=== PATIENT | female | born 1960 | race Caucasian/White ===

== ENCOUNTER 2022-03-13 10:32 | Inpatient (IN) | payer OTHER, SELFPAY ==
[2022-03-13] VITALS (14 sets, daily range): BP systolic 103–155; BP diastolic 69–83; PULSE 79–103; RESP 16–25; TEMP 36.4–36.9; O2SAT 88–94; BMI 35.9; BMI 37.4
--- NOTE | 2022-03-13 10:47 | EKG12_ITS ---
Test Reason : UNGUR Blood Pressure : / mmHG Vent. Rate : 081 BPM Atrial Rate : 081 BPM P-R Int : 140 ms QRS Dur : 108 ms QT Int : 410 ms P-R-T Axes : 033 032 082 degrees QTc Int : 476 ms Sinus rhythm with Premature atrial complexes Inferior-posterior infarct , age undetermined Abnormal ECG Confirmed by JESUS TAI, NITESH ([id number]), brands editor VICKI LOZANO ([id number]) on 03/18/2022 12:16:56 PM Referred By: Confirmed By:NITESH LEE MD
--- NOTE | 2022-03-13 10:48 | EDS_ITS ---
HPI History of Present Illness Chief Complaint: Shortness of Breath Detail of Chief Complaint: Shortness of breath x6 days Informant: patient Narrative Narrative: Patient presents the emergency department complaint shortness of breath. Sosa holbrook states that she started feeling poorly about 6 days ago. Patient states initially started with a cough and had fever up to 101 for 2 days. Now complaining of exertional dyspnea. Cough mostly nonproductive but at times bringing up some thick yellow to green sputum. Patient denies any chest pain. Patient quit smoking in 2014. Patient denies recent travel or surgery. Patient has had her COVID-vaccine and 1 booster. She did not get the flu shot this year. Patient does have history of coronary artery disease with prior CABG in 2014. Patient states she also had a hole fixed in her heart at that time. Patient also is diabetic and history of hypertension. [facility] Medical History (Updated 03/13/22 @ 12:[address] Cristina Bunn, DO) Diabetes High cholesterol History of pulmonary embolism Hypertension Home Medications alprazolam 0.5 mg tablet 0.5 mg PO TID PRN Anxiety 03/13/22 [History Last Taken 03/12/22] gabapentin 600 mg tablet 300 - 600 mg PO BID NEUROPATHY 03/13/22 [History Last Taken 03/12/22] glipizide 5 mg tablet, extended release 24 hr 5 mg PO DAILY DM 03/13/22 [History Last Taken 03/12/22] metformin 500 mg tablet 1,000 mg PO BID DM 03/13/22 [History Last Taken 03/13/22] metoprolol tartrate 25 mg tablet 25 mg PO BID HEART 03/13/22 [History Last Taken 03/12/22] pravastatin 40 mg tablet 40 mg PO QHS CHOLESTEROL 03/13/22 [History Last Taken 03/12/22] sertraline 100 mg tablet 100 mg PO DAILY DEPRESSION 03/13/22 [History Last Taken 03/12/22] Allergy/AdvReac Type Severity Reaction Status Date / Time amlodipine Allergy Hives Verified 03/13/22 10:33 cefdinir [From Omnicef] Allergy Hives Verified 03/13/22 10:33 latex Allergy Hives Verified 03/13/22 10:33 Surgical History (Updated 03/13/22 @ 10:59 by Blank Starr) Hx of CABG Social History Smoking Status: Former smoker ROS ROS ED Review of Systems ROS Unobtainable: other Constitutional Constitutional ED: Reports fever(s) and lethargy; Denies chills, sweats or weight loss Eyes Eyes: Denies blurry vision, change in vision or diplopia ENT ENT ED: Denies rhinorrhea or sore throat Cardiovascular Cardiovascular: Denies chest pain, orthopnea or racing heartbeat Respiratory/Chest Respiratory/Chest: Reports cough, dyspnea and dyspnea on exertion; Denies orthopnea or sputum Gastrointestinal Gastrointestinal: Denies abdominal pain, diarrhea, nausea or vomiting Genitourinary Genitourinary ED: Denies dysuria, hematuria or urinary frequency Musculoskeletal Musculoskeletal: Denies arthralgias, back pain, myalgias or neck pain Integumentary Denies abscess, Abrasions or rash Neurologic Neurologic: Denies headache(s) or weakness Psychiatric Psychiatric: Denies anxiety, depression or suicidal thoughts Endocrine Endocrinology: Denies polydipsia, polyphagia or polyuria Hematologic/Lymphatic Hematologic/Lymphatic: Denies easy bleeding, easy bruising or lymphadenopathy Allergic/Immunologic Allergic/Immunologic ED: Denies mouth swelling, tongue swelling or urticaria EXAM Physical Exam Const Vital Signs: 03/13/22 10:34 03/13/22 10:57 03/13/22 10:57 Temperature 97.5 F L Temperature Source Temporal Pulse Rate 79 80 Respiratory Rate 22 H 20 H Respiratory Effort Short of Breath Accessory Muscle Use Respiratory Pattern Tachypnea Blood Pressure 155/83 H Blood Pressure Mean 107 Pulse Ox 88 91 Oxygen Delivery Method Room Air Nasal Cannula Nasal Cannula Oxygen Flow Rate (L/min) 3 3 03/13/22 11:00 03/13/22 11:00 03/13/22 11:11 Temperature Temperature Source Pulse Rate 92 Respiratory Rate 21 H 25 H Respiratory Effort Respiratory Pattern Blood Pressure Blood Pressure Mean Pulse Ox 90 Oxygen Delivery Method Nasal Cannula Nasal Cannula Oxygen Flow Rate (L/min) 3.5 4 03/13/22 11:37 03/13/22 11:34 03/13/22 12:34 Temperature 98.5 F 98.2 F Temperature Source Oral Oral Pulse Rate 94 88 Respiratory Rate 20 H 22 H Respiratory Effort Respiratory Pattern Blood Pressure 142/70 H 103/69 Blood Pressure Mean 94 80 Pulse Ox 90 90 90 Oxygen Delivery Method Nasal Cannula Nasal Cannula Nasal Cannula Oxygen Flow Rate (L/min) 4 4 5 Positive well nourished and well developed General Appearance ED: well developed and NAD HEENT Reports TM's clear and moist mucous membranes normocephalic and atraumatic; Negative for trauma or tenderness Tympanic Membrane ED: Yes TM's clear Eyes PERRL and EOMs intact bilaterally General Eye ED: Negative for pale conjunctiva or scleral icterus Neck no lymphadenopathy, supple and no JVD General: Negative for tenderness Chest Wall inspection of chest normal and palpation of chest normal Chest: Negative for tenderness Resp Resp Narrative: Patient with some mild tachypnea and some mild conversational dyspnea. No accessory muscle use or retractions. On exam she has slightly diminished breath sounds bilaterally with diffuse expiratory wheezes bilaterally and some coarse rhonchi. No accessory muscle use or retractions noted. Effort and Inspection: Negative for respiratory distress or pain with movement Auscultation: rhonchi, wheezes and diminished lung sounds Cardio regular rate, regular rhythm, S1 normal heart sound, S2 normal heart sound and no murmurs Peripheral Pulses: pulses 2+ throughout GI normal to inspection, nondistended, normoactive bowel sounds, soft to palpation, non-tender, non-distended and no masses Back/Spine no CVA tenderness and no thoracic nor lumbar tenderness Extremity normal to inspection General Extremety ED: Negative for edema General Extremity: Negative for edema Neuro oriented x3, CN's II-XII intact bilaterally, no sensory deficits noted and gait normal Sensorium / Orientation: awake, alert, oriented to person, oriented to place and oriented to time Motor Exam: strength 5/5 throughout and strength abnormal Psych mental status grossly normal Skin no rashes or lesions noted and no wounds MDM MDM MDM Narrative Medical decision making narrative: IV line established on arrival. Patient was placed on nasal cannula O2 as she was hypoxic on arrival. Patient was given DuoNeb aerosols and Solu-Medrol as she was wheezing and suspected that she may have undiagnosed COPD. Given her prior history of PEs and the fact that she is not anticoagulated a D-dimer was obtained which was positive and therefore a CTA of the chest was obtained which did not show any evidence of PE but did show patchy groundglass opacities within the lingula concerning for pneumonia patient also had left lower lobe tree-in-bud opacities which may be secondary to infectious process. Patient's white blood cell count was normal. Chemistries unremarkable. EKG and troponin were unremarkable. In the differential initially were PE versus pneumonia versus COPD exacerbation versus CHF. Based on clinical findings and lab work-up I suspect she has pneumonia with COPD exacerbation. Patient has ongoing hypoxemia. Case discussed with hospitalist who will evaluate patient for admission. Patient was started on Levaquin 750 mg IV. Patient did have negative rapid COVID and rapid flu tests. I did order a COVID PCR test. Lab Data Attestation: I reviewed the patient's lab results. Labs: Laboratory Results - last 24 hr 03/13/22 03/13/22 10:53 10:53 WBC 7.6 RBC 5.09 Hgb 15.2 H Hct 48.7 H MCV 95.7 MCH 29.9 MCHC 31.2 L RDW Std Deviation 48.0 H RDW Coeff of Hcarli 13.5 Plt Count 193 MPV 11.5 Immature Gran % (Auto) 0.500 Neut % (Auto) 52.7 Lymph % (Auto) 32.4 [place] % (Auto) 9.5 Eos % (Auto) 3.7 Baso % (Auto) 1.2 H Absolute Neuts (auto) 4.0 Absolute Lymphs (auto) 2.46 Nucleated RBC % 0 Atypical Lymphocytes 1+ Sodium 139 Potassium 4.0 Chloride 110 H Carbon Dioxide 23.0 Anion Gap 6 BUN 12 Creatinine 0.94 Estim Creat Clear Calc 61.79 Est GFR (MDRD) Af Amer 77 Est GFR (MDRD) Non-Af 64 BUN/Creatinine Ratio 12.7 Glucose 181 H Calcium 8.9 Troponin I High Sens 34 Radiography Diagnostic Testing: Clinical Impression(s) from Imaging Studies Chest X-Ray 03/13/22 11:10 IMPRESSION: Prominent interstitial markings, nonspecific finding may be secondary to edema and/or an infectious process. Indeterminate rounded opacities within the lower lungs may be secondary to focal consolidation, cannot exclude a neoplastic process, recommend chest CT for further characterization. Electronically Signed: Cheryl Gupta MD at 11:31 EST , Chest CTA 03/13/22 11:43 IMPRESSION: No demonstrated pulmonary embolism or arterial dissection. Patchy and groundglass opacities within the lingula concerning for pneumonia. Left lower lobe tree-in-bud opacities, may be secondary to an infectious process. Atherosclerosis. Splenomegaly. Electronically Signed: Cheryl Gupta MD at 12:22 EST , 1 view chest x-ray obtained interpreted by myself as increased markings both lower lobes. Radiology felt there was prominent interstitial markings which may be secondary to edema or infectious process. There were indeterminate round opacities within the lower lungs which may be secondary to focal consolidation and recommended CT scan for further characterization. EKG Initial EKG: Attestation: I personally reviewed and interpreted this EKG as follows: Comments: Sinus rhythm with a rate of 81 bpm with old inferior infarct noted. Discharge Plan Triage Chief Complaint: Shortness of Breath ED Provider: Cristina Bunn Dx/Rx/DC Orders Clinical Impression: Pneumonia, Hypoxemia, History of CAD (coronary artery disease), Reactive airway disease Prescriptions: No Action metformin 500 mg tablet 1,000 mg PO BID Label Comments: TAKE (2) TABLETS BY MOUTHLTWICE DAILY. gabapentin 600 mg tablet 300 - 600 mg PO BID Label Comments: TAKE 1/2 TO 1 TABLET BYCMOUTH TWICE DAILY. pravastatin 40 mg tablet 40 mg PO QHS Label Comments: TAKE (1) TABLET BY MOUTHTDAILY AT BEDTIME. sertraline 100 mg tablet 100 mg PO DAILY Label Comments: TAKE 1 TABLET BY MOUTHDONCE DAILY glipizide 5 mg tablet extended release 24hr 5 mg PO DAILY Label Comments: TAKE 1 TABLET BY MOUTHOONCE DAILY alprazolam 0.5 mg tablet 0.5 mg PO TID PRN (Reason: Anxiety) Label Comments: TAKE 1 TABLET BY MOUTH 3ITIMES DAILY NEEDED. metoprolol tartrate 25 mg tablet 25 mg PO BID Label Comments: TAKE (1) TABLET BY MOUTHTTWICE A DAY. Primary Care Provider: Suhas Arzate Referrals: Suhas Arzate DO [Primary Care Provider] - Disposition Disposition: Acute Care [facility]
--- NOTE | 2022-03-13 10:51 | NURSING ---
NO OLD EKGS
[2022-03-13] MEDS: Albuterol 2.5 MG/3 ML VIAL.NEB. INHALATION ×4 (11:00→15:19)
[2022-03-13] MEDS: Ipratropium/Albuterol Sulfate 3 ML AMPUL.NEB INHALATION ×2 (11:00→20:02)
[2022-03-13] MEDS: MethylPREDNISolone 125 MG/2 ML Vial IV (11:09)
[2022-03-13] MEDS: 0.9% Normal Saline 1,000 ML 150 ML IV (11:09)
--- NOTE | 2022-03-13 11:10 | RAD_ITS ---
INDICATION: dyspnea EXAMINATION/TECHNIQUE: X-RAY - XR Chest 1 View COMPARISON: None. FINDINGS: LINES/DEVICES: None. LUNGS: There are prominent interstitial markings within the mid and lower lungs. Within the right mid/lower lung there is a 4.5 cm rounded opacity. There is an ill-defined rounded opacity projecting over the right cardiac silhouette is well. MEDIASTINUM AND CARDIOVASCULAR STRUCTURES: Cardiac silhouette not enlarged. Central airways and mediastinal contour are unremarkable. BONES AND SOFT TISSUES: Unremarkable. RAD/Chest 1 View (Portable) IMPRESSION: Prominent interstitial markings, nonspecific finding may be secondary to edema and/or an infectious process. Indeterminate rounded opacities within the lower lungs may be secondary to focal consolidation, cannot exclude a neoplastic process, recommend chest CT for further characterization. Electronically Signed: Cheryl Gupta MD at 11:31 EST ,
[2022-03-13 11:24] LABS: Anion Gap 6 (5-15); BUN 12 mg/dL (7-18); BUN/Creat Ratio 12.7 RATIO (10-20); Calcium,Total 8.9 mg/dL (8.5-10.1); Chloride 110 mmol/L (98-107); Creatinine, Serum 0.94 mg/dL (0.55-1.02); EST Glomerular Filtration Rate 64 mL/min (>60); Est Glom Filt Rate - Afr Amer 77 mL/min (>60); Estimated Creatinine Clearance 61.79 ml/min; Glucose 181 mg/dL (74-106); Sodium Level 139 mmol/L (136-145); Troponin-I HS 34 pg/mL (3.0-54.0)
[2022-03-13 11:38] LABS: D-Dimer Quantitative (DVT/PE) 0.82 FEU/ug/m (0.27-0.49)
--- NOTE | 2022-03-13 11:43 | CT_ITS ---
STUDY: CTA CHEST REASON FOR EXAM: Female, 61 years old. Dyspnea, elevated d-dimer RADIATION DOSAGE (If Supplied By Facility): CTDIvol = ( 12.66 ) mGy, DLP = ( 545.39 ) mGycm TECHNIQUE: The examination was performed with the intravenous administration of IV 100mL Isovue-370. Post-processing of the angiographic images was performed, with multiplanar reformation and 3D reconstruction. Individualized dose optimization techniques were used for this CT. COMPARISON: None. FINDINGS: There are nodular, patchy and groundglass opacities within the lingula. There are scattered tree-in-bud opacities within the left lower lobe. There is minimal atelectasis and/or scarring within the right lung base. Normal enhancement of the main pulmonary artery and right and left pulmonary arteries. Normal enhancement of the bilateral peripheral pulmonary arteries. There is no demonstrated pulmonary embolism. Normal thoracic aorta and visualized great vessels. There is no demonstrated aortic dissection. There are calcifications of the coronary arteries. Normal mediastinum. Normal hilar regions. Normal visualized trachea and bronchi. Normal chest wall structures. There are degenerative changes of the thoracic spine. There is a deformity within the manubrium and sternum consistent with an old injury. The limited images of the upper abdomen demonstrate splenomegaly. CT/CTA Chest W/WO Contrast IMPRESSION: No demonstrated pulmonary embolism or arterial dissection. Patchy and groundglass opacities within the lingula concerning for pneumonia. Left lower lobe tree-in-bud opacities, may be secondary to an infectious process. Atherosclerosis. Splenomegaly. Electronically Signed: Cheryl Gupta MD at 12:22 EST ,
[2022-03-13 11:58] LABS: Absolute Lymphocyte Count 2.46 X10^3/uL (0.83-4.51); Basophil# 0.09 X10^3/uL; Basophil% 1.2 % (0-1); Eosinophil# 0.28 X10^3/uL; Eosinophils% 3.7 % (0-5); Hematocrit 48.7 % (37-47); Hemoglobin 15.2 g/dL (12.0-15.0); Lymphocyte # 2.46 X10^3/ul (0.83-4.51); Lymphocyte % 32.4 % (19-41); Mean Corp Hgb Conc 31.2 g/dL (32-36); Mean Corpuscular Hgb 29.9 pg (27.0-32.0); Mean Corpuscular Volume 95.7 fL (81-99); Mean Platelet Vol. 11.5 fl (6.2-12.0); Monocyte# 0.72 X10^3/uL; Monocyte% 9.5 % (0-10); NRBC Flagged by Analyzer 0 % (0-5); Neutrophil # 4.01 X10^3/uL (2.7-7.7); Neutrophil % 52.7 % (47-70); POSITIVE MORPHOLOGY YES; Platelet Count 193 K/mm3 (150-450); RBC Distribution Width CV 13.5 % (11.6-14.6); Red Blood Count 5.09 M/mm3 (4.2-5.4); White Blood Count 7.6 K/mm3 (4.4-11.0)
[2022-03-13 11:59] LABS: Differential Indicated SCAN CRITERIA MET
[2022-03-13 12:27] LABS: Atypical Lymphocyte 1+ %
--- NOTE | 2022-03-13 12:42 | PCM.HP.STD ---
HPI - General General Date of Admission: 03/13/22 Date of Service: 03/13/22 Chief Complaint: Shortness of breath HPI Narrative MONTEZ GOMEZ, is a 61 F with past medical history significant for coronary artery disease with previous CABG, diabetes mellitus type 2 who presented with shortness of breath. Patient symptoms started a week prior to her admission. Has since noticed progressive worsening of her shortness of breath. She also did complain of significant fatigue. She did experience subjective fever as well as chills as well as cough and wheezing. Presented to the emergency department due to worsening symptoms. Imaging studies obtained in the ED did show Patchy and groundglass opacities within the lingula concerning for pneumonia. Left lower lobe tree-in-bud opacities, may be secondary to an infectious process. Patient started on broad-spectrum antibiotic therapy admitted to regular nursing floor for further management [facility] Medical History Diabetes High cholesterol History of pulmonary embolism Hypertension Home Medications alprazolam 0.5 mg tablet 0.5 mg PO TID PRN Anxiety 03/13/22 [History Last Taken 03/12/22] gabapentin 600 mg tablet 300 - 600 mg PO BID NEUROPATHY 03/13/22 [History Last Taken 03/12/22] glipizide 5 mg tablet, extended release 24 hr 5 mg PO DAILY DM 03/13/22 [History Last Taken 03/12/22] metformin 500 mg tablet 1,000 mg PO BID DM 03/13/22 [History Last Taken 03/13/22] metoprolol tartrate 25 mg tablet 25 mg PO BID HEART 03/13/22 [History Last Taken 03/12/22] pravastatin 40 mg tablet 40 mg PO QHS CHOLESTEROL 03/13/22 [History Last Taken 03/12/22] sertraline 100 mg tablet 100 mg PO DAILY DEPRESSION 03/13/22 [History Last Taken 03/12/22] Allergy/AdvReac Type Severity Reaction Status Date / Time amlodipine Allergy Hives Verified 03/13/22 10:33 cefdinir [From Omnicef] Allergy Hives Verified 03/13/22 10:33 latex Allergy Hives Verified 03/13/22 10:33 Family History (Updated 03/13/22 @ 13:[address] Jared Chung MD) Brother COPD (chronic obstructive pulmonary disease) Surgical History (Updated 03/13/22 @ 10:59 by Blank Starr) Hx of CABG Social History Smoking Status: Former smoker ROS ROS Narrative GENERAL: fever, chills, HEENT: denies headache, sinus congestion, or drainage, dysphagia RESPIRATORY: cough, sputum production, shortness of breath, dyspnea on exertion CARDIAC: denies chest pain, palpitations, orthopnea, PND GASTROINTESTINAL: denies abdominal pain, nausea, vomiting, GENITOURINARY: denies dysuria, urgency, frequency, heamaturia EXTREMITY: denies swelling MUSCULOSKELETAL: denies current joint pain or tenderness NEUROLOGIC: denies focal numbness, weakness, tingling HEMATOLOGIC: denies easy bruising and/or hemorrhage INTEGUMENT: denies rashes PSYCHIATRIC: denies suicidal or homicidal ideation Vital Signs Vital Signs Vital Signs: 03/13/22 10:34 03/13/22 10:57 03/13/22 10:57 Temperature 97.5 F L Temperature Source Temporal Pulse Rate 79 80 Respiratory Rate 22 H 20 H Respiratory Effort Short of Breath Accessory Muscle Use Respiratory Pattern Tachypnea Blood Pressure 155/83 H Blood Pressure Mean 107 Pulse Ox 88 91 Oxygen Delivery Method Room Air Nasal Cannula Nasal Cannula Oxygen Flow Rate (L/min) 3 3 03/13/22 11:00 03/13/22 11:00 03/13/22 11:11 Temperature Temperature Source Pulse Rate 92 Respiratory Rate 21 H 25 H Respiratory Effort Respiratory Pattern Blood Pressure Blood Pressure Mean Pulse Ox 90 Oxygen Delivery Method Nasal Cannula Nasal Cannula Oxygen Flow Rate (L/min) 3.5 4 03/13/22 11:37 03/13/22 11:34 03/13/22 12:34 Temperature 98.5 F 98.2 F Temperature Source Oral Oral Pulse Rate 94 88 Respiratory Rate 20 H 22 H Respiratory Effort Respiratory Pattern Blood Pressure 142/70 H 103/69 Blood Pressure Mean 94 80 Pulse Ox 90 90 90 Oxygen Delivery Method Nasal Cannula Nasal Cannula Nasal Cannula Oxygen Flow Rate (L/min) 4 4 5 Weight Weight: 107.048 kg Body Mass Index (BMI) 35.9 Physical Exam Narrative GENERAL: cooperative but appears ill looking HEENT: Atraumatic; normocephalic EYES; Anicteric, Normal Conjunctiva NECK; supple, normal thyroid, RESPIRATORY: Diminished to auscultation CARDIOVASCULAR: Regular S1 S2, GI: soft, normoactive bowel sounds, : No Renal angle tenderness; EXTREMITIES: No edema, no clubbing, MUSCULOSKELETAL: no muscle wasting NEURO: Awake; no lateralizing signs. SKIN: No Rash PSYCH; Flat affect Results Lab / Micro Data Result Diagrams: 03/13/22 10:53 03/13/22 10:53 Labs: Laboratory Results - last 24 hr 03/13/22 10:53: WBC 7.6, RBC 5.09, Hgb 15.2 H, Hct 48.7 H, MCV 95.7, MCH 29.9, MCHC 31.2 L, RDW Std Deviation 48.0 H, RDW Coeff of Charli 13.5, Plt Count 193, MPV 11.5, Immature Gran % (Auto) 0.500, Neut % (Auto) 52.7, Lymph % (Auto) 32.4, [place] % (Auto) 9.5, Eos % (Auto) 3.7, Baso % (Auto) 1.2 H, Absolute Neuts (auto) 4.0, Absolute Lymphs (auto) 2.46, Nucleated RBC % 0, Atypical Lymphocytes 1+ 03/13/22 10:53: Sodium 139, Potassium 4.0, Chloride 110 H, Carbon Dioxide 23.0, Anion Gap 6, BUN 12, Creatinine 0.94, Estim Creat Clear Calc 61.79, Est GFR (MDRD) Af Amer 77, Est GFR (MDRD) Non-Af 64, BUN/Creatinine Ratio 12.7, Glucose 181 H, Calcium 8.9, Troponin I High Sens 34 Micro: Microbiology 03/13/22 10:53 Nasal Secretion SARS-CoV-2 & FLU Antigen (Rapid) - Final Radiology Impression Chest X-Ray 03/13/22 11:10 IMPRESSION: Prominent interstitial markings, nonspecific finding may be secondary to edema and/or an infectious process. Indeterminate rounded opacities within the lower lungs may be secondary to focal consolidation, cannot exclude a neoplastic process, recommend chest CT for further characterization. Electronically Signed: Cheryl Gupta MD at 11:31 EST , Chest CTA 03/13/22 11:43 IMPRESSION: No demonstrated pulmonary embolism or arterial dissection. Patchy and groundglass opacities within the lingula concerning for pneumonia. Left lower lobe tree-in-bud opacities, may be secondary to an infectious process. Atherosclerosis. Splenomegaly. Electronically Signed: Cheryl Gupta MD at 12:22 EST , Assessment & Plan Assessment/Plan (1) Pneumonia: (2) Hypoxemia: PLAN: Plan Patient is a 61-year-old lady with past medical history significant for coronary artery disease with previous CABG, diabetes mellitus type 2 who presented with shortness of breath. 1. Acute hypoxia ? Secondary to pneumonia as well as exacerbation of reactive airway disease. Admitted to regular nursing floor for treatment of underlying condition. Placed on oxygen titrated to keep saturation greater than 90 2. Pneumonia ? Imaging studies obtained on admission did show Patchy and groundglass opacities within the lingula concerning for pneumonia. Left lower lobe tree-in-bud opacities, may be secondary to an infectious process.. Admitted to regular nursing floor started on broad-spectrum antibiotic therapy with Levaquin. As part of her management ordered CBC, BMP, viral respiratory panel strep and Legionella urine antigen. Did review with patient CAT scan personally and do agree with the finding of pneumonia. Patient progressed being monitored with daily CBC and oxygen requirement 2. Exacerbation of acute reactive airway disease (COPD/possible asthma) ? Patient managed with bronchodilator treatments in addition to systemic steroid and antibiotics as discussed above 4. Coronary artery disease ? 3 previous history of 5-week CABG. Patient enzymes on admission unremarkable we will monitor continuously on telemetry 5. Class II obesity with BMI of 35.9 ? Complicating care weight loss advised 6. Diabetes mellitus type 2 ? Patient is on metformin and glimepiride both medications held. Placed on long-acting insulin with Lantus as well as Accu-Cheks before meals and at bedtime with sliding scale coverage 7. Dyslipidemia ? Patient is on pravastatin at home, substituted with atorvastatin 8. Depression with anxiety ? Patient is on sertraline as well as alprazolam as needed both medications continued 9. DVT prophylaxis ? On Lovenox Time spent in the patient's overall evaluation,decision-making process, review of diagnostic data, adjustment of management, discussion with other providers, nursing nursing and ancillary staff involved in patient's care documentation, 76 Minutes Advance planning; did discuss with the patient and family regarding advanced directives as well as CODE STATUS. Did explain the various scenarios involved ( FULL CODE, DNR CCA, DNR CCA with no intubation, and DNR CC and what each meant) patient elected to remain full code with CPR and intubation if needed. Order was placed. Time spent on discussion 18 minutes. Charges/Coding Visit Charges Inpatient E&M: 52261 Init Hosp L3 Procedures Hospitalists Procedures: 37051 Advncd Care Plan 30 Min
[2022-03-13] MEDS: levoFLOXacin IV 750 MG/150 ML BAG 100 MG IV (12:43)
--- NOTE | 2022-03-13 12:57 | NURSING ---
211 KITTOE PNEUMONIA, COPD, HYPOXIA
[2022-03-13 17:11] LABS: Bedside Glucose 313 mg/dL (74-106)
[2022-03-13] MEDS: Insulin Glargine-YFGN 100 UNIT/ML Pen 15 UNIT SC (17:12)
[2022-03-13] MEDS: Insulin Lispro 100 UNIT/ML INSULN.PEN SC ×2 (17:13→21:55)
[2022-03-13] MEDS: 0.9% Normal Saline 1,000 ML 75 ML IV ×2 (17:14→19:57)
[2022-03-13 21:36] LABS: Bedside Glucose 297 mg/dL (74-106)
[2022-03-13] MEDS: Sertraline 100 MG Tablet PO (21:54)
[2022-03-13] MEDS: Metoprolol Tartrate 25 MG Tablet PO (21:55)
[2022-03-13] MEDS: Pravastatin 40 MG Tablet PO (21:55)
[2022-03-13] MEDS: Gabapentin 300 MG Capsule PO (21:55)
[2022-03-13] MEDS: ALPRAZolam 0.5 MG Tablet PO (21:58)
[2022-03-14] VITALS (14 sets, daily range): BP systolic 118–141; BP diastolic 64–79; PULSE 74–87; RESP 16–24; TEMP 36.4–36.6; O2SAT 92–97
[2022-03-14] MEDS: MELATONIN 3 MG TABLET PO ×2 (00:44→21:53)
[2022-03-14 04:23] LABS: Absolute Lymphocyte Count 1.02 X10^3/uL (0.83-4.51); Absolute Neutrophil Count 5.4 X10^3/uL (2.0-7.7); Basophil# 0.01 X10^3/uL; Basophil% 0.2 % (0-1); Hematocrit 40.5 % (37-47); Hemoglobin 13.1 g/dL (12.0-15.0); Lymphocyte # 1.02 X10^3/ul (0.83-4.51); Lymphocyte % 15.3 % (19-41); Mean Corp Hgb Conc 32.3 g/dL (32-36); Mean Corpuscular Hgb 30.8 pg (27.0-32.0); Mean Corpuscular Volume 95.3 fL (81-99); Monocyte# 0.23 X10^3/uL; Monocyte% 3.5 % (0-10); NRBC Flagged by Analyzer 0 % (0-5); Neutrophil # 5.37 X10^3/uL (2.7-7.7); Neutrophil % 80.5 % (47-70); Platelet Count 157 K/mm3 (150-450); RBC Distribution Width CV 13.3 % (11.6-14.6); RBC Distribution Width SD 47.3 fl (35.1-43.9); Red Blood Count 4.25 M/mm3 (4.2-5.4); White Blood Count 6.7 K/mm3 (4.4-11.0)
[2022-03-14 04:48] LABS: Anion Gap 7 (5-15); BUN 15 mg/dL (7-18); BUN/Creat Ratio 15.1 RATIO (10-20); Calcium,Total 8.7 mg/dL (8.5-10.1); Chloride 105 mmol/L (98-107); EST Glomerular Filtration Rate 60 mL/min (>60); Est Glom Filt Rate - Afr Amer 72 mL/min (>60); Estimated Creatinine Clearance 58.09 ml/min; Glucose 316 mg/dL (74-106); Magnesium 1.8 mg/dL (1.6-2.6); Potassium 4.9 mmol/L (3.5-5.1); Sodium Level 137 mmol/L (136-145)
[2022-03-14] MEDS: 0.9% Saline Lock 10 ML Syringe IV ×2 (06:15→21:53)
[2022-03-14] MEDS: Insulin Lispro 100 UNIT/ML INSULN.PEN SC ×4 (06:16→21:51)
[2022-03-14] MEDS: Ipratropium/Albuterol Sulfate 3 ML AMPUL.NEB INHALATION ×4 (06:54→19:33)
[2022-03-14 07:25] LABS: Bedside Glucose 275 mg/dL (74-106)
--- NOTE | 2022-03-14 08:17 | PN.HOSP_ITS ---
Subjective Subjective Follow-up acute hypoxia Patient seen ; viral respiratory panel came back positive for parainfluenza virus. Patient still requiring supplemental oxygen Objective Data Objective Data Vital Signs: Vital Signs Temp Pulse Resp BP Pulse Ox O2 Del Method O2 Flow Rate 98 F 79 24 H 135/75 H 93 Nasal Cannula 2 03/14/22 05:00 03/14/22 06:50 03/14/22 06:50 03/14/22 05:00 03/14/22 06:50 03/14/22 06:50 03/14/22 06:50 Oxygen Flow Rate (L/min) 2 Oxygen Delivery Method Nasal Cannula Weight: 111.7 kg Body Mass Index (BMI) 37.4 Intake & Output: Intake and Output for Last 24 Hours 03/12/22 03/13/22 03/14/22 23:59 23:59 23:59 Intake Total 1268.75 / 1268.75 Output Total 100 / 100 Balance 1168.75 / 1168.75 Lab / Micro Data Result Diagrams: 03/14/22 03:57 03/14/22 03:57 Labs: Laboratory Results - last 24 hr 03/13/22 10:53: WBC 7.6, RBC 5.09, Hgb 15.2 H, Hct 48.7 H, MCV 95.7, MCH 29.9, MCHC 31.2 L, RDW Std Deviation 48.0 H, RDW Coeff of Charli 13.5, Plt Count 193, MPV 11.5, Immature Gran % (Auto) 0.500, Neut % (Auto) 52.7, Lymph % (Auto) 32.4, [place] % (Auto) 9.5, Eos % (Auto) 3.7, Baso % (Auto) 1.2 H, Absolute Neuts (auto) 4.0, Absolute Lymphs (auto) 2.46, Nucleated RBC % 0, Atypical Lymphocytes 1+ 03/13/22 10:53: Sodium 139, Potassium 4.0, Chloride 110 H, Carbon Dioxide 23.0, Anion Gap 6, BUN 12, Creatinine 0.94, Estim Creat Clear Calc 61.79, Est GFR (MDRD) Af Amer 77, Est GFR (MDRD) Non-Af 64, BUN/Creatinine Ratio 12.7, Glucose 181 H, Calcium 8.9, Troponin I High Sens 34 03/13/22 10:53: D-Dimer Quant (PE/DVT) 0.82 H* 03/13/22 12:53: COVID-19 (ARACELI) Not Detected 03/13/22 16:31: POC Glucose 313 H 03/13/22 20:59: POC Glucose 297 H 03/14/22 03:57: WBC 6.7, RBC 4.25, Hgb 13.1, Hct 40.5, MCV 95.3, MCH 30.8, MCHC 32.3, RDW Std Deviation 47.3 H, RDW Coeff of Charli 13.3, Plt Count 157, MPV 11.0, Immature Gran % (Auto) 0.500, Neut % (Auto) 80.5 H, Lymph % (Auto) 15.3 L, [place] % (Auto) 3.5, Eos % (Auto) 0.0, Baso % (Auto) 0.2, Absolute Neuts (auto) 5.4, Absolute Lymphs (auto) 1.02, Nucleated RBC % 0 03/14/22 03:57: Sodium 137, Potassium 4.9, Chloride 105, Carbon Dioxide 25.0, Anion Gap 7, BUN 15, Creatinine 1.00, Estim Creat Clear Calc 58.09, Est GFR (MDRD) Af Amer 72, Est GFR (MDRD) Non-Af 60, BUN/Creatinine Ratio 15.1, Glucose 316 H, Calcium 8.7, Magnesium 1.8 03/14/22 06:10: POC Glucose 275 H Micro: Microbiology 03/13/22 18:14 Urine, Clean Catch Legionella Antigen - Final 03/13/22 18:14 Urine, Clean Catch Streptococcus pneumoniae Antigen (M - Final 03/13/22 12:53 Mucosa - Nose Respiratory Panel (PCR) - Final Parainfluenza 2 03/13/22 10:53 Nasal Secretion SARS-CoV-2 & FLU Antigen (Rapid) - Final Radiography Diagnostic Testing: Radiology Impression Chest X-Ray 03/13/22 11:10 IMPRESSION: Prominent interstitial markings, nonspecific finding may be secondary to edema and/or an infectious process. Indeterminate rounded opacities within the lower lungs may be secondary to focal consolidation, cannot exclude a neoplastic process, recommend chest CT for further characterization. Electronically Signed: Cheryl Gupta MD at 11:31 EST , Chest CTA 03/13/22 11:43 IMPRESSION: No demonstrated pulmonary embolism or arterial dissection. Patchy and groundglass opacities within the lingula concerning for pneumonia. Left lower lobe tree-in-bud opacities, may be secondary to an infectious process. Atherosclerosis. Splenomegaly. Electronically Signed: Cheryl Gupat MD at 12:22 EST , Physical Exam Narrative GENERAL: cooperative but appears ill looking HEENT: Atraumatic; normocephalic EYES; Anicteric, Normal Conjunctiva NECK; supple, normal thyroid, RESPIRATORY: Diminished to auscultation CARDIOVASCULAR: Regular S1 S2, GI: soft, normoactive bowel sounds, : No Renal angle tenderness; EXTREMITIES: No edema, no clubbing, MUSCULOSKELETAL: no muscle wasting NEURO: Awake; no lateralizing signs. SKIN: No Rash PSYCH; Flat affect Assessment & Plan Assessment/Plan (1) Pneumonia: (2) Hypoxemia: PLAN: Plan Patient is a 61-year-old lady with past medical history significant for coronary artery disease with previous CABG, diabetes mellitus type 2 who presented with shortness of breath. 1. Acute hypoxia ? Secondary to pneumonia as well as exacerbation of reactive airway disease. Admitted to regular nursing floor for treatment of underlying condition. Placed on oxygen titrated to keep saturation greater than 90 2. Pneumonia ? Imaging studies obtained on admission did show Patchy and groundglass opacities within the lingula concerning for pneumonia. Left lower lobe tree-in-bud opacities, may be secondary to an infectious process.. Admitted to regular nursing floor started on broad-spectrum antibiotic therapy with Levaquin. As part of her management ordered CBC, BMP, viral respiratory panel strep and Legionella urine antigen. Did review with patient CAT scan personally and do agree with the finding of pneumonia. Patient progressed being monitored with daily CBC and oxygen requirement -03/14/2022; viral respiratory panel came back positive for parainfluenza virus. Patient still requiring supplemental oxygen 2. Exacerbation of acute reactive airway disease (COPD/possible asthma) ? Patient managed with bronchodilator treatments in addition to systemic steroid and antibiotics as discussed above 4. Coronary artery disease ? 3 previous history of 5-week CABG. Patient enzymes on admission unremarkable we will monitor continuously on telemetry 5. Class II obesity with BMI of 35.9 ? Complicating care weight loss advised 6. Diabetes mellitus type 2 ? Patient is on metformin and glimepiride both medications held. Placed on long-acting insulin with Lantus as well as Accu-Cheks before meals and at bedtime with sliding scale coverage ? 03/14/2022; patient blood glucose levels markedly elevated. Did increase Lantus from 15 units at bedtime to 15 twice daily 7. Dyslipidemia ? Patient is on pravastatin at home, substituted with atorvastatin 8. Depression with anxiety ? Patient is on sertraline as well as alprazolam as needed both medications continued 9. DVT prophylaxis ? On Lovenox Time spent in the patient's overall evaluation,decision-making process, review of diagnostic data, adjustment of management, discussion with other providers, nursing nursing and ancillary staff involved in patient's care documentation, 38 Minutes Charges/Coding Visit Charges Inpatient E&M: 44212 Subs Hosp L2
[2022-03-14] MEDS: levoFLOXacin IV 750 MG/150 ML BAG 100 MG IV (08:58)
[2022-03-14] MEDS: Gabapentin 300 MG Capsule PO ×2 (08:58→21:53)
[2022-03-14] MEDS: Insulin Glargine-YFGN 100 UNIT/ML Pen 25 UNIT SC ×2 (08:59→16:28)
[2022-03-14] MEDS: Enoxaparin 40 MG/0.4 ML Syringe SC (09:00)
[2022-03-14] MEDS: Metoprolol Tartrate 25 MG Tablet PO ×2 (09:04→21:53)
--- NOTE | 2022-03-14 10:05 | CASEMGMT ---
ARIELLA RENO Assessment: Face to Face with pt for initial transition planning/care coordination assessment. ARIELLA RENO introduced self and role at [facility], pt voices understanding and consents to assessment. Pt is A/O x4 and answers all questions appropriately at this time. Pt lying in bed in no distress with oxygen on. Care providers, pharmacy, and demographics verified/updated. Admitting Dx: hypoxia PCP:Carito Specialists:avery Schmitz; Stephanie Zelaya DISPLAY DESIGNER cardio Preferred Pharmacy: [facility] Insurance: MMO Prescription Benefit: yes LNOK: Jamaal Shearer, sig other Living Arrangements: Pt lives Transportation: Pt drives self and denies concerns with transportation. DME/HHC/SNF: Pt has a BGM with sufficient supplies, shower chair and a FWW. Pt does not use AD. Pt has had [facility] in the past and denies SNF stays. Pt states no concerns with going home at time of dc. Pt states she will obtain a pox. Discussed the possibility of pt needing oxygen at dc. Pt states she hopes this is not the case. Provided pt with a verbal local in network list of DME companies, pt chose [employer]. Pt states no further concerns/needs. CM to follow. Advised pt to ask CM if any further question/concerns/needs arise, voices understanding. Pt Goal: Home Plan: Home, follow for oxygen
[2022-03-14 12:06] LABS: Bedside Glucose 368 mg/dL (74-106)
[2022-03-14] MEDS: 0.9% Normal Saline 1,000 ML 75 ML IV (12:26)
[2022-03-14 14:09] LABS: M R Staph aureus DNA By PCR Negative (Negative); Probe Check PASS; Specimen Processing Control PASS
[2022-03-14] MEDS: guaiFENesin 10 ML UDC (200MG/10ML) 20 ML PO (15:10)
[2022-03-14] MEDS: ALPRAZolam 0.5 MG Tablet PO ×2 (15:10→21:53)
[2022-03-14 16:50] LABS: Bedside Glucose 222 mg/dL (74-106)
[2022-03-14] MEDS: Pravastatin 40 MG Tablet PO (21:53)
[2022-03-14] MEDS: Senna/Docusate Sodium 1 Tablet 2 TABLET PO (21:53)
[2022-03-14] MEDS: Sertraline 100 MG Tablet PO (21:53)
[2022-03-15] VITALS (8 sets, daily range): BP systolic 117–133; BP diastolic 65–80; PULSE 71–93; RESP 16–18; TEMP 36.4–36.6; O2SAT 87–94
[2022-03-15 00:30] LABS: Bedside Glucose 288 mg/dL (74-106)
[2022-03-15] MEDS: 0.9% Saline Lock 10 ML Syringe IV (05:56)
[2022-03-15 05:57] LABS: Absolute Lymphocyte Count 1.12 X10^3/uL (0.83-4.51); Absolute Neutrophil Count 7.9 X10^3/uL (2.0-7.7); Basophil# 0.01 X10^3/uL; Basophil% 0.1 % (0-1); Hematocrit 39.4 % (37-47); Hemoglobin 12.6 g/dL (12.0-15.0); Lymphocyte # 1.12 X10^3/ul (0.83-4.51); Lymphocyte % 11.8 % (19-41); Mean Corpuscular Hgb 30.8 pg (27.0-32.0); Mean Corpuscular Volume 96.3 fL (81-99); Mean Platelet Vol. 11.1 fl (6.2-12.0); Monocyte# 0.46 X10^3/uL; Monocyte% 4.8 % (0-10); NRBC Flagged by Analyzer 0 % (0-5); Neutrophil # 7.86 X10^3/uL (2.7-7.7); Neutrophil % 82.5 % (47-70); Platelet Count 181 K/mm3 (150-450); RBC Distribution Width CV 13.5 % (11.6-14.6); RBC Distribution Width SD 48.1 fl (35.1-43.9); Red Blood Count 4.09 M/mm3 (4.2-5.4); White Blood Count 9.5 K/mm3 (4.4-11.0)
[2022-03-15 06:23] LABS: Anion Gap 5 (5-15); BUN 20 mg/dL (7-18); BUN/Creat Ratio 22.6 RATIO (10-20); Calcium,Total 8.8 mg/dL (8.5-10.1); Chloride 107 mmol/L (98-107); Creatinine, Serum 0.88 mg/dL (0.55-1.02); EST Glomerular Filtration Rate 69 mL/min (>60); Est Glom Filt Rate - Afr Amer 83 mL/min (>60); Estimated Creatinine Clearance 66.01 ml/min; Glucose 326 mg/dL (74-106); Potassium 5.1 mmol/L (3.5-5.1); Sodium Level 136 mmol/L (136-145)
[2022-03-15] MEDS: Ipratropium/Albuterol Sulfate 3 ML AMPUL.NEB INHALATION ×2 (07:15→11:13)
--- NOTE | 2022-03-15 07:25 | PCM.PN.HOSP ---
Subjective Subjective Follow-up acute hypoxia Patient seen improving clinically. Plan is for patient to be assessed for possible discharge just 6-minute walk Objective Data Objective Data Vital Signs: Vital Signs Temp Pulse Resp BP Pulse Ox O2 Del Method O2 Flow Rate 97.9 F 71 16 117/65 93 Room Air 2 03/15/22 01:58 03/15/22 01:58 03/15/22 01:58 03/15/22 01:58 03/15/22 05:41 03/15/22 02:27 03/15/22 05:41 Oxygen Flow Rate (L/min) [ 2 AMBULATING with Oxygen #1] Oxygen Flow Rate (L/min) 1 Oxygen Delivery Method Room Air Weight: 111.7 kg Body Mass Index (BMI) 37.4 Intake & Output: Intake and Output for Last 24 Hours 03/13/22 03/14/22 03/15/22 23:59 23:59 23:59 Intake Total 1268.75 / 1268.75 1150 / 1150 1000 / 1000 Output Total 100 / 100 Balance 1168.75 / 1168.75 1150 / 1150 1000 / 1000 Lab / Micro Data Result Diagrams: 03/15/22 05:33 03/15/22 05:33 Labs: Laboratory Results - last 24 hr 03/13/22 11:10: MRSA (PCR) Negative 03/14/22 06:10: POC Glucose 275 H 03/14/22 11:29: POC Glucose 368 H 03/14/22 16:25: POC Glucose 222 H 03/14/22 21:38: POC Glucose 288 H 03/15/22 05:33: WBC 9.5, RBC 4.09 L, Hgb 12.6, Hct 39.4, MCV 96.3, MCH 30.8, MCHC 32.0, RDW Std Deviation 48.1 H, RDW Coeff of Charli 13.5, Plt Count 181, MPV 11.1, Immature Gran % (Auto) 0.800, Neut % (Auto) 82.5 H, Lymph % (Auto) 11.8 L, [place] % (Auto) 4.8, Eos % (Auto) 0.0, Baso % (Auto) 0.1, Absolute Neuts (auto) 7.9 H, Absolute Lymphs (auto) 1.12, Nucleated RBC % 0 03/15/22 05:33: Sodium 136, Potassium 5.1, Chloride 107, Carbon Dioxide 24.0, Anion Gap 5, BUN 20 H, Creatinine 0.88, Estim Creat Clear Calc 66.01, Est GFR (MDRD) Af Amer 83, Est GFR (MDRD) Non-Af 69, BUN/Creatinine Ratio 22.6 H, Glucose 326 H, Calcium 8.8 Micro: Microbiology 03/13/22 18:14 Urine, Clean Catch Legionella Antigen - Final 03/13/22 18:14 Urine, Clean Catch Streptococcus pneumoniae Antigen (M - Final 03/13/22 12:53 Mucosa - Nose Respiratory Panel (PCR) - Final Parainfluenza 2 03/13/22 10:53 Nasal Secretion SARS-CoV-2 & FLU Antigen (Rapid) - Final Physical Exam Narrative GENERAL: cooperative HEENT: Atraumatic; normocephalic EYES; Anicteric, Normal Conjunctiva NECK; supple, normal thyroid, RESPIRATORY: Diminished to auscultation CARDIOVASCULAR: Regular S1 S2, GI: soft, normoactive bowel sounds, : No Renal angle tenderness; EXTREMITIES: No edema, no clubbing, MUSCULOSKELETAL: no muscle wasting NEURO: Awake; no lateralizing signs. SKIN: No Rash PSYCH; Flat affect Assessment & Plan Assessment/Plan (1) Pneumonia: (2) Hypoxemia: PLAN: Plan Patient is a 61-year-old lady with past medical history significant for coronary artery disease with previous CABG, diabetes mellitus type 2 who presented with shortness of breath. 1. Acute hypoxia ? Secondary to pneumonia as well as exacerbation of reactive airway disease. Admitted to regular nursing floor for treatment of underlying condition. Placed on oxygen titrated to keep saturation greater than 90 ? 03/15/2022; patient to be assessed for possible discharge with a 6-minute walk 2. Pneumonia ? Imaging studies obtained on admission did show Patchy and groundglass opacities within the lingula concerning for pneumonia. Left lower lobe tree-in-bud opacities, may be secondary to an infectious process.. Admitted to regular nursing floor started on broad-spectrum antibiotic therapy with Levaquin. As part of her management ordered CBC, BMP, viral respiratory panel strep and Legionella urine antigen. Did review with patient CAT scan personally and do agree with the finding of pneumonia. Patient progressed being monitored with daily CBC and oxygen requirement -03/14/2022; viral respiratory panel came back positive for parainfluenza virus. Patient still requiring supplemental oxygen 2. Exacerbation of acute reactive airway disease (COPD/possible asthma) ? Patient managed with bronchodilator treatments in addition to systemic steroid and antibiotics as discussed above 4. Coronary artery disease ? 3 previous history of 5-week CABG. Patient enzymes on admission unremarkable we will monitor continuously on telemetry 5. Class II obesity with BMI of 35.9 ? Complicating care weight loss advised 6. Diabetes mellitus type 2 ? Patient is on metformin and glimepiride both medications held. Placed on long-acting insulin with Lantus as well as Accu-Cheks before meals and at bedtime with sliding scale coverage ? 03/14/2022; patient blood glucose levels markedly elevated. Did increase Lantus from 15 units at bedtime to 15 twice daily 7. Dyslipidemia ? Patient is on pravastatin at home, substituted with atorvastatin 8. Depression with anxiety ? Patient is on sertraline as well as alprazolam as needed both medications continued 9. DVT prophylaxis ? On Lovenox Time spent in the patient's overall evaluation,decision-making process, review of diagnostic data, adjustment of management, discussion with other providers, nursing nursing and ancillary staff involved in patient's care documentation, 36 Minutes Charges/Coding Visit Charges Inpatient E&M: 52335 Subs Hosp L2
--- NOTE | 2022-03-15 08:03 | PCM.DC.SUM ---
Providers Date of Admission: 03/13/22 Date of Discharge: 03/15/22 Primary Care Physician: Dr. Suhas Arzate, Reason For Visit: HYPOXIA Diagnosis Discharge Diagnosis (1) Pneumonia: Status: Acute Code(s): J18.9 - Pneumonia, unspecified organism (2) Hypoxemia: Status: Acute Code(s): R09.02 - Hypoxemia Plan Patient is a 61-year-old lady with past medical history significant for coronary artery disease with previous CABG, diabetes mellitus type 2 who presented with shortness of breath. 1. Acute hypoxia ? Secondary to pneumonia as well as exacerbation of reactive airway disease. Admitted to regular nursing floor for treatment of underlying condition. Placed on oxygen titrated to keep saturation greater than 90 ? 03/15/2022; patient to be assessed for possible discharge with a 6-minute walk 2. Pneumonia ? Imaging studies obtained on admission did show Patchy and groundglass opacities within the lingula concerning for pneumonia. Left lower lobe tree-in-bud opacities, may be secondary to an infectious process.. Admitted to regular nursing floor started on broad-spectrum antibiotic therapy with Levaquin. As part of her management ordered CBC, BMP, viral respiratory panel strep and Legionella urine antigen. Did review with patient CAT scan personally and do agree with the finding of pneumonia. Patient progressed being monitored with daily CBC and oxygen requirement -03/14/2022; viral respiratory panel came back positive for parainfluenza virus. 2. Exacerbation of acute reactive airway disease (COPD/possible asthma) ? Patient managed with bronchodilator treatments in addition to systemic steroid and antibiotics as discussed above 4. Coronary artery disease ? 3 previous history of 5-week CABG. Patient enzymes on admission unremarkable we will monitor continuously on telemetry 5. Class II obesity with BMI of 35.9 ? Complicating care weight loss advised 6. Diabetes mellitus type 2 ? Patient is on metformin and glimepiride both medications held. Placed on long-acting insulin with Lantus as well as Accu-Cheks before meals and at bedtime with sliding scale coverage ? 03/14/2022; patient blood glucose levels markedly elevated. Did increase Lantus from 15 units at bedtime to 15 twice daily 7. Dyslipidemia ? Patient is on pravastatin at home, substituted with atorvastatin 8. Depression with anxiety ? Patient is on sertraline as well as alprazolam as needed both medications continued 9. DVT prophylaxis ? On Lovenox Time spent in the patient's overall evaluation,decision-making process, review of diagnostic data, adjustment of management, discussion with other providers, nursing nursing and ancillary staff involved in patient's care documentation, 36 Minutes Medications at Discharge Home Medications alprazolam 0.5 mg tablet 0.5 mg PO TID PRN Anxiety 03/13/22 gabapentin 600 mg tablet 300 - 600 mg PO BID NEUROPATHY 03/13/22 glipizide 5 mg tablet, extended release 24 hr 5 mg PO DAILY DM 03/13/22 metformin 500 mg tablet 1,000 mg PO BID DM 03/13/22 metoprolol tartrate 25 mg tablet 25 mg PO BID HEART 03/13/22 pravastatin 40 mg tablet 40 mg PO QHS CHOLESTEROL 03/13/22 sertraline 100 mg tablet 100 mg PO DAILY DEPRESSION 03/13/22 albuterol sulfate 90 mcg/actuation aerosol inhaler 2 puff inhalation Q6H PRN shortness of breath or wheezing #8.5 grams 03/15/22 budesonide-formoterol HFA 80 mcg-4.5 mcg/actuation aerosol inhaler (Symbicort) 1 inh inhalation BID #10.2 grams 03/15/22 guaifenesin 1,200 mg tablet, extended release 12 hr (Mucinex) 1,200 mg PO BID #14 tabs 03/15/22 levofloxacin 750 mg tablet 750 mg PO DAILY #5 tabs 03/15/22 prednisone 20 mg tablet 20 mg PO BID #10 tabs 03/15/22 Hospital Course Summary of Care Provided Minutes Spent on Discharge: 36 Physical Exam Narrative GENERAL: cooperative HEENT: Atraumatic; normocephalic EYES; Anicteric, Normal Conjunctiva NECK; supple, normal thyroid, RESPIRATORY: Diminished to auscultation CARDIOVASCULAR: Regular S1 S2, GI: soft, normoactive bowel sounds, : No Renal angle tenderness; EXTREMITIES: No edema, no clubbing, MUSCULOSKELETAL: no muscle wasting NEURO: Awake; no lateralizing signs. SKIN: No Rash PSYCH; Flat affect Weight / BMI Weight Weight: 111.7 kg Body Mass Index (BMI) 37.4 ABG / Lab / Microbiology Data Result Diagrams: 03/15/22 05:33 03/15/22 05:33 Laboratory: Laboratory Results - last 24 hr 03/13/22 11:10: MRSA (PCR) Negative 03/14/22 11:29: POC Glucose 368 H 03/14/22 16:25: POC Glucose 222 H 03/14/22 21:38: POC Glucose 288 H 03/15/22 05:33: WBC 9.5, RBC 4.09 L, Hgb 12.6, Hct 39.4, MCV 96.3, MCH 30.8, MCHC 32.0, RDW Std Deviation 48.1 H, RDW Coeff of Charli 13.5, Plt Count 181, MPV 11.1, Immature Gran % (Auto) 0.800, Neut % (Auto) 82.5 H, Lymph % (Auto) 11.8 L, [place] % (Auto) 4.8, Eos % (Auto) 0.0, Baso % (Auto) 0.1, Absolute Neuts (auto) 7.9 H, Absolute Lymphs (auto) 1.12, Nucleated RBC % 0 03/15/22 05:33: Sodium 136, Potassium 5.1, Chloride 107, Carbon Dioxide 24.0, Anion Gap 5, BUN 20 H, Creatinine 0.88, Estim Creat Clear Calc 66.01, Est GFR (MDRD) Af Amer 83, Est GFR (MDRD) Non-Af 69, BUN/Creatinine Ratio 22.6 H, Glucose 326 H, Calcium 8.8 Microbiology: Microbiology 03/13/22 18:14 Urine, Clean Catch Legionella Antigen - Final 03/13/22 18:14 Urine, Clean Catch Streptococcus pneumoniae Antigen (M - Final 03/13/22 12:53 Mucosa - Nose Respiratory Panel (PCR) - Final Parainfluenza 2 03/13/22 10:53 Nasal Secretion SARS-CoV-2 & FLU Antigen (Rapid) - Final D/C Instructions Discharge Diet: 1800 Calorie Control Diet Discharge Activity: Return to Normal Activity Call your doctor if you observe: Fever of 101 or Higher, Shortness of breath, Fainting spells and Chest pain Meaningful Use Info Meaningful Use Diagnoses (Choose all that apply): None applicable Discharge Plan Admission Admit Date/Time: 03/13/22 12:42 Attending Provider: Jared Chung Primary Care Provider: Suhas Arzate Discharge Orders/Prescriptions Prescriptions: New albuterol sulfate 90 mcg/actuation HFA aerosol inhaler 2 puff inhalation Q6H PRN (Reason: shortness of breath or wheezing) Qty: 8.5 0RF budesonide-formoterol [Symbicort] 80-4.5 mcg/actuation HFA aerosol inhaler 1 inh inhalation BID Qty: 10.2 0RF prednisone 20 mg tablet 20 mg PO BID Qty: 10 0RF levofloxacin 750 mg tablet 750 mg PO DAILY Qty: 5 0RF Mucinex 1,200 mg tablet extended release 12hr 1,200 mg PO BID Qty: 14 0RF Continued metformin 500 mg tablet 1,000 mg PO BID Label Comments: TAKE (2) TABLETS BY MOUTHLTWICE DAILY. gabapentin 600 mg tablet 300 - 600 mg PO BID Label Comments: TAKE 1/2 TO 1 TABLET BYCMOUTH TWICE DAILY. pravastatin 40 mg tablet 40 mg PO QHS Label Comments: TAKE (1) TABLET BY MOUTHTDAILY AT BEDTIME. sertraline 100 mg tablet 100 mg PO DAILY Label Comments: TAKE 1 TABLET BY MOUTHDONCE DAILY glipizide 5 mg tablet extended release 24hr 5 mg PO DAILY Label Comments: TAKE 1 TABLET BY MOUTHOONCE DAILY alprazolam 0.5 mg tablet 0.5 mg PO TID PRN (Reason: Anxiety) Label Comments: TAKE 1 TABLET BY MOUTH 3ITIMES DAILY NEEDED. metoprolol tartrate 25 mg tablet 25 mg PO BID Label Comments: TAKE (1) TABLET BY MOUTHTTWICE A DAY. Referrals / Follow Up: Suhas Arzate DO [Primary Care Provider] - In 1 Week Disposition Disposition (needs filled in before D/C Order can be placed): Home, Self Care Charges/Coding Visit Charges Inpatient E&M: 86700 Disch Hosp >30min
[2022-03-15] MEDS: ALPRAZolam 0.5 MG Tablet PO (08:13)
[2022-03-15] MEDS: Gabapentin 300 MG Capsule PO (08:16)
[2022-03-15] MEDS: Insulin Glargine-YFGN 100 UNIT/ML Pen 25 UNIT SC (08:16)
[2022-03-15] MEDS: levoFLOXacin IV 750 MG/150 ML BAG 100 MG IV (08:16)
[2022-03-15] MEDS: Insulin Lispro 100 UNIT/ML INSULN.PEN SC ×2 (08:20→11:06)
[2022-03-15 08:21] LABS: Bedside Glucose 300 mg/dL (74-106)
[2022-03-15] MEDS: Enoxaparin 40 MG/0.4 ML Syringe SC (08:35)
[2022-03-15] MEDS: Metoprolol Tartrate 25 MG Tablet PO (08:35)
--- NOTE | 2022-03-15 09:50 | CASEMGMT ---
Addendum entered by Juliet Zhou 03/15/22 14:34: ARIELLA RENO notified via [employer] that [employer] is not in network with pt insurance. TC to Deana who has already delivered portable tank, she is aware of message received. Pt has left the hospital. ARIELLA RENO called [employer] insurance, received one provider in network which is [facility]. TC to [employer], made aware pt has left the hospital and will need concentrator delivered to home. Faxed required info at this time. TC to pt to make aware. Provided pt with [employer] phone number of [phone] and this ARIELLA RENO phone number. If pt has not received oxygen within an hour, to call [employer] and this ARIELLA RENO. She verbalized understanding. Addendum entered by Juliet Zhou 03/15/22 10:45: ARIELLA RENO in to pt room, pt aware she qualified for oxygen with exertion. Discussed homegoing instructions with oxygen, pt verbalized understanding. Original Note: Pt qualifies for home oxygen with exertion. Referral sent to [facility] via [employer].
[2022-03-15 11:35] LABS: Bedside Glucose 400 mg/dL (74-106)
== END 2022-03-15 13:50 | disposition home or self-care (01) | DRG 194 ==
LOC: ED 12:58 → MS2 13:01
PROVIDERS: Admitting Provider Internal Medicine; Emergency Provider Emergency Medicine; PCP Preventive Medicine Occupational Medicine; Visit Provider Internal Medicine
DX: J12.2 Parainfluenza virus pneumonia (principal); J44.0 Chronic obstructive pulmonary disease with (acute) lower respiratory infection; J44.1 Chronic obstructive pulmonary disease with (acute) exacerbation; E11.9 Type 2 diabetes mellitus without complications; E78.00 Pure hypercholesterolemia, unspecified; I25.10 Atherosclerotic heart disease of native coronary artery without angina pectoris; I10 Essential (primary) hypertension; F41.9 Anxiety disorder, unspecified; R09.02 Hypoxemia; F32.A Depression, unspecified; E66.9 Obesity, unspecified; Z68.35 Body mass index [BMI] 35.0-35.9, adult; Z20.822 Contact with and (suspected) exposure to COVID-19; Z79.84 Long term (current) use of oral hypoglycemic drugs; Z79.899 Other long term (current) drug therapy; Z87.891 Personal history of nicotine dependence; Z95.1 Presence of aortocoronary bypass graft; Z86.711 Personal history of pulmonary embolism
CPT/HCPCS: 36415; 71045; 71275; 80048; 82962; 83735; 84484; 85025; 85379; 87040; 87428; 87449; 87633; 87635; 87641; 93005; 94640; 99252; 99284; J7030; Q9967; A4216; G0463; U0003; U0005

== ENCOUNTER → 2022-04-02 | Outpatient (CLI) | payer OTHER, SELFPAY ==
--- NOTE | 2022-04-02 11:25 | RAD_ITS ---
EXAM: XR CHEST, 2 VIEWS CLINICAL INDICATION: PNEUMONIA TECHNIQUE: Frontal and lateral views of the chest. This report was created using [employer] report generation technology. COMPARISON: 03.13.22 FINDINGS: LUNGS AND PLEURAL SPACES: There has been improvement in the lingular pneumonia. No pneumothorax. No effusion. HEART: Unremarkable. Cardiac silhouette not enlarged. MEDIASTINUM: Central airways and mediastinal contour are unremarkable. BONES/JOINTS: Unremarkable. SOFT TISSUES: Unremarkable. RAD/Chest PA and Lateral IMPRESSION: There has been improvement in the lingular pneumonia. Electronically Signed: Parish South MD at 18:09 EST ,
== END | disposition home or self-care (01) ==
LOC: RAD 11:22
PROVIDERS: PCP Preventive Medicine Occupational Medicine; Referring Provider Preventive Medicine Occupational Medicine; Visit Provider Preventive Medicine Occupational Medicine
DX: J18.9 Pneumonia, unspecified organism (principal)
CPT/HCPCS: 71046

== ENCOUNTER 2024-11-10 15:37 | Inpatient (IN) | payer MEDICARE, OTHER, SELFPAY ==
[2024-11-10] VITALS (35 sets, daily range): BP systolic 91–155; BP diastolic 48–138; PULSE 65–143; RESP 15–29; TEMP 36.8–37.2; O2SAT 87–99; BMI 34.4; BMI 35.1
[2024-11-10 16:11] LABS: Hematocrit 43.0 % (37-47); Hemoglobin 13.9 g/dL (12.0-15.0); Immature Granulocytes Count 0.050 X10^3/uL (0.0-0.0); Mean Corp Hgb Conc 32.3 g/dL (32-36); Mean Corpuscular Volume 89.8 fL (81-99); Mean Platelet Vol. 10.9 fl (6.2-12.0); NRBC Flagged by Analyzer 0 % (0-5); Platelet Count 259 K/mm3 (150-450); RBC Distribution Width CV 13.5 % (11.6-14.6); RBC Distribution Width SD 44.6 fl (35.1-43.9); Red Blood Count 4.79 M/mm3 (4.2-5.4); White Blood Count 10.4 K/mm3 (4.4-11.0)
--- NOTE | 2024-11-10 16:12 | CT_ITS ---
PROCEDURE: EXTREMITY LOWER WITH CONTRAST 11/10/2024 REASON FOR EXAM: ABSCESS, POSTERIOR RIGHT THIGH TECHNIQUE: Procedure Code: CTELW Modality: CT Procedure: EXTREMITY LOWER WITH CONTRAST Coronal and Sagittal reconstruction series were provided. CONTRAST: Isovue 370 VOLUME: 100 mL One or more dose reduction techniques were used (e.g., Automated exposure control, adjustment of the mA and/or kV according to patient size, use of iterative reconstruction technique). RADIATION DOSE SUMMARY: CTDlvol: 26 mGy DLP: 1438 mGycm FINDINGS: Contrast-enhanced CT from the right iliac bone through the distal right femur. The contrast bolus is exceedingly poor. No pelvic mass. Cellulitis in the medial posterior thigh. No soft tissue gas. No abscess CT/Extremity Lower WITH Contrast IMPRESSION: Cellulitis without abscess Reading [facility]
--- NOTE | 2024-11-10 16:15 | EX.ED.DYSGE1 ---
HPI History of Present Illness Chief Complaint: Abscess Detail of Chief Complaint: High heart rate and concern for abscess to right thigh Informant: patient Narrative Narrative: Patient presents to the emergency department with concern for high heart rate and possible abscess to her right thigh. Seen by her PCP and referred to the ER today. Patient denies fever although she has been waking up with some cold sweats. She is a diabetic. She has history of psoriasis. Denies chest pain or shortness of breath. PFSH PFSH Medical History (Updated 11/10/24 @ 19:[address] Cristina Bunn, DO) Psoriasis History of pulmonary embolism Diabetes High cholesterol Hypertension Home Medications ?Medication ?Instructions ?Recorded ?Last Taken ?Type alprazolam 0.5 mg tablet 0.5 mg PO TID PRN Anxiety 03/13/22 03/12/22 History gabapentin 600 mg tablet 300 - 600 mg PO BID NEUROPATHY 03/13/22 03/12/22 History metformin 500 mg tablet See Rx Instructions PO BID DM 03/13/22 03/13/22 History metoprolol tartrate 25 mg tablet 25 mg PO BID HEART 03/13/22 03/12/22 History pravastatin 40 mg tablet 40 mg PO QHS CHOLESTEROL 03/13/22 03/12/22 History sertraline 100 mg tablet 100 mg PO DAILY DEPRESSION 03/13/22 03/12/22 History albuterol sulfate 90 mcg/actuation 2 puff inhalation Q6H PRN 03/15/22 Unknown Rx aerosol inhaler shortness of breath or wheezing #8.5 grams guaifenesin 1,200 mg tablet, 1,200 mg PO BID #14 tabs 03/15/22 Unknown Rx extended release 12 hr (Mucinex) betamethasone, augmented 0.05 % 1 applic topical DAILY 11/10/24 Unknown History topical ointment glipizide 10 mg tablet, extended 10 mg PO BID 11/10/24 Unknown History release 24 hr triamcinolone acetonide 0.1 % 1 applic topical BID 11/10/24 Unknown History topical cream Allergy/AdvReac Type Severity Reaction Status Date / Time amlodipine Allergy Hives Verified 11/10/24 15:41 cefdinir (From Omnicef) Allergy Hives Verified 11/10/24 15:41 latex Allergy Hives Verified 11/10/24 15:41 Family History (Updated 01/11/23 @ 13:[address] Jared Chung MD) Brother COPD (chronic obstructive pulmonary disease) Surgical History Hx of CABG Social History Smoking Status: Former smoker ROS ROS ED Review of Systems ROS Unobtainable: other Constitutional Constitutional ED: Reports lethargy; Denies chills, fever(s), sweats or weight loss Eyes Eyes: Denies blurry vision, change in vision or diplopia ENT ENT ED: Denies rhinorrhea or sore throat Cardiovascular Cardiovascular: Reports racing heartbeat; Denies chest pain or orthopnea Respiratory/Chest Respiratory/Chest: Denies cough, dyspnea, dyspnea on exertion, orthopnea or sputum Gastrointestinal Gastrointestinal: Denies abdominal pain, diarrhea, nausea or vomiting Genitourinary Genitourinary ED: Denies dysuria, hematuria or urinary frequency Musculoskeletal Musculoskeletal: Reports other Details: Concern for abscess to the right posterior thigh ; Denies arthralgias, back pain, myalgias or neck pain Integumentary Denies abscess, Abrasions or rash Neurologic Neurologic: Denies headache(s) or weakness Psychiatric Psychiatric: Denies anxiety, depression or suicidal thoughts Endocrine Endocrinology: Denies polydipsia, polyphagia or polyuria Hematologic/Lymphatic Hematologic/Lymphatic: Denies easy bleeding, easy bruising or lymphadenopathy Allergic/Immunologic Allergic/Immunologic ED: Denies mouth swelling, tongue swelling or urticaria EXAM Physical Exam Const Vital Signs: 11/10/24 15:39 11/10/24 16:19 11/10/24 16:19 Temperature 98.6 F 99 F Temperature Source Oral Oral Pulse Rate 137 H 122 H Respiratory Rate 16 22 H Blood Pressure 150/76 H 148/72 H Blood Pressure Mean 100 97 Blood Pressure Source Blood Pressure Location Pulse Ox 99 95 Oxygen Delivery Method Room Air Room Air Room Air 11/10/24 16:19 11/10/24 16:59 11/10/24 17:00 Temperature 99 F Temperature Source Oral Pulse Rate 128 H 138 H Respiratory Rate 21 H 21 H Blood Pressure 148/72 H 130/86 H Blood Pressure Mean 97 100 Blood Pressure Source Blood Pressure Location Pulse Ox 96 94 Oxygen Delivery Method Room Air 11/10/24 17:00 11/10/24 17:26 11/10/24 17:26 Temperature Temperature Source Pulse Rate 129 H 139 H 129 H Respiratory Rate 26 H 28 H 22 H Blood Pressure 130/86 H 134/95 H 134/95 H Blood Pressure Mean 100 108 102 Blood Pressure Source Blood Pressure Location Pulse Ox 94 97 Oxygen Delivery Method Room Air 11/10/24 17:30 11/10/24 17:30 11/10/24 17:33 Temperature Temperature Source Pulse Rate 138 H 140 H Respiratory Rate 24 H 28 H Blood Pressure 120/100 H 120/100 H 120/100 H Blood Pressure Mean 108 108 106 Blood Pressure Source Blood Pressure Location Pulse Ox 94 94 Oxygen Delivery Method Room Air 11/10/24 18:00 11/10/24 18:00 11/10/24 18:18 Temperature 98.8 F Temperature Source Oral Pulse Rate 117 H 115 H 116 H Respiratory Rate 20 H 19 H 23 H Blood Pressure 110/70 117/71 Blood Pressure Mean 83 78 Blood Pressure Source Blood Pressure Location Pulse Ox 98 95 95 Oxygen Delivery Method Room Air 11/10/24 18:20 11/10/24 18:27 11/10/24 18:30 Temperature Temperature Source Pulse Rate 118 H 110 H 99 Respiratory Rate 25 H 22 H 24 H Blood Pressure 117/71 111/73 Blood Pressure Mean 86 84 Blood Pressure Source Blood Pressure Location Pulse Ox 95 96 94 Oxygen Delivery Method Room Air 11/10/24 18:32 11/10/24 18:42 11/10/24 18:43 Temperature 98.8 F Temperature Source Oral Pulse Rate 89 92 102 H Respiratory Rate 20 H 19 H 20 H Blood Pressure 111/73 123/79 H 123/79 H Blood Pressure Mean 85 91 93 Blood Pressure Source Monitor Blood Pressure Location Right Arm Pulse Ox 94 96 94 Oxygen Delivery Method Room Air Room Air 11/10/24 19:00 11/10/24 19:00 Temperature 98.6 F Temperature Source Oral Pulse Rate 89 102 H Respiratory Rate 24 H 18 Blood Pressure 128/88 H 154/124 H Blood Pressure Mean 101 135 Blood Pressure Source Blood Pressure Location Pulse Ox 98 93 Oxygen Delivery Method Room Air Positive well nourished and well developed General Appearance ED: well developed and NAD HEENT Reports TM's clear and moist mucous membranes normocephalic and atraumatic; Negative for trauma or tenderness Tympanic Membrane ED: Yes TM's clear Eyes PERRL and EOMs intact bilaterally General Eye ED: Negative for pale conjunctiva or scleral icterus Neck no lymphadenopathy, supple and no JVD General: Negative for tenderness Chest Wall inspection of chest normal and palpation of chest normal Chest: Negative for tenderness Resp normal respiratory effort and clear to auscultation bilaterally Effort and Inspection: Negative for respiratory distress or pain with movement Auscultation: Negative for rhonchi, wheezes or diminished lung sounds Cardio regular rate, regular rhythm, S1 normal heart sound, S2 normal heart sound and no murmurs Peripheral Pulses: pulses 2+ throughout GI normal to inspection, nondistended, normoactive bowel sounds, soft to palpation, non-tender, non-distended and no masses Back/Spine no CVA tenderness and no thoracic nor lumbar tenderness Extremity normal to inspection Extremity Narrative: Right posterior thigh-at the upper posterior thigh near the crease of the buttock there is a area of induration measuring approximately 8 x 5 cm. Central portion has small opening with some purulent debris expressed. No significant fluctuance noted. General Extremety ED: Negative for edema General Extremity: Negative for edema Neuro oriented x3, CN's II-XII intact bilaterally, no sensory deficits noted and gait normal Sensorium / Orientation: awake, alert, oriented to person, oriented to place and oriented to time Motor Exam: strength 5/5 throughout and strength abnormal Psych mental status grossly normal Skin no rashes or lesions noted and no wounds MDM MDM MDM Narrative Medical decision making narrative: Patient presents at the request of her primary care physician for concern about an abscess to her thigh as well as tachycardia and concern for possible sepsis. Clinically she looks well. She is tachycardic on exam. She does have a area of cellulitic induration and some drainage from the posterior right thigh. There was no fluctuance. IV line established. EKG obtained arrival showed atrial flutter with variable block with rate of 127 bpm. CBC with differential obtained showed a normal white count of 10.4 with hemoglobin 13.9 platelet count 259. Chemistries unremarkable. Lactate normal at 1.9. Glucose was 264. CT scan of the right thigh obtained showed cellulitic changes but no evidence of abscess. She was started on Zosyn IV. I did order a blood culture as well as a wound culture. Patient was given Cardizem 20 mg IV bolus followed by 25 mg bolus and started on a Cardizem drip with heart rate improving into the 90s. Case will be discussed with hospitalist to evaluate patient for admission for atrial flutter with RVR. She also has a cellulitis of the right posterior thigh. Lab Data Attestation: I reviewed the patient's lab results. Labs: Laboratory Results - last 24 hr 11/10/24 11/10/24 15:57 16:39 WBC 10.4 RBC 4.79 Hgb 13.9 Hct 43.0 MCV 89.8 MCH 29.0 MCHC 32.3 RDW Std Deviation 44.6 H RDW Coeff of Charli 13.5 Plt Count 259 MPV 10.9 Immature Gran % (Auto) 0.500 Neut % (Auto) 69.0 Lymph % (Auto) 14.5 L [place] % (Auto) 10.5 H Eos % (Auto) 4.4 Baso % (Auto) 1.1 H Absolute Neuts (auto) 7.2 Absolute Lymphs (auto) 1.50 Nucleated RBC % 0 PT 14.6 INR 1.1 APTT 29.3 Sodium 137 Potassium 4.5 Chloride 102 Carbon Dioxide 23.3 Anion Gap 12 BUN 11 Creatinine 0.77 Estim Creat Clear Calc 86.74 Est GFR (MDRD) Non-Af 84 BUN/Creatinine Ratio 14.3 Glucose 264 H Lactic Acid 1.9 Calcium 9.4 Total Bilirubin 0.65 AST 25 ALT 9 Alkaline Phosphatase 88 Troponin T High Sens 19 H Total Protein 8.3 Albumin 3.5 Globulin 4.8 H Albumin/Globulin Ratio 0.7 L Radiography Diagnostic Testing: Clinical Impression(s) from Imaging Studies Lower Extremity CT 11/10/24 16:12 IMPRESSION: Cellulitis without abscess Reading Location: [facility] EKG Initial EKG: Attestation: I personally reviewed and interpreted this EKG as follows: Comments: Atrial flutter with ventricular rate of [address] changes Discharge Plan Dx/Rx/DC Orders Clinical Impression: Atrial flutter with rapid ventricular response, Cellulitis Disposition Disposition: Acute Care Hospital [facility]
[2024-11-10 16:20] LABS: Prothrombin Time (Protime)PT. 14.6 SECONDS (11.7-14.9)
[2024-11-10 16:21] LABS: Partial Thromboplast Time 29.3 Seconds (24.1-36.2)
[2024-11-10] MEDS: Piperacil/Tazobactam 4.5 GM in 0.9% Normal Saline (100mL MB+) 100 ML IV (16:40)
[2024-11-10 16:58] LABS: AST(SGOT) 25 U/L (<=31); Alanine Aminotransfer ALT/SGPT 9 U/L (<=34); Albumin, Serum 3.5 g/dL (3.4-4.8); Alkaline Phosphatase 88 U/L (35-104); Anion Gap 12 (5-15); BUN 11 mg/dL (4-19); BUN/Creat Ratio 14.3 RATIO (10-20); Calcium,Total 9.4 mg/dL (7.6-11.0); Carbon Dioxide 23.3 mmol/L (21.0-32.0); Chloride 102 mmol/L (98-108); Estimated Creatinine Clearance 86.74 ml/min (50-250); Globulin 4.8 g/dL (2.2-4.2); Glucose 264 mg/dL (70-99); Potassium 4.5 mmol/L (3.3-5.1)
[2024-11-10 17:31] LABS: Troponin T High Sensitivity 19 ng/L (<=14)
[2024-11-10] MEDS: Diltiazem 125 MG in Dextrose 5%-Water (100mL Bag) 100 ML IV (18:43)
--- NOTE | 2024-11-10 18:56 | ED.RN ---
LAB CALLED FOR OUTSTANDING BLOOD CULTURES. RESPONSE THEY WERE PLACED IN THE EXTRAS. WE FOUND THEM.
[2024-11-10 18:59] LABS: Mucous, Urine 0 SEEN /hpf (<or=2+)
[2024-11-10 19:03] LABS: Color, Urine Yellow (Yellow); Glucose, Dipstick Normal (Normal); Ketone-Dipstick Negative (Negative); Leukocyte Esterase-Dipstick 500 /ul (Negative); Nitrite-Dipstick Positive (Negative); Occult Blood-Urine 10 /ul (Negative); Protein-Dipstick 30 mg/dl (Negative); Specific Gravity, Urine 1.010 (1.002-1.030); Urine Bilirubin Dipstick Negative (Negative)
--- NOTE | 2024-11-10 19:09 | PCM.HP.STD ---
[facility] - General General Date of Admission: 11/10/24 Date of Service: 11/10/24 Chief Complaint: RLE Redness, Swelling and Palpitations. HPI Narrative MONTEZ GOMEZ, is a 64 F with a past medical history of essential hypertension; on metoprolol BID, hyperlipidemia; on pravastatin, obesity (class I); with BMI of 34.4 this admission, former tobacco abuse, DM-2; of unknown control on metformin BID and glipizide BID, peripheral neuropathy; on gabapentin BID, CAD; s/p CABG x 5 (2014) with subsequent postoperative sternal wound dehiscence requiring Wound-Vac and consultation with Dr. Gomez of [place], psoriasis; on topical betamethasone plus triamcinolone BID, history of PE; not on anticoagulation, depression with anxiety; on sertraline and prn alprazolam TID and OA who presents to [facility] ER complaining of Right leg redness, swelling and palpitations. Ms. Gomez reports her symptoms began a few hours prior to admission with the gradual-onset of redness and swelling to her Right thigh with additional concern for possible abscess with an ~8 cm x ~5 cm area of induration near the crease of the buttock with a small central opening with some purulent debris expressed. She then went to be evaluated by her PCP who noted she was tachycardic so she was then referred to the ER for further evaluation and treatment. She admits to waking up with cold sweats, lethargy and heart racing but she denies fever, chills, changes in vision, runny nose sore throat, ear pain, abdominal pain, nausea, vomiting, diarrhea, constipation, chest pain, palpitations, dysuria, hematuria, headache or rash. In the ER she was diagnosed with Cellulitis complicated by early Abscess of the Right posterior thigh with UA positive for Acute Cystitis; without hematuria compounded by Hyperglycemia; of 264 mg/dL present on admission due to Uncontrolled DM-2 in addition to EKG evidence of apparently New-onset Atrial Flutter; with RVR requiring treatment with IV diltiazem bolus plus drip and she was then admitted to the PCU for ongoing care for a stay that is expected to extend beyond 2 midnights. [facility] Medical History Psoriasis History of pulmonary embolism Diabetes High cholesterol Hypertension Home Medications ?Medication ?Instructions ?Recorded ?Last Taken ?Type alprazolam 0.5 mg tablet 0.5 mg PO TID PRN Anxiety 03/13/22 03/12/22 History gabapentin 600 mg tablet 300 - 600 mg PO BID NEUROPATHY 03/13/22 03/12/22 History metformin 500 mg tablet See Rx Instructions PO BID DM 03/13/22 03/13/22 History metoprolol tartrate 25 mg tablet 25 mg PO BID HEART 03/13/22 03/12/22 History pravastatin 40 mg tablet 40 mg PO QHS CHOLESTEROL 03/13/22 03/12/22 History sertraline 100 mg tablet 100 mg PO DAILY DEPRESSION 03/13/22 03/12/22 History albuterol sulfate 90 mcg/actuation 2 puff inhalation Q6H PRN 03/15/22 Unknown Rx aerosol inhaler shortness of breath or wheezing #8.5 grams guaifenesin 1,200 mg tablet, 1,200 mg PO BID #14 tabs 03/15/22 Unknown Rx extended release 12 hr (Mucinex) betamethasone, augmented 0.05 % 1 applic topical DAILY 11/10/24 Unknown History topical ointment glipizide 10 mg tablet, extended 10 mg PO BID 11/10/24 Unknown History release 24 hr triamcinolone acetonide 0.1 % 1 applic topical BID 11/10/24 Unknown History topical cream Allergy/AdvReac Type Severity Reaction Status Date / Time amlodipine Allergy Hives Verified 11/10/24 15:41 cefdinir (From Omnicef) Allergy Hives Verified 11/10/24 15:41 latex Allergy Hives Verified 11/10/24 15:41 Family History Brother COPD (chronic obstructive pulmonary disease) Surgical History Hx of CABG Social History Smoking Status: Former smoker ROS ROS Narrative Review of Systems: Constitutional: Patient admits to sweats and lethargy but she denies fever or chills. Eyes: Patient denies change in vision or discharge from eyes. ENT: Patient denies runny nose, sore throat or ear pain. Resp: Patient denies shortness of breath or cough. CV: Patient admits to racing heartbeat but she denies chest pain. GI: Patient denies abdominal pain, nausea, vomiting, diarrhea or constipation. : Patient denies dysuria, hematuria urinary frequency. MSK: Patient admits to redness and swelling of her Right posterior thigh as per HPI. Skin: Patient mitts to redness and swelling of her Right posterior thigh with early abscess formation in the setting of previously known psoriasis as per HPI. Psych: Patient denies symptoms uncontrolled depression or anxiety. Neuro: Patient denies headache, paresthesias or focal neurologic deficits. Allergy: Patient denies lip swelling, tongue swelling or urticaria. Hematology: Patient denies easy bleeding or easy bruisability. Endocrinology: Patient denies polyuria, polydipsia, polyphagia or heat/cold intolerance. 14 point ROS otherwise negative except for positives noted above in HPI. Vital Signs Vital Signs Vital Signs: 11/10/24 15:39 11/10/24 16:19 11/10/24 16:19 Temperature 98.6 F 99 F Temperature Source Oral Oral Pulse Rate 137 H 122 H Respiratory Rate 16 22 H Blood Pressure 150/76 H 148/72 H Blood Pressure Mean 100 97 Blood Pressure Source Blood Pressure Location Pulse Ox 99 95 Oxygen Delivery Method Room Air Room Air Room Air 11/10/24 16:19 11/10/24 16:59 11/10/24 17:00 Temperature 99 F Temperature Source Oral Pulse Rate 128 H 138 H Respiratory Rate 21 H 21 H Blood Pressure 148/72 H 130/86 H Blood Pressure Mean 97 100 Blood Pressure Source Blood Pressure Location Pulse Ox 96 94 Oxygen Delivery Method Room Air 11/10/24 17:00 11/10/24 17:26 11/10/24 17:26 Temperature Temperature Source Pulse Rate 129 H 139 H 129 H Respiratory Rate 26 H 28 H 22 H Blood Pressure 130/86 H 134/95 H 134/95 H Blood Pressure Mean 100 108 102 Blood Pressure Source Blood Pressure Location Pulse Ox 94 97 Oxygen Delivery Method Room Air 11/10/24 17:30 11/10/24 17:30 11/10/24 17:33 Temperature Temperature Source Pulse Rate 138 H 140 H Respiratory Rate 24 H 28 H Blood Pressure 120/100 H 120/100 H 120/100 H Blood Pressure Mean 108 108 106 Blood Pressure Source Blood Pressure Location Pulse Ox 94 94 Oxygen Delivery Method Room Air 11/10/24 18:00 11/10/24 18:00 11/10/24 18:18 Temperature 98.8 F Temperature Source Oral Pulse Rate 117 H 115 H 116 H Respiratory Rate 20 H 19 H 23 H Blood Pressure 110/70 117/71 Blood Pressure Mean 83 78 Blood Pressure Source Blood Pressure Location Pulse Ox 98 95 95 Oxygen Delivery Method Room Air 11/10/24 18:20 11/10/24 18:27 11/10/24 18:30 Temperature Temperature Source Pulse Rate 118 H 110 H 99 Respiratory Rate 25 H 22 H 24 H Blood Pressure 117/71 111/73 Blood Pressure Mean 86 84 Blood Pressure Source Blood Pressure Location Pulse Ox 95 96 94 Oxygen Delivery Method Room Air 11/10/24 18:32 11/10/24 18:42 11/10/24 18:43 Temperature 98.8 F Temperature Source Oral Pulse Rate 89 92 102 H Respiratory Rate 20 H 19 H 20 H Blood Pressure 111/73 123/79 H 123/79 H Blood Pressure Mean 85 91 93 Blood Pressure Source Monitor Blood Pressure Location Right Arm Pulse Ox 94 96 94 Oxygen Delivery Method Room Air Room Air 11/10/24 19:00 Temperature Temperature Source Pulse Rate 102 H Respiratory Rate 18 Blood Pressure 154/124 H Blood Pressure Mean 135 Blood Pressure Source Blood Pressure Location Pulse Ox 93 Oxygen Delivery Method Weight Weight: 226 lb 8 oz Body Mass Index (BMI) 34.4 Physical Exam Const alert, oriented x3, no apparent distress and healthy appearing Constitutional Narrative: Patient is obese but nontoxic in appearance. General Appearance: cooperative HEENT normocephalic, head/scalp atraumatic, hearing grossly normal bilaterally and moist oral mucous membranes Eyes PERRL and EOMs intact bilaterally Neck no lymphadenopathy, supple and no JVD Resp normal respiratory effort, no retractions, no use of accessory muscles and clear to auscultation bilaterally Cardio regular rate and regular rhythm Cardio Narrative: Tachycardia in the ~102 bpm range. GI normal to inspection, nondistended, normoactive bowel sounds, soft to palpation, non-tender and non-distended GI Narrative: Obese. Extremity Extremity Narrative: Inspection revealed evidence of erythema and edema of the Right posterior thigh near the crease of the buttocks with an area of induration measuring ~8 cm x ~5 cm with central portion having small opening with purulent debris expressed but no significant fluctuance noted. Skin Skin Narrative: Inspection revealed evidence of erythema and edema of the Right posterior thigh near the crease of the buttocks with an area of induration measuring ~8 cm x ~5 cm with central portion having small opening with purulent debris expressed but no significant fluctuance noted. Neuro oriented x3, CN's II-XII intact bilaterally, moves all extremities and no focal motor deficits Sensorium / Orientation: awake, alert, oriented to person, oriented to place and oriented to time Speech: speech normal Psych affect normal Results Medical Records Data Attestation: I reviewed the patient's medical records Lab / Micro Data Attestation: I reviewed the patient's lab results. 11/10/24 15:57 11/10/24 15:57 Labs: Laboratory Results - last 24 hr 11/10/24 15:57: WBC 10.4, RBC 4.79, Hgb 13.9, Hct 43.0, MCV 89.8, MCH 29.0, MCHC 32.3, RDW Std Deviation 44.6 H, RDW Coeff of Charli 13.5, Plt Count 259, MPV 10.9, Immature Gran % (Auto) 0.500, Neut % (Auto) 69.0, Lymph % (Auto) 14.5 L, [place] % (Auto) 10.5 H, Eos % (Auto) 4.4, Baso % (Auto) 1.1 H, Absolute Neuts (auto) 7.2, Absolute Lymphs (auto) 1.50, Nucleated RBC % 0, PT 14.6, INR 1.1, APTT 29.3, Sodium 137, Potassium 4.5, Chloride 102, Carbon Dioxide 23.3, Anion Gap 12, BUN 11, Creatinine 0.77, Estim Creat Clear Calc 86.74, Est GFR (MDRD) Non-Af 84, BUN/Creatinine Ratio 14.3, Glucose 264 H, Calcium 9.4, Total Bilirubin 0.65, AST 25, ALT 9, Alkaline Phosphatase 88, Troponin T High Sens 19 H, Total Protein 8.3, Albumin 3.5, Globulin 4.8 H, Albumin/Globulin Ratio 0.7 L 11/10/24 16:39: Lactic Acid 1.9 Imaging Radiology Impression Lower Extremity CT 11/10/24 16:12 IMPRESSION: Cellulitis without abscess Reading Location: [facility] Assessment & Plan Assessment/Plan (1) Cellulitis: QUALIFIERS: Laterality: right Site of cellulitis: extremity Site of cellulitis of extremity: lower extremity Qualified Code(s): L03.115 - Cellulitis of right lower limb (2) Acute cystitis without hematuria: (3) Hyperglycemia due to type 2 diabetes mellitus: QUALIFIERS: Diabetes mellitus skilled nursing insulin use: without oysterman use Qualified Code(s): E11.65 - Type 2 diabetes mellitus with hyperglycemia (4) Atrial flutter with rapid ventricular response: (5) Obesity (BMI 30.0-34.9): PLAN: Plan 1. Cellulitis complicated by early Abscess of the Right posterior thigh along with UA positive for Acute Cystitis; without hematuria - Admit to PCU. Continue IV piperacillin-tazobactam and add IV vancomycin and then await culture and sensitivity data. Check PCR of wound for MRSA. Give acetaminophen prn for [id number] (level 1-5/10) pain or fever. Give morphine IV prn for severe (level 6-10/10) pain. Finally, we will consult general surgeon on-call to see this patient on rounds in the a.m. for further recommendations in case I&D is needed with help appreciated in advance. 2. Hyperglycemia; of 264 mg/dL present on admission due to Uncontrolled DM-2 complicating #1 - Hold oral hypoglycemics while inpatient. ADA diet. FSBS q. AC/HS plus SSI. Check HgbA1c to objectively evaluate quality of diabetic control. 3. New-onset Atrial Flutter; with RVR compounding #1 & #2 - Maintain IV diltiazem drip to keep heart rate < 100 bpm. Also resume full-dose enoxaparin. Check echocardiogram to evaluate LVEF. 4. Obesity (class I); with BMI of 34.4 this admission adding to the burden of disease outlined from #1 - #3 - Weight loss will be recommended. Check TSH. This complicates her case and may hamper recovery. 5. Essential hypertension; on metoprolol BID - Maintain current regiment plus give IV hydralazine prn for systolic blood pressure > 160 mmHg. 6. Hyperlipidemia; on pravastatin - Resume statin and check Lipid Profile. 7. Former tobacco abuse - noted. 8. Peripheral neuropathy; on gabapentin BID - Continue present therapy. 9. CAD; s/p CABG x 5 (2014) with subsequent postoperative sternal wound dehiscence requiring Wound-Vac and consultation with Dr. Gomez of [place] [facility]. 10. Psoriasis; on topical betamethasone plus triamcinolone BID - Minimize steroids until infection cleared. 11. History of PE; not on anticoagulation - Noted. 12. Depression with anxiety; on sertraline and prn alprazolam TID - Continue home regimen. 13. OA - Give acetaminophen prn as outlined in #1. 14. DVT prophylaxis - Patient on full-dose enoxaparin for #3. Total time: Approximately (but not less than) 75 minutes. Charges/Coding Visit Charges Inpatient E&M: 87773 Init Hosp L3
[2024-11-10 19:32] LABS: Squamous Epithelial Cells - UA 5-10 SEEN /hpf (5-10)
[2024-11-10 19:33] LABS: Red Blood Cells-Urine 0-5 SEEN /hpf (0-5)
--- NOTE | 2024-11-10 19:51 | ECHOD_ITS ---
Reason For Study Reason For Study: ATRIAL FIB-FLUTTER Procedure This was a 2D Doppler, Color Flow transthoracic echocardiogram. Exam performed portable in patient room. Left Ventricle Normal LV size. Mild concentric left ventricular hypertrophy. Borderline LV systolic function. Estimated LVEF 50%. Stage I diastolic dysfunction. Right Ventricle Normal right ventricle. Atria There is mild biatrial dilatation. Mitral Valve Trivial mitral valve insufficiency. Tricuspid Valve Trivial tricuspid valve insufficiency. Normal pulmonary artery pressure. Aortic Valve Mildly calcified aortic valve annulus. No aortic valve stenosis or regurgitation. Pulmonic Valve The pulmonic valve is not well visualized. Great Vessels Normal sized aortic root. Pericardium/Pleural No pericardial effusion. MMode/2D Measurements & Calculations LVIDd: 5.2 cm IVSd: 0.99 cm Ao root diam: 3.2 cm LVIDs: 3.8 cm LVPWd: 1.2 cm LA dimension: 4.5 cm RVDd: 3.7 cm FS: 25.8 % LAV(MOD-bp): 63.9 ml LVAd ap4: 32.0 cm2 SV(MOD-sp4): 52.9 ml LAV(MOD-bp) Indexed: 29.8 ml/m2 LVLd ap4: 7.6 cm SI(MOD-sp4): 24.7 ml/m2 LAV(MOD-sp2): 60.1 ml EDV(MOD-sp4): 112.1 ml LAV(MOD-sp4): 65.1 ml EDV(sp4-el): 113.9 ml LVAs ap4: 21.1 cm2 LVLs ap4: 6.5 cm ESV(MOD-sp4): 59.2 ml ESV(sp4-el): 58.4 ml EF(MOD-sp4): 47.2 % EF(sp4-el): 48.8 % SV(sp4-el): 55.5 ml LA A4 area: 23.6 cm2 LA dimension(2D): 4.2 cm RA A4 area: 21.5 cm2 TAPSE: 1.4 cm Doppler Measurements & Calculations MV E max yessica: 131.3 cm/sec Ao V2 max: 145.2 cm/sec LV V1 max: 94.1 cm/sec Ao max P.5 mmHg LV V1 max P.5 mmHg PA V2 max: 81.2 cm/sec TR max yessica: 223.7 cm/sec TR max P.0 mmHg ECHO/Echo Complete Interpretation Summary Mild concentric left ventricular hypertrophy. Borderline LV systolic function. Estimated LVEF 50%. Stage I diastolic dysfunct ion. There is mild biatrial dilatation. Mildly calcified aortic valve annulus. No aortic valve stenosis or regurgitatio n. Ordering Physician: Jared Almazan Referring Physician: CARMEN SILVA Performed By: Georgie Kumar RDCS
[2024-11-10 20:25] LABS: Magnesium 1.8 mg/dL (1.5-2.2)
[2024-11-10] MEDS: Vancomycin HCl 2,000 MG in 0.9% Normal Saline (500mL Bag) 500 ML 250 MG IV (21:32)
[2024-11-10] MEDS: 0.9% Saline Lock 10 ML Syringe IV (21:33)
[2024-11-10] MEDS: 0.9% Normal Saline (250mL Bag) 250 ML 15 ML IV (21:33)
[2024-11-10] MEDS: Piperacil/Tazobactam 3.375 GM in 0.9% Normal Saline (50mL MB+) 50 ML IV (21:33)
[2024-11-10] MEDS: Lactobacillis Acidophilus 1 CAP PO (21:33)
[2024-11-10] MEDS: 0.9% Normal Saline (1000mL) 1,000 ML 100 ML IV (21:33)
--- NOTE | 2024-11-10 22:10 | PCM.RX.CS ---
Consult Antibiotic Management Pharmacy has been consulted to manage selected antibiotic: Vancomycin Type of Intervention Type of Consult: New start Suspected Infection Suspected Infection: Skin/Soft tissue Labs Labs: Sodium 137 mmol/L (133-145) 11/10/24 15:57 Potassium 4.5 mmol/L (3.3-5.1) 11/10/24 15:57 Chloride 102 mmol/L (98-108) 11/10/24 15:57 Carbon Dioxide 23.3 mmol/L (21.0-32.0) 11/10/24 15:57 Anion Gap 12 (5-15) 11/10/24 15:57 BUN 11 mg/dL (4-19) 11/10/24 15:57 Creatinine 0.77 mg/dL (0.70-1.20) 11/10/24 15:57 Est GFR (MDRD) Non-Af 84 (>60) 11/10/24 15:57 BUN/Creatinine Ratio 14.3 RATIO (10-20) 11/10/24 15:57 Glucose 264 mg/dL (70-99) H 11/10/24 15:57 Estimated Creatinine Clearance Estimated Creatinine Clearance: 86.74 Goal Trough Goal Trough: 15-20 mcg/mL Pharmacy Plan for Drug Dosing Pharmacy Plan for Drug Dosing: NEW START IV VANCOMYCIN Consulting Physician: Dr. Almazan Indication: RLE Cellulitis Goal Trough: 15-20 SrCr: 0.77 CrCl: 86.74 Comments: Loading dose 2000mg x1 @ 21:32 11/10/24 Vancomycin Dose: 1750mg Q12H to start @ 09:30 11/11/24 Pending Level: 11/12/24 @ 09:00 Pharmacy Service will continue to monitor and adjust dosing as required. Follow-Up Labs Follow-Up Labs: Trough: Vancomycin (11/12/24 @ 09:00)
--- OUTSIDE RECORDS SUMMARY | 2024-11-10 22:36 | XMS RPT_ITS | CCD ---
Author Organization [facility]ini[facility] Care Team Providers Care Magazine Repairer Name Role Phone AL, NEMR BADIE Admitting Unavailable AL, NEMR BADIE Attending Unavailable AL, NEMR BADIE Primary Care Unavailable AL, NEMR BADIE Admitting Unavailable AL, NEMR BADIE Attending Unavailable AL, NEMR BADIE Primary Care Unavailable AL, NEMR BADIE Admitting Unavailable AL, NEMR BADIE Attending Unavailable AL, NEMR BADIE Primary Care Unavailable AL, NEMR BADIE Admitting Unavailable AL, NEMR BADIE Attending Unavailable AL, NEMR BADIE Primary Care Unavailable Flavio Estes Primary Care Provider NATHAN ARZATE DO Primary Care Physician [phone] NATHAN ARZATE DO Primary Care Physician [phone] Dr. Cristina Bunn Emergency Provider Dr. Nathan Arzate Primary Care Provider Dr. Deidra Chung Admit Provider Unavailable Dr. Deidra Chung Attending Provider Unavailable Dr. Deidra Chung Other Provider Unavailable Nathan Arzate Primary Care Unavailable Nathan Arzate Attending Unavailable Nathan Arzate Referring Unavailable Deidra Chung Admitting Unavailable Nathan Arzate Primary Care Unavailable Deidra Chung Consulting Unavailable Deidra Chung Attending Unavailable Deidra Chung Admitting Unavailable Nathan Arzate Primary Care Unavailable Deidra Chung Attending Unavailable NATHAN ARZATE DO Primary Care Unavailable TRUTH OR CONSEQUENCES TIM MCLAUGHLIN Attending Unavaillesley PACE MD, DR SYLVESTER Ghosh Attending Unavailable NATHAN ARZATE DO Primary Care Unavailable NATHAN ARZATE DO Attending Unavailable NATHAN ARZATE DO Primary Care Unavailable NATHAN ARZATE DO Attending Unavailable NATHAN ARZATE DO Primary Care Unavailable SYLVESTER PACE Referring Unavail able FLAVIO ESTES Primary Care Unava ilable SYLVESTER PACE Referring Unavail able FLAVIO ESTES [facility] Unava ilable SYLVESTER PACE Referring Unavail able FLAVIO ESTES [facility] Primary Care Unava ilable Dr. Cristina Bunn DO Emergency Provider [phone] CARMEN CORTEZ Primary Care Provider Dr. Deidra Almazan DO Admit Provider Unavail able Dr. Deidra Almazan DO Attending Provider Unav ailable Allergies Allergy Classification Reported Allergen(s) Allergy Type Date of Onset Reaction(s) Facility (12 sources) Latex; Translations: [LATEX] Propensity to adverse reactions 8 Intolerance [facility] (11 sources) amLODIPine; Translations: [amlodipine] Drug Allergy 2 Muscle pain (finding) [facility] (11 sources) cefdinir; Translations: [cefdinir] Drug Allergy 9 Hives [facility] (6 sources) detergent, TIDE Allergy to substance Eruption of skin (disorder) [facility] (1 source) amLODIPine Drug Allergy 3 [facility] (1 source) cefdinir Drug Allergy 3 [facility] (1 source) Latex Drug allergy (disorder) 3 [facility] (1 source) dilTIAZem; Translations: [DILTIAZEM] Drug Allergy 9 [facility] (1 source) empagliflozin; Translations: [EMPAGLIFLOZIN] Drug Allergy 2 [facility] (1 source) PROTEASE-AMYLAS E EQUIP HEALTH SCREENER; Translations: [PROTEASE-AMYLA SE EQUIP HEALTH SCREENER] Propensity to adverse reactions to drug (disorder) 2 [facility] Medications Current Medications Medication Drug Class(es) Dates Sig (Normalized) Sig (Original) acetaminophen 325 mg oral capsule (2 sources) Start: 09-02-2019 Tylenol 325 mg oral capsule Dose : 650 mg =, Oral, q4h, PRN Pain, scale 1-3, 0 Refill(s) Start Date: 09/02/19 Status: Ordered acetaminophen 325 mg / oxyCODONE hydrochloride 5 mg oral tablet (1 source) Opioid Agonist Start: 11-28-2021 End: 12-03-2021 take 1 tablet by mouth every four hours as needed for pain, then take 1 tablet by mouth every hour as needed for pain acetaminophen-oxy CODONE 325 mg-5 mg oral tablet Dose = 1 tab(s), Oral, q4h, PRN for pain, Separate dose of Percocet from Xanax by at least 1 hour, X 5 day(s), # 30 tab(s), 0 Refill(s), Pharmacy: [facility], Flank pain, 171.2, cm, 11/28/21 11:36:00 EDT, Height, 110.3 Start Date: 11/28/21 Stop Date: 12/03/21 Status: Ordered [id number] 200 actuat albuterol 0.09 mg/actuat metered dose inhaler (3 sources) beta2-Adrenergic Agonist Start: 03-15-2022 Albuterol Sulfate 90 mcg/actuation HFA aerosol inhaler Active 2 NMA INHALATION EVERY 6 HOURS as needed for shortness of breath or wheezing 8.5 0 March 15, 2022 1:00am Start: 03-15-2022 take 1 puff(s) by in halation every six hours Albuterol Sulfate Active 2 PUFF INHALATION EVERY 6 HOURS 8.5 March 15, 2022 12:00am albuterol MDI (90 mcg/inh) CFC free inhalation aerosol (1 source) Start: 11-18-2023 take 1 puff(s) by inhalation every six hours as needed for wheezing albuterol MDI (90 mcg/inh) CFC free inhalation aerosol 1 puff(s), Inhalation, q6h, PRN as needed for wheezing, # 18 gram(s), 0 Refill(s) Start Date: 11/18/23 Status: Ordered ALPRAZolam 0.5 mg oral tablet (11 sources) Benzodiazepine Start: 11-18-2023 End: 02-16-2024 ALPRAZolam 0.5 mg oral tablet Dose : 0.5 mg = 1 tab(s), Oral, TID, PRN for anxiety, # 90 tab(s), 2 Refill(s), Pharmacy: [facility], Anxiety disorder, 171.5, cm, 11/18/23 13:32:00 EDT, Height, 104.1, kg, 11/18/23 13:32:00 EDT, Dosing Weight Start Date: 11/18/23 Stop Date: 02/16/24 Status: Ordered Start: 08-21-2022 End: 11-19-2022 ALPRAZolam 0.5 mg oral table t Dose : 0.5 mg = 1 tab(s), Oral, TID, PRN for anxiety, # 90 tab(s), 2 Refill(s), Pharmacy: [facility], Anxiety disorder, 171, cm, 08/21/22 11:28:00 EDT, Height, 107, kg, 08/21/22 11:28:00 EDT, Dosing Weight Start Date: 08/21/22 Stop Date: 11/19/22 Status: Ordered Start: 03-13-2022 End: 08-13-2022 ALPRAZolam 0.5 mg oral table t Dose : 0.5 mg = 1 tab(s), Oral, TID, PRN for anxiety, # 90 tab(s), 2 Refill(s), Pharmacy: [facility], Anxiety disorder, 173.5, cm, 05/15/22 10:10:00 EDT, Height, 106.3, kg, 05/15/22 10:10:00 EDT, Dosing Weight Start Date: 05/15/22 Stop Date: 08/13/22 Status: Ordered Start: 11-28-2021 End: 02-26-2022 ALPRAZolam 0.5 mg oral table t Dose : 0.5 mg = 1 tab(s), Oral, TID, PRN for anxiety, # 90 tab(s), 2 Refill(s), Pharmacy: [facility], Anxiety disorder, 171.2, cm, 11/28/21 11:36:00 EDT, Height, 110.3, kg, 11/28/21 11:36:00 EDT, Dosing Weight Start Date: 11/28/21 Stop Date: 02/26/22 Status: Ordered Start: 08-29-2021 End: 11-27-2021 ALPRAZolam 0.5 mg oral table t Dose : 0.5 mg = 1 tab(s), Oral, TID, PRN for anxiety, # 90 tab(s), 2 Refill(s), Pharmacy: [facility], Anxiety disorder, 171.2, cm, 08/29/21 10:53:00 EDT, Height, 112.5, kg, 08/29/21 10:53:00 EDT, Dosing Weight Start Date: 08/29/21 Stop Date: 11/27/21 Status: Ordered alprazolam(XANAX 0.5 MG TAB) Take daily as needed 0 Active Comment on above: Take daily as needed aspirin 81 mg delayed release oral tablet (5 sources) Platelet Aggregation Inhibitor, Nonsteroidal Anti-inflammatory Drug Start: 12-18-2021 aspirin 81 mg oral delayed release tablet Dose : 162 mg = 2 tab(s), Oral, Daily, 0 Refill(s) Start Date: 12/18/21 Status: Ordered Start: 05-06-2007 aspirin(ECOTRI N LOW STRENGTH 81 MG TAB) Take two (2) tablets daily 0 0 05/06/2007 Active Comment on above: Take two (2) tablets daily augmented betamethasone 0.0005 mg/mg topical ointment (1 source) Corticosteroid Start: 11-10-2024 Betamethasone, Augmented 0.05 % ointment Active 1 NMA TOPICAL DAILY November 10, 2024 12:00am colchicine 0.6 mg oral tablet (2 sources) Start: 10-31-2021 colchicine 0.6 mg oral tablet See Instructions, 2 tablets p.o. followed by 1 tablet p.o. 1 hour later, # 3 tab(s), 1 Refill(s), Pharmacy: [facility], Gout, 171.2, cm, 10/31/21 13:02:00 EDT, Height Start Date: 10/31/21 Status: Ordered dapagliflozin 10 mg oral tablet (2 sources) Sodium-Glucose Cotransporter 2 Inhibitor Start: 11-19-2023 End: 12-23-2024 Farxiga 10 mg oral tablet Dose : 10 mg = 1 tab(s), Oral, qAM, # 100 tab(s), 3 Refill(s), Pharmacy: [facility], Type 2 diabetes mellitus, 171.5, cm, 11/18/23 13:32:00 EDT, Height, kg, 11/18/23 13:32:00 EDT, Dosing Weight Start Date: 11/19/23 Stop Date: 12/23/24 Status: Ordered Start: 08-21-2022 Farxiga 10 mg oral tablet Dose : 10 mg = 1 tab(s), Oral, qAM, # 90 tab(s), 3 Refill(s), Pharmacy: [facility], Type 2 diabetes mellitus, 171, cm, 08/21/22 11:28:00 EDT, Height, kg, 08/21/22 11:28:00 EDT, Dosing Weight Start Date: 08/21/22 Status: Ordered fluconazole 100 mg oral tablet (1 source) Azole Antifungal Start: 10-31-2021 fluconazole 1 00 mg oral tablet 0 Refill(s), 112.5 Start Date: 10/31/21 Status: Ordered fluticasone / salmeterol (4 sources) Corticosteroid, beta2-Adrenergic Agonist Start: 11-18-2023 take 1 dose by inhalation twice daily Advair Diskus 100 mcg-50 mcg inhalation powder Dose = 1 puff(s), Inhalation, BID, 0 Refill(s) Start Date: 11/18/23 Status: Ordered Start: 03-18-2022 take 1 dose by inhal ation twice daily fluticasone-salmeterol 250 mcg-50 mcg inhalation powder Dose = 1 puff(s), Inhalation, BID, # 1 EA, 1 Refill(s), Pharmacy: [facility], Pneumonia, 67.4, cm, 03/13/22 8:38:00 EST, Height Start Date: 03/18/22 Status: Ordered gabapentin 600 mg oral tablet (10 sources) Anti-epileptic Agent Start: 11-18-2023 End: 02-16-2024 gabapentin 600 mg oral tablet Dose : 600 mg = 1 tab(s), Oral, qDay, # 90 tab(s), 0 Refill(s), Pharmacy: [facility], Peripheral neuropathy, 171.5, cm, 11/18/23 13:32:00 EDT, Height, 104.1, kg, 11/18/23 13:32:00 EDT, Dosing Weight Start Date: 11/18/23 Stop Date: 02/16/24 Status: Ordered Start: 08-21-2022 gabapentin 600 mg oral tablet Dose : 600 mg = 1 tab(s), Oral, qDay, # 90 tab(s), 0 Refill(s), Pharmacy: [facility], Peripheral neuropathy, 171, cm, 08/21/22 11:28:00 EDT, Height, 107 Start Date: 08/21/22 Status: Ordered Start: 03-13-2022 End: 08-13-2022 gabapentin 600 mg oral table t Dose : 600 mg = 1 tab(s), Oral, BID, X 90 day(s), # 180 tab(s), 0 Refill(s), 08/13/22 10:40:00 EDT, Pharmacy: [facility], Peripheral nerve disease, 173.5, cm, 05/15/22 10:10:00 EDT, Height, 106.3, kg, 05/15/22 10:10:00 EDT, Dosing Weight Start Date: 05/15/22 Stop Date: 08/13/22 Status: Ordered Start: 11-28-2021 take 0.5-1 tablets b y mouth twice daily gabapentin 600 mg oral tablet See Instructions, TAKE 1/2 TO 1 TABLET TWICE DAILY., # 180 tab(s), 0 Refill(s), Pharmacy: [facility], Peripheral nerve disease, 171.2, cm, 11/28/21 11:36:00 EDT, Height, 110.3, kg, 11/28/21 11:36:00 EDT, Dosing Weight Start Date: 11/28/21 Status: Ordered Start: 08-29-2021 take 0.5-1 tablets b y mouth twice daily gabapentin 600 mg oral tablet See Instructions, TAKE 1/2 TO 1 TABLET TWICE DAILY., # 180 tab(s), 0 Refill(s), Pharmacy: [facility], Peripheral nerve disease, 171.2, cm, 08/29/21 10:53:00 EDT, Height, 112.5, kg, 08/29/21 10:53:00 EDT, Dosing Weight Start Date: 08/29/21 Status: Ordered glipiZIDE er 10 mg 24 hr extended release oral tablet (11 sources) Sulfonylurea Start: 11-10-2024 take 1 tablet by mouth twice daily Glipizide 10 mg tablet extended release 24hr Active 10 mg PO TWICE A DAY November 10, 2024 12:00am Start: 08-29-2021 End: 11-10-2024 take 1 tablet by mouth once daily Glipizide 5 mg tablet extended release 24hr Discontinued 5 mg PO DAILY March 13, 2022 1:00am November 10, 2024 6:28pm DM 12 hr guaiFENesin 1200 mg extended release oral tablet (3 sources) Start: 03-15-2022 take 1 tablet by mouth twice daily, then take 1 tablet by mouth every twelve hours Guaifenesin (Mucinex) 1,200 mg tablet extended release 12hr Active 1200 mg PO TWICE A DAY 14 March 15, 2022 1:00am 1 ml guselkumab 100 mg/ml prefilled syringe (2 sources) Interleukin-23 Antagonist Start: 09-20-2020 Tremfya 100 mg/mL subcutaneous solution Dose : 100 mg =, Subcutaneous, q8wk, # 1 mL, 0 Refill(s) Start Date: 09/20/20 Status: Ordered loratadine 10 mg oral tablet (2 sources) Start: 08-29-2021 loratadine 10 mg oral tablet Dose : 10 mg = 1 tab(s), Oral, qDay, # 90 tab(s), 3 Refill(s), Pharmacy: [facility], 171.2, cm, 08/29/21 10:53:00 EDT, Height Start Date: 08/29/21 Status: Ordered meclizine hydrochloride 25 mg oral tablet (1 source) Antiemetic Start: 08-13-2023 meclizine 25 m g oral tablet Dose : 25 mg = 1 tab(s), Oral, TID, PRN as needed for dizziness, # 30 tab(s), 0 Refill(s), Pharmacy: [facility], Benign positional vertigo, 170, cm, 08/13/23 11:29:00 EDT, Height, kg, 08/13/23 11:29:00 EDT, Dosing Weight Start Date: 08/13/23 Status: Ordered metFORMIN hydrochloride 500 mg oral tablet (10 sources) Biguanide Start: 08-13-2023 take 2 tablets by mouth once in the morning, then take 1 tablet by mouth once in the evening metFORMIN 500 mg oral tablet (IR) See Instructions, 2 tabs q am / 1 tab q pm, # 300 tab(s), 3 Refill(s), Pharmacy: [facility], Type 2 diabetes mellitus, 170, cm, 08/13/23 11:29:00 EDT, Height, kg, 08/13/23 11:29:00 EDT, Dosing Weight Start Date: 08/13/23 Status: Ordered Start: 08-21-2022 metFORMIN 500 mg oral tablet (IR) Dose : 1,000 mg = 2 tab(s), Oral, BID, # 360 tab(s), 3 Refill(s), Pharmacy: [facility], Type 2 diabetes mellitus, 171, cm, 08/21/22 11:28:00 EDT, Height, kg, 08/21/22 11:28:00 EDT, Dosing Weight Start Date: 08/21/22 Status: Ordered Start: 03-13-2022 take 2 tablets by mo uth twice daily, then take 1 tablet by mouth twice daily Metformin 500 mg tablet Active 0 PO TWICE A DAY March 13, 2022 1:00am DM 1,000 mg and 500 mg at night orally twice a day; Start: 03-13-2022 take 1000 mg by mout h twice daily Metformin Active 1000 MG PO TWICE A DAY March 13, 2022 12:00am Start: 11-28-2021 metFORMIN 500 mg oral tablet (IR) Dose : 1,000 mg = 2 tab(s), Oral, BID, # 360 tab(s), 3 Refill(s), Pharmacy: [facility], 171.2, cm, 11/28/21 11:36:00 EDT, Height, kg, 11/28/21 11:36:00 EDT, Dosing Weight Start Date: 11/28/21 Status: Ordered Start: 02-28-2021 metFORMIN 500 mg oral tablet (IR) Dose : 1,000 mg = 2 tab(s), Oral, BID, # 360 tab(s), 3 Refill(s), Pharmacy: [facility], 171.2, cm, 02/28/21 11:00:00 EST, Height, kg, 02/28/21 11:00:00 EST, Dosing Weight Start Date: 02/28/21 Status: Ordered metoprolol tartrate 25 mg oral tablet (11 sources) beta-Adrenergic Nikolay Start: 08-13-2023 End: 09-16-2024 metoprolol tartrate 25 mg oral tablet Dose : 25 mg = 1 tab(s), Oral, BID, # 200 tab(s), 3 Refill(s), Pharmacy: [facility], Essential hypertension, 170, cm, 08/13/23 11:29:00 EDT, Height, kg, 08/13/23 11:29:00 EDT, Dosing Weight Start Date: 08/13/23 Stop Date: 09/16/24 Status: Ordered Start: 11-28-2021 metoprolol tar trate 25 mg oral tablet Dose : 25 mg = 1 tab(s), Oral, BID, # 180 tab(s), 3 Refill(s), Pharmacy: [facility], Essential hypertension, 171, cm, 08/21/22 11:28:00 EDT, Height, kg, 08/21/22 11:28:00 EDT, Dosing Weight Start Date: 08/21/22 Status: Ordered Start: 02-28-2021 metoprolol tar trate 25 mg oral tablet Dose : 25 mg = 1 tab(s), Oral, BID, # 180 tab(s), 3 Refill(s), Pharmacy: [facility], 171.2, cm, 02/28/21 11:00:00 EST, Height, kg, 02/28/21 11:00:00 EST, Dosing Weight Start Date: 02/28/21 Status: Ordered Start: 05-06-2007 metoprolol tar trate(LOPRESSOR 50 MG TAB) Take one and one half ( 1 1/2) tablet twice daily. 270 3 05/06/2007 Active Comment on above: Take one and one stanley f ( 1 1/2) tablet twice daily. pravastatin sodium 40 mg oral tablet (10 sources) HMG-CoA Reductase Inhibitor Start: 08-13-2023 End: 09-16-2024 pravastatin 40 mg oral tablet Dose : 40 mg = 1 tab(s), Oral, qHS, # 100 tab(s), 3 Refill(s), Pharmacy: [facility], Hyperlipidemia, 170, cm, 08/13/23 11:29:00 EDT, Height, kg, 08/13/23 11:29:00 EDT, Dosing Weight Start Date: 08/13/23 Stop Date: 09/16/24 Status: Ordered Start: 11-28-2021 pravastatin 40 mg oral tablet Dose : 40 mg = 1 tab(s), Oral, qHS, # 90 tab(s), 3 Refill(s), Pharmacy: [facility], Hyperlipidemia, 171, cm, 08/21/22 11:28:00 EDT, Height, kg, 08/21/22 11:28:00 EDT, Dosing Weight Start Date: 08/21/22 Status: Ordered Start: 02-28-2021 pravastatin 40 mg oral tablet Dose : 40 mg = 1 tab(s), Oral, qHS, # 90 tab(s), 3 Refill(s), Pharmacy: [facility], 171.2, cm, 02/28/21 11:00:00 EST, Height, kg, 02/28/21 11:00:00 EST, Dosing Weight Start Date: 02/28/21 Status: Ordered predniSONE 10 mg oral tablet (4 sources) Start: 08-29-2022 End: 09-04-2022 prednisone 10mg tab (TAPER) Taper [id number] x 1 day, Oral, qAM, # 21 tab(s), 0 Refill(s), Pharmacy: [facility], 171, cm, 08/29/22 15:26:00 EDT, Height Start Date: 08/29/22 Stop Date: 09/04/22 Status: Ordered Start: 03-15-2022 End: 11-10-2024 take 1 tablet by mouth twice daily Prednisone 20 mg tablet Discontinued 20 mg PO TWICE A DAY March 15, 2022 1:00am November 10, 2024 6:30pm rivaroxaban 10 mg oral tablet (2 sources) Factor Xa Inhibitor Start: 11-28-2021 Xarelto 10 mg oral tablet Dose : 10 mg = 1 tab(s), Oral, Daily, # 90 tab(s), 3 Refill(s), Pharmacy: [facility], 171.2, cm, 11/28/21 11:36:00 EDT, Height, 110.3, kg, 11/28/21 11:36:00 EDT, Dosing Weight Start Date: 11/28/21 Status: Ordered Start: 02-28-2021 Xarelto 10 mg oral tablet Dose : 10 mg = 1 tab(s), Oral, Daily, # 90 tab(s), 3 Refill(s), Pharmacy: [facility], 171.2, cm, 02/28/21 11:00:00 EST, Height, 115.6, kg, 02/28/21 11:00:00 EST, Dosing Weight Start Date: 02/28/21 Status: Ordered sertraline 100 mg oral tablet (10 sources) Serotonin Reuptake Inhibitor Start: 08-13-2023 End: 09-16-2024 sertraline 100 mg oral tablet Dose : 100 mg = 1 tab(s), Oral, qDay, # 100 tab(s), 3 Refill(s), Pharmacy: [facility], Anxiety disorder, 170, cm, 08/13/23 11:29:00 EDT, Height, kg, 08/13/23 11:29:00 EDT, Dosing Weight Start Date: 08/13/23 Stop Date: 09/16/24 Status: Ordered Start: 11-28-2021 sertraline 100 mg oral tablet Dose : 100 mg = 1 tab(s), Oral, qDay, # 90 tab(s), 3 Refill(s), Pharmacy: [facility], Anxiety disorder, 171, cm, 08/21/22 11:28:00 EDT, Height, kg, 08/21/22 11:28:00 EDT, Dosing Weight Start Date: 08/21/22 Status: Ordered Start: 02-28-2021 sertraline 100 mg oral tablet Dose : 100 mg = 1 tab(s), Oral, qDay, # 90 tab(s), 3 Refill(s), Pharmacy: [facility], 171.2, cm, 02/28/21 11:00:00 EST, Height, kg, 02/28/21 11:00:00 EST, Dosing Weight Start Date: 02/28/21 Status: Ordered sulfamethoxazole 800 mg / trimethoprim 160 mg oral tablet (1 source) Dihydrofolate Reductase Inhibitor Antibacterial, Sulfonamide Antimicrobial Start: 11-28-2021 End: 12-05-2021 take 1 tablet by mouth every twelve hours sulfamethoxazole-trimethoprim 800 mg-160 mg oral tablet Dose = 1 tab(s), Oral, q12h, X 7 day(s), # 14 tab(s), 0 Refill(s), Pharmacy: [facility], 171.2, cm, 11/28/21 11:36:00 EDT, Height, 110.3 Start Date: 11/28/21 Stop Date: 12/05/21 Status: Ordered triamcinolone acetonide 1 mg/ml topical cream (3 sources) Corticosteroid Start: 11-10-2024 Triamcinolone Acetonide 0.1 % cream Active 1 NMA TOPICAL TWICE A DAY November 10, 2024 12:00am Start: 02-15-2019 triamcinolone 0.1% topical cream Apply 1 sophy, Topical, TID, PRN psoriasis, 0 Refill(s) Start Date: 02/15/19 Status: Ordered Vtama 1% topical cream (2 sources) Start: 12-18-2021 apply 1 dose topical ly once daily Vtama 1% topical cream Dose = 1 sophy, Topical, qDay, # 60 gram(s), 0 Refill(s) Start Date: 12/18/21 Status: Ordered Completed/Discontinued Medications Medication Drug Class(es) Dates Sig (Normalized) Sig (Original) 1 ML risankizumab-rzaa 150 MG/ML Auto-Injector [Skyrizi] (4 sources) Start: 12-18-2021 inject 1 mL by subcutaneous injection every three months Skyrizi Pen 150 mg/mL subcutaneous solution Dose : 150 mg = 1 mL, Subcutaneous, [id number], rotate injection sites, 0 Refill(s) Start Date: 12/18/21 Status: Ordered Budesonide-Formote rol (3 sources) Corticosteroid, beta2-Adrenergic Agonist Start: 03-15-2022 End: 11-10-2024 Budesonide-Formoter ol (Symbicort) 80-4.5 mcg/actuation HFA aerosol inhaler Discontinued 1 NMA INHALATION TWICE A DAY 10.2 0 March 15, 2022 1:00am November 10, 2024 6:28pm Start: 03-15-2022 Budesonide-For moterol (Symbicort) 80-4.5 mcg/actuation HFA aerosol inhaler Active 1 INH INHALATION TWICE A DAY 10.2 March 15, 2022 12:00am clopidogrel 75 mg oral tablet (1 source) [id number] Platelet Inhibitor clopidogrel bisulfate(PLAVIX 75 MG TAB) Take one(1) tablet TWICE DAILY til July then one(1) tablet daily tereafter with no interuption for at least 1 year 0 Active Comment on above: Take one(1) tablet T WICE DAILY til July then one(1) tablet daily tereafter with no interuption for at least 1 year 24 hr isosorbide mononitrate 60 mg extended release oral tablet (1 source) Nitrate Vasodilator isosorbide mononitrate(IMDUR 60 MG 24 HR TAB) Take one(1) tablet in the AM and one half (1/2) tablet in the PM may increase to one(1) tablet TWICE daily if chest pains persists. 0 Active Comment on above: Take one(1) tablet i n the AM and one half (1/2) tablet in the PM may increase to one(1) tablet TWICE daily if chest pains persists. levoFLOXacin 750 mg oral tablet (3 sources) Quinolone Antimicrobial Start: 023 End: 025 take 1 tablet by mouth once daily Levofloxacin 750 mg tablet Discontinued 750 mg PO DAILY 5 0 March 15, 2022 1:00am November 10, 2024 6:28pm lisinopril 5 mg oral tablet (1 source) Angiotensin Converting Enzyme Inhibitor Start: 008 lisinopril(PRINIVIL 5 MG TAB) Take one(1) tablet daily. 90 3 05/06/2007 Active Comment on above: Take one(1) tablet d aily. nitroglycerin 0.4 mg sublingual tablet (1 source) Nitrate Vasodilator Start: 008 NITROGLYCERIN 0.[address] one(1) tablet on tongue as needed for chest pain. If no pain relief call 911. 1 bottle #25 11 05/06/2007 Active Comment on above: Place one(1) tablet on tongue as needed for chest pain. If no pain relief call 911. simvastatin 40 mg oral tablet (1 source) HMG-CoA Reductase Inhibitor Start: 008 simvastatin(ZOCOR 40 MG TAB) Take one(1) tablet daily at bedtime. 90 3 05/06/2007 Active Comment on above: Take one(1) tablet d aily at bedtime. Problems Active Problems Problem Classification Problem Date Documented Date Episodic/Chronic Anxiety disorders (6 sources) Anxiety disorder 03-24-2019 Chronic Asthma (7 sources) Reactive airway disease; Translations: [Unspecified asthma, uncomplicated] Chronic Cardiac dysrhythmias (2 sources) Atrial flutter; Translations: [Unspecified atrial flutter] 11-10-2024 Chronic Coronary atherosclerosis and other heart disease (13 sources) Atherosclerotic heart disease of [place] coronary artery without angina pectoris; Translations: [Coronary arteriosclerosis in [place] artery] Onset: 09-20-2019 12-28-2018 Chronic Diabetes mellitus with complications (2 sources) Hyperglycemia due to type 2 diabetes mellitus; Translations: [Type 2 diabetes mellitus with hyperglycemia] 11-10-2024 Chronic Diabetes mellitus without complication (8 sources) Type 2 diabetes mellitus without complications; Translations: [Type 2 diabetes mellitus] Onset: 09-20-2019 09-02-2019 Chronic Disorders of lipid metabolism (1 source) Hyperlipidemia; Translations: [Hyperlipidemia, unspecified] Chronic Essential hypertension (7 sources) Essential hypertension; Translations: [Essential (primary) hypertension] 12-15-2019 Chronic Gout and other crystal arthropathies (6 sources) Primary gout 10-31-2021 Chronic Other aftercare (1 source) Encounter for adjustment and management of vascular access device; Translations: [Encounter for adjustment and management of vascular access device] Onset: 09-20-2019 Episodic Other aftercare (1 source) Long-term current use of drug therapy; Translations: [Other jail (current) drug therapy] Episodic Other circulatory disease (4 sources) H/O: heart disorder; Translations: [Personal history of other diseases of the circulatory system] 03-13-2022 Episodic Other circulatory disease (3 sources) Personal history of other diseases of the circulatory system; Translations: [Personal history of other diseases of circulatory system] Episodic Other connective tissue disease (1 source) Triggering of digit 05-28-2023 Episodic Other inflammatory condition of skin (7 sources) Psoriasis; Translations: [Other psoriasis] 09-28-2018 Chronic Other inflammatory condition of skin (6 sources) Psoriatic arthritis 09-28-2018 Chronic Other inflammatory condition of skin (1 source) Psoriasis vulgaris; Translations: [Psoriasis vulgaris] Chronic Other lower respiratory disease (6 sources) H/O: respiratory disease 09-28-2018 Episodic Other lower respiratory disease (4 sources) Hypoxemia; Translations: [Hypoxemia] 03-23-2022 Episodic Other lower respiratory disease (4 sources) Hypoxemia; Translations: [Hypoxemia] Onset: 03-15-2022 Episodic Other nervous system disorders (5 sources) Peripheral nerve disease 09-20-2020 Chronic Other nervous system disorders (1 source) 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 Other nutritional; endocrine; and metabolic disorders (6 sources) Obese class II 09-20-2020 Chronic Other nutritional; endocrine; and metabolic disorders (2 sources) Obese class I; Translations: [Class 1 obesity] 11-10-2024 Chronic Other skin disorders (6 sources) Atrophic condition of skin 06-21-2020 Episodic Other skin disorders (2 sources) Infection of sebaceous cyst 05-15-2022 Episodic Pneumonia (except that caused by tuberculosis or sexually transmitted disease) (9 sources) Pneumonia; Translations: [Pneumonia, unspecified organism] Onset: 03-15-2022 Episodic Skin and subcutaneous tissue infections (2 sources) Cellulitis; Translations: [Cellulitis, unspecified] 11-10-2024 Episodic Unclassified (3 sources) Infection following a procedure, deep incisional surgical site, initial encounter; Translations: [Infection following a procedure, deep incisional surgical site, initial encounter] Onset: 09-27-2019 Urinary tract infections (2 sources) Acute cystitis; Translations: [Acute cystitis without hematuria] 11-10-2024 Episodic Past or Other Problems Problem Classification Problem Date Documented Da te Episodic/Chronic Other aftercare (1 source) Other intermission coordinator (current) drug therapy; Translations: [On angiotensin receptor blockers (ARB)] Onset: 06-17-2024 Episodic Results Test Name Value Interpretation Reference Range Facility Absolute lymphocyte countOrd ered By: Cristina Bunn on 11-10-2024 Lymphocytes Auto (Unsp spec) [#/Vol] 1.50 10*3/uL 0.83-4.51 [facility] Absolute neutrophil countOrd ered By: Cristina Bunn on 11-10-2024 Neutrophils (Bld) [#/Vol] 7.2 10*3/uL 2.0-7.7 [facility] Activated partial thrombopla stin time (aPTT) in platelet poor plasma by coagulation aOrdered By: Cristina Bunn on 11-10-2024 aPTT Coag (PPP) [Time] 29.3 s 24.1-36.2 [facility] Anion gap in Serum or Plasma Ordered By: Cristina Bunn on 11-10-2024 Anion gap [Moles/Vol] 12 mmol/L 5-15 [facility] Automated lymphocyte count a s percentage of total leukocytesOrdered By: Cristina Bunn on 11-10-2024 Lymphocytes/100 WBC Auto (Unsp spec) 14.5 % Low 19-41 [facility] BUN/creatinine ratioOrdered By: Cristina Bunn on 11-10-2024 Urea nitrogen/Creatinine [Mass ratio] 14.3 mg/mg 10-20 [facility] Basophil percentageOrdered B y: Cristina Bunn on 11-10-2024 Basophils/100 WBC (Bld) 1.1 % High 0-1 [facility] Bilirubin Test strip Ql (U)O rdered By: Cristina Bunn on 11-10-2024 Bilirubin Ql (U) Negative Negative [facility] Bilirubin, totalOrdered By: Cristina Bunn on 11-10-2024 Bilirubin [Mass/Vol] 0.65 mg/dL 0.00-1.[address] [facility] Carbon dioxide, total [Moles /volume] in Central venous bloodOrdered By: Cristina Bunn on 11-10-2024 CO2 [Moles/Vol] 23.3 mmol/L 21.0-32.0 [facility] Chloride assayOrdered By: Mihaela Bunn on 11-10-2024 Chloride [Moles/Vol] 102 mmol/L 98-[address] [facility] Eosinophil percentageOrdered By: Cristina Bunn on 11-10-2024 Eosinophils/100 WBC (Bld) 4.4 % 0-5 [facility] Erythrocyte distribution wid th ratioOrdered By: Cristina Bunn on 11-10-2024 Erythrocyte distribution width (RBC) [Ratio] 13.5 % 11.6-14.6 [facility] Erythrocyte distribution wid th standard deviationOrdered By: Cristina Bunn on 11-10-2024 Erythrocyte distribution width (RBC) [Ratio] 44.6 fl High 35.1-43.9 [facility] Glomerular filtration rate ( GFR) estimation/1.73 sq m using serum, plasma, or whole bOrdered By: Cristina Bunn on 11-10-2024 GFR/1.73 sq M.predicted among non-blacks MDRD (S/P/Bld) [Vol rate/Area] 84 mL/min/{1.73_m2} >60 [facility] Comment on above: mL/min/1.73m2 CKD-EP I Creatinine Equation (2020) Hematocrit Auto (Bld) [Volum e fraction]Ordered By: Cristina Bunn on 11-10-2024 Hematocrit (Bld) [Volume fraction] 43.0 % 37-47 [facility] Hemoglobin A1c percentageOrd ered By: Deidra Figueroa on 11-10-2024 HbA1c (Bld) [Mass fraction] 8.3 % High <5.7 [facility] Comment on above: Normal < 5.7 % Predi abetic 5.7 - 6.4 % Diabetic >or= 6.5 % Please note range changes. Hemoglobin measurementOrdere d By: Cristina Bunn on 11-10-2024 Hemoglobin (Bld) [Mass/Vol] 13.9 g/dL 12.0-15.0 [facility] Immature granulocytes/100 WB C Auto (Bld)Ordered By: Cristina Bunn on 11-10-2024 Immature granulocytes/100 WBC (Bld) 0.500 % 0.0-0.9 [facility] Comment on above: IG% - Immature Granu locytes (promyelocytes, myelocytes and metamyelocytes) > 1% indicates that a LEFT SHIFT is Present. International normalized rat io (INR) calculationOrdered By: Cirstina Bunn on 11-10-2024 INR Coag (Bld) [Relative time] 1.1 {INR} [facility] Ketones Test strip Ql (U)Ord ered By: Cristina Bunn on 11-10-2024 Ketones Ql (U) Negative Negative [facility] Laboratory - Chemistry and C hemistry - challengeOrdered By: Cristina Bunn on 11-10-2024 AST [Catalytic activity/Vol] 25 U/L <32 [facility] Lactic acid measurementOrder ed By: Cristina Bunn on 11-10-2024 Lactate [Moles/Vol] 1.9 mmol/L 0.0-2.0 [facility] MCV (mean corpuscular volume ) determinationOrdered By: Cristina Bunn on 11-10-2024 MCV (RBC) [Entitic vol] 89.8 fL 81-99 [facility] Magnesium measurement (mass/ volume)Ordered By: Deidra Figueroa on 11-10-2024 Magnesium (Unsp spec) [Mass/Vol] 1.8 mg/dL 1.5-2.2 [facility] Mean corpuscular hemoglobin (MCH) determinationOrdered By: Cristina Bunn on 11-10-2024 MCH (RBC) [Entitic mass] 29.0 pg 27.0-32.0 [facility] Mean corpuscular hemoglobin concentration (MCHC) determinationOrdered By: Cristina Bunn on 11-10-2024 MCHC (RBC) [Mass/Vol] 32.3 g/dL 32-36 [facility] Mean platelet volume determi nationOrdered By: Cristina Bunn on 11-10-2024 Platelet mean volume (Bld) [Entitic vol] 10.9 fL 6.2-12.0 [facility] Microscopic analysis of urin e for red blood cells (RBC)Ordered By: Cristina Bunn on 11-10-2024 Microscopic analysis of urine for red blood cells (RBC) 0-5 SEEN /hpf 0-5 [facility] Monocyte percentageOrdered B y: Cristina Bunn on 11-10-2024 Monocytes/100 WBC (Bld) 10.5 % High 0-10 [facility] Mucus LM Ql (Urine sed)Order ed By: Cristina Bunn on 11-10-2024 Mucus Ql (Urine sed) 0 SEEN /hpf [facility] Neutrophil percentageOrdered By: Cristina Bunn on 11-10-2024 Neutrophils/100 WBC (Bld) 69.0 % 47-70 [facility] Nitrite Test strip Ql (U)Ord ered By: Cristina Bunn on 11-10-2024 Nitrite Ql (U) Positive High Negative [facility] Nucleated red blood cell per centageOrdered By: Cristina Bunn on 11-10-2024 Nucleated RBC/100 WBC (Bld) [Ratio] 0 % 0-5 [facility] Platelet countOrdered By: Mihaela Bunn on 11-10-2024 Platelets (Bld) [#/Vol] 259 10*3/uL 150-450 [facility] Potassium measurement (mass/ volume)Ordered By: Cristina Bunn on 11-10-2024 Potassium (Unsp spec) [Mass/Vol] 4.5 mmol/L 3.3-5.1 [facility] Protein Test strip Ql (U)Ord ered By: Cristina Bunn on 11-10-2024 Protein Ql (U) 30 mg/dl High Negative [facility] Prothrombin timeOrdered By: Cristina Bunn on 11-10-2024 PT Coag (PPP) [Time] 14.6 s 11.7-14.[address] [facility] RBC Auto (Bld) [#/Vol]Ordere d By: Cristina Bunn on 11-10-2024 RBC (Bld) [#/Vol] 4.79 10*6/uL 4.2-5.4 [facility] Serum creatinine measurement (mass/volume)Ordered By: Cristina Bunn on 11-10-2024 Creatinine [Mass/Vol] 0.77 mg/dL 0.70-1.20 [facility] Serum globulin measurementOr dered By: Cristina Bunn on 11-10-2024 Globulin (S) [Mass/Vol] 4.8 g/dL High 2.2-4.2 [facility] Serum glucose measurement (m ass/volume)Ordered By: Cristina Bunn on 11-10-2024 Glucose [Mass/Vol] 264 mg/dL High 70-99 [facility] Serum or plasma alanine bateman otransferase (ALT) measurementOrdered By: Cristina Bunn on 11-10-2024 ALT [Catalytic activity/Vol] 9 U/L <35 [facility] Serum or plasma albumin cruz urement (mass/volume)Ordered By: Cristina Bunn on 11-10-2024 Albumin [Mass/Vol] 3.5 g/dL 3.4-4.8 [facility] Serum or plasma albumin/glob ulin mass ratioOrdered By: Cristina Bunn on 11-10-2024 Albumin/Globulin [Mass ratio] 0.7 {ratio} Low 0.9-2.4 [facility] Serum or plasma alkaline enrrique sphatase measurementOrdered By: Remus Bunn on 11-10-2024 ALP [Catalytic activity/Vol] 88 U/L 35-104 [facility] Serum or plasma calcium cruz urement (mass/volume)Ordered By: Remus Bunn on 11-10-2024 Calcium [Mass/Vol] 9.4 mg/dL 7.6-11.0 [facility] Serum or plasma urea nitroge n measurement (mass/volume)Ordered By: Remus Bunn on 11-10-2024 Urea nitrogen [Mass/Vol] 11 mg/dL 4-19 [facility] Sodium levelOrdered By: Joaquim Bunn on 11-10-2024 Sodium [Moles/Vol] 137 mmol/L 133-145 [facility] Squamous epithelial cells de tection in urine sediment by light microscopyOrdered By: Cristina Bunn on 11-10-2024 Epithelial cells.squamous LM Ql (Urine sed) 5-10 SEEN /hpf 5-10 [facility] TSH DL <= 0.005 mIU/L QnOrde red By: Deidra Figueroa on 11-10-2024 TSH Qn 1.700 uIU/mL 0.300-4.200 [facility] Total proteinOrdered By: Lilia Bunn on 11-10-2024 Protein [Mass/Vol] 8.3 g/dL 5.9-8.4 [facility] Troponin T.cardiac [Mass/vol ume] in Serum or Plasma by High sensitivity methodOrdered By: Remus Bunn on 11-10-2024 Troponin T.cardiac High sensitivity method [Mass/Vol] 19 ng/L High <14 [facility] Urine clarityOrdered By: Rem us Bunn on 11-10-2024 Clarity (U) Sl. Cloudy Clear [facility] Urine color determinationOrd ered By: Cristina Bunn on 11-10-2024 Color (U) Yellow Yellow [facility] Urine glucose detectionOrder ed By: Cristina Bunn on 11-10-2024 Glucose Ql (U) Normal mg/dl Normal [facility] Urine leukocyte esterase det ection by dipstickOrdered By: Cristina Bunn on 11-10-2024 Leukocyte esterase Test strip Ql (U) 500 /ul High Negative [facility] Urine pHOrdered By: Cristina Un gur on 11-10-2024 pH (U) 6.0 [pH] 5.0 - 8.0 [facility] Urine sediment bacteria coun t by microscopy (number/high power field)Ordered By: Cristina Bunn on 11-10-2024 Bacteria LM.HPF (Urine sed) [#/Area] 1 /[HPF] None Seen [facility] Urine specific gravity measu rementOrdered By: Cristina Bunn on 11-10-2024 Specific gravity (U) [Rel density] 1.010 1.002-1.030 [facility] Urine urobilinogen measureme ntOrdered By: Cristina Bunn on 11-10-2024 Urobilinogen Ql (U) Normal mg/dl Normal [facility] White blood cell (WBC) count Ordered By: Cristina Bunn on 11-10-2024 WBC (Bld) [#/Vol] 10.4 10*3/uL 4.4-11.0 [facility] White blood cell countOrdere d By: Cristina Bunn on 11-10-2024 White blood cell count 50-100 SEEN /hpf 0-5 [facility] ALT SerPl-cCncon 10-04-2024 ALT [Catalytic activity/Vol] 12 U/L Low 13-61 [facility] Comment on above: Order Comment: Speci men Type: BLOOD SPECIMEN Ordering Facility: [facility] Address: [address], [place] [address] Result Comment: Resu lts may be falsely depressed after the administration of Sulfasalazine and/or Sulfapyridine. Performed By: #### 1 742-6, 1920-8 #### [facility] CLIA [id number] [address] [place] [address] [place] AST SerPl-cCncon 10-04-2024 AST [Catalytic activity/Vol] 28 U/L Normal 8-34 [facility] Comment on above: Order Comment: Speci men Type: BLOOD SPECIMEN Ordering Facility: [facility] Address: [address], [place] [address] Result Comment: Resu lts may be falsely depressed after the administration of Sulfasalazine and/or Sulfapyridine. Performed By: #### 1 742-6, 1919-10 #### [facility] CLIA [id number] [address] [place] [address] [place] ALT SerPl-cCncon 07-28-2024 ALT [Catalytic activity/Vol] 8 U/L Low 13-61 [facility] Comment on above: Order Comment: Speci men Type: BLOOD SPECIMEN Ordering Facility: [facility] Address: [address], [place] [address] Result Comment: Resu lts may be falsely depressed after the administration of Sulfasalazine and/or Sulfapyridine. Performed By: #### 1 742-6, 1919-10 #### [facility] CLIA [id number] [address] [place] [address] [place] AST SerPl-cCncon 07-28-2024 AST [Catalytic activity/Vol] 41 U/L High 8-34 [facility] Comment on above: Order Comment: Speci men Type: BLOOD SPECIMEN Ordering Facility: [facility] Address: [address], [place] [address] Result Comment: Resu lts may be falsely depressed after the administration of Sulfasalazine and/or Sulfapyridine. Performed By: #### 1 742-6, 1919-10 #### [facility] CLIA [id number] [address] [place] [address] [place] BLOOD TB SCREENon 06-17-2024 M. tuberculosis tuberculin stim IFN-g Ql (Bld) Negative Normal [facility] Comment on above: Order Comment: Speci men Type: BLOOD SPECIMEN Ordering Facility: [facility] Address: [address], [place] [address] Performed By: #### I NFTBP #### [facility] CLIA [id number] [address] [place] [address] [place] MITOGEN MINUS NIL 2.30 IU/mL Normal >=0.50 [facility] Comment on above: Order Comment: Speci men Type: BLOOD SPECIMEN Ordering Facility: [facility] Address: [place] [address] Performed By: #### I NFTBP #### [facility] CLIA [id number] [address] [place] [address] [facility] [place] TB GAMMA INTERPRETATION Infection with M . tuberculosis complex is unlikely. If latent tuberculosis infection is highly suspected, a negative result does not rule out the infection. Specimens from immunocompromised patients and those <5 years of age may show false negative results. In case of a contact investigation, please repeat 8-12 weeks after a known exposure. Normal [facility] Comment on above: Order Comment: Speci men Type: BLOOD SPECIMEN Ordering Facility: [facility] Address: [place] [address] Performed By: #### I NFTBP #### [facility] CLIA [id number] [address] [place] [address] TB NIL <0.00 Normal <=8.00 [facility] Comment on above: Order Comment: Speci men Type: BLOOD SPECIMEN Ordering Facility: [facility] Address: [place] [address] Performed By: #### I NFTBP #### [facility] CLIA [id number] [address] [place] [address] [place] TB1 AG MINUS NIL <0.00 Normal <0.35 [facility] Comment on above: Order Comment: Speci men Type: BLOOD SPECIMEN Ordering Facility: [facility] Address: [place] [address] Performed By: #### I NFTBP #### [facility] CLIA [id number] [address] [place] TB2 AG MINUS NIL <0.00 Normal <0.35 [facility] Comment on above: Order Comment: Speci men Type: BLOOD SPECIMEN Ordering Facility: [facility] Address: [place] [address] Performed By: #### I NFTBP #### [facility] CLIA [id number] [facility] [place] [address] [place] CBC W Auto Differential pane l (Bld)on 06-17-2024 Basophils (Bld) [#/Vol] 0.06 10*3/uL Normal <0.11 [facility] Comment on above: Order Comment: Speci men Type: BLOOD SPECIMEN Ordering Facility: [facility] Address: [address] , [place] [address] Performed By: #### 5 7021-8 #### [facility] CLIA [id number] [address] [place] [address] [place] Basophils/100 WBC (Bld) 0.9 % Normal [facility] Comment on above: Order Comment: Speci men Type: BLOOD SPECIMEN Ordering Facility: [facility] Address: [address], [place] [address] Performed By: #### 5 7021-8 #### [facility] CLIA [id number] [address] [place] [address] [place] Differential cell count method Nom (Bld) Auto Normal [facility] Comment on above: Order Comment: Speci men Type: BLOOD SPECIMEN Ordering Facility: [facility] Address: [address], [place] [address] Performed By: #### 5 7021-8 #### [facility] CLIA [id number] [address] [place] [address] [place] Eosinophils (Bld) [#/Vol] 0.22 10*3/uL Normal <0.46 [facility] Comment on above: Order Comment: Speci men Type: BLOOD SPECIMEN Ordering Facility: [facility] Address: [address], [place] [address] Performed By: #### 5 7021-8 #### [facility] CLIA [id number] [address] [place] [address] [place] Eosinophils/100 WBC (Bld) 3.5 % Normal [facility] Comment on above: Order Comment: Speci men Type: BLOOD SPECIMEN Ordering Facility: [facility] Address: [address], [place] [address] Performed By: #### 5 7021-8 #### [facility] CLIA [id number] [address] [place] [address] [place] Erythrocyte distribution width (RBC) [Ratio] 13.8 % Normal 11.5-15.0 [facility] Comment on above: Order Comment: Speci men Type: BLOOD SPECIMEN Ordering Facility: [facility] Address: [address], [place] [address] Performed By: #### 5 7021-8 #### [facility] CLIA [id number] [address] [place] [address] [place] Hematocrit (Bld) [Volume fraction] 49.1 % High 36.0-46.0 [facility] Comment on above: Order Comment: Speci men Type: BLOOD SPECIMEN Ordering Facility: [facility] Address: [address], [place] [address] Performed By: #### 5 7021-8 #### [facility] CLIA [id number] [facility] [place] [address] [place] Hemoglobin (Bld) [Mass/Vol] 15.6 g/dL High 11.5-15.5 [facility] Comment on above: Order Comment: Speci men Type: BLOOD SPECIMEN Ordering Facility: [facility] Address: [address], [place] [address] Performed By: #### 5 7021-8 #### [facility] CLIA [id number] [address] [place] [address] [place] Immature granulocytes (Bld) [#/Vol] 10*3/uL Normal <0.10 [facility] Comment on above: Order Comment: Speci men Type: BLOOD SPECIMEN Ordering Facility: [facility] Address: [address], [place] [address] Performed By: #### 5 7021-8 #### [facility] CLIA [id number] [address] [place] Immature granulocytes/100 WBC (Bld) 0.2 % Normal [facility] Comment on above: Order Comment: Speci men Type: BLOOD SPECIMEN Ordering Facility: [facility] Address: [facility] [place] [address] Performed By: #### 5 7021-8 #### [facility] CLIA [id number] [address] [place] [address] [place] Lymphocytes (Bld) [#/Vol] 1.32 10*3/uL Normal 1.00-4.00 [facility] Comment on above: Order Comment: Speci men Type: BLOOD SPECIMEN Ordering Facility: [facility] Address: [address] , [place] [address] Performed By: #### 5 7021-8 #### [facility] CLIA [id number] [address] [place] [address] [place] Lymphocytes/100 WBC (Bld) 20.9 % Normal [facility] Comment on above: Order Comment: Speci men Type: BLOOD SPECIMEN Ordering Facility: [facility] Address: [place] [address] Performed By: #### 5 7021-8 #### [facility] CLIA [id number] [address] [place] [address] [place] MCH (RBC) [Entitic mass] 30.2 pg Normal 26.0-34.0 [facility] Comment on above: Order Comment: Speci men Type: BLOOD SPECIMEN Ordering Facility: [facility] Address: [address], [place] [address] Performed By: #### 5 7021-8 #### [facility] CLIA [id number] [address] [place] [address] [place] MCHC (RBC) [Mass/Vol] 31.8 g/dL Normal 30.5-36.0 [facility] Comment on above: Order Comment: Speci men Type: BLOOD SPECIMEN Ordering Facility: [facility] Address: [address], [place] [address] Performed By: #### 5 7021-8 #### [facility] CLIA [id number] [address] [place] [address] [place] MCV (RBC) [Entitic vol] 95.0 fL Normal 80.0-100.0 [facility] Comment on above: Order Comment: Speci men Type: BLOOD SPECIMEN Ordering Facility: [facility] Address: [address], [place] [address] Performed By: #### 5 7021-8 #### [facility] CLIA [id number] [address] [place] [address] [place] Monocytes (Bld) [#/Vol] 0.54 10*3/uL Normal <0.87 [facility] Comment on above: Order Comment: Speci men Type: BLOOD SPECIMEN Ordering Facility: [facility] Address: [address], [place] [address] Performed By: #### 5 7021-8 #### [facility] CLIA [id number] [address] [place] [address] Monocytes/100 WBC (Bld) 8.5 % Normal [facility] Comment on above: Order Comment: Speci men Type: BLOOD SPECIMEN Ordering Facility: [facility] Address: [address], [place] [id number] Performed By: #### 5 7021-8 #### [facility] CLIA [id number] [address] [place] [address] [place] Neutrophils (Bld) [#/Vol] 4.17 10*3/uL Normal 1.45-7.50 [facility] Comment on above: Order Comment: Speci men Type: BLOOD SPECIMEN Ordering Facility: [facility] Address: [address], [place] [address] Performed By: #### 5 7021-8 #### [facility] CLIA [id number] [address] [place], [place] [address] [place] Neutrophils/100 WBC (Bld) 66.0 % Normal [facility] Comment on above: Order Comment: Speci men Type: BLOOD SPECIMEN Ordering Facility: [facility] Address: [address], [place] [address] Performed By: #### 5 7021-8 #### [facility] CLIA [id number] [address] [place], [place] [address] [place] Platelet mean volume (Bld) [Entitic vol] 10.9 fL Normal 9.0-12.7 [facility] Comment on above: Order Comment: Speci men Type: BLOOD SPECIMEN Ordering Facility: [facility] Address: [address], [place] [address] Performed By: #### 5 7021-8 #### [facility] CLIA [id number] [address] [place], [place] [address] [place] Platelets (Bld) [#/Vol] 142 10*3/uL Low 150-400 [facility] Comment on above: Order Comment: Speci men Type: BLOOD SPECIMEN Ordering Facility: [facility] Address: [address], [place] [address] Performed By: #### 5 7021-8 #### [facility] CLIA [id number] [address] [place], [place] [id number] [place] RBC (Bld) [#/Vol] 5.17 10*6/uL Normal 3.90-5.20 [facility] Comment on above: Order Comment: Speci men Type: BLOOD SPECIMEN Ordering Facility: [facility] Address: [address], [place] [address] Performed By: #### 5 7021-8 #### [facility] CLIA [id number] [address] [place] [address] [facility] WBC (Bld) [#/Vol] 6.32 10*3/uL Normal 3.70-11.00 [facility] Comment on above: Order Comment: Speci men Type: BLOOD SPECIMEN Ordering Facility: [facility] Address: [address], [place] [address] Performed By: #### 5 7021-8 #### [facility] CLIA [id number] [address] [place] [id number] [facility] Hepatic function 2000 panelo n 06-17-2024 Albumin [Mass/Vol] 3.9 g/dL Normal 3.2-5.0 [facility] Comment on above: Order Comment: Speci men Type: BLOOD SPECIMEN Ordering Facility: [facility] Address: [address], [place] [address] Performed By: #### 2 4325-3 #### [facility] CLIA [id number] [address] [place] [address] [place] ALP [Catalytic activity/Vol] 121 U/L High 45-117 [facility] Comment on above: Order Comment: Speci men Type: BLOOD SPECIMEN Ordering Facility: [facility] Address: [address], [place] [address] Performed By: #### 2 4325-3 #### [facility] CLIA [id number] [address] [place] [address] [place] ALT [Catalytic activity/Vol] 13 U/L Normal 13-61 [facility] Comment on above: Order Comment: Speci men Type: BLOOD SPECIMEN Ordering Facility: [facility] Address: [address], [place] [address] Result Comment: Resu lts may be falsely depressed after the administration of Sulfasalazine and/or Sulfapyridine. Performed By: #### 2 4325-3 #### [facility] CLIA [id number] [address] [place] [address] [place] AST [Catalytic activity/Vol] 45 U/L High 8-34 [facility] Comment on above: Order Comment: Speci men Type: BLOOD SPECIMEN Ordering Facility: [facility] Address: [address], [place] [address] Result Comment: Resu lts may be falsely depressed after the administration of Sulfasalazine and/or Sulfapyridine. Performed By: #### 2 4325-3 #### [facility] CLIA [id number] [address] [place] [address] [place] Bilirubin [Mass/Vol] 0.8 mg/dL Normal 0.2-1.0 [facility] Comment on above: Order Comment: Speci men Type: BLOOD SPECIMEN Ordering Facility: [facility] Address: [address], [place] [address] Performed By: #### 2 4325-3 #### [facility] CLIA [id number] [address] [place] [address] [place] Bilirubin.conjugated [Mass/Vol] 0.2 mg/dL Normal 0.0-0.4 [facility] Comment on above: Order Comment: Speci men Type: BLOOD SPECIMEN Ordering Facility: [facility] Address: [address], [place] [address] Performed By: #### 2 4325-3 #### [facility] CLIA [id number] [address] [place] [address] [place] Protein [Mass/Vol] 8.1 g/dL Normal 6.0-8.5 [facility] Comment on above: Order Comment: Speci men Type: BLOOD SPECIMEN Ordering Facility: [facility] Address: [address] , [place] [address] Performed By: #### 2 4325-3 #### [facility] CLIA [id number] [address] [place] [id number] [place] .GFRon 02-13-2024 GFR 77 ml/min/1.73sqm Normal [facility] Comment on above: Result Comment: GFR Population mean for , Non- Americans Ages 20-29 = 116 mL/min/1.73 sq.m. Ages 30-39 = 107 mL/min/1.73 sq.m. Ages 40-49 = 99 mL/min/1.73 sq.m. Ages 50-59 = 93 mL/min/1.73 sq.m. Ages 60-69 = 85 mL/min/1.73 sq.m. Ages 70+ = 75 mL/min/1.73 sq.m. Chronic Kidney Disease: Less than 60 mL/min/1.73 square meters End Stage Renal Disease: Less than 15 mL/min/1.73 square meters Performed By: #### C MP, LIPID, GFR, URIC #### [place] [address] [place], [place] [address] GFR Non- 64 ml/min/1.73sqm [facility] Comment on above: Result Comment: GFR Population mean for , Non- Americans Ages 20-29 = 116 mL/min/1.73 sq.m. Ages 30-39 = 107 mL/min/1.73 sq.m. Ages 40-49 = 99 mL/min/1.73 sq.m. Ages 50-59 = 93 mL/min/1.73 sq.m. Ages 60-69 = 85 mL/min/1.73 sq.m. Ages 70+ = 75 mL/min/1.73 sq.m. Chronic Kidney Disease: Less than 60 mL/min/1.73 square meters End Stage Renal Disease: Less than 15 mL/min/1.73 square meters Performed By: #### C MP, LIPID, GFR, URIC #### [place] [address] [place], [place] [address] CMPon 02-13-2024 Albumin Level 3.6 G/dL Normal 3.4-4.8 [facility] Comment on above: Performed By: #### C MP, LIPID, GFR, URIC #### [address] [address] Albumin/Globulin [Mass ratio] 0.9 {ratio} Low 1.1-2.5 [facility] Comment on above: Performed By: #### C MP, LIPID, GFR, URIC #### [address] [address] ALP [Catalytic activity/Vol] 94 U/L Normal 40-135 [facility] Comment on above: Performed By: #### C MP, LIPID, GFR, URIC #### [address] [address] ALT [Catalytic activity/Vol] 22 U/L Normal 14-59 [facility] Comment on above: Performed By: #### C MP, LIPID, GFR, URIC #### [address] [address] AST [Catalytic activity/Vol] 41 U/L High 10-40 [facility] Comment on above: Performed By: #### C MP, LIPID, GFR, URIC #### [address] [address] Bili Total 0.7 mg/dL Normal 0.2-1.0 [facility] Comment on above: Result Comment: Use of this assay is not recommended for patients undergoing treatment with eltrombopag due to the potential for falsely elevated results. Performed By: #### C MP, LIPID, GFR, URIC #### [address] [address] BUN/Creatinine Ratio 11 ratio Normal 7-27 [facility] Comment on above: Performed By: #### C MP, LIPID, GFR, URIC #### [address] [address] Calcium [Mass/Vol] 9.0 mg/dL Normal 8.4-10.2 [facility] Comment on above: Performed By: #### C MP, LIPID, GFR, URIC #### [address] [address] Chloride [Moles/Vol] 105 mmol/L Normal 98-107 [facility] Comment on above: Performed By: #### C MP, LIPID, GFR, URIC #### [address] [address] CO2 [Moles/Vol] 27 mmol/L Normal 23-31 [facility] Comment on above: Performed By: #### C MP, LIPID, GFR, URIC #### [place] [id number] Creatinine [Mass/Vol] 0.89 mg/dL Normal 0.55-1.02 [facility] Comment on above: Result Comment: Test ing performed on Siemens Dimension EXL analyzer using a modified kinetic Rasheed technique. Performed By: #### C MP, LIPID, GFR, URIC #### [place] [id number] Electrolyte Balance 9.0 mEq/L Normal 4.0-15.0 [facility] Comment on above: Performed By: #### C MP, LIPID, GFR, URIC #### [place] [id number] Globulin 3.8 G/dL Normal [facility] Comment on above: Performed By: #### C MP, LIPID, GFR, URIC #### [address] [address] Glucose [Mass/Vol] 138 mg/dL High 80-115 [facility] Comment on above: Performed By: #### C MP, LIPID, GFR, URIC #### [address] [address] Potassium [Moles/Vol] 4.6 mmol/L Normal 3.5-5.1 [facility] Comment on above: Performed By: #### C MP, LIPID, GFR, URIC #### [place] [address] Sodium [Moles/Vol] 141 mmol/L Normal 136-145 [facility] Comment on above: Performed By: #### C MP, LIPID, GFR, URIC #### [place] [address] [place], [place] [address] Total Protein 7.4 G/dL Normal 6.4-8.2 [facility] Comment on above: Performed By: #### C MP, LIPID, GFR, URIC #### [place] [address] [place], [place] [address] Urea nitrogen [Mass/Vol] 10 mg/dL Normal 7-18 [facility] Comment on above: Performed By: #### C MP, LIPID, GFR, URIC #### [place] [address] [place] [id number] LABORATORYOrdered By: SYSTEM SYSTEM on 02-13-2024 Albumin BCP dye [Mass/Vol] 3.6 G/dL Normal 3.4 - 4.8 G/dL AO ADM SS Albumin/Globulin [Mass ratio] 0.9 {ratio} Low 1.1 - 2.5 ratio AO ADM SS ALP [Catalytic activity/Vol] 94 U/L Normal 40 - 135 U/L AO ADM SS ALT With P-5'-P [Catalytic activity/Vol] 22 U/L Normal 14 - 59 U/L AO ADM SS AST With P-5'-P [Catalytic activity/Vol] 41 U/L High 10 - 40 U/L AO ADM SS Bilirubin [Mass/Vol] 0.7 mg/dL Normal 0.2 - 1 .0 mg/dL AO ADM SS Comment on above: Interpretive Data: U se of this assay is not recommended for patients undergoing treatment with eltrombopag due to the potential for falsely elevated results. Calcium [Mass/Vol] 9.0 mg/dL Normal 8.4 - 10. 2 mg/dL AO ADM SS Chloride [Moles/Vol] 105 mmol/L Normal 98 - 10 7 mmol/L AO ADM SS CO2 [Moles/Vol] 27 mmol/L Normal 23 - 31 mmol/L AO ADM SS Creatinine [Mass/Vol] 0.89 mg/dL Normal 0.55 - 1.02 mg/dL AO ADM SS Comment on above: Interpretive Data: T esting performed on Siemens Dimension EXL analyzer using a modified kinetic Rasheed technique. Electrolyte Balance 9.0 mEq/L Normal 4.0 - 15 .0 mEq/L AO ADM SS GFR/1.73 sq M.predicted among blacks MDRD (S/P/Bld) [Vol rate/Area] 77 ml/min/1.73sqm Invalid Interpretation Code AO Chemistry S Comment on above: Interpretive Data: GFR Population mean for , Non- Americans Ages 20-29 = 116 mL/min/1.73 sq.m. Ages 30-39 = 107 mL/min/1.73 sq.m. Ages 40-49 = 99 mL/min/1.73 sq.m. Ages 50-59 = 93 mL/min/1.73 sq.m. Ages 60-69 = 85 mL/min/1.73 sq.m. Ages 70+ = 75 mL/min/1.73 sq.m. Chronic Kidney Disease: Less than 60 mL/min/1.73 square meters End Stage Renal Disease: Less than 15 mL/min/1.73 square meters GFR/1.73 sq M.predicted among non-blacks MDRD (S/P/Bld) [Vol rate/Area] 64 ml/min/1.73sqm Invalid Interpretation Code AO Chemistry S Comment on above: Interpretive Data: GFR Population mean for , Non- Americans Ages 20-29 = 116 mL/min/1.73 sq.m. Ages 30-39 = 107 mL/min/1.73 sq.m. Ages 40-49 = 99 mL/min/1.73 sq.m. Ages 50-59 = 93 mL/min/1.73 sq.m. Ages 60-69 = 85 mL/min/1.73 sq.m. Ages 70+ = 75 mL/min/1.73 sq.m. Chronic Kidney Disease: Less than 60 mL/min/1.73 square meters End Stage Renal Disease: Less than 15 mL/min/1.73 square meters Globulin 3.8 G/dL Invalid Interpretation Code AO ADM SS Glucose [Mass/Vol] 138 mg/dL High 80 - 115 mg/dL AO ADM SS Potassium [Moles/Vol] 4.6 mmol/L Normal 3.5 - 5.1 mmol/L AO ADM SS Protein [Mass/Vol] 7.4 G/dL Normal 6.4 - 8.2 G/dL AO ADM SS Sodium [Moles/Vol] 141 mmol/L Normal 136 - 145 mmol/L AO ADM SS Urea nitrogen [Mass/Vol] 10 mg/dL Normal 7 - 18 mg/dL AO ADM SS Urea nitrogen/Creatinine [Mass ratio] 11 ratio Normal 7 - 27 ratio AO ADM SS Uric Acid Lvl 5.2 mg/dL Normal 2.6 - 6.2 mg/dL AO ADM SS LABORATORYOrdered By: Chad Oro on 02-13-2024 Cholesterol [Mass/Vol] 172 mg/dL Normal 0 - 2 00 mg/dL AO ADM SS Comment on above: Interpretive Data: C holesterol Reference Interval: Less than 200 Desirable 200-239 Borderline high risk 240 and above High risk Cholesterol in HDL [Mass/Vol] 43 mg/dL Normal 40 - 60 mg/dL AO ADM SS Cholesterol in LDL [Mass/Vol] 95 mg/dL Normal 0 - 130 mg/dL AO ADM SS Triglyceride [Mass/Vol] 168 mg/dL High 0 - 150 mg/dL AO ADM SS Comment on above: Interpretive Data: T riglyceride Reference Interval: Less than 150 Normal 150-199 Borderline high risk 200-499 High risk 500 or higher Very high risk LIPIDon 02-13-2024 Cholesterol [Mass/Vol] 172 mg/dL Normal 0-200 [facility] Comment on above: Result Comment: Chol esterol Reference Interval: Less than 200 Desirable 200-239 Borderline high risk 240 and above High risk Performed By: #### C MP, LIPID, GFR, URIC #### [address] [address] Cholesterol in HDL [Mass/Vol] 43 mg/dL Normal 40-60 [facility] Comment on above: Performed By: #### C MP, LIPID, GFR, URIC #### [place] [address] [place], [place] [address] Cholesterol in LDL [Mass/Vol] 95 mg/dL Normal 0-130 [facility] Comment on above: Performed By: #### C MP, LIPID, GFR, URIC #### [place] [address] [place], [place] [address] Triglyceride [Mass/Vol] 168 mg/dL High 0-150 [facility] Comment on above: Result Comment: Trig lyceride Reference Interval: Less than 150 Normal 150-199 Borderline high risk 200-499 High risk 500 or higher Very high risk Performed By: #### C MP, LIPID, GFR, URIC #### [address] [address] URICon 02-13-2024 Uric Acid Lvl 5.2 mg/dL Normal 2.6-6.2 [facility] Comment on above: Performed By: #### C MP, LIPID, GFR, URIC #### [address] [address] QUANTTBon 06-26-2023 QFT Criteria Comment Normal [facility] ([place]) Comment on above: Result Comment: QuantiFERON-TB Gold Plus is a qualitative indirect test for M tuberculosis infection (including disease) and is intended for use in conjunction with risk assessment, radiography, and other medical and diagnostic evaluations. The QuantiFERON-TB Gold Plus result is determined by subtracting the Nil value from either TB antigen (Ag) value. The Mitogen tube serves as a control for the test. Performed By: #### A VALENTINO, CBC, 554430, ADIFF #### [place] [address] #### HEPAC #### [place] [address] QFT Mitogen Value >10.00 Normal [facility] ([place]) Comment on above: Performed By: #### A VALENTINO, CBC, 134470, ADIFF #### [place] [address] #### HEPAC #### [place] [address] QFT Nil Value 0.00 IU/mL Normal [facility] ([place]) Comment on above: Performed By: #### A VALENTINO, CBC, 556583, ADIFF #### [place] [address] #### HEPAC #### [place] [address] QFT TB1 Ag Value 0.04 IU/mL Normal [facility] ([place]) Comment on above: Performed By: #### A VALENTINO, CBC, 586380, ADIFF #### [address] [address] #### HEPAC #### [address] [address] QFT TB2 Ag Value 0.01 IU/mL Normal [facility] ([place]) Comment on above: Performed By: #### A VALENTINO, CBC, 202007, ADIFF #### [place] [address] #### HEPAC #### [address] [address] QFT-TB Gold Plus [employer] Negative Normal Negative [facility] ([place]) Comment on above: Result Comment: No r esponse to M tuberculosis antigens detected. Infection with M tuberculosis is unlikely, but high risk individuals should be considered for additional testing (ATS/IDSA/CDC Clinical Practice Guidelines, 2017). The reference range is an Antigen minus Nil result of <0.35 IU/mL. The specimen received for QuantiFERON testing was incubated by the ordering institution. Specific procedures outlined in our Directory of Services and in the package insert for the QuantiFERON Gold (In Tube) test must be followed to enable for proper stimulation of cells for the production of interferon gamma. Chemiluminescence immunoassay methodology Performed At: [address] [id number] Otis Avitia PhD Ph:[phone] Performed By: #### A VALENTINO, CBC, 662292, ADIFF #### [place] [address] #### HEPAC #### [address] [address] .Auto Diffon 06-24-2023 Basophil, Absolute 0.1 10 3/mcL Normal 0.0-0.2 [facility]) Comment on above: Performed By: #### A VALENTINO, CBC, 461437, ADIFF #### [place] [address] #### HEPAC #### [address] [address] Basophils/100 WBC (Bld) 1.2 % Normal 0.0-2.5 [facility] ([place]) Comment on above: Performed By: #### A VALENTINO, CBC, [id number], ADIFF #### [address] [address] #### HEPAC #### [address] [address] Eosinophil, Absolute 0.2 10 3/mcL Normal 0.0-0.4 [facility] ([place]) Comment on above: Performed By: #### A VALENTINO, CBC, [id number], ADIFF #### [address] [address] #### HEPAC #### [address] [address] Eosinophils/100 WBC (Bld) 2.7 % Normal 0.0-7.0 [facility] ([place]) Comment on above: Performed By: #### A VALENTINO, CBC, [id number], ADIFF #### [address] [address] #### HEPAC #### [address] [address] Lymphocyte, Absolute 1.8 10 3/mcL Normal 0.8-3.9 [facility] ([place]) Comment on above: Performed By: #### A VALENTINO, CBC, 195098, ADIFF #### [address] [address] #### HEPAC #### [address] [address] Lymphocytes/100 WBC (Bld) 23.4 % Normal 10.0-50.0 [facility] ([place]) Comment on above: Performed By: #### A VALENTINO, CBC, 731138, ADIFF #### [address] [address] #### HEPAC #### [address] [address] Monocyte, Absolute 0.7 10 3/mcL Normal 0.2-1.0 [facility] ([place]) Comment on above: Performed By: #### A VALENTINO, CBC, [id number], ADIFF #### [address] [address] #### HEPAC #### [address] [address] Monocytes/100 WBC (Bld) 9.4 % Normal 1.7-13.0 [facility] ([place]) Comment on above: Performed By: #### A VALENTINO, CBC, [id number], ADIFF #### [address] [address] #### HEPAC #### [address] [address] Neutrophils/100 WBC (Bld) 63.3 % Normal 37.0-80.0 [facility] ([place]) Comment on above: Performed By: #### A VALENTINO, CBC, [id number], ADIFF #### [address] [address] #### HEPAC #### [address] [address] .NEUABSon 06-24-2023 Neutrophil, Absolute 4.9 10 3/mcL Normal 2.9-6.2 [facility] ([place]) Comment on above: Performed By: #### A VALENTINO, CBC, [id number], ADIFF #### [address] [address] #### HEPAC #### [address] [address] CBCon 06-24-2023 Erythrocyte distribution width (RBC) [Ratio] 15.0 % High 11.5-14.5 [facility] ([place]) Comment on above: Performed By: #### A VALENTINO, CBC, 228836, ADIFF #### [address] [address] #### HEPAC #### [address] [address] Hematocrit (Bld) [Volume fraction] 46.1 % Normal 37.0-47.0 [facility] ([place]) Comment on above: Performed By: #### A VALENTINO, CBC, 808024, ADIFF #### [address] [address] #### HEPAC #### [address] [address] Hgb 15.4 G/dL Normal 12.0-16.0 [facility] ([place]) Comment on above: Performed By: #### A VALENTINO, CBC, [id number], ADIFF #### [place] [address] #### HEPAC #### [address] [address] MCH (RBC) [Entitic mass] 29.9 pg Normal 27.0-31.2 [facility] ([place]) Comment on above: Performed By: #### A VALENTINO, CBC, [id number], ADIFF #### [place] [address] #### HEPAC #### [place] [address] MCHC 33.3 G/dL Normal 33.0-37.0 [facility] ([place]) Comment on above: Performed By: #### A VALENTINO, CBC, 977036, ADIFF #### [place] [address] #### HEPAC #### [place] [id number] MCV (RBC) [Entitic vol] 89.6 fL Normal 80.0-94.0 [facility] ([place]) Comment on above: Performed By: #### A VALENTINO, CBC, 864876, ADIFF #### [place] [address] #### HEPAC #### [address] [address] Platelet 150 10 3/mcL Normal 130-400 [facility] ([place]) Comment on above: Performed By: #### A VALENTINO, CBC, 146700, ADIFF #### [place] [address] #### HEPAC #### [address] [address] Platelet mean volume (Bld) [Entitic vol] 9.9 fL Normal 7.4-10.4 [facility] ([place]) Comment on above: Performed By: #### A VALENTINO, CBC, 955686, ADIFF #### [place] [address] #### HEPAC #### [place] [address] RBC 5.15 10 6/mcL Normal 4.20-5.40 [facility] ([place]) Comment on above: Performed By: #### A VALENTINO, CBC, 896869, ADIFF #### [place] [address] #### HEPAC #### [place] [address] WBC 7.8 10 3/mcL Normal 4.6-10.8 [facility] ([place]) Comment on above: Performed By: #### A VALENTINO, CBC, 741606, ADIFF #### [place] [address] #### HEPAC #### [place] [address] HEPACon 06-24-2023 Hep A IgM Ab Non-Reactive Normal Non-Reactiv e [facility] ([place]) Comment on above: Performed By: #### A VALENTINO, CBC, 598900, ADIFF #### [place] [address] #### HEPAC #### [place] [address] Hep A IgM Ab Int Normal [facility] ([place]) Comment on above: Result Comment: No s erological evidence of a current Hepatitis A infection. See Interp Performed By: #### A VALENTINO, CBC, 610736, ADIFF #### [place] [address] #### HEPAC #### [address] [address] Hep B Core IgM Ab Non-Reactive Normal Non-Reacti v [facility] ([place]) Comment on above: Performed By: #### A VALENTINO, CBC, 400935, ADIFF #### [address] [address] #### HEPAC #### [address] [address] Hep B Core IgM Ab Int Normal [facility] ([place]) Comment on above: Result Comment: Samp les with a value < 0.80 Index are considered nonreactive (negative) for IgM antibodies to hepatitis B core antigen. See Interp Performed By: #### A VALENTINO, CBC, 340810, ADIFF #### [address] [address] #### HEPAC #### [place] [id number] Hep B Surf Ag Non-Reactive Normal Non-Reactiv [facility] ([place]) Comment on above: Performed By: #### A VALENTINO, CBC, 829020, ADIFF #### [address] [address] #### HEPAC #### [address] [address] Hep C Ab Non-Reactive Normal Non-Reactiv [facility] ([place]) Comment on above: Performed By: #### A VALENTINO, CBC, 523950, ADIFF #### [address] [address] #### HEPAC #### [address] [address] Hep C Ab Int [facility] ([place]) Comment on above: Result Comment: Nonr eactive: Samples with a value < 0.80 are considered nonreactive (negative) for antibodies to HCV. A negative test result does not exclude the possibility of exposure to or infection with HCV. HCV antibodies may be undetectable in some stages of the infection and in some clinical conditions. See Interp Performed By: #### A VALENTINO, CBC, 462277, ADIFF #### [facility] [address] [place], [place] [address] #### HEPAC #### [facility] [address] [place] [address] XR CHEST 2 VIEWSon 3 XR CHEST 2 VIEWS ORIGINAL EXAMINATION: TWO XRAY VIEWS OF THE CHEST08/29/2022 4:12 pm COMPARISON: 09/14/2019 HISTORY: ORDERING SYSTEM PROVIDED HISTORY: Reason for Exam: short of breath, pain with deep breathing FINDINGS: The heart size is normal. There is no pulmonary consolidation. No pneumothorax or pleural effusion. No aggressive osseous lesions identified.Dextroconve x curvature seen of the spine. There appears to be calcified density near the right acromioclavicular joint, possibly related to old trauma. IMPRESSION: No acute radiographic findings. Interpreted by: Omar Mccall MD Preliminary Report By: Omar Mccall MD Electronically signed By Omar Mccall MD Dictated Date: 08/29/2022 4:14:15 PM Prelim Date: 08/29/2022 4:15:31 PM Sign Date: 08/29/2022 4:15:31 PM Ordering Provider: [facility] ([place]) XR RIBS 2 VIEWS LEFTon 08-29 XR RIBS 2 VIEWS LEFT ORIGINAL EXAMINATION: 2 XRAY VIEWS OF THE LEFT RIB08/29/2022 4:11 pm COMPARISON: Chest radiograph 09/14/2019. CT thorax 08/17/2019. HISTORY: ORDERING SYSTEM PROVIDED HISTORY: Reason for Exam: Pain with breathing. Pain across left side of ribs, no injury. FINDINGS: No visualized acute displaced rib fracture. Degenerative changes seen of the left shoulder and spine. Surgical clips project over the pericardium and right upper quadrant. S-shaped curvature of the spine. IMPRESSION: No displaced rib fracture. I have personally reviewed the images of this examination and agree with the resident's findings and interpretation. Interpreted by: Omar Mccall MD Preliminary Report By: Kendrick Johnson Electronically signed By Omar Mccall MD Dictated Date: 08/29/2022 4:12:53 PM Prelim Date: 08/29/2022 4:30:36 PM Sign Date: 08/29/2022 4:30:36 PM Ordering Provider: [facility] ([place]) LABORATORYOrdered By: SYSTEM SYSTEM on 06-17-2022 ALP [Catalytic activity/Vol] 102 U/L Invalid Interpretation Code 40 - 135 U/L AO ADM SS ALT With P-5'-P [Catalytic activity/Vol] 23 U/L Invalid Interpretation Code 14 - 59 U/L AO ADM SS AST With P-5'-P [Catalytic activity/Vol] 68 U/L Invalid Interpretation Code 10 - 40 U/L AO ADM SS Bilirubin [Mass/Vol] 0.5 mg/dL Invalid Interpretation Code 0.2 - 1.0 mg/dL AO ADM SS Bilirubin.direct [Mass/Vol] 0.1 mg/dL Invalid Interpretation Code 0.0 - 0.2 mg/dL AO ADM SS Bilirubin.direct [Mass/Vol] 0.4 mg/dL Invalid Interpretation Code AO Chemistry S HBV surface Ab Qn (S) mIU/mL Invalid Interpretation Code >=10.0mIU/m L AH ADM SS HBV surface Ag IA Ql Non-Reactive (06/17/22 12:00 PM) Invalid Interpretation Code Non-Reactiv e AH ADM SS ALP [Catalytic activity/Vol] 106 U/L Invalid Interpretation Code 40 - 135 U/L AO ADM SS ALT With P-5'-P [Catalytic activity/Vol] 20 U/L Invalid Interpretation Code 14 - 59 U/L AO ADM SS AST With P-5'-P [Catalytic activity/Vol] 71 U/L Invalid Interpretation Code 10 - 40 U/L AO ADM SS Bilirubin [Mass/Vol] 0.6 mg/dL Invalid Interpretation Code 0.2 - 1.0 mg/dL AO ADM SS Calcium [Mass/Vol] 9.2 mg/dL Invalid Interpretation Code 8.4 - 10.2 mg/dL AO ADM SS Chloride [Moles/Vol] 104 mmol/L Invalid Interpretation Code 98 - 107 mmol/L AO ADM SS CO2 [Moles/Vol] 26 mmol/L Invalid Interpretation Code 23 - 31 mmol/L AO ADM SS Creatinine [Mass/Vol] 0.80 mg/dL Invalid Interpretation Code 0.55 - 1.02 mg/dL AO ADM SS Electrolyte Balance 11.0 mEq/L Invalid Interpretation Code 4.0 - 15.0 mEq/L AO ADM SS GFR/1.73 sq M.predicted among blacks MDRD (S/P/Bld) [Vol rate/Area] 88 ml/min/1.73sqm Invalid Interpretation Code AO Chemistry S GFR/1.73 sq M.predicted among non-blacks MDRD (S/P/Bld) [Vol rate/Area] 72 ml/min/1.73sqm Invalid Interpretation Code AO Chemistry S Glucose [Mass/Vol] 235 mg/dL Invalid Interpretation Code 80 - 115 mg/dL AO ADM SS HbA1c (Bld) [Mass fraction] 7.4 % Invalid Interpretation Code 4.3 - 6.4 % AO ADM SS Potassium [Moles/Vol] 4.4 mmol/L Invalid Interpretation Code 3.5 - 5.1 mmol/L AO ADM SS Sodium [Moles/Vol] 141 mmol/L Invalid Interpretation Code 136 - 145 mmol/L AO ADM SS Urea nitrogen [Mass/Vol] 11 mg/dL Invalid Interpretation Code 7 - 18 mg/dL AO ADM SS Urea nitrogen/Creatinine [Mass ratio] 14 ratio Invalid Interpretation Code 7 - 27 ratio AO ADM SS LABORATORYOrdered By: Hemanth Pierre on 06-17-2022 Basophil, Absolute 0.0 103/mcL Invalid Interpretation Code 0.0 - 0.2 10^3/mcL AO Workflow SS Basophils/100 WBC (Bld) 0.4 % Invalid Interpretation Code 0.0 - 2.5 % AO Workflow SS Eosinophil, Absolute 0.3 103/mcL Invalid Interpretation Code 0.0 - 0.4 10^3/mcL AO Workflow SS Eosinophils/100 WBC (Bld) 4.3 % Invalid Interpretation Code 0.0 - 7.0 % AO Workflow SS Erythrocyte distribution width (RBC) [Ratio] 14.5 % Invalid Interpretation Code 11.5 - 14.5 % AO Workflow SS Hematocrit (Bld) [Volume fraction] 41.9 % Invalid Interpretation Code 37.0 - 47.0 % AO Workflow SS Hemoglobin (Bld) [Mass/Vol] 13.9 G/dL Invalid Interpretation Code 12.0 - 16.0 G/dL AO Workflow SS Lymphocyte, Absolute 1.4 103/mcL Invalid Interpretation Code 0.8 - 3.9 10^3/mcL AO Workflow SS Lymphocytes/100 WBC (Bld) 24.5 % Invalid Interpretation Code 10.0 - 50.0 % AO Workflow SS MCH (RBC) [Entitic mass] 29.7 pg Invalid Interpretation Code 27.0 - 31.2 pg AO Workflow SS MCHC 33.2 G/dL Invalid Interpretation Code 33.0 - 37.0 G/dL AO Workflow SS MCV (RBC) [Entitic vol] 89.6 fL Invalid Interpretation Code 80.0 - 94.0 fL AO Workflow SS Monocyte, Absolute 0.4 103/mcL Invalid Interpretation Code 0.2 - 1.0 10^3/mcL AO Workflow SS Monocytes/100 WBC (Bld) 7.0 % Invalid Interpretation Code 1.7 - 13.0 % AO Workflow SS Neutrophil, Absolute 3.7 103/mcL Invalid Interpretation Code 2.9 - 6.2 10^3/mcL AO Workflow SS Neutrophils/100 WBC (Bld) 63.8 % Invalid Interpretation Code 37.0 - 80.0 % AO Workflow SS Platelet mean volume (Bld) [Entitic vol] 9.2 fL Invalid Interpretation Code 7.4 - 10.4 fL AO Workflow SS Platelets (Bld) [#/Vol] 150 103/mcL Invalid Interpretation Code 130 - 400 10^3/mcL AO Workflow SS RBC (Bld) [#/Vol] 4.68 106/mcL Invalid Interpretation Code 4.20 - 5.40 10^6/mcL AO Workflow SS WBC (Bld) [#/Vol] 5.8 103/mcL Invalid Interpretation Code 4.6 - 10.8 10^3/mcL AO Workflow SS LABORATORYOrdered By: Yamileth Garcia on 06-17-2022 HCV Ab IA Ql Non-Reactive (06/17/22 12:00 PM) Invalid Interpretation Code Non-Reactiv e ADM SS HCV Ab IA Ql Nonreactive: Samples with a value < 0.80 are considered nonreactive (negative) for antibodies to HCV.A negative test result does not exclude the possibility of exposure to or infection with HCV. HCV antibodies may be undetectable in some stages of the infection and in some clinical conditions. Invalid Interpretation Code Chemistry S LABORATORYOrdered By: Leti Noriega on 06-17-2022 Cholesterol [Mass/Vol] 181 mg/dL Invalid Interpretation Code 0 - 200 mg/dL AO ADM SS Cholesterol in HDL [Mass/Vol] 36 mg/dL Invalid Interpretation Code 40 - 60 mg/dL AO ADM SS Cholesterol in LDL [Mass/Vol] 100 mg/dL Invalid Interpretation Code 0 - 130 mg/dL AO ADM SS Triglyceride [Mass/Vol] 223 mg/dL Invalid Interpretation Code 0 - 150 mg/dL AO ADM SS Laboratory - Chemistry and C hemistry - challengeOrdered By: SYSTEM SYSTEM on 06-17-2022 Albumin BCP dye [Mass/Vol] 3.6 G/dL Invalid Interpretation Code 3.4 - 4.8 G/dL AO ADM SS Albumin/Globulin [Mass ratio] 0.9 {ratio} Invalid Interpretation Code 1.1 - 2.5 ratio AO ADM SS Protein [Mass/Vol] 7.5 G/dL Invalid Interpretation Code 6.4 - 8.2 G/dL AO ADM SS No Panel InformationOrdered By: SYSTEM SYSTEM on 06-17-2022 Globulin 3.9 G/dL Invalid Interpretation Code AO ADM SS Chest PA and Lateralon 04-02 Chest PA and Lateral [facility] [address] [place] [address] Chest PA and Lateral MR#: [id number] Acct: [id number] Name: MONTEZ GOMEZ Rep #: [id number] : 1960 F 61 From: [place] PCP: Dr. Nathan Arzate DO Status: REG CLI Study: Chest PA and Lateral Date of Exam: 04/02/22 Exam# [id number] Ordering Dr: Nathan Arzate DO EXAM: XR CHEST, 2 VIEWS CLINICAL INDICATION: PNEUMONIA TECHNIQUE: Frontal and lateral views of the chest. This report was created using [employer] report generation technology. COMPARISON: 03.13.22 FINDINGS: LUNGS AND PLEURAL SPACES: There has been improvement in the lingular pneumonia. No pneumothorax. No effusion. HEART: Unremarkable. Cardiac silhouette not enlarged. MEDIASTINUM: Central airways and mediastinal contour are unremarkable. BONES/JOINTS: Unremarkable. SOFT TISSUES: Unremarkable. RAD/Chest PA and Lateral IMPRESSION: There has been improvement in the lingular pneumonia. Electronically Signed: [place] MD at 18:09 EST , CC: Dr. Nathan Arzate DO Machine Sizer: Signed Normal [facility] Culture, Blood (WB)on 2022 CUB No growth in 5 days. [address] [facility] Comment on above: Performed By: #### L 100.0100, L500.2500, M200.1000, L501.4020 #### [facility] [address] [place], [address] CUB No growth in 5 days. [address] [facility] Comment on above: Performed By: #### L 100.0100, L500.2500, M200.1000, L501.4020 #### [facility] [address] [place], [address] Laboratory - Microbiology an d Antimicrobial susceptibilityOrdered By: Dr. Chung on 03-18-2022 Bacteria identified Cx Nom (Bld) No growth in 5 days. [facility] Basic Metabolic Profile (BMP )on 03-16-2022 BUN Normal 7-18 [facility] Comment on above: Result Comment: Canc elled via OM: Order cancelled - Patient discharged Performed By: #### L 100.0100, L500.2500, M200.1000, L501.4020 #### [facility] [address] [place], [address] BUN/CRE Normal 10-20 [facility] Comment on above: Result Comment: Canc elled via OM: Order cancelled - Patient discharged Performed By: #### L 100.0100, L500.2500, M200.1000, L501.4020 #### [facility] [address] [place], [address] CA,Total Normal 8.5-10.1 [facility] Comment on above: Result Comment: Canc elled via OM: Order cancelled - Patient discharged Performed By: #### L 100.0100, L500.2500, M200.1000, L501.4020 #### [facility] [address] [place], [address] CL Normal 98-107 [facility] Comment on above: Result Comment: Canc elled via OM: Order cancelled - Patient discharged Performed By: #### L 100.0100, L500.2500, M200.1000, L501.4020 #### [facility] [address] [place], [address] CO2 Normal 21.0-32.0 [facility] Comment on above: Result Comment: Canc elled via OM: Order cancelled - Patient discharged Performed By: #### L 100.0100, L500.2500, M200.1000, L501.4020 #### [facility] [address] [place], [address] CREAT,SERUM Normal 0.55-1.02 [facility] Comment on above: Result Comment: Canc elled via OM: Order cancelled - Patient discharged Performed By: #### L 100.0100, L500.2500, M200.1000, L501.4020 #### [facility] [address] [place], [address] EST GFR Normal >60 [facility] Comment on above: Result Comment: Canc elled via OM: Order cancelled - Patient discharged Performed By: #### L 100.0100, L500.2500, M200.1000, L501.4020 #### [facility] [address] [place], [address] EST GFR - AA Normal >60 [facility] Comment on above: Result Comment: Canc elled via OM: Order cancelled - Patient discharged Performed By: #### L 100.0100, L500.2500, M200.1000, L501.4020 #### [facility] [address] [place], [address] GAP Normal 5-15 [facility] Comment on above: Result Comment: Canc elled via OM: Order cancelled - Patient discharged Performed By: #### L 100.0100, L500.2500, M200.1000, L501.4020 #### [facility] [address] [place], [address] GLU Normal 74-106 [facility] Comment on above: Result Comment: Canc elled via OM: Order cancelled - Patient discharged Performed By: #### L 100.0100, L500.2500, M200.1000, L501.4020 #### [facility] [address] [place], [address] Potassium Normal 3.5-5.1 [facility] Comment on above: Result Comment: Canc elled via OM: Order cancelled - Patient discharged Performed By: #### L 100.0100, L500.2500, M200.1000, L501.4020 #### [facility] [address] [place], [address] Basic Metabolic Profile (BMP) Normal 136-145 [facility] Comment on above: Result Comment: Canc elled via OM: Order cancelled - Patient discharged Performed By: #### L 100.0100, L500.2500, M200.1000, L501.4020 #### [facility] [address] [place], [address] CBC W/Diff, Automatedon - Absolute Neut Normal 2.0-7.7 [facility] Comment on above: Result Comment: Canc elled via OM: Order cancelled - Patient discharged Performed By: #### L 100.0100, L500.2500, M200.1000, L501.4020 #### [facility] [address] [place], [address] HCT Normal 37-47 [facility] Comment on above: Result Comment: Canc elled via OM: Order cancelled - Patient discharged Performed By: #### L 100.0100, L500.2500, M200.1000, L501.4020 #### [facility] [address] [place], [address] HGB Normal 12.0-15.0 [facility] Comment on above: Result Comment: Canc elled via OM: Order cancelled - Patient discharged Performed By: #### L 100.0100, L500.2500, M200.1000, L501.4020 #### [facility] [address] [place], [address] MCH Normal 27.0-32.0 [facility] Comment on above: Result Comment: Canc elled via OM: Order cancelled - Patient discharged Performed By: #### L 100.0100, L500.2500, M200.1000, L501.4020 #### [facility] [address] [place], [address] MCHC Normal 32-36 [facility] Comment on above: Result Comment: Canc elled via OM: Order cancelled - Patient discharged Performed By: #### L 100.0100, L500.2500, M200.1000, L501.4020 #### [facility] [address] [place], [address] MCV Normal 81-99 [facility] Comment on above: Result Comment: Canc elled via OM: Order cancelled - Patient discharged Performed By: #### L 100.0100, L500.2500, M200.1000, L501.4020 #### [facility] [address] [place], [address] NEUT% Normal 47-70 [facility] Comment on above: Result Comment: Canc elled via OM: Order cancelled - Patient discharged Performed By: #### L 100.0100, L500.2500, M200.1000, L501.4020 #### [facility] [address] [place], [address] PLT Normal 150-450 [facility] Comment on above: Result Comment: Canc elled via OM: Order cancelled - Patient discharged Performed By: #### L 100.0100, L500.2500, M200.1000, L501.4020 #### [facility] [address] [place], [address] RBC Normal 4.2-5.4 [facility] Comment on above: Result Comment: Canc elled via OM: Order cancelled - Patient discharged Performed By: #### L 100.0100, L500.2500, M200.1000, L501.4020 #### [facility] [address] [place], [address] RDW CV Normal 11.6-14.6 [facility] Comment on above: Result Comment: Canc elled via OM: Order cancelled - Patient discharged Performed By: #### L 100.0100, L500.2500, M200.1000, L501.4020 #### [facility] [address] [place], [address] RDW SD Normal 35.1-43.9 [facility] Comment on above: Result Comment: Canc elled via OM: Order cancelled - Patient discharged Performed By: #### L 100.0100, L500.2500, M200.1000, L501.4020 #### [facility] [address] [place], [address] WBC Normal 4.4-11.0 [facility] Comment on above: Result Comment: Canc elled via OM: Order cancelled - Patient discharged Performed By: #### L 100.0100, L500.2500, M200.1000, L501.4020 #### [facility] [address] [place], [address] Absolute lymphocyte countOrd ered By: Dr. Chung on 03-15-2022 Lymphocytes Auto (Unsp spec) [#/Vol] 1.12 10*3/uL 0.83-4.51 [facility] Basic Metabolic Profile (BMP )on 03-15-2022 BUN/CRE 22.6 RATIO High 10-20 [facility] Comment on above: Performed By: #### L 100.0100, L500.2500, M200.1000, L501.4020 #### [facility] [address] [place], [address] CA,Total 8.8 mg/dL Normal 8.5-10.1 [facility] Comment on above: Performed By: #### L 100.0100, L500.2500, M200.1000, L501.4020 #### [facility] [address] [place], [address] Chloride [Moles/Vol] 107 mmol/L Normal 98-[address] [facility] Comment on above: Performed By: #### L 100.0100, L500.2500, M200.1000, L501.4020 #### [facility] [address] [place], [address] CO2 [Moles/Vol] 24.0 mmol/L Normal 21.0-32.0 [facility] Comment on above: Performed By: #### L 100.0100, L500.2500, M200.1000, L501.4020 #### [facility] [address] [place], [address] Creatinine [Mass/Vol] 0.88 mg/dL Normal 0.55-1.02 [facility] Comment on above: Result Comment: The validity of the calculated GFR GFRAA in patients over 70 years has not been determined. Clinical correlation is essential. Performed By: #### L 100.0100, L500.2500, M200.1000, L501.4020 #### [facility] [address] [place], [address] ECRCL 66.01 ml/min Normal [facility] Comment on above: Performed By: #### L 100.0100, L500.2500, M200.1000, L501.4020 #### [facility] [address] [place], [address] EST GFR - AA 83 mL/min Normal >60 [facility] Comment on above: Result Comment: Afri can Estonian GFR Calc Performed By: #### L 100.0100, L500.2500, M200.1000, L501.4020 #### [facility] [address] [place], [address] GAP 5 Normal 5-15 [facility] Comment on above: Performed By: #### L 100.0100, L500.2500, M200.1000, L501.4020 #### [facility] [address] [place], [address] GFR/1.73 sq M.predicted among non-blacks MDRD (S/P/Bld) [Vol rate/Area] 69 mL/min/{1.73_m2} Normal >60 [facility] Comment on above: Result Comment: Non- GFR Calc Performed By: #### L 100.0100, L500.2500, M200.1000, L501.4020 #### [facility] [address] [place], [address] Glucose [Mass/Vol] 326 mg/dL High 74-106 [facility] Comment on above: Result Comment: Gluc ose result greater than or equal to 200 mg/dL suggests DIABETES MELLITUS per A.D.A. criteria. Performed By: #### L 100.0100, L500.2500, M200.1000, L501.4020 #### [facility] [address] [place], [address] Potassium [Moles/Vol] 5.1 mmol/L Normal 3.5-5.1 [facility] Comment on above: Performed By: #### L 100.0100, L500.2500, M200.1000, L501.4020 #### [facility] [address] [place], [address] Sodium [Moles/Vol] 136 mmol/L Normal 136-145 [facility] Comment on above: Performed By: #### L 100.0100, L500.2500, M200.1000, L501.4020 #### [facility] [address] [place], [address] Urea nitrogen [Mass/Vol] 20 mg/dL High 7-18 [facility] Comment on above: Performed By: #### L 100.0100, L500.2500, M200.1000, L501.4020 #### [facility] [address] [place], [address] Basophil percentageOrdered B y: Dr. Chung on 03-15-2022 Basophils/100 WBC (Bld) 0.1 % 0-1 [facility] Chloride [Moles/Vol] 107 mmol/L 98-[address] [facility] Eosinophils/100 WBC (Bld) 0.0 % 0-5 [facility] Glucose [Mass/Vol] 326 mg/dL 74-106 [facility] Comment on above: Glucose result great er than or equal to 200 mg/dLsuggests DIABETES MELLITUS per A.D.A. criteria. Neutrophils (Bld) [#/Vol] 7.9 10*3/uL 2.0-7.7 [facility] Neutrophils/100 WBC (Bld) 82.5 % 47-70 [facility] Potassium [Moles/Vol] 5.1 mmol/L 3.5-5.1 [facility] Sodium [Moles/Vol] 136 mmol/L 136-145 [facility] WBC (Bld) [#/Vol] 9.5 10*3/uL 4.4-11.0 [facility] Bedside Glucoseon 03-15-2022 FINGERSTICK GLU 400 mg/dL High 74-106 [facility] Comment on above: Result Comment: SADE GEMENT OF PATIENT CARE PER NURSING PROTOCOL Performed By: #### L 501.080 #### [facility] [address] [place], [address] FINGERSTICK GLU 300 mg/dL High 74-106 [facility] Comment on above: Result Comment: SADE GEMENT OF PATIENT CARE PER NURSING PROTOCOL Performed By: #### L 100.0100, L500.2500, M200.1000, L501.4020 #### [facility] [address] [place], [address] FINGERSTICK GLU 288 mg/dL High 74-106 [facility] Comment on above: Result Comment: SADE DIETRICH OF PATIENT CARE PER NURSING PROTOCOL Performed By: #### L 501.080 #### [facility] [address] [place], [address] Blood erythrocytes count (nu mber/volume)Ordered By: Dr. Chung on 03-15-2022 RBC (Bld) [#/Vol] 4.09 10*6/uL 4.2-5.4 [facility] Blood hemoglobin measurement (mass/volume)Ordered By: Dr. Chung on 03-15-2022 Hemoglobin (Bld) [Mass/Vol] 12.6 g/dL 12.0-15.0 [facility] Blood lymphocytes/100 leukoc ytesOrdered By: Dr. Chung on 03-15-2022 Lymphocytes/100 WBC (Bld) 11.8 % 19-41 [facility] Blood monocytes/100 leukocyt esOrdered By: Dr. Chung on 03-15-2022 Monocytes/100 WBC (Bld) 4.8 % 0-10 [facility] Blood platelet mean volumeOr dered By: Dr. Chung on 03-15-2022 Platelet mean volume (Bld) [Entitic vol] 11.1 fL 6.2-12.0 [facility] CBC W/Diff, Automatedon 03-03 Absolute Lymph 1.12 X10 3/uL Normal 0.83-4.51 [facility] Comment on above: Performed By: #### L 100.0100, L500.2500, M200.1000, L501.4020 #### [facility] [address] [place], [address] Absolute Neut 7.9 X10 3/uL High 2.0-7.7 [facility] Comment on above: Performed By: #### L 100.0100, L500.2500, M200.1000, L501.4020 #### [facility] [address] [place], [address] Basophils/100 WBC (Bld) 0.1 % Normal 0-1 [facility] Comment on above: Performed By: #### L 100.0100, L500.2500, M200.1000, L501.4020 #### [facility] [address] [place], [address] Eosinophils/100 WBC (Bld) 0.0 % Normal 0-5 [facility] Comment on above: Performed By: #### L 100.0100, L500.2500, M200.1000, L501.4020 #### [facility] [address] [place], [address] Erythrocyte distribution width (RBC) [Ratio] 13.5 % Normal 11.6-14.6 [facility] Comment on above: Performed By: #### L 100.0100, L500.2500, M200.1000, L501.4020 #### [facility] [address] [place], [address] Hematocrit (Bld) [Volume fraction] 39.4 % Normal 37-47 [facility] Comment on above: Performed By: #### L 100.0100, L500.2500, M200.1000, L501.4020 #### [facility] [address] [place], [address] Hemoglobin (Bld) [Mass/Vol] 12.6 g/dL Normal 12.0-15.0 [facility] Comment on above: Performed By: #### L 100.0100, L500.2500, M200.1000, L501.4020 #### [facility] [address] [place], [address] IG% 0.800 Normal 0.0-0.9 [facility] Comment on above: Result Comment: IG% - Immature Granulocytes (promyelocytes, myelocytes and metamyelocytes) > 1% indicates that a LEFT SHIFT is Present. Performed By: #### L 100.0100, L500.2500, M200.1000, L501.4020 #### [facility] [address] [place], [address] Lymphocytes/100 WBC (Bld) 11.8 % Low 19-41 [facility] Comment on above: Performed By: #### L 100.0100, L500.2500, M200.1000, L501.4020 #### [facility] [address] [place], [address] MCH (RBC) [Entitic mass] 30.8 pg Normal 27.0-32.0 [facility] Comment on above: Performed By: #### L 100.0100, L500.2500, M200.1000, L501.4020 #### [facility] [address] [place], [address] MCHC (RBC) [Mass/Vol] 32.0 g/dL Normal 32-36 [facility] Comment on above: Performed By: #### L 100.0100, L500.2500, M200.1000, L501.4020 #### [facility] [address] [place], [address] MCV (RBC) [Entitic vol] 96.3 fL Normal 81-99 [facility] Comment on above: Performed By: #### L 100.0100, L500.2500, M200.1000, L501.4020 #### [facility] [address] [place], [address] Monocytes/100 WBC (Bld) 4.8 % Normal 0-10 [facility] Comment on above: Performed By: #### L 100.0100, L500.2500, M200.1000, L501.4020 #### [facility] [address] [place], [address] Neutrophils/100 WBC (Bld) 82.5 % High 47-70 [facility] Comment on above: Performed By: #### L 100.0100, L500.2500, M200.1000, L501.4020 #### [facility] [address] [place], [address] Nucleated RBC (Bld) [#/Vol] 0 10*3/uL Normal 0-5 [facility] Comment on above: Performed By: #### L 100.0100, L500.2500, M200.1000, L501.4020 #### [facility] [address] [place], [address] Platelet mean volume (Bld) [Entitic vol] 11.1 fL Normal 6.2-12.0 [facility] Comment on above: Performed By: #### L 100.0100, L500.2500, M200.1000, L501.4020 #### [facility] [address] [place], [address] Platelets (Bld) [#/Vol] 181 10*3/uL Normal 150-450 [facility] Comment on above: Performed By: #### L 100.0100, L500.2500, M200.1000, L501.4020 #### [facility] [address] [place], [address] RBC (Bld) [#/Vol] 4.09 10*6/uL Low 4.2-5.4 [facility] Comment on above: Performed By: #### L 100.0100, L500.2500, M200.1000, L501.4020 #### [facility] [address] [place], [address] RDW SD 48.1 fl High 35.1-43.9 [facility] Comment on above: Performed By: #### L 100.0100, L500.2500, M200.1000, L501.4020 #### [facility] [address] [place], [address] WBC (Bld) [#/Vol] 9.5 10*3/uL Normal 4.4-11.0 [facility] Comment on above: Performed By: #### L 100.0100, L500.2500, M200.1000, L501.4020 #### [facility] [address] [place], [address] Determination of erythrocyte mean corpuscular volume (MCV)Ordered By: Dr. Chung on 03-15-2022 MCV (RBC) [Entitic vol] 96.3 fL 81-99 [facility] Glucose Glucometer (BldC) [M ass/Vol]Ordered By: Dr. Chung on 03-15-2022 Glucose [Mass/Vol] 400 mg/dL 74-106 [facility] Comment on above: MANAGEMENT OF PATIEN T CARE PER NURSING PROTOCOL Hematocrit Auto (Bld) [Volum e fraction]Ordered By: Dr. Chung on 03-15-2022 Hematocrit (Bld) [Volume fraction] 39.4 % 37-47 [facility] - Chemistry and C hemistry - challengeOrdered By: Dr. Chung on 03-15-2022 CO2 [Moles/Vol] 24.0 mmol/L 21.0-32.0 [facility] Urea nitrogen/Creatinine [Mass ratio] 22.6 mg/mg 10-20 [facility] - Hematology and Cell countsOrdered By: Dr. Chung on 03-15-2022 Erythrocyte distribution width (RBC) [Entitic vol] 48.1 fL 35.1-43.9 [facility] Erythrocyte distribution width (RBC) [Ratio] 13.5 % 11.6-14.6 [facility] Immature granulocytes/100 WBC (Bld) 0.800 % 0.0-0.9 [facility] Comment on above: IG% - Immature Granu locytes (promyelocytes, myelocytes and metamyelocytes) > 1% indicates that a LEFT SHIFT is Present. MCH (RBC) [Entitic mass] 30.8 pg 27.0-32.0 [facility] Nucleated RBC/100 WBC (Bld) [Ratio] 0 % [facility]5 [facility] [Mass/Vol]Or dered By: Dr. Chung on 03-15-2022 MCHC (RBC) [Mass/Vol] 32.0 g/dL 32-36 [facility] No Panel InformationOrdered By: Dr. Chung on 03-15-2022 Estimated Creatinine Clearance Calc 66.01 ml/min [facility] Estimated GFR (MDRD) Amer 83 mL/min >60 [facility] Comment on above: GFR Calc Estimated GFR (MDRD) Non-Af Amer 69 mL/min >60 [facility] Comment on above: Non- GFR Calc Platelets bldOrdered By: Dr. Chung on 03-15-2022 Platelets (Bld) [#/Vol] 181 10*3/uL 150-450 [facility] Serum or plasma calcium cruz urement (mass/volume)Ordered By: Dr. Chung on 03-15-2022 Calcium [Mass/Vol] 8.8 mg/dL 8.5-10.1 [facility] Serum or plasma creatinine m easurement (mass/volume)Ordered By: Dr. Chung on 03-15-2022 Creatinine [Mass/Vol] 0.88 mg/dL 0.55-1.02 [facility] Comment on above: The validity of the calculated GFR & GFRAA in patients over 70 years has not been determined. Clinical correlation is essential. Serum or plasma urea nitroge n measurement (mass/volume)Ordered By: Dr. Chung on 03-15-2022 Urea nitrogen [Mass/Vol] 20 mg/dL 7-18 [facility] Thin prep Papanicolaou smear with manual screeningOrdered By: Dr. Chung on 03-15-2022 Thin prep Papanicolaou smear with manual screening 5 5-15 [facility] Basic Metabolic Profile (BMP )on 03-14-2022 BUN/CRE 15.1 RATIO Normal 10-20 [facility] Comment on above: Performed By: #### L 100.0100, L500.2500, L501.5200 #### [facility] [address] [place], [address] CA,Total 8.7 mg/dL Normal 8.5-10.1 [facility] Comment on above: Performed By: #### L 100.0100, L500.2500, L501.5200 #### [facility] [address] [place], [address] Chloride [Moles/Vol] 105 mmol/L Normal 98-[address] [facility] Comment on above: Performed By: #### L 100.0100, L500.2500, L501.5200 #### [facility] [address] [place], [address] CO2 [Moles/Vol] 25.0 mmol/L Normal 21.0-32.0 [facility] Comment on above: Performed By: #### L 100.0100, L500.2500, L501.5200 #### [facility] [address] [place], [address] Creatinine [Mass/Vol] 1.00 mg/dL Normal 0.55-1.02 [facility] Comment on above: Result Comment: The validity of the calculated GFR GFRAA in patients over 70 years has not been determined. Clinical correlation is essential. Performed By: #### L 100.0100, L500.2500, L501.5200 #### [facility] [address] [place], [address] ECRCL 58.09 ml/min Normal [facility] Comment on above: Performed By: #### L 100.0100, L500.2500, L501.5200 #### [facility] [address] [place], [address] EST GFR - AA 72 mL/min Normal >60 [facility] Comment on above: Result Comment: Afri can Estonian GFR Calc Performed By: #### L 100.0100, L500.2500, L501.5200 #### [facility] [address] [place], [address] GAP 7 Normal 5-15 [facility] Comment on above: Performed By: #### L 100.0100, L500.2500, L501.5200 #### [facility] [address] [place], [address] GFR/1.73 sq M.predicted among non-blacks MDRD (S/P/Bld) [Vol rate/Area] 60 mL/min/{1.73_m2} Normal >60 [facility] Comment on above: Result Comment: Non- GFR Calc Performed By: #### L 100.0100, L500.2500, L501.5200 #### [facility] [address] [place], [address] Glucose [Mass/Vol] 316 mg/dL High 74-106 [facility] Comment on above: Result Comment: Gluc ose result greater than or equal to 200 mg/dL suggests DIABETES MELLITUS per A.D.A. criteria. Performed By: #### L 100.0100, L500.2500, L501.5200 #### [facility] [address] [place], [address] Potassium [Moles/Vol] 4.9 mmol/L Normal 3.5-5.1 [facility] Comment on above: Performed By: #### L 100.0100, L500.2500, L501.5200 #### [facility] [address] [place], [address] Sodium [Moles/Vol] 137 mmol/L Normal 136-145 [facility] Comment on above: Performed By: #### L 100.0100, L500.2500, L501.5200 #### [facility] [address] [place], [address] Urea nitrogen [Mass/Vol] 15 mg/dL Normal 7-18 [facility] Comment on above: Performed By: #### L 100.0100, L500.2500, L501.5200 #### [facility] [address] [place], [address] Bedside Glucoseon 03-14-2022 FINGERSTICK GLU 222 mg/dL High 74-106 [facility] Comment on above: Result Comment: SADE GEMENT OF PATIENT CARE PER NURSING PROTOCOL Performed By: #### L 100.0100, L500.2500, M200.1000, L501.4020 #### [facility] [address] [place], [address] FINGERSTICK GLU 368 mg/dL High 74-106 [facility] Comment on above: Result Comment: SADE GEMENT OF PATIENT CARE PER NURSING PROTOCOL Performed By: #### L 100.0100, L500.2500, M200.1000, L501.4020 #### [facility] [address] [place], [address] FINGERSTICK GLU 275 mg/dL High 74-106 [facility] Comment on above: Result Comment: SADE GEMENT OF PATIENT CARE PER NURSING PROTOCOL Performed By: #### L 100.0100, L500.2500, M200.1000, L501.4020 #### [facility] [address] [place], [address] CBC W/Diff, Automatedon 03-03 Absolute Lymph 1.02 X10 3/uL Normal 0.83-4.51 [facility] Comment on above: Performed By: #### L 100.0100, L500.2500, L501.5200 #### [facility] [address] [place], [address] Absolute Neut 5.4 X10 3/uL Normal 2.0-7.7 [facility] Comment on above: Performed By: #### L 100.0100, L500.2500, L501.5200 #### [facility] [address] [place], [address] Basophils/100 WBC (Bld) 0.2 % Normal 0-1 [facility] Comment on above: Performed By: #### L 100.0100, L500.2500, L501.5200 #### [facility] [address] [place], [address] Eosinophils/100 WBC (Bld) 0.0 % Normal 0-5 [facility] Comment on above: Performed By: #### L 100.0100, L500.2500, L501.5200 #### [facility] [address] [place], [address] Erythrocyte distribution width (RBC) [Ratio] 13.3 % Normal 11.6-14.6 [facility] Comment on above: Performed By: #### L 100.0100, L500.2500, L501.5200 #### [facility] [address] [place], [address] Hematocrit (Bld) [Volume fraction] 40.5 % Normal 37-47 [facility] Comment on above: Performed By: #### L 100.0100, L500.2500, L501.5200 #### [facility] [address] [place], [address] Hemoglobin (Bld) [Mass/Vol] 13.1 g/dL Normal 12.0-15.0 [facility] Comment on above: Performed By: #### L 100.0100, L500.2500, L501.5200 #### [facility] [address] [place], [address] IG% 0.500 Normal 0.0-0.9 [facility] Comment on above: Result Comment: IG% - Immature Granulocytes (promyelocytes, myelocytes and metamyelocytes) > 1% indicates that a LEFT SHIFT is Present. Performed By: #### L 100.0100, L500.2500, L501.5200 #### [facility] [address] [place], [address] Lymphocytes/100 WBC (Bld) 15.3 % Low 19-41 [facility] Comment on above: Performed By: #### L 100.0100, L500.2500, L501.5200 #### [facility] [address] [place], [address] MCH (RBC) [Entitic mass] 30.8 pg Normal 27.0-32.0 [facility] Comment on above: Performed By: #### L 100.0100, L500.2500, L501.5200 #### [facility] [address] [place], [address] MCHC (RBC) [Mass/Vol] 32.3 g/dL Normal 32-36 [facility] Comment on above: Performed By: #### L 100.0100, L500.2500, L501.5200 #### [facility] [address] [place], [address] MCV (RBC) [Entitic vol] 95.3 fL Normal 81-99 [facility] Comment on above: Performed By: #### L 100.0100, L500.2500, L501.5200 #### [facility] [address] [place], [address] Monocytes/100 WBC (Bld) 3.5 % Normal 0-10 [facility] Comment on above: Performed By: #### L 100.0100, L500.2500, L501.5200 #### [facility] [address] [place], [address] Neutrophils/100 WBC (Bld) 80.5 % High 47-70 [facility] Comment on above: Performed By: #### L 100.0100, L500.2500, L501.5200 #### [facility] [address] [place], [address] Nucleated RBC (Bld) [#/Vol] 0 10*3/uL Normal 0-5 [facility] Comment on above: Performed By: #### L 100.0100, L500.2500, L501.5200 #### [facility] [address] [place], [address] Platelet mean volume (Bld) [Entitic vol] 11.0 fL Normal 6.2-12.0 [facility] Comment on above: Performed By: #### L 100.0100, L500.2500, L501.5200 #### [facility] [address] [place], [address] Platelets (Bld) [#/Vol] 157 10*3/uL Normal 150-450 [facility] Comment on above: Performed By: #### L 100.0100, L500.2500, L501.5200 #### [facility] [address] [place], [address] RBC (Bld) [#/Vol] 4.25 10*6/uL Normal 4.2-5.4 [facility] Comment on above: Performed By: #### L 100.0100, L500.2500, L501.5200 #### [facility] [address] [place], [address] RDW SD 47.3 fl High 35.1-43.9 [facility] Comment on above: Performed By: #### L 100.0100, L500.2500, L501.5200 #### [facility] [address] [place], [address] WBC (Bld) [#/Vol] 6.7 10*3/uL Normal 4.4-11.0 [facility] Comment on above: Performed By: #### L 100.0100, L500.2500, L501.5200 #### [facility] [address] [place], [place], [address] Laboratory - Chemistry and C hemistry - challengeOrdered By: Dr. Chung on 03-14-2022 Magnesium [Mass/Vol] 1.8 mg/dL 1.6-2.[address] [facility] M R Staph Aureus DNA by PCRo n 03-14-2022 MRSA DNA ASSAY Negative Normal Negative [facility] Comment on above: Order Comment: 'TROP ' Serial specimen #1, #2 or #3: 1 Performed By: #### L 100.0100, L500.2500, M200.1000, L501.4020 #### [facility] [address] [place], [address] Magnesiumon 03-14-2022 Magnesium [Mass/Vol] 1.8 mg/dL Normal 1.6-2.[address] [facility] Comment on above: Performed By: #### L 100.0100, L500.2500, L501.5200 #### [facility] [address] [place], [address] 12 Lead EKGon 03-13-2022 12 Lead EKG [facility] [address] [place] [address] 12 Lead EKG 03/13/22 1100 MR#: [id number] Acct: [id number] Name: MONTEZ GOMEZ Rep #: [id number] : 1960 61 From: Roney Sauceda MD Attending Dr: Dr. Deidra Chung MD Status: DIS IN Ordering Dr: Cristina Bunn DO Date: 03/13/22 Location: [facility] [place] Sex: F C Admitted: 03/13/22 Test Reason : TY Blood Pressure : / mmHG Vent. Rate : 081 BPM Atrial Rate : 081 BPM P-R Int : 140 ms QRS Dur : 108 ms QT Int : 410 ms P-R-T Axes : 033 032 082 degrees QTc Int : 476 ms Sinus rhythm with Premature atrial complexes Inferior-posterior infarct , age undetermined Abnormal ECG Confirmed by JESUS TAI, RONEY ([id number]), continuity editor VICKI LOZANO ([id number]) on 03/18/2022 12:16:56 PM Referred By: Confirmed By:RONEY SAUCEDA MD 03/18/221216 Date Roney Sauceda MD CC: Dr. Deidra Chung MD; Dr. Cristina Bunn DO; Dr. Nathan Arzate DO Signed Normal [facility] Absolute lymphocyte counton 03-13-2022 Lymphocytes Auto (Unsp spec) [#/Vol] 2.46 10*3/uL 0.83-4.51 [facility] Work Phone: Basic Metabolic Profile (BMP )on 03-13-2022 BUN/CRE 12.7 RATIO Normal 10-20 [facility] Comment on above: Order Comment: 'TROP ' Serial specimen #1, #2 or #3: 1 Performed By: #### L 100.0100, L500.2500, M200.1000, L501.4020 #### [facility] [address] [place], [address] CA,Total 8.9 mg/dL Normal 8.5-10.1 [facility] Comment on above: Order Comment: 'TROP ' Serial specimen #1, #2 or #3: 1 Performed By: #### L 100.0100, L500.2500, M200.1000, L501.4020 #### [facility] [address] [place], [address] Chloride [Moles/Vol] 110 mmol/L High 98-[address] [facility] Comment on above: Order Comment: 'TROP ' Serial specimen #1, #2 or #3: 1 Performed By: #### L 100.0100, L500.2500, M200.1000, L501.4020 #### [facility] [address] [place], [address] CO2 [Moles/Vol] 23.0 mmol/L Normal 21.0-32.0 [facility] Comment on above: Order Comment: 'TROP ' Serial specimen #1, #2 or #3: 1 Performed By: #### L 100.0100, L500.2500, M200.1000, L501.4020 #### [facility] [address] [place], [address] Creatinine [Mass/Vol] 0.94 mg/dL Normal 0.55-1.02 [facility] Comment on above: Order Comment: 'TROP ' Serial specimen #1, #2 or #3: 1 Result Comment: The validity of the calculated GFR GFRAA in patients over 70 years has not been determined. Clinical correlation is essential. Performed By: #### L 100.0100, L500.2500, M200.1000, L501.4020 #### [facility] [address] [place], [address] ECRCL 61.79 ml/min Normal [facility] Comment on above: Order Comment: 'TROP ' Serial specimen #1, #2 or #3: 1 Performed By: #### L 100.0100, L500.2500, M200.1000, L501.4020 #### [facility] [address] [place], [address] EST GFR - AA 77 mL/min Normal >60 [facility] Comment on above: Order Comment: 'TROP ' Serial specimen #1, #2 or #3: 1 Result Comment: Afri can Estonian GFR Calc Performed By: #### L 100.0100, L500.2500, M200.1000, L501.4020 #### [facility] [address] [place], [address] GAP 6 Normal 5-15 [facility] Comment on above: Order Comment: 'TROP ' Serial specimen #1, #2 or #3: 1 Performed By: #### L 100.0100, L500.2500, M200.1000, L501.4020 #### [facility] [address] [place], [address] GFR/1.73 sq M.predicted among non-blacks MDRD (S/P/Bld) [Vol rate/Area] 64 mL/min/{1.73_m2} Normal >60 [facility] Comment on above: Order Comment: 'TROP ' Serial specimen #1, #2 or #3: 1 Result Comment: Non- GFR Calc Performed By: #### L 100.0100, L500.2500, M200.1000, L501.4020 #### [facility] [address] [place], [address] Glucose [Mass/Vol] 181 mg/dL High 74-106 [facility] Comment on above: Order Comment: 'TROP ' Serial specimen #1, #2 or #3: 1 Result Comment: Fast ing Glucose result greater than or equal to 126 mg/dL suggests DIABETES MELLITUS per A.D.A. criteria. Performed By: #### L 100.0100, L500.2500, M200.1000, L501.4020 #### [facility] [address] [place], [address] Potassium [Moles/Vol] 4.0 mmol/L Normal 3.5-5.1 [facility] Comment on above: Order Comment: 'TROP ' Serial specimen #1, #2 or #3: 1 Performed By: #### L 100.0100, L500.2500, M200.1000, L501.4020 #### [facility] [address] [place], [address] Sodium [Moles/Vol] 139 mmol/L Normal 136-145 [facility] Comment on above: Order Comment: 'TROP ' Serial specimen #1, #2 or #3: 1 Performed By: #### L 100.0100, L500.2500, M200.1000, L501.4020 #### [facility] [address] [place], [address] Urea nitrogen [Mass/Vol] 12 mg/dL Normal 7-18 [facility] Comment on above: Order Comment: 'TROP ' Serial specimen #1, #2 or #3: 1 Performed By: #### L 100.0100, L500.2500, M200.1000, L501.4020 #### [facility] [address] [place], [address] Basophil percentageon 2022 Basophils/100 WBC (Bld) 1.2 % 0-1 [facility] Work Phone: Chloride [Moles/Vol] 110 mmol/L 98-[address] [facility] Work Phone: Eosinophils/100 WBC (Bld) 3.7 % 0-5 [facility] Work Phone: Glucose [Mass/Vol] 181 mg/dL 74-106 [facility] Work Phone: Comment on above: Fasting Glucose resu lt greater than or equal to 126 mg/dL suggests DIABETES MELLITUS per A.D.A. criteria. Neutrophils (Bld) [#/Vol] 4.0 10*3/uL 2.0-7.7 [facility] Work Phone: Neutrophils/100 WBC (Bld) 52.7 % 47-70 [facility] Work Phone: Potassium [Moles/Vol] 4.0 mmol/L 3.5-5.1 [facility] Work Phone: Sodium [Moles/Vol] 139 mmol/L 136-145 [facility] Work Phone: WBC (Bld) [#/Vol] 7.6 10*3/uL 4.4-11.0 [facility] Work Phone: Bedside Glucoseon 03-13-2022 FINGERSTICK GLU 297 mg/dL High 74-106 [facility] Comment on above: Result Comment: SADE DIETRICH OF PATIENT CARE PER NURSING PROTOCOL Performed By: #### L 100.0100, L500.2500, M200.1000, L501.4020 #### [facility] [address] [place], [address] FINGERSTICK GLU 313 mg/dL High 74-106 [facility] Comment on above: Result Comment: SADE DIETRICH OF PATIENT CARE PER NURSING PROTOCOL Performed By: #### L 100.0100, L500.2500, M200.1000, L501.4020 #### [facility] [address] [place], [address] Blood erythrocytes count (nu mber/volume)on 03-13-2022 RBC (Bld) [#/Vol] 5.09 10*6/uL 4.2-5.4 [facility] Work Phone: Blood hemoglobin measurement (mass/volume)on 03-13-2022 Hemoglobin (Bld) [Mass/Vol] 15.2 g/dL 12.0-15.0 [facility] Work Phone: Blood lymphocytes/100 leukoc yteson 03-13-2022 Lymphocytes/100 WBC (Bld) 32.4 % 19-41 [facility] Work Phone: Blood monocytes/100 leukocyt eson 03-13-2022 Monocytes/100 WBC (Bld) 9.5 % 0-10 [facility] Work Phone: Blood platelet mean volumeon 03-13-2022 Platelet mean volume (Bld) [Entitic vol] 11.5 fL 6.2-12.0 [facility] Work Phone: CBC W/Diff, Automatedon 03-03 ATYPICAL LYMPH 1+ Normal [facility] Comment on above: Performed By: #### L 100.0100, L500.2500, M200.1000, L501.4020 #### [facility] [address] [place], [address] COVID 19, [facility]ACELI [facility](RT COLLECT )on 03-13-2022 SARS-CoV-2 (COVID-19) RNA ARACELI+probe Ql (Unsp spec) Not detected Normal Not Detect [facility] Comment on above: Result Comment: Norm al Reference Range: Not Detected Method:(RT-PCR) real-time reverse transcriptase PCR [employer] ARSENIO Instrument *The Food and Drug Administration (FDA) has issued an Emergency Use Authorization (EAU) for the ARSENIO SARS-CoV-2 Assay for the rapid detection of the virus that causes COVID-19. This test has been validated, but the FDAs independent review of this validation is pending. *Negative results do not preclude infection and should not be used as the sole basis for treatment or patient management. Optimum specimen types and timing for peak viral levels during infections caused by SARS-CoV-2 have not been determined. Collection of multiple specimens from the same patient may be necessary to detect the virus. The possibility of a false negative result should be considered if the patient has clinical presentation or has had recent exposure. Performed By: #### L 100.0100, L500.2500, M200.1000, L501.4020 #### [facility] [address] [facility] [place], [address] CTA Chest W/WO Contraston CTA Chest W/WO Contrast [facility] [address] [place] [address] CTA Chest W/WO Contrast MR#: [id number] Acct: [id number] Name: MONTEZ GOMEZ Rep #: [id number] : 1960 F 61 From: Cheryl Gupta MD PCP: Dr. Nathan Arzate, DO Status: REG ER Study: CTA Chest W/WO Contrast Date of Exam: 03/13/22 Exam# [id number] Ordering Dr: Cristina Bunn DO STUDY: CTA CHEST REASON FOR EXAM: Female, 61 years old. Dyspnea, elevated d-dimer RADIATION DOSAGE (If Supplied By Facility): CTDIvol = ( 12.66 ) mGy, DLP = ( 545.39 ) mGycm TECHNIQUE: The examination was performed with the intravenous administration of IV 100mL Isovue-370. Post-processing of the angiographic images was performed, with multiplanar reformation and 3D reconstruction. Individualized dose optimization techniques were used for this CT. COMPARISON: None. FINDINGS: There are nodular, patchy and groundglass opacities within the lingula. There are scattered tree-in-bud opacities within the left lower lobe. There is minimal atelectasis and/or scarring within the right lung base. Normal enhancement of the main pulmonary artery and right and left pulmonary arteries. Normal enhancement of the bilateral peripheral pulmonary arteries. There is no demonstrated pulmonary embolism. Normal thoracic aorta and visualized great vessels. There is no demonstrated aortic dissection. There are calcifications of the coronary arteries. Normal mediastinum. Normal hilar regions. Normal visualized trachea and bronchi. Normal chest wall structures. There are degenerative changes of the thoracic spine. There is a deformity within the manubrium and sternum consistent with an old injury. The limited images of the upper abdomen demonstrate splenomegaly. CT/CTA Chest W/WO Contrast IMPRESSION: No demonstrated pulmonary embolism or arterial dissection. Patchy and groundglass opacities within the lingula concerning for pneumonia. Left lower lobe tree-in-bud opacities, may be secondary to an infectious process. Atherosclerosis. Splenomegaly. Electronically Signed: Cheryl Gupta MD at 12:22 EST , CC: Dr. Cristina Bunn DO; Dr. Nathan Arzate DO Machine Sizer: Signed Normal [facility] Chest 1 View (Portable)on Chest 1 View (Portable) [facility] Imaging Services [address] [place] [id number] Chest 1 View (Portable) MR#: [id number] Acct: [id number] Name: MONTEZ GOMEZ Rep #: [id number] : 1960 F 61 From: Cheryl Gupta MD PCP: Dr. Nathan Arzate DO Status: REG ER Study: Chest 1 View (Portable) Date of Exam: 03/13/22 Exam# [id number] Ordering Dr: Cristina Bunn DO INDICATION: dyspnea EXAMINATION/TECHNIQUE: X-RAY - XR Chest 1 View COMPARISON: None. FINDINGS: LINES/DEVICES: None. LUNGS: There are prominent interstitial markings within the mid and lower lungs. Within the right mid/lower lung there is a 4.5 cm rounded opacity. There is an ill-defined rounded opacity projecting over the right cardiac silhouette is well. MEDIASTINUM AND CARDIOVASCULAR STRUCTURES: Cardiac silhouette not enlarged. Central airways and mediastinal contour are unremarkable. BONES AND SOFT TISSUES: Unremarkable. RAD/Chest 1 View (Portable) IMPRESSION: Prominent interstitial markings, nonspecific finding may be secondary to edema and/or an infectious process. Indeterminate rounded opacities within the lower lungs may be secondary to focal consolidation, cannot exclude a neoplastic process, recommend chest CT for further characterization. Electronically Signed: Cheryl Gupta MD at 11:31 EST , CC: Dr. Cristina Bunn, ; Dr. Nathan Arzate, Machine Sizer: Signed Normal [facility] D-Dimer Quantitative (DVT/PE )on 03-13-2022 D-DIMER QUANT 0.82 FEU/ug/m Invalid Interpretation Code 0.27-0.49 [facility] Comment on above: Order Comment: CRITI BRANDON VALUE VERIFIED. CALLED TO JOVANY MARQUEZ 03/13/22 Pramod Woods. RESULTS READ BACK BY SAME . Result Comment: D-Di gunnar ELEVATED (>0.49): Additional studies and clinical assessments are indicated to conclude diagnosis of: Deep Vein Thrombosis (DVT) or Pulmonary Embolism (PE) Performed By: #### L [id number] #### [facility] Laboratory [facility] [place] [address], [address] Determination of erythrocyte mean corpuscular volume (MCV)on 03-13-2022 MCV (RBC) [Entitic vol] 95.7 fL 81-99 [facility] Work Phone: Emergency Department Summary on 03-13-2022 Emergency Department Summary [facility] Medical Records Department [address] [place] [address] Emergency Department Summary 03/13/22 MR#: [id number] Acct: [id number] Name: MONTEZ GOMEZ Rep #: [id number] : 1960 61 From: Cristina Bunn DO PCP: Dr. Nathan Arzate, DO Status:ADM IN Location: [place] [address]-1 HPI History of Present Illness Chief Complaint: Shortness of Breath Detail of Chief Complaint: Shortness of breath x6 days Informant: patient Narrative Narrative: Patient presents the emergency department complaint shortness of breath. Patient states that she started feeling poorly about 6 days ago. Patient states initially started with a cough and had fever up to 101 for 2 days. Now complaining of exertional dyspnea. Cough mostly nonproductive but at times bringing up some thick yellow to green sputum. Patient denies any chest pain. Patient quit smoking in 2014. Patient denies recent travel or surgery. Patient has had her COVID-vaccine and 1 booster. She did not get the flu shot this year. Patient does have history of coronary artery disease with prior CABG in 2014. Patient states she also had a hole fixed in her heart at that time. Patient also is diabetic and history of hypertension. [facility] Medical History (Updated 03/13/22 @ 12:[address] Cristina Bunn DO) Diabetes High cholesterol History of pulmonary embolism Hypertension Home Medications alprazolam 0.5 mg tablet 0.5 mg PO TID PRN Anxiety 03/13/22 [History Last Taken 03/12/22] gabapentin 600 mg tablet 300 - 600 mg PO BID NEUROPATHY 03/13/22 [History Last Taken 03/12/22] glipizide 5 mg tablet, extended release 24 hr 5 mg PO DAILY DM 03/13/22 [History Last Taken 03/12/22] metformin 500 mg tablet 1,000 mg PO BID DM 03/13/22 [History Last Taken 03/13/22] metoprolol tartrate 25 mg tablet 25 mg PO BID HEART 03/13/22 [History Last Taken 03/12/22] pravastatin 40 mg tablet 40 mg PO QHS CHOLESTEROL 03/13/22 [History Last Taken 03/12/22] sertraline 100 mg tablet 100 mg PO DAILY DEPRESSION 03/13/22 [History Last Taken 03/12/22] Allergy/AdvReac Type Severity Reaction Status Date / Time amlodipine Allergy Hives Verified 03/13/22 10:33 cefdinir [From Omnicef] Allergy Hives Verified 03/13/22 10:33 latex Allergy Hives Verified 03/13/22 10:33 Surgical History (Updated 03/13/22 @ 10:59 by Blank Starr) Hx of CABG Social History Smoking Status: Former smoker ROS ROS ED Review of Systems ROS Unobtainable: other Constitutional Constitutional ED: Reports fever(s) and lethargy; Denies chills, sweats or weight loss Eyes Eyes: Denies blurry vision, change in vision or diplopia ENT ENT ED: Denies rhinorrhea or sore throat Cardiovascular Cardiovascular: Denies chest pain, orthopnea or racing heartbeat Respiratory/Chest Respiratory/Chest: Reports cough, dyspnea and dyspnea on exertion; Denies orthopnea or sputum Gastrointestinal Gastrointestinal: Denies abdominal pain, diarrhea, nausea or vomiting Genitourinary Genitourinary ED: Denies dysuria, hematuria or urinary frequency Musculoskeletal Musculoskeletal: Denies arthralgias, back pain, myalgias or neck pain Integumentary Denies abscess, Abrasions or rash Neurologic Neurologic: Denies headache(s) or weakness Psychiatric Psychiatric: Denies anxiety, depression or suicidal thoughts Endocrine Endocrinology: Denies polydipsia, polyphagia or polyuria Hematologic/Lymphatic Hematologic/Lymphatic: Denies easy bleeding, easy bruising or lymphadenopathy Allergic/Immunologic Allergic/Immunologic ED: Denies mouth swelling, tongue swelling or urticaria EXAM Physical Exam Const Vital Signs: 03/13/22 10:34 03/13/22 10:57 03/13/22 10:57 Temperature 97.5 F L Temperature Source Temporal Pulse Rate 79 80 Respiratory Rate 22 H 20 H Respiratory Effort Short of Breath Accessory Muscle Use Respiratory Pattern Tachypnea Blood Pressure 155/83 H Blood Pressure Mean 107 Pulse Ox 88 91 Oxygen Delivery Method Room Air Nasal Cannula Nasal Cannula Oxygen Flow Rate (L/min) 3 3 03/13/22 11:00 03/13/22 11:00 03/13/22 11:11 Temperature Temperature Source Pulse Rate 92 Respiratory Rate 21 H 25 H Respiratory Effort Respiratory Pattern Blood Pressure Blood Pressure Mean Pulse Ox 90 Oxygen Delivery Method Nasal Cannula Nasal Cannula Oxygen Flow Rate (L/min) 3.5 4 03/13/22 11:37 03/13/22 11:34 03/13/22 12:34 Temperature 98.5 F 98.2 F Temperature Source Oral Oral Pulse Rate 94 88 Respiratory Rate 20 H 22 H Respiratory Effort Respiratory Pattern Blood Pressure 142/70 H 103/69 Blood Pressure Mean 94 80 Pulse Ox 90 90 90 Oxygen Delivery Method Nasal Cannula Nasal Cannula Nasal Cannula Oxygen Flow Rate (L/min) 4 4 5 Positive well nourished and (more content not included)... Normal [facility] H AND P Exam - Hospitaliston 03-13-2022 H&P Exam - Hospitalist [facility] Medical Records Department [address] [place] [address] H P Exam - Hospitalist 03/13/22 1242 MR#: [id number] Acct: [id number] Name: MONTEZ GOMEZ Rep #: [id number] : 1960 61 From: Deidra Chung MD PCP: Dr. Nathan Arzate, DO Status:ADM IN Location: [facility] PC955-6 HPI - General General Date of Admission: 03/13/22 Date of Service: 03/13/22 Chief Complaint: Shortness of breath HPI Narrative MONTEZ GOMEZ, is a 61 F with past medical history significant for coronary artery disease with previous CABG, diabetes mellitus type 2 who presented with shortness of breath. Patient symptoms started a week prior to her admission. Has since noticed progressive worsening of her shortness of breath. She also did complain of significant fatigue. She did experience subjective fever as well as chills as well as cough and wheezing. Presented to the emergency department due to worsening symptoms. Imaging studies obtained in the ED did show Patchy and groundglass opacities within the lingula concerning for pneumonia. Left lower lobe tree-in-bud opacities, may be secondary to an infectious process. Patient started on broad-spectrum antibiotic therapy admitted to regular nursing floor for further management [facility] Medical History Diabetes High cholesterol History of pulmonary embolism Hypertension Home Medications alprazolam 0.5 mg tablet 0.5 mg PO TID PRN Anxiety 03/13/22 [History Last Taken 03/12/22] gabapentin 600 mg tablet 300 - 600 mg PO BID NEUROPATHY 03/13/22 [History Last Taken 03/12/22] glipizide 5 mg tablet, extended release 24 hr 5 mg PO DAILY DM 03/13/22 [History Last Taken 03/12/22] metformin 500 mg tablet 1,000 mg PO BID DM 03/13/22 [History Last Taken 03/13/22] metoprolol tartrate 25 mg tablet 25 mg PO BID HEART 03/13/22 [History Last Taken 03/12/22] pravastatin 40 mg tablet 40 mg PO QHS CHOLESTEROL 03/13/22 [History Last Taken 03/12/22] sertraline 100 mg tablet 100 mg PO DAILY DEPRESSION 03/13/22 [History Last Taken 03/12/22] Allergy/AdvReac Type Severity Reaction Status Date / Time amlodipine Allergy Hives Verified 03/13/22 10:33 cefdinir [From Omnicef] Allergy Hives Verified 03/13/22 10:33 latex Allergy Hives Verified 03/13/22 10:33 Family History (Updated 03/13/22 @ 13:[address] Deidra Chung MD) Brother COPD (chronic obstructive pulmonary disease) Surgical History (Updated 03/13/22 @ 10:59 by Blank Starr) Hx of CABG Social History Smoking Status: Former smoker ROS ROS Narrative GENERAL: fever, chills, HEENT: denies headache, sinus congestion, or drainage, dysphagia RESPIRATORY: cough, sputum production, shortness of breath, dyspnea on exertion CARDIAC: denies chest pain, palpitations, orthopnea, PND GASTROINTESTINAL: denies abdominal pain, nausea, vomiting, GENITOURINARY: denies dysuria, urgency, frequency, heamaturia EXTREMITY: denies swelling MUSCULOSKELETAL: denies current joint pain or tenderness NEUROLOGIC: denies focal numbness, weakness, tingling HEMATOLOGIC: denies easy bruising and/or hemorrhage INTEGUMENT: denies rashes PSYCHIATRIC: denies suicidal or homicidal ideation Vital Signs Vital Signs Vital Signs: 03/13/22 10:34 03/13/22 10:57 03/13/22 10:57 Temperature 97.5 F L Temperature Source Temporal Pulse Rate 79 80 Respiratory Rate 22 H 20 H Respiratory Effort Short of Breath Accessory Muscle Use Respiratory Pattern Tachypnea Blood Pressure 155/83 H Blood Pressure Mean 107 Pulse Ox 88 91 Oxygen Delivery Method Room Air Nasal Cannula Nasal Cannula Oxygen Flow Rate (L/min) 3 3 03/13/22 11:00 03/13/22 11:00 03/13/22 11:11 Temperature Temperature Source Pulse Rate 92 Respiratory Rate 21 H 25 H Respiratory Effort Respiratory Pattern Blood Pressure Blood Pressure Mean Pulse Ox 90 Oxygen Delivery Method Nasal Cannula Nasal Cannula Oxygen Flow Rate (L/min) 3.5 4 03/13/22 11:37 03/13/22 11:34 03/13/22 12:34 Temperature 98.5 F 98.2 F Temperature Source Oral Oral Pulse Rate 94 88 Respiratory Rate 20 H 22 H Respiratory Effort Respiratory Pattern Blood Pressure 142/70 H 103/69 Blood Pressure Mean 94 80 Pulse Ox 90 90 90 Oxygen Delivery Method Nasal Cannula Nasal Cannula Nasal Cannula Oxygen Flow Rate (L/min) 4 4 5 Weight Weight: 107.048 kg Body Mass Index (BMI) 35.9 Physical Exam Narrative GENERAL: cooperative but appears ill looking HEENT: Atraumatic; normocephalic EYES; Anicteric, Normal Conjunctiva NECK; supple, normal thyroid, RESPIRATORY: Diminished to auscultation CARDIOVASCULAR: Regular S1 S2, GI: soft, normoactive bowel sounds, : No Renal angle tenderness; EXTREMITIES: No edema, (more content not included)... Normal [facility] Hematocrit Auto (Bld) [Volum e fraction]on 03-13-2022 Hematocrit (Bld) [Volume fraction] 48.7 % 37-47 [facility] Work Phone: [phone] 03-13-2022 TROPONIN-I HS 34 pg/mL Normal 3.0-54.0 [facility] Comment on above: Order Comment: 'TROP ' Serial specimen #1, #2 or #3: 1 Result Comment: Plea se Note: New Test Units and Gender Specific Reference Ranges. For more information see Policy Stat Procedure Fisher High Sensitivity Troponin (TNIH) and attachments. Performed By: #### L 100.0100, L500.2500, M200.1000, L501.4020 #### [facility] [address] [place], [address] Laboratory - Chemistry and C hemistry - challengeon 03-13-2022 CO2 [Moles/Vol] 23.0 mmol/L 21.0-32.0 [facility] Work Phone: Urea nitrogen/Creatinine [Mass ratio] 12.7 mg/mg 10-20 [facility] Work Phone: Laboratory - Hematology and Cell countson 03-13-2022 Erythrocyte distribution width (RBC) [Entitic vol] 48.0 fL 35.1-43.9 [facility] Work Phone: Erythrocyte distribution width (RBC) [Ratio] 13.5 % 11.6-14.6 [facility] Work Phone: Immature granulocytes/100 WBC (Bld) 0.500 % 0.0-0.9 [facility] Work Phone: Comment on above: IG% - Immature Granu locytes (promyelocytes, myelocytes and metamyelocytes) > 1% indicates that a LEFT SHIFT is Present. MCH (RBC) [Entitic mass] 29.9 pg 27.0-32.0 [facility] Work Phone: Nucleated RBC/100 WBC (Bld) [Ratio] 0 % 0-5 [facility] Work Phone: Laboratory - Microbiology an d Antimicrobial susceptibilityOrdered By: Dr. Bunn on 03-13-2022 SARS-CoV-2 (COVID-19) RNA ARACELI+probe Ql (Unsp spec) Not detected Not Detect [facility] Comment on above: Normal Reference Ran ge: Not DetectedMethod:(RT-PCR) real-time reverse transcriptase PCRLuminex ARSENIO Instrument*The Food and Drug Administration (FDA) has issued an Emergency Use Authorization (EAU) for the ARSENIO SARS-CoV-2 Assay for the rapid detection of the virus that causes COVID-19. This test has been validated, but the FDAs independent review of this validation is pending.*Negative results do not preclude infection and should not be used as the sole basis for treatment or patient management. Optimum specimen types and timing for peak viral levels during infections caused by SARS-CoV-2 have not been determined. Collection of multiple specimens from the same patient may be necessary to detect the virus. The possibility of a false negative result should be considered if the patient has clinical presentation or has had recent exposure. Legionella Antigen Urineon 0 03-13-2022 LEGU Comments: Only Recommended for severe cases of pneumonia Only Recommended for severe cases of pneumonia URINE, CLEAN CATCH Legionella Antigen result interpretation: L pneumo Ag Ur Ql Negative Presumptive negative for Legionella pneumophila serogroup 1 antigen in urine, suggesting no recent or current infection. Legionella Ag, Urine Negative (See interpretation below) [facility] Comment on above: Performed By: #### L 100.0100, L500.2500, M200.1000, L501.4020 #### [facility] [address] [place], [place], [id number] M101.0111on 03-13-2022 M101.0111 *Negative results fr om patients with symptom onset beyond five days should be treated as presumptive and confirmed by a molecular assay if clinically necessary. Negative results should not be used as the sole basis for treatment or for patient management. FLUABV+SARS-CoV2 Ag Pnl Up resp IA.rapid *Positive results do not differentiate between SARS-CoV and SARS-CoV-2. FLUABV+SARS-CoV2 Ag Pnl Up resp IA.rapid Negative Influenza results should be confirmed with FLU PANEL MOLECULAR if indicated. FLUABV+SARS-CoV2 Ag Pnl Up resp IA.rapid * This test has not been FDA cleared or approved; the test has been authorized by FDA under an Emergency Use Authorization (EAU) for use by laboratories certified under CLIA that meet the requirements to perform moderate, high, or waived complexity tests. FLUABV+SARS-CoV2 Ag Pnl Up resp IA.rapid Normal Reference Range: Negative Sylwia, RHIANNA method SARS-CoV-2 (COVID 19) Negative Influenza Ag, Direct Presumptive NEGATIVE for Influenza A/B Antigen (See Note) [facility] Comment on above: Performed By: #### L 100.0100, L500.2500, M200.1000, L501.4020 #### [facility] [address] [place], [address] MCHC Auto (RBC) [Mass/Vol]on 03-13-2022 MCHC (RBC) [Mass/Vol] 31.2 g/dL 32-36 [facility] Work Phone: No Panel InformationOrdered By: Dr. Chung on 03-13-2022 Methicillin-Resist S.aureus DNA PCR Negative Negative [facility] Streptococcus pneumoniae Antigen (M [facility] No Panel InformationOrdered By: Dr. Bunn on 03-13-2022 Atypical Lymphocytes 1+ % [facility] D-Dimer Quantitative (PE/DVT) 0.82 FEU/ug/m 0.27-0.49 [facility] Comment on above: D-Dimer ELEVATED (>0 .49): Additional studies and clinicalassessments are indicated to conclude diagnosis of:Deep Vein Thrombosis (DVT) or Pulmonary Embolism (PE) Troponin I High Sensitivity 34 pg/mL 3.0-54.0 [facility] Comment on above: Please Note: New Kaley t Units and Gender Specific Reference Ranges. For more information see Policy Stat Procedure Fisher High Sensitivity Troponin (TNIH) and attachments. No Panel Informationon 03-13 Estimated Creatinine Clearance Calc 61.79 ml/min [facility] Work Phone: Estimated GFR (MDRD) Amer 77 mL/min >60 [facility] Work Phone: Comment on above: GFR Calc Estimated GFR (MDRD) Non-Af Amer 64 mL/min >60 [facility] Work Phone: Comment on above: Non- GFR Calc Platelets bldon 03-13-2022 Platelets (Bld) [#/Vol] 193 10*3/uL 150-450 [facility] Work Phone: RESPIRATORY PANEL MOLECULARo n 03-13-2022 RP PANEL ADENOVIRUS Not Detected INFLUENZA A Not Detected INFLUENZA A (SUBTYPE H1) Not Detected INFLUENZA A (SUBTYPE H3) Not Detected INFLUENZA B Not Detected HUMAN METAPHNEUMO Not Detected PARAINFLUENZA 1 Not Detected PARAINFLUENZA 2 A Positive for PARAINFLUENZA 2 by NAAT technology A PARAINFLUENZA 3 Not Detected PARAINFLUENZA 4 Not Detected RHINOVIRUS Not Detected RSV A Not Detected RSV B Not Detected PARAINFLUENZA 2 Normal [facility] Comment on above: Performed By: #### L 100.0100, L500.2500, M200.1000, L501.4020 #### [facility] [address] [place], [address] Respiratory pathogens DNA an d RNA 12b panel ARACELI+probe (Unsp spec)Ordered By: Dr. Chung on 03-13-2022 Respiratory Panel (PCR) Parainfluenza 2 [facility] Serum or plasma calcium cruz urement (mass/volume)on 03-13-2022 Calcium [Mass/Vol] 8.9 mg/dL 8.5-10.1 [facility] Work Phone: Serum or plasma creatinine m easurement (mass/volume)on 03-13-2022 Creatinine [Mass/Vol] 0.94 mg/dL 0.55-1.02 [facility] Work Phone: Comment on above: The validity of the calculated GFR & GFRAA in patients over 70 years has not been determined. Clinical correlation is essential. Serum or plasma urea nitroge n measurement (mass/volume)on 03-13-2022 Urea nitrogen [Mass/Vol] 12 mg/dL 7-18 [facility] Work Phone: Strep pneumoniae Antig(UR,CS F)on 03-13-2022 STPAG Comments: Only Recommended for severe cases of pneumonia Only Recommended for severe cases of pneumonia URINE, CLEAN CATCH URINE INTERPRETATION Negative Urine Presumptive negative for pneumococcal pneumonia, suggesting no current or recent pneumococcal infection. Infection due to S pneumoniae cannot be ruled out since the antigen present in the sample may be below the detection limit of the test. Strep pneumo Test Negative URINE (See interpretation below) Normal [facility] Comment on above: Performed By: #### L 100.0100, L500.2500, M200.1000, L501.4020 #### [facility] [address] [place], [address] Thin prep Papanicolaou smear with manual screeningon 03-13-2022 Thin prep Papanicolaou smear with manual screening 6 5-15 [facility] Work Phone: Urine Legionella pneumophila antigen detectionOrdered By: Dr. Chung on 03-13-2022 L. pneumophila Ag Ql (U) [facility] LABORATORYOrdered By: Florecita Vargas on 11-09-2021 Uric Acid Lvl 7.4 mg/dL Invalid Interpretation Code 2.6 - 6.2 mg/dL AO ADM SS QUANTIFERONon 06-01-2021 QUANTIFERON Negative Normal NEGATIVE [facility] Comment on above: Order Comment: QUANT IFERON SENT TO [facility] 05/23/21 1407 NITA THACKER Result Comment: No e vidence of current or previous infection with Mycobacterium tuberculosis. Performed By: #### L 700.33434 #### [facility] [address] [place] [address] CBC W/DIFFon 05-22-2021 BASO ABS 0.10 K/CU MM Normal 0-0.2 [facility] Comment on above: Performed By: #### L 200.08124 #### [facility] [address] [place] [address] Basophils/100 WBC (Bld) 1.7 % Normal 0-2 [facility] Comment on above: Performed By: #### L 200.15912 #### [facility] [address] [place] [address] EOS ABS 0.40 K/CU MM Normal 0-0.5 [facility] Comment on above: Performed By: #### L 200.05093 #### [facility] [address] [place] [address] Eosinophils/100 WBC (Bld) 5.1 % High 0-5 [facility] Comment on above: Performed By: #### L 200.61727 #### [facility] [address] [place] [address] Erythrocyte distribution width (RBC) [Ratio] 13.8 % Normal 11-14.5 [facility] Comment on above: Performed By: #### L 200.60109 #### [facility] [address] [place] [address] Hematocrit (Bld) [Volume fraction] 48.6 % High 35.0-47.0 [facility] Comment on above: Performed By: #### L 200.89650 #### [facility] [address] [place] [address] Hemoglobin (Bld) [Mass/Vol] 15.0 g/dL Normal 11.5-15.5 [facility] Comment on above: Performed By: #### L 200.56421 #### [facility] [address] [place] [address] IMMATR GRAN ABS 0.00 K/CU MM Normal Less than 2 [facility] Comment on above: Performed By: #### L 200.28357 #### [facility] [address] [place] [address] IMMATURE GRAN % 0.4 % Normal Less than 2 [facility] Comment on above: Performed By: #### L 200.91532 #### [facility] [address] [place] [address] LYMPH ABS 2.00 K/CU MM Normal 0.9-4.4 [facility] Comment on above: Performed By: #### L 200.43364 #### [facility] [address] [place] [address] Lymphocytes/100 WBC (Bld) 25.4 % Normal 20-40 [facility] Comment on above: Performed By: #### L 200.58294 #### [facility] [address] [place] [address] MCHC (RBC) [Mass/Vol] 30.9 g/dL Low 32.0-36.0 [facility] Comment on above: Performed By: #### L 200.04927 #### [facility] [address] [place] [address] MCV (RBC) [Entitic vol] 95.5 fL Normal 80.0-99.0 M [facility] Comment on above: Performed By: #### L 200.64791 #### [facility] [address] [place] [address] MONO ABS 0.70 K/CU MM Normal 0.1-1.1 [facility] Comment on above: Performed By: #### L [id number] #### [facility] [address] [place] [address] Monocytes/100 WBC (Bld) 9.3 % Normal 2-10 M [facility] Comment on above: Performed By: #### L 200.74254 #### [facility] [address] [place] [address] NEUTROPHIL ABS 4.50 K/CU MM Normal 2.0-8.3 [facility] Comment on above: Performed By: #### L 200.69535 #### [facility] [address] [place] [address] Neutrophils/100 WBC (Bld) 58.1 % Normal 45-75 [facility] Comment on above: Performed By: #### L 200.62144 #### [facility] [address] [place] [address] Nucleated RBC/100 WBC (Bld) [Ratio] 0.0 % Normal Less than 1 [facility] Comment on above: Performed By: #### L 200.31916 #### [facility] [address] [place] [address] Platelet mean volume (Bld) [Entitic vol] 11.7 fL Normal 9.4-12.4 [facility] Comment on above: Performed By: #### L 200.97691 #### [facility] [place] [address] PLT 152 K/CU MM Normal 150-450 [facility] Comment on above: Performed By: #### L 200.72740 #### [facility] [address] [place] [address] 96872 RBC 5.09 M/CU MM Normal 3.90-5.30 [facility] Comment on above: Performed By: #### L 200.38486 #### [facility] [address] [place] [address] 43139 WBC 7.8 K/CUMM Normal 4.5-11.0 [facility] Comment on above: Performed By: #### L 200.29225 #### [facility] [address] [place] [address] LIVERon 05-22-2021 Albumin [Mass/Vol] 4.0 g/dL Normal 3.2-5.0 [facility] Comment on above: Performed By: #### L 500.12049 #### [facility] [address] [place] [address] 13577 Albumin/Globulin [Mass ratio] 1.0 {ratio} Normal 0.8-2.0 [facility] Comment on above: Performed By: #### L 500.72030 #### [facility] [address] [place] [address] 43350 ALK PHOS 105 U/L Normal 45-117 [facility] Comment on above: Performed By: #### L 500.61031 #### [facility] [address] [place] [address] 81676 ALT [Catalytic activity/Vol] 22 U/L Normal 13-61 [facility] Comment on above: Result Comment: RESU LTS MAY BE FALSELY DEPRESSED AFTER THE ADMINISTRATION OF SULFASALAZINE AND/OR SULFAPYRIDINE. Performed By: #### L 500.43603 #### [facility] [address] [place] [address] 50778 AST [Catalytic activity/Vol] 81 U/L High 8-34 [facility] Comment on above: Result Comment: RESU LTS MAY BE FALSELY DEPRESSED AFTER THE ADMINISTRATION OF SULFASALAZINE AND/OR SULFAPYRIDINE. Performed By: #### L 500.88869 #### [facility] [address] [place], [place] [id number] BILI DIRECT 0.2 MG/DL Normal 0.00-0.36 [facility] Comment on above: Result Comment: NOTE NEW NORMAL RANGE DUE TO REAGENT CHANGE Performed By: #### L 500.46554 #### [facility] [address] [place] [address] 00708 BILI TOTAL 0.60 MG/DL Normal 0.2-1.0 [facility] Comment on above: Performed By: #### L 500.20614 #### [facility] [address] [place] [address] 46022 Globulin (S) [Mass/Vol] 4.0 g/dL Normal 2.2-4.2 [facility] Comment on above: Performed By: #### L 500.58250 #### [facility] [address] [place] [address] 64736 Protein [Mass/Vol] 8.0 g/dL Normal 6.0-8.5 [facility] Comment on above: Performed By: #### L 500.76736 #### [facility] [address] [place] [address] 53068 CBC + DIFFon 10-11-2019 Basophils (Bld) [#/Vol] 0.10 x10EE3/UL Normal 0.00 - 0 .10 [facility] Comment on above: Performed By: #### 2 91198 #### [facility],[address] [place] [address] 62207 Basophils/100 WBC (Bld) 2.0 % Normal 0.0 - 2.0 [facility] Comment on above: Performed By: #### 2 17636 #### [facility],[address] [place], [place] [id number] CBC + DIFF Normal [facility] Comment on above: Result Comment: CBC- COMPLETE BLOOD COUNT Performed By: #### 2 36357 #### [facility],[address] [place], [place] [id number] Eosinophils (Bld) [#/Vol] 1.80 x10EE3/UL High 0.00 - 0.50 [facility] Comment on above: Performed By: #### 2 76122 #### [facility],[address] [place] [address] 63726 Eosinophils/100 WBC (Bld) 27.5 % High 0.0 - 7.0 [facility] Comment on above: Performed By: #### 2 99056 #### [facility],[address] [place] [address] 38861 Erythrocyte distribution width (RBC) [Ratio] 14.6 % Normal 12.0 - 15.6 [facility] Comment on above: Performed By: #### 2 72328 #### [facility],[address] [place], [place] [phone] Hematocrit (Bld) [Volume fraction] 38.0 % Normal 34.0 - 46.0 [facility] Comment on above: Performed By: #### 2 94346 #### [facility],[address] [place] [address] 70348 Hemoglobin (Bld) [Mass/Vol] 12.6 g/dL Normal 12.0 - 16.0 [facility] Comment on above: Performed By: #### 2 40732 #### [facility],[address] [place] [address] 04140 Lymphocytes (Bld) [#/Vol] 1.30 x10EE3/UL Normal 0.80 - 2.80 [facility] Comment on above: Performed By: #### 2 09864 #### [facility],[address] [place] [address] Lymphocytes/100 WBC (Bld) 20.3 % Normal 20.0 - 45.0 [facility] Comment on above: Performed By: #### 2 20664 #### [facility],[address] [place] [address] MANUAL DIFF N/A Normal [facility] Comment on above: Performed By: #### 2 88373 #### [facility],[address] [place] [address] MCH (RBC) [Entitic mass] 29 pg Normal 27 - 33 [facility] Comment on above: Performed By: #### 2 03767 #### [facility],[address] [place] [address] MCHC (RBC) [Mass/Vol] 33 X10 3 Normal 32 - 36 [facility] Comment on above: Performed By: #### 2 51526 #### [facility],[address] [place] [address] MCV (RBC) [Entitic vol] 89 fL Normal 80 - 99 [facility] Comment on above: Performed By: #### 2 69096 #### [facility],[address] [place], [place] [phone] Monocytes (Bld) [#/Vol] 0.60 x10EE3/UL Normal 0.20 - 1 .00 [facility] Comment on above: Performed By: #### 2 99583 #### [facility],[address] [place], [place] [phone] MONOS % 9.1 % Normal 0.0 - 10.0 [facility] Comment on above: Performed By: #### 2 50121 #### [facility],[address] [place] [address] 70588 Morphology Russell (Bld) [Interp] N/A Normal [facility] Comment on above: Performed By: #### 2 15010 #### [facility],[address] [place] [address] 52608 Neutrophils (Bld) [#/Vol] 2.70 x10EE3/UL Normal 1.50 - 7.10 [facility] Comment on above: Performed By: #### 2 34729 #### [facility],[address] [place] [address] 22236 Neutrophils/100 WBC (Bld) 41.1 % Low 46.0 - 76.0 [facility] Comment on above: Performed By: #### 2 55252 #### [facility],[address] [place] [address] 77354 Platelet mean volume (Bld) [Entitic vol] 8.8 fL Normal 6.6 - 10.5 [facility] Comment on above: Result Comment: AUTO MATED DIFFERENTIAL Performed By: #### 2 54553 #### [facility],[address] [place] [address] 07770 Platelets (Bld) [#/Vol] 240 x10EE3/UL Normal 150 - 450 [facility] Comment on above: Performed By: #### 2 96381 #### [facility],[address] [place] [address] 13329 RBC (Bld) [#/Vol] 4.27 x 10EE6/UL Normal 4.10 - 5.30 [facility] Comment on above: Performed By: #### 2 86665 #### [facility],[address] [place] [address] 51937 WBC (Bld) [#/Vol] 6.6 x 10EE3/UL Normal 4.5 - 10.8 [facility] Comment on above: Performed By: #### 2 27254 #### [facility],[address] [place] [address] CMP with eGFRon 10-11-2019 Age - Reported 58 years Normal [facility] Comment on above: Performed By: #### 2 23182 #### [facility],[address] [place], [place] [phone] Albumin [Mass/Vol] 3.6 g/dL Normal 3.4 - 4.8 [facility] Comment on above: Performed By: #### 2 50511 #### [facility],[address] [place] [address] Albumin/Globulin [Mass ratio] 1.2 {ratio} Normal 0.9 - 1.6 [facility] Comment on above: Performed By: #### 2 86782 #### [facility],[address] [place] [address] ALK PHOS 79 U/L Normal 38 - 126 [facility] Comment on above: Performed By: #### 2 78019 #### [facility],[address] [place], [place] [phone] ALT/SGPT 10 U/L Normal 8 - 35 [facility] Comment on above: Performed By: #### 2 67640 #### [facility],[address] [place], [place] [phone] Anion gap [Moles/Vol] 12 mmol/L Normal 10 - 20 [facility] Comment on above: Performed By: #### 2 77533 #### [facility],[address] [place], [place] [phone] AST/SGOT 22 U/L Normal 13 - 39 [facility] Comment on above: Performed By: #### 2 81445 #### [facility],[address] [place], [place] [phone] B/C RATIO 16 ratio Normal 0 - 30 [facility] Comment on above: Performed By: #### 2 68395 #### [facility],[address] [place], [place] [phone] Bilirubin [Mass/Vol] 0.4 mg/dL Normal 0.0 - 1.5 [facility] Comment on above: Performed By: #### 2 34987 #### [facility],[address] [place] [address] 75127 Calcium [Mass/Vol] 8.9 mg/dL Normal 8.6 - 10.2 [facility] Comment on above: Performed By: #### 2 22112 #### [facility],[address] [place] [address] 36037 Chloride [Moles/Vol] 107 mmol/L Normal 98 - 107 [facility] Comment on above: Performed By: #### 2 85012 #### [facility],[address] [place], [place] [phone] CO2 [Moles/Vol] 27.0 mmol/L Normal 21.0 - 31.0 [facility] Comment on above: Performed By: #### 2 31517 #### [facility],[address] [place] [address] 38430 Creatinine [Mass/Vol] 0.7 mg/dL Normal 0.6 - 1.2 [facility] Comment on above: Performed By: #### 2 68156 #### [facility],[address] [place] [address] 73811 GFR/1.73 sq M predicted among non-blacks MDRD (S/P/Bld) [Vol rate/Area] mL/min/{1.73_m2} Normal 60 - 999 [facility] Comment on above: Performed By: #### 2 82346 #### [facility],[address] [place] [address] 97267 Result Comment: ACCO RDING TO THE NATIONAL KIDNEY DISEASE EDUCATION PROGRAM(NKDE), A NORMAL eGFR IS A VALUE GREATER THAN OR EQUAL TO 60 ML/MIN/1.73 SQ METERS. CHRONIC KIDNEY DISEASE: <60mL/MIN/1.73 SQ METERS KIDNEY FAILURE: <15mL/MIN/1.73 SQ METERS THIS TEST SHOULD ONLY BE USED FOR PATIENTS 18 YEARS OF AGE AND OLDER. GFR/1.73 sq M predicted among non-blacks MDRD (S/P/Bld) [Vol rate/Area] Normal [facility] Comment on above: Result Comment: COMP REHENSIVE METABOLIC PANEL Performed By: #### 2 82446 #### [facility],[address] [place] [address] 34602 Globulin (S) [Mass/Vol] 3.1 g/dL Normal 1.5 - 3.8 [facility] Comment on above: Performed By: #### 2 26569 #### [facility],[address] [place] [address] 21030 Glucose [Mass/Vol] 111 mg/dL High 74 - 106 [facility] Comment on above: Performed By: #### 2 72425 #### [facility],[address] [place] [address] 81876 Potassium [Moles/Vol] 4.3 mmol/L Normal 3.5 - 5.1 [facility] Comment on above: Performed By: #### 2 98358 #### [facility],[address] [place] [address] 66433 Protein [Mass/Vol] 6.7 g/dL Normal 6.4 - 8.3 [facility] Comment on above: Performed By: #### 2 62694 #### [facility],[address] [place] [address] 30127 Sodium [Moles/Vol] 142 mmol/L Normal 136 - 145 [facility] Comment on above: Performed By: #### 2 46179 #### [facility],[address] [place] [address] 96832 Urea nitrogen [Mass/Vol] 11 mg/dL Normal 6 - 20 [facility] Comment on above: Performed By: #### 2 71788 #### [facility],[address] [place] [address] 05508 SEDRATEon 10-11-2019 SEDRATE 16 mm/hr Normal 0 - 30 [facility] Comment on above: Performed By: #### 2 47010 #### [facility],[address] [place] [address] VANCOMYCIN TROUGHon 10-11-19 20 VANCOMYCIN,TROUGH 17.5 ug/mL High 10.0 - 15.0 [facility] Comment on above: Performed By: #### 2 54698 #### [facility],[address] [place] [address] CBC + DIFFon 09-27-2019 Basophils (Bld) [#/Vol] 0.10 x10EE3/UL Normal 0.00 - 0 .10 [facility] Comment on above: Performed By: #### 2 64581 #### [facility],[address] [place] [address] 67072 Basophils/100 WBC (Bld) 2.0 % Normal 0.0 - 2.0 [facility] Comment on above: Performed By: #### 2 19279 #### [facility],[address] [place] [address] CBC + DIFF Normal [facility] Comment on above: Result Comment: CBC- COMPLETE BLOOD COUNT Performed By: #### 2 08829 #### [facility],[address] [place] [address] 54475 Eosinophils (Bld) [#/Vol] 1.90 x10EE3/UL High 0.00 - 0.50 [facility] Comment on above: Performed By: #### 2 57979 #### [facility],[address] [place] [address] 36813 Eosinophils/100 WBC (Bld) 30.6 % High 0.0 - 7.0 [facility] Comment on above: Performed By: #### 2 76849 #### [facility],[address] [place] [address] Erythrocyte distribution width (RBC) [Ratio] 14.6 % Normal 12.0 - 15.6 [facility] Comment on above: Performed By: #### 2 60073 #### [facility],[address] [place] [address] 24146 Hematocrit (Bld) [Volume fraction] 39.6 % Normal 34.0 - 46.0 [facility] Comment on above: Performed By: #### 2 36793 #### [facility],[address] [place] [address] 43715 Hemoglobin (Bld) [Mass/Vol] 13.3 g/dL Normal 12.0 - 16.0 [facility] Comment on above: Performed By: #### 2 10345 #### [facility],[address] [place] [address] 78080 Lymphocytes (Bld) [#/Vol] 1.10 x10EE3/UL Normal 0.80 - 2.80 [facility] Comment on above: Performed By: #### 2 65212 #### [facility],[address] [place], [place] [phone] Lymphocytes/100 WBC (Bld) 18.5 % Low 20.0 - 45.0 [facility] Comment on above: Performed By: #### 2 45988 #### [facility],[address] [place] [address] 85605 MANUAL DIFF N/A Normal [facility] Comment on above: Performed By: #### 2 09216 #### [facility],[address] [place] [address] 45915 MCH (RBC) [Entitic mass] 30 pg Normal 27 - 33 [facility] Comment on above: Performed By: #### 2 89777 #### [facility],[address] [place] [address] 73731 MCHC (RBC) [Mass/Vol] 34 X10 3 Normal 32 - 36 [facility] Comment on above: Performed By: #### 2 53475 #### [facility],[address] [place] [address] 58581 MCV (RBC) [Entitic vol] 88 fL Normal 80 - 99 [facility] Comment on above: Performed By: #### 2 65502 #### [facility],[address] [place] [address] 57418 Monocytes (Bld) [#/Vol] 0.60 x10EE3/UL Normal 0.20 - 1 .00 [facility] Comment on above: Performed By: #### 2 55707 #### [facility],[address] [place] [address] 32657 MONOS % 9.5 % Normal 0.0 - 10.0 [facility] Comment on above: Performed By: #### 2 13630 #### [facility],[address] [place] [address] Morphology Russell (Bld) [Interp] N/A Normal [facility] Comment on above: Performed By: #### 2 91797 #### [facility],[address] [place], [place] [phone] Neutrophils (Bld) [#/Vol] 2.40 x10EE3/UL Normal 1.50 - 7.10 [facility] Comment on above: Performed By: #### 2 57167 #### [facility],[address] [place], [place] [id number] Neutrophils/100 WBC (Bld) 39.4 % Low 46.0 - 76.0 [facility] Comment on above: Performed By: #### 2 13624 #### [facility],[address] [place] [address] Platelet mean volume (Bld) [Entitic vol] 8.7 fL Normal 6.6 - 10.5 [facility] Comment on above: Result Comment: AUTO MATED DIFFERENTIAL Performed By: #### 2 74228 #### [facility],[address] [place] [address] 10654 Platelets (Bld) [#/Vol] 219 x10EE3/UL Normal 150 - 450 [facility] Comment on above: Performed By: #### 2 99470 #### [facility],[address] [place] [address] 36934 RBC (Bld) [#/Vol] 4.48 x 10EE6/UL Normal 4.10 - 5.30 [facility] Comment on above: Performed By: #### 2 29568 #### [facility],[address] [place] [address] 44372 WBC (Bld) [#/Vol] 6.2 x 10EE3/UL Normal 4.5 - 10.8 [facility] Comment on above: Performed By: #### 2 57426 #### [facility],[address] [place] [address] CMP with eGFRon 09-27-2019 Age - Reported 58 years Normal [facility] Comment on above: Performed By: #### 2 66406 #### [facility],[address] [place] [address] Albumin [Mass/Vol] 3.9 g/dL Normal 3.4 - 4.8 [facility] Comment on above: Performed By: #### 2 37073 #### [facility],[address] [place] [address] Albumin/Globulin [Mass ratio] 1.1 {ratio} Normal 0.9 - 1.6 [facility] Comment on above: Performed By: #### 2 70209 #### [facility],[address] [place], [place] [id number] ALK PHOS 71 U/L Normal 38 - 126 [facility] Comment on above: Performed By: #### 2 21729 #### [address] [address] ALT/SGPT 12 U/L Normal 8 - 35 [facility] Comment on above: Performed By: #### 2 91449 #### [facility],[address] [place], [place] [address] Anion gap [Moles/Vol] 10 mmol/L Normal 10 - 20 [facility] Comment on above: Performed By: #### 2 30647 #### [facility],[address] [place] [address] 06566 AST/SGOT 30 U/L Normal 13 - 39 [facility] Comment on above: Performed By: #### 2 77513 #### [facility],[address] [place], [place] [id number] B/C RATIO 13 ratio Normal 0 - 30 [facility] Comment on above: Performed By: #### 2 68421 #### [facility],[address] [place] [address] 22847 Bilirubin [Mass/Vol] 0.5 mg/dL Normal 0.0 - 1.5 [facility] Comment on above: Performed By: #### 2 64570 #### [facility],[address] [place] [address] 20010 Calcium [Mass/Vol] 9.2 mg/dL Normal 8.6 - 10.2 [facility] Comment on above: Performed By: #### 2 42401 #### [facility],[address] [place] [address] Chloride [Moles/Vol] 104 mmol/L Normal 98 - 107 [facility] Comment on above: Performed By: #### 2 31083 #### [facility],[address] [place] [address] 66837 CO2 [Moles/Vol] 26.7 mmol/L Normal 21.0 - 31.0 [facility] Comment on above: Performed By: #### 2 17057 #### [facility],[address] [place] [address] 38581 Creatinine [Mass/Vol] 0.7 mg/dL Normal 0.6 - 1.2 [facility] Comment on above: Performed By: #### 2 39917 #### [facility],[address],[place] [address] GFR/1.73 sq M predicted among non-blacks MDRD (S/P/Bld) [Vol rate/Area] Normal [facility] Comment on above: Result Comment: COMP REHENSIVE METABOLIC PANEL Performed By: #### 2 01905 #### [facility],[address] [place] [address] 71292 GFR/1.73 sq M predicted among non-blacks MDRD (S/P/Bld) [Vol rate/Area] mL/min/{1.73_m2} Normal 60 - 999 [facility] Comment on above: Performed By: #### 2 86101 #### [facility] - [facility],[address] [place] [address] 12348 Result Comment: ACCO RDING TO THE NATIONAL KIDNEY DISEASE EDUCATION PROGRAM(NKDE), A NORMAL eGFR IS A VALUE GREATER THAN OR EQUAL TO 60 ML/MIN/1.73 SQ METERS. CHRONIC KIDNEY DISEASE: <60mL/MIN/1.73 SQ METERS KIDNEY FAILURE: <15mL/MIN/1.73 SQ METERS THIS TEST SHOULD ONLY BE USED FOR PATIENTS 18 YEARS OF AGE AND OLDER. Globulin (S) [Mass/Vol] 3.6 g/dL Normal 1.5 - 3.8 [facility] Comment on above: Performed By: #### 2 62388 #### [facility],[address] [place] [address] 24616 Glucose [Mass/Vol] 122 mg/dL High 74 - 106 [facility] Comment on above: Performed By: #### 2 40938 #### [facility],[address] [place] [address] 48895 Potassium [Moles/Vol] 3.8 mmol/L Normal 3.5 - 5.1 [facility] Comment on above: Performed By: #### 2 36651 #### [facility],[address] [place] [address] 98857 Protein [Mass/Vol] 7.5 g/dL Normal 6.4 - 8.3 [facility] Comment on above: Performed By: #### 2 98147 #### [facility],[address] [place] [address] 72371 Sodium [Moles/Vol] 137 mmol/L Normal 136 - 145 [facility] Comment on above: Performed By: #### 2 96929 #### [facility],[address] [place] [address] Urea nitrogen [Mass/Vol] 9 mg/dL Normal 6 - 20 [facility] Comment on above: Performed By: #### 2 88696 #### [facility],[address] [place] [address] SEDRATEon 09-27-2019 SEDRATE 18 mm/hr Normal 0 - 30 [facility] Comment on above: Performed By: #### 2 93070 #### [facility],[address] [place] [address] VANCOMYCIN TROUGHon 09-27-19 20 VANCOMYCIN,TROUGH 20.8 ug/mL High 10.0 - 15.0 [facility] Comment on above: Performed By: #### 2 33803 #### [facility],[address] [place] [address] 54705 CBC + DIFFon 09-20-2019 Basophils (Bld) [#/Vol] 0.20 x10EE3/UL High 0.00 - 0 .10 [facility] Comment on above: Performed By: #### 2 40758 #### [facility],[address] [place], [place] [id number] Basophils/100 WBC (Bld) 2.5 % High 0.0 - 2.0 [facility] Comment on above: Performed By: #### 2 89247 #### [facility],[address] [place], [place] [id number] CBC + DIFF Normal [facility] Comment on above: Result Comment: CBC- COMPLETE BLOOD COUNT Performed By: #### 2 68163 #### [facility],[address] [place] [address] 58420 Eosinophils (Bld) [#/Vol] 1.80 x10EE3/UL High 0.00 - 0.50 [facility] Comment on above: Performed By: #### 2 11032 #### [facility],[address] [place] [address] 38934 Eosinophils/100 WBC (Bld) 24.9 % High 0.0 - 7.0 [facility] Comment on above: Performed By: #### 2 02732 #### [facility],[address] [place], [place] [id number] Erythrocyte distribution width (RBC) [Ratio] 14.5 % Normal 12.0 - 15.6 [facility] Comment on above: Performed By: #### 2 68865 #### [facility],[address] [place] [address] Hematocrit (Bld) [Volume fraction] 40.8 % Normal 34.0 - 46.0 [facility] Comment on above: Performed By: #### 2 05574 #### [facility],[address] [place] [address] 45390 Hemoglobin (Bld) [Mass/Vol] 13.2 g/dL Normal 12.0 - 16.0 [facility] Comment on above: Performed By: #### 2 61168 #### [facility],[address] [place] [address] 00118 Lymphocytes (Bld) [#/Vol] 1.30 x10EE3/UL Normal 0.80 - 2.80 [facility] Comment on above: Performed By: #### 2 46376 #### [facility],[address] [place] [address] 07340 Lymphocytes/100 WBC (Bld) 17.7 % Low 20.0 - 45.0 [facility] Comment on above: Performed By: #### 2 70647 #### [facility],[address] [place], [place] [phone] MANUAL DIFF N/A Normal [facility] Comment on above: Performed By: #### 2 82157 #### [facility],[address] [place] [address] 60676 MCH (RBC) [Entitic mass] 29 pg Normal 27 - 33 [facility] Comment on above: Performed By: #### 2 53237 #### [facility],[address] [place] [address] 89368 MCHC (RBC) [Mass/Vol] 32 X10 3 Normal 32 - 36 [facility] Comment on above: Performed By: #### 2 12889 #### [facility],[address] [place] [address] 52389 MCV (RBC) [Entitic vol] 90 fL Normal 80 - 99 [facility] Comment on above: Performed By: #### 2 01494 #### [facility],[address] [place] [address] 82680 Monocytes (Bld) [#/Vol] 0.60 x10EE3/UL Normal 0.20 - 1 .00 [facility] Comment on above: Performed By: #### 2 65001 #### [facility],[address] [place] [address] 91153 MONOS % 8.7 % Normal 0.0 - 10.0 [facility] Comment on above: Performed By: #### 2 28312 #### [facility],[address] [place] [address] 17443 Morphology Russell (Bld) [Interp] N/A Normal [facility] Comment on above: Performed By: #### 2 19807 #### [facility],[address] [place] [address] 09526 Neutrophils (Bld) [#/Vol] 3.30 x10EE3/UL Normal 1.50 - 7.10 [facility] Comment on above: Performed By: #### 2 29908 #### [facility],[address] [place] [address] 74643 Neutrophils/100 WBC (Bld) 46.2 % Normal 46.0 - 76.0 [facility] Comment on above: Performed By: #### 2 35014 #### [facility],[address] [place] [address] 07824 Platelet mean volume (Bld) [Entitic vol] 8.5 fL Normal 6.6 - 10.5 [facility] Comment on above: Result Comment: AUTO MATED DIFFERENTIAL Performed By: #### 2 36213 #### [facility],[address] [place] [address] 55185 Platelets (Bld) [#/Vol] 296 x10EE3/UL Normal 150 - 450 [facility] Comment on above: Performed By: #### 2 61971 #### [facility],[address] [place] [address] 89321 RBC (Bld) [#/Vol] 4.55 x 10EE6/UL Normal 4.10 - 5.30 [facility] Comment on above: Performed By: #### 2 78775 #### [facility],[address] [place] [address] 47026 WBC (Bld) [#/Vol] 7.2 x 10EE3/UL Normal 4.5 - 10.8 [facility] Comment on above: Performed By: #### 2 99256 #### [facility],[address] [place] [address] 20691 CMP with eGFRon 09-20-2019 Age - Reported 58 years Normal [facility] Comment on above: Performed By: #### 2 27539 #### [facility],[address] [place] [address] 02774 Albumin [Mass/Vol] 3.8 g/dL Normal 3.4 - 4.8 [facility] Comment on above: Performed By: #### 2 26480 #### [facility],[address] [place] [address] 06315 Albumin/Globulin [Mass ratio] 1.2 {ratio} Normal 0.9 - 1.6 [facility] Comment on above: Performed By: #### 2 34088 #### [facility],[address] [place] [address] 19172 ALK PHOS 81 U/L Normal 38 - 126 [facility] Comment on above: Performed By: #### 2 05388 #### [facility],[address] [place] [address] 12961 ALT/SGPT 9 U/L Normal 8 - 35 [facility] Comment on above: Performed By: #### 2 04325 #### [facility],[address] [place] [address] 84753 Anion gap [Moles/Vol] 13 mmol/L Normal 10 - 20 [facility] Comment on above: Performed By: #### 2 77337 #### [facility],[address] [place] [address] 39761 AST/SGOT 30 U/L Normal 13 - 39 [facility] Comment on above: Performed By: #### 2 49601 #### [facility],[address] [place] [address] 42403 B/C RATIO 17 ratio Normal 0 - 30 [facility] Comment on above: Performed By: #### 2 90390 #### [facility],[address] [place] [address] 90286 Bilirubin [Mass/Vol] 0.4 mg/dL Normal 0.0 - 1.5 [facility] Comment on above: Performed By: #### 2 60757 #### [facility],[address] [place] [address] 96756 Calcium [Mass/Vol] 8.9 mg/dL Normal 8.6 - 10.2 [facility] Comment on above: Performed By: #### 2 76855 #### [facility],[address] [place] [address] 95174 Chloride [Moles/Vol] 106 mmol/L Normal 98 - 107 [facility] Comment on above: Performed By: #### 2 47828 #### [facility],[address] [place] [address] 79600 CO2 [Moles/Vol] 25.0 mmol/L Normal 21.0 - 31.0 [facility] Comment on above: Performed By: #### 2 91652 #### [facility],[address] [place], [place] [phone] Creatinine [Mass/Vol] 0.7 mg/dL Normal 0.6 - 1.2 [facility] Comment on above: Performed By: #### 2 13900 #### [facility],[address] [place] [address] 65949 GFR/1.73 sq M predicted among non-blacks MDRD (S/P/Bld) [Vol rate/Area] Normal [facility] Comment on above: Result Comment: COMP REHENSIVE METABOLIC PANEL Performed By: #### 2 37281 #### [facility],[address] [place] [address] 78534 GFR/1.73 sq M predicted among non-blacks MDRD (S/P/Bld) [Vol rate/Area] mL/min/{1.73_m2} Normal 60 - 999 [facility] Comment on above: Performed By: #### 2 66387 #### [facility],[address] [place], [place] [phone] Result Comment: ACCO RDING TO THE NATIONAL KIDNEY DISEASE EDUCATION PROGRAM(NKDE), A NORMAL eGFR IS A VALUE GREATER THAN OR EQUAL TO 60 ML/MIN/1.73 SQ METERS. CHRONIC KIDNEY DISEASE: <60mL/MIN/1.73 SQ METERS KIDNEY FAILURE: <15mL/MIN/1.73 SQ METERS THIS TEST SHOULD ONLY BE USED FOR PATIENTS 18 YEARS OF AGE AND OLDER. Globulin (S) [Mass/Vol] 3.2 g/dL Normal 1.5 - 3.8 [facility] Comment on above: Performed By: #### 2 87362 #### [facility],[address] [place], [place] [phone] Glucose [Mass/Vol] 118 mg/dL High 74 - 106 [facility] Comment on above: Performed By: #### 2 20064 #### [facility],[address] [place], [place] [phone] Potassium [Moles/Vol] 4.6 mmol/L Normal 3.5 - 5.1 [facility] Comment on above: Performed By: #### 2 96995 #### [facility],[address] [place] [address] Protein [Mass/Vol] 7.0 g/dL Normal 6.4 - 8.3 [facility] Comment on above: Performed By: #### 2 79816 #### [facility],[address] [place] [address] Sodium [Moles/Vol] 139 mmol/L Normal 136 - 145 [facility] Comment on above: Performed By: #### 2 84144 #### [facility],[address] [place], [place] [phone] Urea nitrogen [Mass/Vol] 12 mg/dL Normal 6 - 20 [facility] Comment on above: Performed By: #### 2 30396 #### [facility],[address] [place], [place] [phone] SEDRATEon 09-20-2019 SEDRATE 26 mm/hr Normal 0 - 30 [facility] Comment on above: Performed By: #### 2 31893 #### [facility],[address] [place] [address] 52116 VANCOMYCIN TROUGHon 09-20-19 20 VANCOMYCIN,TROUGH 12.2 ug/mL Normal 10.0 - 15.0 [facility] Comment on above: Performed By: #### 2 42241 #### [facility],[address] [place], [place] [phone] SEDRATEon 09-14-2019 SEDRATE 36 mm/hr High 0 - 30 [facility] Comment on above: Performed By: #### 2 13668 #### [facility],[address] [place] [address] CBC + DIFFon 09-13-2019 Basophils (Bld) [#/Vol] 0.20 x10EE3/UL High 0.00 - 0 .10 [facility] Comment on above: Performed By: #### 2 89067 #### [facility],[address] [place] [address] 74314 Basophils/100 WBC (Bld) 2.1 % High 0.0 - 2.0 [facility] Comment on above: Performed By: #### 2 13650 #### [facility],[address] [place] [address] CBC + DIFF Normal [facility] Comment on above: Result Comment: CBC- COMPLETE BLOOD COUNT Performed By: #### 2 12200 #### [facility],[address] [place] [address] Eosinophils (Bld) [#/Vol] 1.30 x10EE3/UL High 0.00 - 0.50 [facility] Comment on above: Performed By: #### 2 87681 #### [facility],[address] [place] [address] 10929 Eosinophils/100 WBC (Bld) 14.7 % High 0.0 - 7.0 [facility] Comment on above: Performed By: #### 2 57634 #### [facility],[address] [place], [place] [id number] Erythrocyte distribution width (RBC) [Ratio] 14.4 % Normal 12.0 - 15.6 [facility] Comment on above: Performed By: #### 2 34999 #### [place] [address] Hematocrit (Bld) [Volume fraction] 37.4 % Normal 34.0 - 46.0 [facility] Comment on above: Performed By: #### 2 61891 #### [facility],[address] [place] [address] 21117 Hemoglobin (Bld) [Mass/Vol] 12.3 g/dL Normal 12.0 - 16.0 [facility] Comment on above: Performed By: #### 2 64717 #### [facility],[address] [place] [address] 94511 Lymphocytes (Bld) [#/Vol] 1.70 x10EE3/UL Normal 0.80 - 2.80 [facility] Comment on above: Performed By: #### 2 37372 #### [facility],[address] [place], [place] [id number] Lymphocytes/100 WBC (Bld) 19.7 % Low 20.0 - 45.0 [facility] Comment on above: Performed By: #### 2 39065 #### [facility],[address] [place] [address] 87594 MANUAL DIFF N/A Normal [facility] Comment on above: Performed By: #### 2 12116 #### [facility],[address] [place] [address] 04613 MCH (RBC) [Entitic mass] 30 pg Normal 27 - 33 [facility] Comment on above: Performed By: #### 2 63291 #### [facility],[address] [place] [address] 55067 MCHC (RBC) [Mass/Vol] 33 X10 3 Normal 32 - 36 [facility] Comment on above: Performed By: #### 2 84369 #### [facility],[address] [place] [address] 54632 MCV (RBC) [Entitic vol] 90 fL Normal 80 - 99 [facility] Comment on above: Performed By: #### 2 44183 #### [facility],[address] [place] [address] 70613 Monocytes (Bld) [#/Vol] 0.80 x10EE3/UL Normal 0.20 - 1 .00 [facility] Comment on above: Performed By: #### 2 74449 #### [facility],[address] [place] [address] 99653 MONOS % 9.0 % Normal 0.0 - 10.0 [facility] Comment on above: Performed By: #### 2 92559 #### [facility],[address] [place] [address] 41166 Morphology Russell (Bld) [Interp] N/A Normal [facility] Comment on above: Performed By: #### 2 56458 #### [facility],[address] [place] [address] 64767 Neutrophils (Bld) [#/Vol] 4.70 x10EE3/UL Normal 1.50 - 7.10 [facility] Comment on above: Performed By: #### 2 38215 #### [address] [address] Neutrophils/100 WBC (Bld) 54.5 % Normal 46.0 - 76.0 [facility] Comment on above: Performed By: #### 2 17258 #### [facility],[address] [place] [address] 01532 Platelet mean volume (Bld) [Entitic vol] 8.4 fL Normal 6.6 - 10.5 [facility] Comment on above: Result Comment: AUTO MATED DIFFERENTIAL Performed By: #### 2 13007 #### [address] [address] Platelets (Bld) [#/Vol] 337 x10EE3/UL Normal 150 - 450 [facility] Comment on above: Performed By: #### 2 75208 #### [address] [address]194 RBC (Bld) [#/Vol] 4.16 x 10EE6/UL Normal 4.10 - 5.30 [facility] Comment on above: Performed By: #### 2 76813 #### [facility],[address] [place] [address] 21230 WBC (Bld) [#/Vol] 8.6 x 10EE3/UL Normal 4.5 - 10.8 [facility] Comment on above: Performed By: #### 2 83823 #### [facility],[address] [place] [address] 53588 CMP with eGFRon 09-13-2019 Age - Reported 58 years Normal [facility] Comment on above: Performed By: #### 2 65073 #### [facility],[address] [place] [address] 56225 Albumin [Mass/Vol] 3.6 g/dL Normal 3.4 - 4.8 [facility] Comment on above: Performed By: #### 2 63633 #### [facility],[address] [place] [address] 52955 Albumin/Globulin [Mass ratio] 1.1 {ratio} Normal 0.9 - 1.6 [facility] Comment on above: Performed By: #### 2 08559 #### [facility],[address] [place] [address] 76660 ALK PHOS 65 U/L Normal 38 - 126 [facility] Comment on above: Performed By: #### 2 60991 #### [facility],[address] [place] [address] 90320 ALT/SGPT 6 U/L Low 8 - 35 [facility] Comment on above: Performed By: #### 2 57462 #### [facility],[address] [place] [address] 03207 Anion gap [Moles/Vol] 13 mmol/L Normal 10 - 20 [facility] Comment on above: Performed By: #### 2 97670 #### [facility],[address] [place] [address] 61644 AST/SGOT 17 U/L Normal 13 - 39 [facility] Comment on above: Performed By: #### 2 34635 #### [facility],[address] [place] [address] 82683 B/C RATIO 14 ratio Normal 0 - 30 [facility] Comment on above: Performed By: #### 2 51335 #### [facility],[address] [place] [address] 03788 Bilirubin [Mass/Vol] 0.4 mg/dL Normal 0.0 - 1.5 [facility] Comment on above: Performed By: #### 2 08052 #### [facility],[address] [place] [address] 14622 Calcium [Mass/Vol] 8.8 mg/dL Normal 8.6 - 10.2 [facility] Comment on above: Performed By: #### 2 38761 #### [facility],[address] [place] [address] 26750 Chloride [Moles/Vol] 108 mmol/L High 98 - 107 [facility] Comment on above: Performed By: #### 2 09514 #### [facility],[address] [place] [address] 11347 CO2 [Moles/Vol] 23.7 mmol/L Normal 21.0 - 31.0 [facility] Comment on above: Performed By: #### 2 39840 #### [facility],[address] [place] [address] 05197 Creatinine [Mass/Vol] 0.8 mg/dL Normal 0.6 - 1.2 [facility] Comment on above: Performed By: #### 2 14096 #### [facility],[address] [place] [address] 37391 GFR/1.73 sq M predicted among non-blacks MDRD (S/P/Bld) [Vol rate/Area] mL/min/{1.73_m2} Normal 60 - 999 [facility] Comment on above: Result Comment: ACCO RDING TO THE NATIONAL KIDNEY DISEASE EDUCATION PROGRAM(NKDE), A NORMAL eGFR IS A VALUE GREATER THAN OR EQUAL TO 60 ML/MIN/1.73 SQ METERS. CHRONIC KIDNEY DISEASE: <60mL/MIN/1.73 SQ METERS KIDNEY FAILURE: <15mL/MIN/1.73 SQ METERS THIS TEST SHOULD ONLY BE USED FOR PATIENTS 18 YEARS OF AGE AND OLDER. Performed By: #### 2 44051 #### [address] [address] GFR/1.73 sq M predicted among non-blacks MDRD (S/P/Bld) [Vol rate/Area] Normal [facility] Comment on above: Result Comment: COMP REHENSIVE METABOLIC PANEL Performed By: #### 2 04625 #### [address] [address] Globulin (S) [Mass/Vol] 3.3 g/dL Normal 1.5 - 3.8 [facility] Comment on above: Performed By: #### 2 20323 #### [address] [address] Glucose [Mass/Vol] 106 mg/dL Normal 74 - 106 [facility] Comment on above: Performed By: #### 2 83980 #### [address] [address]49 Potassium [Moles/Vol] 4.4 mmol/L Normal 3.5 - 5.1 [facility] Comment on above: Performed By: #### 2 36048 #### [address] [address] Protein [Mass/Vol] 6.9 g/dL Normal 6.4 - 8.3 [facility] Comment on above: Performed By: #### 2 60529 #### [address] [address] Sodium [Moles/Vol] 140 mmol/L Normal 136 - 145 [facility] Comment on above: Performed By: #### 2 01794 #### [address] [address] Urea nitrogen [Mass/Vol] 11 mg/dL Normal 6 - 20 [facility] Comment on above: Performed By: #### 2 45531 #### [facility],[address] [place] [address] 15899 VANCOMYCIN TROUGHon 09-13-19 20 VANCOMYCIN,TROUGH 13.8 ug/mL Normal 10.0 - 15.0 [facility] [facility] Comment on above: Performed By: #### [id number] #### [facility],[address] [place] [id number] Influenza virus A and B and SARS-CoV-2 (COVID-19) Ag panel - Upper respiratory specim SARS-CoV-2 (COVID-19) RNA ARACELI+probe Ql (Resp) [facility] Work Phone: No Panel Information Streptococcus pneumoniae Antigen (M [facility] Work Phone: Respiratory pathogens DNA an d RNA 12b panel ARACELI+probe (Unsp spec) Respiratory Panel (PCR) Parainfluenza 2 [facility] Work Phone: Urine Legionella pneumophila antigen detection L. pneumophila Ag Ql (U) [facility] Work Phone: Vital Signs Date Time Vital Sign Value Performing Clinician Faci lity 11-10-2024 20:35-0400 Body temperature 98.7 [degF] Dr. Cristina Bunn DO Work Phone: [facility] 11-10-2024 20:35-0400 Diastolic blood pressure 64 mm[Hg] Dr. Cristina Bunn DO Work Phone: [facility] 11-10-2024 20:35-0400 Heart rate 118 /min Dr. Cristina Bunn DO Work Phone: [facility] 11-10-2024 20:35-0400 Respiratory rate 29 /min Dr. Cristina Bunn DO Work Phone: [facility] 11-10-2024 20:35-0400 SaO2% (BldA) [Mass fraction] 95 % Dr. Cristina Bunn DO Work Phone: [facility] 11-10-2024 20:35-0400 Systolic blood pressure 118 mm[Hg] Dr. Cristina Bunn DO Work Phone: [facility] 11-10-2024 20:34-0400 Body height 170.[address] Cristina Bunn DO Work Phone: [facility] 11-10-2024 20:34-0400 Body mass index (BMI) [Ratio] 35.1 kg/m2 Dr. Cristina Bunn DO Work Phone: [facility] 11-10-2024 20:34-0400 Body weight 101.[address] Cristina Bnun DO Work Phone: [facility] 03-15-2022 14:02-0500 Body temperature 97.6 [degF] Dr. Cristina Bunn Work Phone: [facility] 03-15-2022 14:02-0500 Diastolic blood pressure 72 mm[Hg] Dr. Cristina Bunn Work Phone: [facility] 03-15-2022 14:02-0500 Heart rate 93 /min Dr. Cristina Bunn Work Phone: [facility] 03-15-2022 14:02-0500 Respiratory rate 16 /min Dr. Cristina Bunn Work Phone: [facility] 03-15-2022 14:02-0500 SaO2% (BldA) [Mass fraction] 93 % Dr. Cristina Bunn Work Phone: [facility] 03-15-2022 14:02-0500 Systolic blood pressure 133 mm[Hg] Dr. Cristina Bunn Work Phone: [facility] 03-15-2022 11:16-0500 Heart rate 86 /min Dr. Cristina Bunn Work Phone: [facility] Work Phone: 03-15-2022 11:16-0500 Respiratory rate 18 /min Dr. Cristina Bunn Work Phone: [facility] Work Phone: 03-15-2022 11:16-0500 SaO2% (BldA) [Mass fraction] 93 % Dr. Cristina Bunn Work Phone: [facility] Work Phone: 03-15-2022 09:00-0500 Body temperature 97.9 [degF] Dr. Cristina Bunn Work Phone: [facility] Work Phone: 03-15-2022 09:00-0500 Diastolic blood pressure 80 mm[Hg] Dr. Cristina Bunn Work Phone: [facility] Work Phone: 03-15-2022 09:00-0500 Systolic blood pressure 132 mm[Hg] Dr. Cristina Bunn Work Phone: [facility] Work Phone: 03-15-2022 05:41-0500 Inhaled oxygen flow rate 2 L/min Dr. Cristina Bunn Work Phone: [facility] 03-13-2022 13:46-0500 Body height 172.[address] Cristina Bunn Work Phone: [facility] 03-13-2022 13:46-0500 Body mass index (BMI) [Ratio] 37.4 kg/m2 Dr. Cristina Bunn Work Phone: [facility] 03-13-2022 13:46-0500 Body weight 111.[address] Cristina Bunn Work Phone: [facility] 03-13-2022 12:50-0500 Body temperature 98.2 [degF] [facility] Work Phone: 03-13-2022 12:50-0500 Diastolic blood pressure 75 mm[Hg] [facility] Work Phone: 03-13-2022 12:50-0500 Heart rate 88 /min [facility] Work Phone: 03-13-2022 12:50-0500 Inhaled oxygen flow rate 5 L/min [facility] Work Phone: 03-13-2022 12:50-0500 Respiratory rate 24 /min [facility] Work Phone: 03-13-2022 12:50-0500 SaO2% (BldA) [Mass fraction] 92 % [facility] Work Phone: 03-13-2022 12:50-0500 Systolic blood pressure 120 mm[Hg] [facility] Work Phone: 03-13-2022 10:34-0500 Body height 172.72 cm [facility] Work Phone: 03-13-2022 10:34-0500 Body mass index (BMI) [Ratio] 35.9 kg/m2 [facility] Work Phone: 03-13-2022 10:34-0500 Body weight 107.04 kg [facility] Work Phone: Encounters Encounter Date Encounter Type Care Provider Facility Start: 11-10-2024 Evaluation and management of inpatient Dr. Deidra Almazan [facility] Care Unit Work Phone: Start: 10-04-2024 End: 10-04-2024 ambulatory SYLVESTER PACE Facility:[id number] Start: 07-28-2024 End: 07-28-2024 ambulatory SYLVESTER PACE Facility:[id number] Start: 06-17-2024 End: 06-17-2024 ambulatory SYLVESTER PACE Facility:[id number] Start: 02-13-2024 End: 02-13-2024 ambulatory NATHAN ARZATE DO Facility:[facility] Start: 02-13-2024 End: 02-13-2024 Patient encounter procedure NATHAN ARZATE DO [facility] Start: 08-14-2023 ambulatory NATHAN ARZATE DO Facil ity:B Start: 06-24-2023 End: 06-24-[address] SYLVESTER PACE MD Facility:B Start: 08-29-2022 End: 08-29-2022 ambulatory NATHAN ARZATE DO Facility:B Start: 08-29-2022 End: 08-29-2022 Patient encounter procedure 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 Cristina Bunn Work Phone: [facility] Work Phone: Start: 04-02-2022 End: 04-02-[address] Cristina Bunn Work Phone: [facility]-Radiology, [facility] Start: 03-15-2022 Non-patient / Non-visit Dr. Cristina Bunn Work Phone: [facility] Start: 03-14-2022 Non-patient / Non-visit Dr. Cristina Bunn Work Phone: [facility] Start: 03-13-2022 ambulatory Deidra Chung Facility:[facility] Start: 03-13-2022 End: 03-15-2022 Evaluation and management of inpatient [facility] Facility:[facility] Start: 03-13-2022 End: 03-15-2022 Evaluation and management of inpatient [facility] 2 Start: 11-30-2021 End: 11-30-2021 Patient encounter procedure NATHAN ARZATE DO [facility] Start: 11-09-2021 End: 11-09-2021 Patient encounter procedure NATHAN ARZATE DO [facility] Start: 05-22-2021 End: 05-22-2021 Subsequent hospital visit by physician Sylvester Pace Work Phone: IF JOSEY HINOJOSA Comment on above: [id number] Start: 10-11-2019 End: 10-11-2019 Patient encounter procedure NEMR KEENA WRIGHT [facility] Start: 09-27-2019 End: 09-27-2019 Patient encounter procedure NEMR KEENA WRIGHT [facility] Start: 09-20-2019 End: 09-20-2019 Patient encounter procedure NEMR KEENA WRIGHT [facility] Start: 09-13-2019 End: 09-13-2019 Patient encounter procedure NEMR KEENA [facility] Procedures Date Procedure Procedure Detail Performing Clinician Start: 11-10-2024 Urnls dip stick/tabl et reagent auto microscopy Dr. Cristina Bunn DO Work Phone: Start: 11-10-2024 CT of lower limb wit h contrast Dr. Cristina Bunn DO Work Phone: Start: 11-10-[address] Cristina Bunn DO Work Phone: Start: 04-02-2022 Plain chest X-ray Dr. Vicente Bunn Work Phone: Start: 03-13-2022 CT angiography of ch est with contrast Start: 03-13-2022 Plain chest X-ray Start: 03-09-2019 Removal of orthopedi c wire from sternum NATHAN ARZATE DO Start: 03-03-2015 Removal of orthopedi c wire from sternum NATHAN ARZATE DO Comment on above: 2015 Start: 09-13-2014 Coronary artery bypa ss graft NATHAN ARZATE DO Comment on above: x5 Start: 03-03-2014 Cardiac catheterization NATHAN ARZATE DO Start: 03-03-1995 section NATHAN ARZATE DO Start: 03-03-1994 Lumbar microdiscectomy NATHAN ARZATE DO Start: 03-03-1982 Cholecystectomy NATHAN ARZATE DO Bacteria identified in Blood by Culture Dr. Cristina Bunn Work Phone: Colonoscopy NATHAN ARZATE DO History of coronary artery bypass grafting S/P CABG (coronary artery bypass graft)( Confirmed ) NATHAN ARZATE DO Legionella pneumophi la antigen assay Dr. Cristina Bunn Work Phone: Legionella pneumophi la antigen assay Dr. Cristina Bunn Work Phone: Respiratory Panel (PCR) Dr. Cristina Bunn Work Phone: Respiratory Panel (PCR) Dr. Cristina Bunn Work Phone: SARS-CoV-2 & FLU Ant igen (Rapid) Streptococcus pneumo niae Antigen (M Dr. Cristina Bunn Work Phone: Streptococcus pneumo niae Antigen (M Dr. Cristina Bunn Work Phone: Plan of Treatment Date Care Activity Detail Author Start: 11-12-2024 Serum inorganic phosphate measurement [facility] Start: 11-11-2024 [facility] Start: 11-11-2024 Serum inorganic phosphate measurement [facility] Start: 11-10-2024 Consultation [facility] Start: 11-10-2024 Following clinical pathway protocol [facility] Start: 11-10-2024 Assessment of risk of venous thromboembolism [facility] Start: 11-10-2024 Care regimes management [facility] Start: 11-10-2024 Incentive spirometry [facility] Start: 11-10-2024 Insertion of catheter into peripheral vein [facility] Start: 11-10-2024 Measuring intake and output [facility] Start: 11-10-2024 Notification of physician [facility] Start: 11-10-2024 Oxygen therapy [facility] Start: 11-10-2024 Providing care according to standard [facility] Start: 11-10-2024 Provision of activity privileges [facility] Start: 11-10-2024 Referral to service [facility] Start: 11-10-2024 End: 11-10-2024 [facility] Start: 11-10-2024 Bacterial nucleic acid assay [facility] Start: 11-10-2024 Verification routine [facility] Start: 11-10-2024 Admission procedure [facility] Start: 11-10-2024 End: 11-10-2024 [facility] Start: 11-10-2024 Bacteria identified in Blood by Culture Blood Culture [facility] Start: 11-10-2024 Microscopic observation [Identifier] in Unspecified specimen by Gram stain [facility] Start: 11-10-2024 Wound Culture Wound Culture [facility] Start: 03-16-2022 Blood chemistry [facility] Work Phone: Start: 03-15-2022 Patient discharge [facility] Start: 03-15-2022 Blood chemistry [facility] Work Phone: Start: 03-14-2022 Respiratory secretion precautions [facility] Start: 03-14-2022 Following clinical pathway protocol [facility] Start: 03-14-2022 Blood chemistry [facility] Work Phone: Start: 03-13-2022 End: 03-13-2022 Following clinical pathway protocol [facility] Start: 03-13-2022 Bacteria identified in Sputum by Culture [facility] Work Phone: Start: 03-13-2022 Legionella pneumophila Ag [Presence] in Urine [facility] Work Phone: Start: 03-13-2022 Streptococcus pneumoniae antigen assay [facility] Work Phone: Start: 03-13-2022 Bacterial nucleic acid assay [facility] Work Phone: Start: 03-13-2022 Viral nucleic acid assay [facility] Work Phone: Start: 03-13-2022 Oxygen therapy [facility] Start: 03-13-2022 Care regimes management [facility] Start: 03-13-2022 Assessment of risk of venous thromboembolism [facility] Start: 03-13-2022 Elevation of head of bed [facility] Start: 03-13-2022 Insertion of catheter into peripheral vein [facility] Start: 03-13-2022 Patient education [facility] Start: 03-13-2022 Providing care according to standard [facility] Start: 03-13-2022 Ambulation without limitation [facility] Start: 03-13-2022 Verification routine [facility] Work Phone: Start: 03-13-2022 Admission procedure [facility] Start: 03-13-2022 End: 03-13-2022 [facility] Start: 03-13-2022 End: 03-13-2022 Blood culture [facility] Work Phone: Start: 03-13-2022 D-dimer assay, quantitative [facility] Work Phone: Start: 03-13-2022 End: 03-13-2022 [facility] Start: 03-13-2022 Inhalation therapy procedure [facility] Start: 03-13-2022 [facility] Start: 2020 Influenza vaccination INFLUENZA (#1) [facility] Start: 05-01-2012 LIPID SCREEN LIPID SCREEN [facility] Start: 07-05-2010 DIABETES SCREEN DIABETES SCREEN [facility] Start: 2008 SHINGRIX VACCINE (1 of 2) SHINGRIX VACCINE (1 of 2) [facility] Start: 11-02-2003 COLOGUARD (FIT-DNA) COLOGUARD (FIT-DNA) [facility] Start: 11-02-2003 Colonoscopy COLONOSCOPY [facility] Start: 11-02-2003 COLORECTAL CANCER SCREENING COLORECTAL CANCER SCREENING [facility] Start: 11-02-[address] COLONOGRAPHY [facility] Start: 11-02-2003 FECAL OCCULT BLOOD FECAL OCCULT BLOOD [facility] Start: 11-02-2003 SIGMOIDOSCOPY SIGMOIDOSCOPY [facility] Start: 1998 Mammography MAMMOGRAM [facility] Start: 1988 HPV TESTING HPV TESTING [facility] Start: 11-02-1979 PAP TESTING PAP TESTING [facility] Start: 1977 Urine microalbumin profile DTAP,TDAP,TD (1 - Tdap) [facility] Start: 1976 HEPATITIS C SCREENING HEPATITIS C SCREENING [facility] Start: 1976 HIV SCREENING HIV SCREENING [facility] Start: 1970 Adult depression screening assessment DEPRESSION SCREENING [facility] Start: 11-02-1963 COVID-19 VACCINE (1) [facility] Alanine aminotransfe rase [Enzymatic activity/volume] in Serum or Plasma [facility] Albumin [Mass/volume ] in Serum or Plasma [facility] Alkaline phosphatase [Enzymatic activity/volume] in Serum or Plasma [facility] Anion gap in Serum o r Plasma [facility] Anion gap measurement [facility] Work Phone: Bacteria identified in Blood by Culture Blood Culture [facility] Work Phone: Bilirubin, total measurement [facility] Blood culture [facility] Work Phone: BUN/Creatinine ratio [facility] Work Phone: BUN/Creatinine ratio [facility] Calcium [Mass/volume ] in Serum or Plasma [facility] Work Phone: Calcium [Mass/volume ] in Serum or Plasma [facility] Carbon dioxide, tota l [Moles/volume] in Central venous blood [facility] Carbon dioxide, tota l [Moles/volume] in Serum or Plasma [facility] Work Phone: Chloride [Moles/volu me] in Serum or Plasma [facility] Work Phone: Cholesterol [Mass/vo lume] in Serum or Plasma [facility] Cholesterol in HDL [Mass/volume] in Serum or Plasma [facility] Creatinine [Mass/vol ume] in Serum or Plasma [facility] Creatinine [Moles/vo lume] in Serum or Plasma [facility] Work Phone: D-dimer assay, quantitative [facility] Work Phone: Erythrocyte mean corpuscular volume determination [facility] Glucose [Mass/volume ] in Serum or Plasma [facility] Work Phone: Glucose [Mass/volume ] in Serum or Plasma [facility] Hematocrit [Volume Fraction] of Blood [facility] Work Phone: Hematocrit [Volume Fraction] of Blood [facility] Hemoglobin [Mass/vol ume] in Blood [facility] Work Phone: Hemoglobin [Mass/vol ume] in Blood [facility] Leukocytes [#/volume ] in Blood [facility] Work Phone: Leukocytes [#/volume ] in Blood [facility] Low density lipoprot ein cholesterol measurement [facility] Magnesium [Mass/volu me] in Serum or Plasma [facility] Work Phone: Mean corpuscular hem oglobin concentration determination [facility] Work Phone: Mean corpuscular hem oglobin concentration determination [facility] Mean corpuscular hem oglobin determination [facility] Work Phone: Mean corpuscular hem oglobin determination [facility] Measurement of renal function [facility] Work Phone: Measurement of renal function [facility] Neutrophil count [facility] Work Phone: Neutrophil count [facility] Neutrophil percent differential count [facility] Work Phone: Neutrophil percent differential count [facility] Patient Education Using Oxygen S afely Using Oxygen at Home Using an Oxygen Tank at Home [facility] Work Phone: Patient referral [facility] Work Phone: Platelets [#/volume] in Blood [facility] Work Phone: Platelets [#/volume] in Blood [facility] Potassium [Moles/vol ume] in Serum or Plasma [facility] Work Phone: Potassium measurement [facility] Red blood cell count [facility] Work Phone: Red blood cell count [facility] Red cell distributio n width determination [facility] Work Phone: Red cell distributio n width determination [facility] Serum chloride measurement [facility] Sodium [Moles/volume ] in Serum or Plasma [facility] Work Phone: Sodium measurement [facility] Total cholesterol:HD L ratio measurement [facility] Total protein measurement [facility] Triglycerides measurement [facility] Urea nitrogen [Mass/ volume] in Serum or Plasma [facility] Work Phone: Urea nitrogen [Mass/ volume] in Serum or Plasma [facility] Urine culture [facility] VLDL cholesterol measurement [facility] Wound microscopy, cu lture and sensitivities [facility] Immunizations Immunization Date Immunization Notes [facility] Provider [facility]-30-2021 Covid ([employer]) Dr. Cristina Bunn Work Phone: [facility] 06-27-2020 SARS-CoV-2 (COVID-19 ) Ad26 vaccine, recombinant NATHAN ARZATE DO [facility] 04-14-2015 pneumococcal polysaccharide vaccine, 23 valent NATHAN ARZATE DO [facility] Payers Date Payer Category Payer Private Health Insurance [facility] [id number] 2023 Medicare [id number] 2022 Self-pay 2022 Unknown [id number] 1960 Unknown [id number] 2.16.84 [id number] 1960 Unknown [id number] 2.16.84 [id number] 1960 Unknown [id number] 2.16.84 [id number] 1960 Unknown [id number] 2.16.84 [id number] 1960 Unknown [id number] 2.16.8 [id number] 1960 Unknown [id number] 2.16.8 [id number] 1960 Unknown [id number] 2.16.8 [id number] 1960 Unknown [id number] 2.16.8 [id number] Unknown [id number] 2.16.8 [id number] Unknown [id number] 2.16.8 [id number] Unknown [id number] 2.16.8 [id number] Unknown [id number] 2.16.8 [id number] Unknown [id number] 2.16.8 [id number] Social History Date Type Detail Facility Start: 03-13-2022 End: 03-13-2022 Tobacco smoking status [facility] Tobacco smoking consumption unknown [facility] Start: 1960 Sex Assigned At Not on file [facility] Start: 12-27-2020 End: 11-10-2024 Tobacco smoking status Ex-smoker (finding) [facility] Sex Assigned At Sex [facility] Start: 1960 Sex Assigned At Female [facility] Medical Equipment Procedure Code Equipment Code Equipment Origin al Text Equipment Identifier Dates See Instructions , Dispense Novofine pen needles, 32-gauge, #200, use as directed twice daily, # 200 EA, 3 Refill(s), Pharmacy: [facility], Diabetes, 171, cm, 03/24/19 13:06:00 EST, Height, 114.8, kg, 03/24/19 13:06:00 EST, Dosing Weight Start: 06-04-2019 See Instructions , Dispense Novofine pen needles, 32-gauge, #200, use as directed twice daily, # 200 EA, 3 Refill(s), Pharmacy: [facility], Diabetes, 171, cm, 03/24/19 13:06:00 EST, Height, 114.8, kg, 03/24/19 13:06:00 EST, Dosing Weight Start: 06-04-2019 See Instructions , Dispense Novofine pen needles, 32-gauge, #200, use as directed twice daily, # 200 EA, 3 Refill(s), Pharmacy: [facility], Diabetes, 171, cm, 03/24/19 13:06:00 EST, Height, 114.8, kg, 03/24/19 13:06:00 EST, Dosing Weight Start: 06-04-2019 See Instructions , Dispense Novofine pen needles, 32-gauge, #200, use as directed twice daily, # 200 EA, 3 Refill(s), Pharmacy: [facility], Diabetes, 171, cm, 03/24/19 13:06:00 EST, Height, 114.8, kg, 03/24/19 13:06:00 EST, Dosing Weight Start: 06-04-2019 See Instructions , Dispense Novofine pen needles, 32-gauge, #200, use as directed twice daily, # 200 EA, 3 Refill(s), Pharmacy: [facility], Diabetes, 171, cm, 03/24/19 13:06:00 EST, Height, 114.8, kg, 03/24/19 13:06:00 EST, Dosing Weight Start: 06-04-2019 See Instructions , Dispense Novofine pen needles, 32-gauge, #200, use as directed twice daily, # 200 EA, 3 Refill(s), Pharmacy: [facility], Diabetes, 171, cm, 03/24/19 13:06:00 EST, Height, 114.8, kg, 03/24/19 13:06:00 EST, Dosing Weight Start: 06-04-2019 Functional Status Date Assessment Result Facility 03-15-2022 Functional status Ambulates;Up ad gail [facility] Work Phone: Mental Status Date Assessment Result Facility 03-15-2022 Cognitive function Voice/Name [facility] Work Phone: Clinical Notes 03-15-2022 to 11-10-2024 LaboratoryLaboratoryLaboratoryLaboratory Note Date & Type Note Facility 11-10-2024 Radiology Diagnostic study note [facility] [address] [place] [address] Extremity Lower WITH Contrast MR#: [id number] Acct: [id number] Name: MONTEZ GOMEZ Rep #: [id number] : [id number] F 64 From: Sixto Carmona MD PCP: CARYL TOVAR Status: REG ER Study:Extremity Lower WITH Contrast Date of E xam: 11/10/24 Exam# [id number] Ordering Dr: Mihaela Bunn DO PROCEDURE: EXTREMITY LOWER WITH CONTRAST 11/10/2024 REASON FOR EXAM: ABSCESS, POSTERIOR RIGHT THIGH TECHNIQUE: Procedure Code: CTELW Modality: CT Procedure: EXTREMITY LOWER WITH CONTRAST Coronal and Sagittal reconstruction series were provided. CONTRAST: Isovue 370 VOLUME: 100 mL One or more dose reduction techniques were used (e.g., Automated exposure control, adjustment of the mA and/or kV according to patient size, use of iterative reconstruction technique). RADIATION DOSE SUMMARY: CTDlvol: 26 mGy DLP: 1438 mGycm FINDINGS: Contrast-enhanced CT from the right iliac bone through the distal right femur. The contrast bolus is exceedingly poor. No pelvic mass. Cellulitis in the medial posterior thigh. No soft tissue gas. No abscess CT/Extremity Lower WITH Contrast IMPRESSION: Cellulitis without abscess Reading Location: [facility] CC: CARYL SILVA; Dr. Cristina Bunn DO ~ Machine Sizer: Signed [facility] 08-29-2022 Note ORIGINAL EXAMINATION: 2 XRAY VIEWS OF THE LEFT RIB08/29/2022 4:11 pm COMPARISON: Chest radiograph 09/14/2019. CT thorax 08/17/2019. HISTORY: ORDERING SYSTEM PROVIDED HISTORY: Reason for Exam: Pain with breathing. Pain across left side of ribs, no injury. FINDINGS: No visualized acute displaced rib fracture. Degenerative changes seen of the left shoulder and spine. Surgical clips project over the pericardium and right upper quadrant. S-shaped curvature of the spine. IMPRESSION: No displaced rib fracture. I have personally reviewed the images of this examination and agree with the resident's findings and interpretation. Interpreted by: Omar Mccall MD Preliminary Report By: Kendrick Johnson Electronically signed By Omar Mccall MD Dictated Date: 08/29/2022 4:12:53 PM Prelim Date: 08/29/2022 4:30:36 PM Sign Date: 08/29/2022 4:30:36 PM Ordering Provider: [facility] 08-29-2022 Note ORIGINAL EXAMINATION: TWO XRAY VIEWS OF THE CHEST08/29/2022 4:12 pm COMPARISON: 09/14/2019 HISTORY: ORDERING SYSTEM PROVIDED HISTORY: Reason for Exam: short of breath, pain with deep breathing FINDINGS: The heart size is normal. There is no pulmonary consolidation. No pneumothorax or pleural effusion. No aggressive osseous lesions identified.Dextroconvex curvature seen of the spine. There appears to be calcified density near the right acromioclavicular joint, possibly related to old trauma. IMPRESSION: No acute radiographic findings. Interpreted by: Omar Mccall MD Preliminary Report By: Omar Mccall MD Electronically signed By Omar Mccall MD Dictated Date: 08/29/2022 4:14:15 PM Prelim Date: 08/29/2022 4:15:31 PM Sign Date: 08/29/2022 4:15:31 PM Ordering Provider: [facility] 08-29-2022 Note ORIGINAL EXAMINATION: 2 XRAY VIEWS OF THE LEFT RIB08/29/2022 4:11 pm COMPARISON: Chest radiograph 09/14/2019. CT thorax 08/17/2019. HISTORY: ORDERING SYSTEM PROVIDED HISTORY: Reason for Exam: Pain with breathing. Pain across left side of ribs, no injury. FINDINGS: No visualized acute displaced rib fracture. Degenerative changes seen of the left shoulder and spine. Surgical clips project over the pericardium and right upper quadrant. S-shaped curvature of the spine. IMPRESSION: No displaced rib fracture. I have personally reviewed the images of this examination and agree with the resident's findings and interpretation. Interpreted by: Omar Mccall MD Preliminary Report By: Kendrick Johnson Electronically signed By Omar Mccall MD Dictated Date: 08/29/2022 4:12:53 PM Prelim Date: 08/29/2022 4:30:36 PM Sign Date: 08/29/2022 4:30:36 PM Ordering Provider: [facility] 08-29-2022 Note ORIGINAL EXAMINATION: TWO XRAY VIEWS OF THE CHEST08/29/2022 4:12 pm COMPARISON: 09/14/2019 HISTORY: ORDERING SYSTEM PROVIDED HISTORY: Reason for Exam: short of breath, pain with deep breathing FINDINGS: The heart size is normal. There is no pulmonary consolidation. No pneumothorax or pleural effusion. No aggressive osseous lesions identified.Dextroconvex curvature seen of the spine. There appears to be calcified density near the right acromioclavicular joint, possibly related to old trauma. IMPRESSION: No acute radiographic findings. Interpreted by: Omar Mccall MD Preliminary Report By: Omar Mccall MD Electronically signed By Omar Mccall MD Dictated Date: 08/29/2022 4:14:15 PM Prelim Date: 08/29/2022 4:15:31 PM Sign Date: 08/29/2022 4:15:31 PM Ordering Provider: [facility] 03-15-2022 Note [facility] Medical Records Department [address] [place] [address] Discharge Summary 03/15/22 0803 MR#: [id number] Acct: [id number] Name: MONTEZ GOMEZ Rep #: [id number] : 1960 61 From: Deidra Chung MD PCP: Dr. Nathan Arzate DO Status:ADM IN Location: [address] Providers Date of Admission: 03/13/22 Date of Discharge: 03/15/22 Primary Care Physician: Dr. Nathan Arzate DO Reason For Visit: HYPOXIA Diagnosis Discharge Diagnosis (1) Pneumonia: Status: Acute Code(s): J18.9 - Pneumonia, unspecified organism (2) Hypoxemia: Status: Acute Code(s): R09.02 - Hypoxemia Plan Patient is a 61-year-old lady with past medical history significant for coronary artery disease with previous CABG, diabetes mellitus type 2 who presented with shortness of breath. 1. Acute hypoxia ??? Secondary to pneumonia as well as exacerbation of reactive airway disease. Admitted to regular nursing floor for treatment of underlying condition. Placed on oxygen titrated to keep saturation greater than 90 ??? 03/15/2022; patient to be assessed for possible discharge with a 6-minute walk 2. Pneumonia ??? Imaging studies obtained on admission did show Patchy and groundglass opacities within the lingula concerning for pneumonia. Left lower lobe tree-in-bud opacities, may be secondary to an infectious process.. Admitted to regular nursing floor started on broad-spectrum antibiotic therapy with Levaquin. As part of her management ordered CBC, BMP, viral respiratory panel strep and Legionella urine antigen. Did review with patient CAT scan personally and do agree with the finding of pneumonia. Patient progressed being monitored with daily CBC and oxygen requirement -03/14/2022; viral respiratory panel came back positive for parainfluenza virus. 2. Exacerbation of acute reactive airway disease (COPD/possible asthma) ??? Patient managed with bronchodilator treatments in addition to systemic steroid and antibiotics as discussed above 4. Coronary artery disease ??? 3 previous history of 5-week CABG. Patient enzymes on admission unremarkable we will monitor continuously on telemetry 5. Class II obesity with BMI of 35.9 ??? Complicating care weight loss advised 6. Diabetes mellitus type 2 ??? Patient is on metformin and glimepiride both medications held. Placed on long-acting insulin with Lantus as well as Accu-Cheks before meals and at bedtime with sliding scale coverage ??? 03/14/2022; patient blood glucose levels markedly elevated. Did increase Lantus from 15 units at bedtime to 15 twice daily 7. Dyslipidemia ??? Patient is on pravastatin at home, substituted with atorvastatin 8. Depression with anxiety ??? Patient is on sertraline as well as alprazolam as needed both medications continued 9. DVT prophylaxis ??? On Lovenox Time spent in the patient's overall evaluation,decision-making process, review of diagnostic data, adjustment of management, discussion with other providers, nursing nursing and ancillary staff involved in patient's care documentation, 36 Minutes Medications at Discharge Home Medications alprazolam 0.5 mg tablet 0.5 mg PO TID PRN Anxiety 03/13/22 gabapentin 600 mg tablet 300 - 600 mg PO BID NEUROPATHY 03/13/22 glipizide 5 mg tablet, extended release 24 hr 5 mg PO DAILY DM 03/13/22 metformin 500 mg tablet 1,000 mg PO BID DM 03/13/22 metoprolol tartrate 25 mg tablet 25 mg PO BID HEART 03/13/22 pravastatin 40 mg tablet 40 mg PO QHS CHOLESTEROL 03/13/22 sertraline 100 mg tablet 100 mg PO DAILY DEPRESSION 03/13/22 albuterol sulfate 90 mcg/actuation aerosol inhaler 2 puff inhalation Q6H PRN shortness of breath or wheezing #8.5 grams 03/15/22 budesonide-formoterol HFA 80 mcg-4.5 mcg/actuation aerosol inhaler (Symbicort) 1 inh inhalation BID #10.2 grams 03/15/22 guaifenesin 1,200 mg tablet, extended release 12 hr (Mucinex) 1,200 mg PO BID #14 tabs 03/15/22 levofloxacin 750 mg tablet 750 mg PO DAILY #5 tabs 03/15/22 prednisone 20 mg tablet 20 mg PO BID #10 tabs 03/15/22 Hospital Course Summary of Care Provided Minutes Spent on Discharge: 36 Physical Exam Narrative GENERAL: cooperative HEENT: Atraumatic; normocephalic EYES; Anicteric, Normal Conjunctiva NECK; supple, normal thyroid, RESPIRATORY: Diminished to auscultation CARDIOVASCULAR: Regular S1 S2, GI: soft, normoactive bowel sounds, : No Renal angle tenderness; EXTREMITIES: No edema, no clubbing, MUSCULOSKELETAL: no muscle wasting NEURO: Awake; no lateralizing signs. SKIN: No Rash PSYCH; Flat affect Weight / BMI Weight Weight: 111.7 kg Body Mass Index (BMI) 37.4 ABG / Lab / Microbiology Data Result Diagrams: 03/15/22 05:33 03/15/22 05:33 Laboratory: Laboratory Results - last 24 hr 03/13/22 11:10: MRSA (PCR) Negative 03/14/22 11:29: POC Glucose 368 H (more content not included)... [facility] Evaluation + Plan note Future Appointments Appointment Date:11/28/2021 11:30:00 AM Scheduled Provider:NATHAN ARZATE DO Location:[facility] Appointment Type:PC OV Controlled Medication Appointment Date:12/12/2021 11:00:00 AM Scheduled Provider:KRISTI PERAZA Location:[facility] Appointment Type:CV OV Appointment Date:12/17/2021 10:00:00 AM Scheduled Provider:KRISTI PERAZA [facility] Appointment Type:Online OV CVC [facility] Evaluation + Plan note Future Appointments Appointment Date:12/12/2021 11:00:00 AM Scheduled Provider:KRISTI PERAZA [facility] Appointment Type:CV OV Appointment Date:12/17/2021 10:00:00 AM Scheduled Provider:KRISTI PERAZA [facility] Appointment Type:Online OV CVC Appointment Date:02/27/2022 10:30:00 AM Scheduled Provider:NATHAN ARZATE DO Location:[facility] Appointment Type:PC OV Controlled Medication [facility] Evaluation + Plan note Future Appointments Appointment Date:08/21/2022 11:30:00 AM Scheduled Provider:NATHAN ARZATE DO Location:[facility] Appointment Type:PC OV Controlled Medication Appointment Date:01/01/2023 10:15:00 AM Scheduled Provider:KRISTI PERAZA [facility] Appointment Type:CV OV Diagnostic Tests PendingTB Quantiferon, Incubated 06/17/22Hepatitis B Core Antibody Total 06/17/22 Future Scheduled TestsAlbumin/Creatinine Ratio, Random Urine 05/15/22 [facility] Evaluation + Plan note Future Appointments Appointment Date:08/21/2022 11:30:00 AM Scheduled Provider:NATHAN ARZATE DO Location:[facility] Appointment Type:PC OV Controlled Medication Appointment Date:01/01/2023 10:15:00 AM Scheduled Provider:KRISTI PERAZA [facility] Appointment Type:CV OV Future Scheduled TestsAlbumin/Creatinine Ratio, Random Urine 05/15/22 [facility] Evaluation + Plan note Future Appointments Appointment Date:11/27/2022 11:30:00 AM Scheduled Provider:NATHAN ARZATE DO Location:[facility] Appointment Type:PC OV Controlled Medication Appointment Date:01/01/2023 10:15:00 AM Scheduled Provider:KRISTI PERAZA Location:[facility] Appointment Type:CV OV Future Scheduled TestsAlbumin/Creatinine Ratio, Random Urine 05/15/22 [facility] Evaluation + Plan note Future Appointments Appointment Date:02/17/2024 01:30:00 PM Scheduled Provider:NATHAN ARZATE DO Location:[facility] Appointment Type:PC OV Controlled Medication Future Scheduled TestsAlbumin/Creatinine Ratio, Random Urine 11/18/23 [facility] Evaluation note Diagnosis Onset Date History of CAD (coronary artery disease) acute Hypoxemia acute Pneumonia acute Reactive airway disease acut e [facility] Work Phone: Evaluation note* Diagnosis Onset Date Resolution Status History of CAD (coronary artery disease) acute Pneumonia acute Reactive airway disease acut e Hypoxemia resolved [facility] Work Phone: Evaluation note* Diagnosis Onset Date Resolution Status Admit Date Acute cystitis without hematuria acute November 10, 2024 7:42pm Atrial flutter with rapid ventricular response acute November 012024 7:42pm Cellulitis acute November 7:42pm Hyperglycemia due to type 2 diabetes mellitus acute November 7:42pm Obesity (BMI 30.0-34.9) acute S ep2024 7:42pm [facility] Work Phone: Hospital course Narrative No data available for this section [facility] Hospital Discharge instructions No data available for this section [facility] Progress note No data available for this section [facility] Reason for referral (narrative)No reason for referral information availableWMari[facility] Work Phone: Summary Purpose Family History Relationship Condition Age at Onset Recorded Date/T devante brother Chronic obstructive pulmonary disease Unk nown Advance Directives Advance Directive Response Recorded Date/ Time Living Will No Isabell 11th, 20 23 10:57am Power of Gunnery/Ordnance Officer No March 13, 2022 10:57am Advance Directive Response Recorded Date/ Time Living Will No March 13 1:46pm Power of Gunnery/Ordnance Officer No March 13, 2022 1:46pm Advance Directive Response Recorded Date/ Time Do you have a Healthcare Power of Gunnery/Ordnance Officer? No November 10, 2024 4:19pm Chief Complaint and Reason for Visit Chief Complaint HYPOXIA Reason for Visit History of CAD (keturah nary artery disease) Hypoxemia Pneumonia Reactive airway disease Chief Complaint HYPOXIA HYPOXIA HYPOXIA Reason for Visit History of CAD (keturah nary artery disease) Hypoxemia Pneumonia Reactive airway disease Chief Complaint HYPOXIA HYPOXIA HYPOXIA Reason for Visit History of CAD (keturah nary artery disease) Pneumonia Reactive airway disease Hypoxemia Chief Complaint Admit Date RLE CELLULITIS WITH EARLY ABSCESS, HYPER GLYCEMIA & November 10, 2024 7:42pm Reason for Visit Admit Date Acute cystitis without hematuria Septemb 2024 7:42pm Atrial flutter with rapid ventricular re sponse November 10, 2024 7:42pm Cellulitis November 10, 2024 7:42pm Hyperglycemia due to type 2 diabetes molly litus November 10, 2024 7:42pm Obesity (BMI 30.0-34.9) November 10, 2024 7:42pm Additional Source Comments INFORMATION SOURCE (unrecogn ized section and content) DATE CREATED AUTHOR 10/12/2019 [facility] DATE CREATED AUTHOR AUTHOR'S ORGANIZ ATION [facility]/03/2021 [facility] DATE CREATED AUTHOR AUTHOR'S ORGANIZ ATION 05/10/2022 [facility] DATE CREATED AUTHOR AUTHOR'S ORGANIZ ATION 08/16/2023 [facility] ([place]) DATE CREATED AUTHOR AUTHOR'S ORGANIZ ATION 02/16/2024 [facility] DATE CREATED AUTHOR AUTHOR'S ORGANIZ ATION 10/05/2024 [facility] ntyamilet Source Comments (unrecognize d section and content) In the event this informatio n is protected by the Federal Confidentiality of Alcohol and Drug Abuse Patient Records regulations: The Federal rules restrict any use of the information to criminally investigate or prosecute any alcohol or drug abuse patient.[facility] Care Teams (unrecognized sec tion and content) Magazine Repairer Relationship Specialty Start Date End Date Flavio Estes [employer]rian[employer] [facility] [place] [address] PCP - General 05/02/07 Team Status: Active Member Role Status Dates Dr. Nathan Arzate DO Primary Care Provider Active Team Status: Active Member Role Status Dates Dr. Cristina Bunn DO Emergency Provider Active Dr. Nathan Arzate DO Primary Care Provider Active Dr. Deidra Chung MD Admit Provider, At tending Provider, Other Provider Active Team Status: Inactive Member Role Status Dates Dr. Cristina Bunn DO Emergency Provider Active Dr. Nathan Arzate DO Primary Care Provider Active Dr. Deidra Chung MD Admit Provider, Attending Provid er Active Team Status: Inactive Member Role Status Dates Dr. Nathan Arzate DO Primary Care Pro vider, Attending Provider, Referring Provider Active Team Status: Active Member Role/Relationship Status Dates CARYL TOVAR Primary Care Provider Active Team Status: Active Member Role/Relationship Status Dates Dr. Cristina Bunn DO Emergency Provider Active S tart: November 10, 2024 CARYL TOVAR Primary Care Provider Active Start: November 10, 2024 Dr. Deidra Almazan DO Admit Provider Active Start: November 10, 2024 Dr. Deidra Almazan DO Attending Provider Active Start: November 10, 2024 Care Team (unrecognized sect ion and content) Care Team Personnel Name: DEIDRA ECHEVERRIA MD Position: P4 Physician - Cardiothoracic Surgery Med Service: Active Provider Member Role: Surgeon Address: Address: [address] [place] [address] [address] [facility] [place] [address]- [place] Name: KRISTI PERAZA RELIGIOUS STUDIES PROFESSOR-EMOTIONAL DISABILITIES TEACHER Position: P4 Advanced Practice Nurse Med Service: Active Provider Member Role: Remote Computer Terminal Operator Address: Address: [facility] [address] [place] [address] [id number] Name: NATHAN ASHLEY MD Member Role: Infectious Disease Address: Address: [address] [address] [address] CLINICIANS/INFECTIOUS DIS [address] Name: NATHAN ARZATE DO Position: P4 Physician - Primary Care Med Service: Active Provider Member Role: Primary Care Physician Address: Address: [address] [place] [address] Care Team Related Persons Name: DANIEL BELL Name: DAMON BELL Care Team Personnel Name: DEIDRA ECHEVERRIA MD Position: P4 Physician - Cardiothoracic Surgery Med Service: Active Provider Member Role: Surgeon Address: Address: [address] [place] [address] [address] [facility] Cardiothoracic Surgery [address] Name: KRISTI PERAZAEMOTIONAL DISABILITIES TEACHER Position: P4 Advanced Practice Nurse Med Service: Active Provider Member Role: Remote Computer Terminal Operator Address: Address: [address] [place] [address] [id number] Name: NATHAN ASHLEY MD Member Role: Infectious Disease Address: Address: [address] [address] [address] CLINICIANS/INFECTIOUS DIS [address] Name: NATHAN ARZATE DO Position: P4 Physician - Primary Care Med Service: Active Provider Member Role: Primary Care Physician Address: Address: [address] [place] [address] Care Team Related Persons Name: DNAIEL BELL Name: DAMON BELL Goals (unrecognized section and content) Goals may be documented in a n alternate section FOR RECORDS PERTAINING TO PATIENTS WHO ARE OR HAVE BEEN ENROLLED IN A CHEMICAL DEPENDENCY/SUBSTANCEABUSE PROGRAM, SOME INFORMATION MAY BE OMITTED. This clinical summary was aggregated from multiple sources. Caution should be exercised in using it in the provision of clinical care. This summary normalizes information from multiple sources, and as a consequence, information in this document may materially change the coding, format and clinical context of patient data. In addition, data may be omitted in some cases. CLINICAL DECISIONS SHOULD BE BASED ON THE PRIMARY CLINICAL RECORDS. [employer] provides no warranty or guarantee of the accuracy or completeness of information in this document.
[2024-11-10 22:59] LABS: Troponin T High Sensitivity 18 ng/L (<=14)
[2024-11-11] VITALS (15 sets, daily range): BP systolic 108–131; BP diastolic 51–92; PULSE 63–115; RESP 16–25; TEMP 36.6–37.1; O2SAT 92–99; BMI 35.6
--- NOTE | 2024-11-11 00:02 | PCM.HOSP.N ---
Hospitalist Note Noted consistent ventricular rate mid to high 60s, with SBP low to mid 90s. EKG obtained demonstrated atrial flutter with variable AV block. Plan to give diltiazem 240 mg CD dose now and stop diltiazem drip in one hour.
[2024-11-11 00:43] LABS: Troponin T High Sens 2 HR 18 ng/L (<=14)
[2024-11-11 02:48] LABS: Staph aureus DNA By PCR POSITIVE (Negative)
[2024-11-11 06:11] LABS: Hematocrit 37.7 % (37-47); Hemoglobin 12.0 g/dL (12.0-15.0); Immature Granulocytes Count 0.030 X10^3/uL (0.0-0.0); Mean Corp Hgb Conc 31.8 g/dL (32-36); Mean Corpuscular Volume 90.4 fL (81-99); Mean Platelet Vol. 10.5 fl (6.2-12.0); NRBC Flagged by Analyzer 0 % (0-5); Platelet Count 208 K/mm3 (150-450); RBC Distribution Width CV 13.8 % (11.6-14.6); RBC Distribution Width SD 46.1 fl (35.1-43.9); Red Blood Count 4.17 M/mm3 (4.2-5.4); White Blood Count 6.8 K/mm3 (4.4-11.0)
[2024-11-11] MEDS: 0.9% Saline Lock 10 ML Syringe IV ×3 (06:12→18:01)
[2024-11-11] MEDS: Piperacil/Tazobactam 3.375 GM in 0.9% Normal Saline (50mL MB+) 50 ML IV (06:12)
--- NOTE | 2024-11-11 08:19 | PN.HOSP_ITS ---
Reason for Visit Chief Complaint: RLE Redness, Swelling and Palpitations. Subjective Subjective Stated she was doing well with Skyrizi but since changed over to Taltz she is not faring as well. Had to be switched over due to insurance not covering the Skyrizi anymore. Objective Data Objective Data Vital Signs: Vital Signs Temp Pulse Resp BP Pulse Ox O2 Del Method 36.8 C 113 H 20 H 110/79 94 Room Air 11/11/24 08:15 11/11/24 08:15 11/11/24 08:15 11/11/24 08:15 11/11/24 08:15 11/11/24 08:15 Oxygen Delivery Method Room Air Weight: 103 kg Body Mass Index (BMI) 35.6 Intake & Output: Intake and Output for Last 24 Hours 11/09/24 11/10/24 11/11/24 23:59 23:59 23:59 Intake Total 686.00 / 687.25 55.00 / 55.00 Output Total 850 / 850 Balance 686.00 / 287.25 -795.00 / -795.00 Lab / Micro Data 11/11/24 05:53 11/11/24 08:48 Labs: Laboratory Results - last 24 hr 11/10/24 15:57: WBC 10.4, RBC 4.79, Hgb 13.9, Hct 43.0, MCV 89.8, MCH 29.0, MCHC 32.3, RDW Std Deviation 44.6 H, RDW Coeff of Charli 13.5, Plt Count 259, MPV 10.9, Immature Gran % (Auto) 0.500, Neut % (Auto) 69.0, Lymph % (Auto) 14.5 L, [place] % (Auto) 10.5 H, Eos % (Auto) 4.4, Baso % (Auto) 1.1 H, Absolute Neuts (auto) 7.2, Absolute Lymphs (auto) 1.50, Nucleated RBC % 0, PT 14.6, INR 1.1, APTT 29.3, Sodium 137, Potassium 4.5, Chloride 102, Carbon Dioxide 23.3, Anion Gap 12, BUN 11, Creatinine 0.77, Estim Creat Clear Calc 86.74, Est GFR (MDRD) Non-Af 84, BUN/Creatinine Ratio 14.3, Glucose 264 H, Hemoglobin A1c 8.3 H, Calcium 9.4, Magnesium 1.8, Total Bilirubin 0.65, AST 25, ALT 9, Alkaline Phosphatase 88, T roponin T High Sens 19 H, Total Protein 8.3, Albumin 3.5, Globulin 4.8 H, A lbumin/Globulin Ratio 0.7 L, TSH 1.700 11/10/24 16:39: Lactic Acid 1.9 11/10/24 18:55: Urine Color Yellow, Urine Clarity Sl. Cloudy, Urine pH 6.0, Ur Specific [place] 1.010, Urine Protein 30 H, Urine Glucose (UA) Normal, Urine Ketones Negative, Urine Occult Blood 10 H, Urine Nitrite Positive H, Urine Bilirubin Negative, Urine Urobilinogen Normal, Ur Leukocyte Esterase 500 H, Urine RBC 0-5 SEEN, Urine WBC 50-100 SEEN, Ur Squamous Epith Cells 5-10 SEEN, Urine Bacteria 1+, Urine Mucus 0 SEEN 11/10/24 21:30: POC Glucose 196 H 11/10/24 22:05: Troponin T High Sens 18 H 11/10/24 23:02: S.aureus Protein A PCR POSITIVE H, MRSA (PCR) Negative 11/11/24 00:10: Troponin T Hi Sens 2 Hr 18 H 11/11/24 05:53: WBC 6.8, RBC 4.17 L, Hgb 12.0, Hct 37.7, MCV 90.4, MCH 28.8, M CHC 31.8 L, RDW Std Deviation 46.1 H, RDW Coeff of Charli 13.8, Plt Count 208, MPV 10.5, Immature Gran % (Auto) 0.400, Neut % (Auto) 61.0, Lymph % (Auto) 17.8 L, M monica % (Auto) 12.7 H, Eos % (Auto) 7.1 H, Baso % (Auto) 1.0, Absolute Neuts (auto) 4.1, Absolute Lymphs (auto) 1.20, Nucleated RBC % 0, Sodium Cancelled, Potassium Cancelled, Chloride Cancelled, Carbon Dioxide Cancelled, Anion Gap Cancelled, BUN Cancelled, Creatinine Cancelled, Estim Creat Clear Calc Cancelled, Est GFR (MDRD) Non-Af Cancelled, BUN/Creatinine Ratio Cancelled, Glucose Cancelled, Calcium Cancelled, Phosphorus Cancelled, Total Bilirubin Cancelled, AST Cancelled, ALT Cancelled, Alkaline Phosphatase Cancelled, Total Protein Cancelled, Albumin Cancelled, Globulin Cancelled, Albumin/Globulin Ratio Cancelled, Triglycerides Cancelled, Cholesterol Cancelled, LDL Cholesterol, Calc Cancelled, VLDL Cholesterol Cancelled, HDL Cholesterol Cancelled, Cholesterol/HDL Ratio Cancelled 11/11/24 06:15: POC Glucose 260 H Radiography Diagnostic Testing: Radiology Impression Lower Extremity CT 11/10/24 16:12 IMPRESSION: Cellulitis without abscess Reading Location: [facility] Physical Exam Const alert and no apparent distress Constitutional Narrative: No respiratory distress. No conversational dyspnea. HEENT head/scalp atraumatic and moist oral mucous membranes Resp normal respiratory effort and no retractions GI normal to inspection, nondistended, normoactive bowel sounds Skin Skin Narrative: Swelling and induration over right buttocks with coalescence of purulent lesions in the center of the induration. Also has a more distal purulent satellite lesion distally down her posterior thigh. Neuro Sensorium / Orientation: awake and alert Assessment & Plan Assessment/Plan (1) Cellulitis: QUALIFIERS: Laterality: right Site of cellulitis: extremity Site of cellulitis of extremity: lower extremity Qualified Code(s): L03.115 - Cellulitis of right lower limb PLAN: RLE. abx w pip/tazo and vancomycin CT showed cellulitis w/o abscess. ID consult However it appears the be some superficial purulence noted. Discussed with Dr. Saini and he plans take the patient to surgery on the at approximately 1300. (2) UTI (urinary tract infection): PLAN: abx as above follow up UCx. (3) Atrial flutter with rapid ventricular response: PLAN: was on a dilt gtt, since changed to PO dilt (2 doses on 2331, then 817) anticoagulated with enoxaparin, therapeutic. This will be held anticipation of surgery on the . echo pending (4) Hyperglycemia due to type 2 diabetes mellitus: QUALIFIERS: Diabetes mellitus terminal system operator insulin use: without snf use Qualified Code(s): E11.65 - Type 2 diabetes mellitus with hyperglycemia PLAN: a1c 8.3 on SSI. add glargine PLAN: Plan Psoriasis: Mary being held given the ongoing infection. VTE prophylaxis: LMWH. Discussed with patient's significant other at bedside. Charges/Coding Visit Charges Inpatient E&M: 61241 Subs Hosp L2
[2024-11-11] MEDS: Lactobacillis Acidophilus 1 CAP PO ×4 (09:33→21:11)
[2024-11-11] MEDS: Cholecalciferol (Vit D3) 125 MCG CAPSULE (5,000 UNITS) PO (09:34)
[2024-11-11] MEDS: Zinc Sulfate 50 mg zinc (220 mg) ORAL capsule PO (09:34)
[2024-11-11] MEDS: Vancomycin HCl 1,750 MG in 0.9% Normal Saline (500mL Bag) 500 ML 250 MG IV ×2 (09:34→21:11)
--- NOTE | 2024-11-11 10:09 | PCM.CONS.GEN ---
Assessment & Plan Assessment/Plan (1) UTI (urinary tract infection): PLAN: Ucx pending. Will narrow zosyn to unasyn. (2) Skin abscess: PLAN: Wound cx with staph so far. Will order MRSA pcr swab. CT showed no collection, but high suspicion for one developing. Will consult gen surg for eval. Cont vanc. Will follow, thank you HPI Consult Data Date of Consult: 11/11/24 HPI Narrative Reason for Consultation: uti HPI Narrative: MONTEZ GOMEZ, is a 64 F with h/o htn, DM, presented with several days progressive R buttock swelling, redness, tenderness, and some purulence. No known inciting event. No fever or chills. Reports some increased urine frequency, no dysuria or abd pain. Came to ED after seeing PCP. Admitted on vanc/zosyn. Feeling a little better this AM. Full ROS performed and neg except as noted above. [facility] Medical History Psoriasis History of pulmonary embolism Diabetes High cholesterol Hypertension Home Medications ?Medication ?Instructions ?Recorded ?Last Taken ?Type alprazolam 0.5 mg tablet 0.5 mg PO TID PRN Anxiety 03/13/22 03/12/22 History gabapentin 600 mg tablet 300 - 600 mg PO BID NEUROPATHY 03/13/22 03/12/22 History metformin 500 mg tablet See Rx Instructions PO BID DM 03/13/22 03/13/22 History metoprolol tartrate 25 mg tablet 25 mg PO BID HEART 03/13/22 03/12/22 History pravastatin 40 mg tablet 40 mg PO QHS CHOLESTEROL 03/13/22 03/12/22 History sertraline 100 mg tablet 100 mg PO DAILY DEPRESSION 03/13/22 03/12/22 History albuterol sulfate 90 mcg/actuation 2 puff inhalation Q6H PRN 03/15/22 Unknown Rx aerosol inhaler shortness of breath or wheezing #8.5 grams guaifenesin 1,200 mg tablet, 1,200 mg PO BID #14 tabs 03/15/22 Unknown Rx extended release 12 hr (Mucinex) betamethasone, augmented 0.05 % 1 applic topical DAILY 11/10/24 Unknown History topical ointment glipizide 10 mg tablet, extended 10 mg PO BID 11/10/24 Unknown History release 24 hr triamcinolone acetonide 0.1 % 1 applic topical BID 11/10/24 Unknown History topical cream Allergy/AdvReac Type Severity Reaction Status Date / Time amlodipine Allergy Hives Verified 11/10/24 15:41 cefdinir (From Omnicef) Allergy Hives Verified 11/10/24 15:41 latex Allergy Hives Verified 11/10/24 15:41 Family History Brother COPD (chronic obstructive pulmonary disease) Surgical History Hx of CABG Social History Smoking Status: Former smoker Physical Exam Const alert, oriented x3 and no apparent distress General Appearance: cooperative HEENT normocephalic and head/scalp atraumatic Eyes PERRL and EOMs intact bilaterally Neck supple and No nodes Resp normal air movement and clear to auscultation bilaterally Cardio regular rate and regular rhythm GI soft to palpation, non-tender and non-distended Extremity General Extremity: Negative for edema Skin Skin Narrative: Large area of induration, redness, tenderness with some pustules over inferior portion of R buttock Neuro CN's II-XII intact bilaterally Lab / Micro Data Attestation: I reviewed the patient's lab results. 11/11/24 05:53 11/10/24 15:57 Labs: Laboratory Results - last 24 hr 11/10/24 15:57: WBC 10.4, RBC 4.79, Hgb 13.9, Hct 43.0, MCV 89.8, MCH 29.0, MCHC 32.3, RDW Std Deviation 44.6 H, RDW Coeff of Charli 13.5, Plt Count 259, MPV 10.9, Immature Gran % (Auto) 0.500, Neut % (Auto) 69.0, Lymph % (Auto) 14.5 L, [place] % (Auto) 10.5 H, Eos % (Auto) 4.4, Baso % (Auto) 1.1 H, Absolute Neuts (auto) 7.2, Absolute Lymphs (auto) 1.50, Nucleated RBC % 0, PT 14.6, INR 1.1, APTT 29.3, Sodium 137, Potassium 4.5, Chloride 102, Carbon Dioxide 23.3, Anion Gap 12, BUN 11, Creatinine 0.77, Estim Creat Clear Calc 86.74, Est GFR (MDRD) Non-Af 84, BUN/Creatinine Ratio 14.3, Glucose 264 H, Hemoglobin A1c 8.3 H, Calcium 9.4, Magnesium 1.8, Total Bilirubin 0.65, AST 25, ALT 9, Alkaline Phosphatase 88, Troponin T High Sens 19 H, Total Protein 8.3, Albumin 3.5, Globulin 4.8 H, Albumin/Globulin Ratio 0.7 L, TSH 1.700 11/10/24 16:39: Lactic Acid 1.9 11/10/24 18:55: Urine Color Yellow, Urine Clarity Sl. Cloudy, Urine pH 6.0, Ur Specific [place] 1.010, Urine Protein 30 H, Urine Glucose (UA) Normal, Urine Ketones Negative, Urine Occult Blood 10 H, Urine Nitrite Positive H, Urine Bilirubin Negative, Urine Urobilinogen Normal, Ur Leukocyte Esterase 500 H, Urine RBC 0-5 SEEN, Urine WBC 50-100 SEEN, Ur Squamous Epith Cells 5-10 SEEN, Urine Bacteria 1+, Urine Mucus 0 SEEN 11/10/24 21:30: POC Glucose 196 H 11/10/24 22:05: Troponin T High Sens 18 H 11/10/24 23:02: S.aureus Protein A PCR POSITIVE H, MRSA (PCR) Negative 11/11/24 00:10: Troponin T Hi Sens 2 Hr 18 H 11/11/24 05:53: WBC 6.8, RBC 4.17 L, Hgb 12.0, Hct 37.7, MCV 90.4, MCH 28.8, MCHC 31.8 L, RDW Std Deviation 46.1 H, RDW Coeff of Charli 13.8, Plt Count 208, MPV 10.5, Immature Gran % (Auto) 0.400, Neut % (Auto) 61.0, Lymph % (Auto) 17.8 L, [place] % (Auto) 12.7 H, Eos % (Auto) 7.1 H, Baso % (Auto) 1.0, Absolute Neuts (auto) 4.1, Absolute Lymphs (auto) 1.20, Nucleated RBC % 0, Sodium Cancelled, Potassium Cancelled, Chloride Cancelled, Carbon Dioxide Cancelled, Anion Gap Cancelled, BUN Cancelled, Creatinine Cancelled, Estim Creat Clear Calc Cancelled, Est GFR (MDRD) Non-Af Cancelled, BUN/Creatinine Ratio Cancelled, Glucose Cancelled, Calcium Cancelled, Phosphorus Cancelled, Total Bilirubin Cancelled, AST Cancelled, ALT Cancelled, Alkaline Phosphatase Cancelled, Total Protein Cancelled, Albumin Cancelled, Globulin Cancelled, Albumin/Globulin Ratio Cancelled, Triglycerides Cancelled, Cholesterol Cancelled, LDL Cholesterol, Calc Cancelled, VLDL Cholesterol Cancelled, HDL Cholesterol Cancelled, Cholesterol/HDL Ratio Cancelled 11/11/24 06:15: POC Glucose 260 H Micro: Microbiology 11/10/24 16:43 Wound Abcess - Buttock Wound Culture - Preliminary Staphylococcus species Imaging Radiology Impression Lower Extremity CT 11/10/24 16:12 IMPRESSION: Cellulitis without abscess [facility]
[2024-11-11 10:19] LABS: Cholesterol 120 mg/dL (<=200); Low Density Lipoprotein Calc. 67 mg/dL; Triglycerides 125 mg/dL; Very Low Density Lipoprotein 25 mg/dL (5-40); cholesterol:hdl ratio screen 4.24
--- NOTE | 2024-11-11 10:20 | CASEMGMT ---
ARIELLA RENO Assessment: ARIELLA RENO to room to meet with pt for initial transition planning/care coordination assessment. ARIELLA RENO introduced self and role at [facility], pt voices understanding and consents to assessment. Pt is A/O and answers all questions appropriately at this time. Pt lying in bed in no distress. Care providers, pharmacy, and demographics verified/updated. Strata: 2 PCP: AUDREY Jernigan Specialists: avery Horner; Stephanie Zelaya IP [place] cardio Preferred Pharmacy: [facility] Insurance: [facility], AAR Prescription Benefit: yes, [employer] LNOK: Jamaal Shearer, sig other. 2 sons Living Arrangements: Pt lives w/Jamaal and oldest son in 2-story home w/3 steps to enter. FFSU. Pt reports having she struggles with the 3 steps to enter her home, stating she usually has someone assist her on them. She reports being independent w/ADL's & IADL's, but states she rarely leaves the home unless someone is w/her. Transportation: Pt drives self and denies concerns with transportation. Jamaal also drives. DME: Pt has a functioning BGM with sufficient supplies but states does not check her BS's often, stating it has been about a month since she checked it last. She states she realizes she is going to need to start checking it more frequently. She has a shower chair, FWW, rollator, and cane. HHC/SNF: Pt has had [facility] in the past and denies SNF stays. Pt states no concerns with going home at time of dc. She declines wanting HHC or OP therapy. Made aware, if she changes her mind after discharging home, to f/u with her PCP about this. She voices understanding. Pt states no further concerns/needs. CM to follow. Advised pt to ask CM if any further question/concerns/needs arise, voices understanding. Plan: Home, follow for possible anti-coagulant. Brant REBOLLAR RN, CM
[2024-11-11 11:00] LABS: AST(SGOT) 20 U/L (<=31); Alanine Aminotransfer ALT/SGPT 7 U/L (<=34); Albumin, Serum 3.0 g/dL (3.4-4.8); Alkaline Phosphatase 98 U/L (35-104); Anion Gap 10 (5-15); BUN 10 mg/dL (4-19); BUN/Creat Ratio 14.9 RATIO (10-20); Calcium,Total 8.5 mg/dL (7.6-11.0); Carbon Dioxide 22.5 mmol/L (21.0-32.0); Chloride 105 mmol/L (98-108); Estimated Creatinine Clearance 85.35 ml/min (50-250); Globulin 3.8 g/dL (2.2-4.2); Glucose 279 mg/dL (70-99); Potassium 4.1 mmol/L (3.3-5.1)
--- NOTE | 2024-11-11 11:45 | CON.PCM.SX_ITS ---
Assessment & Plan Assessment/Plan (1) Skin abscess: QUALIFIERS: Site of cutaneous abscess: buttock Qualified Code(s): L02.31 - Cutaneous abscess of buttock PLAN: I have been consulted in conjunction with Dr. Saini. He has independently evaluated this patient. Patient is a 64 y/o F I am following for a 1 week history of worsening right gluteal fold abscess. Personal history of previous staph infection, diabetes, pulmonary embolism and psoriasis. Dr. Saini will plan to perform an incision and drainage of a right gluteal abscess. Procedure details, risks and benefits have been explained. Culture is pending at this time. Patient continues to see infectious disease. Plan to hold Lovenox and NPO after midnight. Patient scheduled for 1300 tomorrow afternoon. Continue Vancomycin and Unasyn. Patient and her support person have had the opportunity to ask and have questions answered. Patient verbally understands and agrees with the proposed plan. Thank you for allowing us to participate in this patient's care. HPI Consult Data Date of Consult: 11/11/24 HPI Narrative Reason for Consultation: Right gluteal abscess HPI Narrative: MONTEZ GOMEZ, is a 64 F who presents with hypertension and 1 week history of worsening right gluteal abscess. Patient states she thought this area was a psoriasis flare-up 1 week ago. It became increasingly more tender and firm to the patient. She notes a history of staph infections following a CABG procedure in which she had a wound vac placed to assist with healing. Patient developed a pulmonary embolism following a sternal wire removal in 2015. She was placed on Xarelto at that time however has since been discontinued. She currently takes no blood thinners. Patient denies any drainage from the area that she is aware of. She is a diabetic and notes her blood sugars have been trending up. CT scan of the lower extremity obtained in the ED noted cellulitis without abscess. Patient's WBC remains normal range. [facility] Medical History Psoriasis History of pulmonary embolism Diabetes High cholesterol Hypertension Home Medications ?Medication ?Instructions ?Recorded ?Last Taken ?Type alprazolam 0.5 mg tablet 0.5 mg PO TID PRN Anxiety 03/12/22 History gabapentin 600 mg tablet 300 - 600 mg PO BID NEUROPAT HY 03/13/22 03/12/22 History metformin 500 mg tablet See Rx Instructions PO BID D M 03/13/22 03/13/22 History metoprolol tartrate 25 mg tablet 25 mg PO BID HEART 03/12/22 History pravastatin 40 mg tablet 40 mg PO QHS CHOLESTEROL 01/2303/12/22 History sertraline 100 mg tablet 100 mg PO DAILY DEPRESSION 0 03/13/22 03/12/22 History albuterol sulfate 90 mcg/actuation 2 puff inhalation Q 6H PRN 03/15/22 Unknown Rx aerosol inhaler shortness of breath or wheez ing #8.5 grams guaifenesin 1,200 mg tablet, 1,200 mg PO BID #14 tabs 03/15/22 Unknown Rx extended release 12 hr (Mucinex) betamethasone, augmented 0.05 % 1 applic topical DAILY 11/10/24 Unknown History topical ointment glipizide 10 mg tablet, extended 10 mg PO BID 11/10/24 Unknown History release 24 hr triamcinolone acetonide 0.1 % 1 applic topical BID 12/25 Unknown History topical cream Allergy/AdvReac Type Severity Reaction Status Date / Time amlodipine Allergy Hives Verified 11/10/24 15:41 cefdinir (From Omnicef) Allergy Hives Verified 11/10/24 15:41 latex Allergy Hives Verified 11/10/24 15:41 Family History Brother COPD (chronic obstructive pulmonary disease) Surgical History Hx of CABG Social History Smoking Status: Former smoker ROS Constitutional Constitutional: Reports systems reviewed and no addt'l complaints, except as documented Eyes Eyes: Reports systems reviewed and no addt'l complaints, except as documented ENT HEENT: Reports systems reviewed and no addt'l complaints, except as documented Cardiovascular Cardiovascular: Reports systems reviewed and no addt'l complaints, except as documented Respiratory/Chest Respiratory/Chest: Reports systems reviewed and no addt'l complaints, except as documented Gastrointestinal Gastrointestinal: Reports systems reviewed and no addt'l complaints, except as documented Genitourinary Genitourinary: Reports systems reviewed and no addt'l complaints, except as documented Musculoskeletal Musculoskeletal: Reports systems reviewed and no addt'l complaints, except as documented Integumentary Integumentary: Reports systems reviewed and no addt'l complaints, except as documented Neurologic Neurologic: Reports systems reviewed and no addt'l complaints, except as documented Psychiatric Psychiatric: Reports systems reviewed and no addt'l complaints, except as documented Endocrine Endocrinology: Reports systems reviewed and no addt'l complaints, except as documented Hematologic/Lymphatic Hematologic/Lymphatic: Reports systems reviewed and no addt'l complaints, except as documented Allergic/Immunologic Allergic/Immunologic: Reports systems reviewed and no addt'l complaints, except as documented Physical Exam Const alert, oriented x3 and no apparent distress HEENT normocephalic and head/scalp atraumatic Eyes PERRL Neck full ROM Resp normal respiratory effort and clear to auscultation bilaterally Cardio regular rhythm Rate: tachycardic GI normal to inspection, nondistended, normoactive bowel sounds no CVA tenderness Back/Spine no CVA tenderness Extremity Extremity Narrative: Right gluteal fold- approximately 5 cm x 4 cm fluctuant area with associated erythema. Multiple small pimple-like structures. Skin no rashes or lesions noted Neuro no focal motor deficits and no sensory deficits noted Psych mental status grossly normal Lab / Micro Data 11/11/24 05:53 11/11/24 08:48 Labs: Laboratory Results - last 24 hr 11/10/24 15:57: WBC 10.4, RBC 4.79, Hgb 13.9, Hct 43.0, MCV 89.8, MCH 29.0, MCHC 32.3, RDW Std Deviation 44.6 H, RDW Coeff of Charli 13.5, Plt Count 259, MPV 10.9, Immature Gran % (Auto) 0.500, Neut % (Auto) 69.0, Lymph % (Auto) 14.5 L, [place] % (Auto) 10.5 H, Eos % (Auto) 4.4, Baso % (Auto) 1.1 H, Absolute Neuts (auto) 7.2, Absolute Lymphs (auto) 1.50, Nucleated RBC % 0, PT 14.6, INR 1.1, APTT 29.3, Sodium 137, Potassium 4.5, Chloride 102, Carbon Dioxide 23.3, Anion Gap 12, BUN 11, Creatinine 0.77, Estim Creat Clear Calc 86.74, Est GFR (MDRD) Non-Af 84, BUN/Creatinine Ratio 14.3, Glucose 264 H, Hemoglobin A1c 8.3 H, Calcium 9.4, Magnesium 1.8, Total Bilirubin 0.65, AST 25, ALT 9, Alkaline Phosphatase 88, T roponin T High Sens 19 H, Total Protein 8.3, Albumin 3.5, Globulin 4.8 H, A lbumin/Globulin Ratio 0.7 L, TSH 1.700 11/10/24 16:39: Lactic Acid 1.9 11/10/24 18:55: Urine Color Yellow, Urine Clarity Sl. Cloudy, Urine pH 6.0, Ur Specific [place] 1.010, Urine Protein 30 H, Urine Glucose (UA) Normal, Urine Ketones Negative, Urine Occult Blood 10 H, Urine Nitrite Positive H, Urine Bilirubin Negative, Urine Urobilinogen Normal, Ur Leukocyte Esterase 500 H, Urine RBC 0-5 SEEN, Urine WBC 50-100 SEEN, Ur Squamous Epith Cells 5-10 SEEN, Urine Bacteria 1+, Urine Mucus 0 SEEN 11/10/24 21:30: POC Glucose 196 H 11/10/24 22:05: Troponin T High Sens 18 H 11/10/24 23:02: S.aureus Protein A PCR POSITIVE H, MRSA (PCR) Negative 11/11/24 00:10: Troponin T Hi Sens 2 Hr 18 H 11/11/24 05:53: WBC 6.8, RBC 4.17 L, Hgb 12.0, Hct 37.7, MCV 90.4, MCH 28.8, M CHC 31.8 L, RDW Std Deviation 46.1 H, RDW Coeff of Charli 13.8, Plt Count 208, MPV 10.5, Immature Gran % (Auto) 0.400, Neut % (Auto) 61.0, Lymph % (Auto) 17.8 L, M monica % (Auto) 12.7 H, Eos % (Auto) 7.1 H, Baso % (Auto) 1.0, Absolute Neuts (auto) 4.1, Absolute Lymphs (auto) 1.20, Nucleated RBC % 0, Sodium Cancelled, Potassium Cancelled, Chloride Cancelled, Carbon Dioxide Cancelled, Anion Gap Cancelled, BUN Cancelled, Creatinine Cancelled, Estim Creat Clear Calc Cancelled, Est GFR (MDRD) Non-Af Cancelled, BUN/Creatinine Ratio Cancelled, Glucose Cancelled, Calcium Cancelled, Phosphorus Cancelled, Total Bilirubin Cancelled, AST Cancelled, ALT Cancelled, Alkaline Phosphatase Cancelled, Total Protein Cancelled, Albumin Cancelled, Globulin Cancelled, Albumin/Globulin Ratio Cancelled, Triglycerides Cancelled, Cholesterol Cancelled, LDL Cholesterol, Calc Cancelled, VLDL Cholesterol Cancelled, HDL Cholesterol Cancelled, Cholesterol/HDL Ratio Cancelled 11/11/24 06:15: POC Glucose 260 H 11/11/24 08:48: Sodium 138, Potassium 4.1, Chloride 105, Carbon Dioxide 22.5, Anion Gap 10, BUN 10, Creatinine 0.69 L, Estim Creat Clear Calc 85.35, Est GFR (MDRD) Non-Af 96, BUN/Creatinine Ratio 14.9, Glucose 279 H, Calcium 8.5, Phosphorus 2.8, Total Bilirubin 0.50, AST 20, ALT 7, Alkaline Phosphatase 98, Total Protein 6.9, Albumin 3.0 L, Globulin 3.8, Albumin/Globulin Ratio 0.8 L, Triglycerides 125, Cholesterol 120, LDL Cholesterol, Calc 67, VLDL Cholesterol 25, HDL Cholesterol 28 L, Cholesterol/HDL Ratio 4.24 Micro: Microbiology 11/10/24 16:43 Wound Abcess - Buttock Gram Stain - Final 11/10/24 16:43 Wound Abcess - Buttock Wound Culture - Preliminary Staphylococcus species Imaging Radiology Impression Lower Extremity CT 11/10/24 16:12 IMPRESSION: Cellulitis without abscess [facility] Echocardiogram 11/10/24 19:51 Interpretation Summary Mild concentric left ventricular hypertrophy. Borderline LV systolic function. Estimated LVEF 50%. Stage I diastolic dysfunction. There is mild biatrial dilatation. Mildly calcified aortic valve annulus. No aortic valve stenosis or regurgitation. Ordering Physician: Jared Almazan Referring Physician: CARMEN SILVA Performed By: Georgie Kumar RDCS Charges/Coding Visit Charges Inpatient E&M: 35271 Init Hosp L2
[2024-11-11] MEDS: Ampicillin/Sulbactam 3 GM in 0.9% Normal Saline (100mL MB+) 100 ML IV ×2 (12:05→18:01)
[2024-11-11] MEDS: Insulin Glargine-YFGN 100 UNIT/ML Pen 20 UNIT SC (12:13)
[2024-11-11 19:40] LABS: Staph aureus DNA By PCR POSITIVE (Negative)
[2024-11-12] VITALS (16 sets, daily range): BP systolic 115–145; BP diastolic 59–101; PULSE 72–90; RESP 15–20; TEMP 36.1–36.6; O2SAT 93–96; BMI 35.1; BMI 35.0
[2024-11-12] MEDS: Ampicillin/Sulbactam 3 GM in 0.9% Normal Saline (100mL MB+) 100 ML IV ×4 (00:55→18:30)
[2024-11-12 04:46] LABS: Hematocrit 36.3 % (37-47); Hemoglobin 11.5 g/dL (12.0-15.0); Immature Granulocytes Count 0.030 X10^3/uL (0.0-0.0); Mean Corp Hgb Conc 31.7 g/dL (32-36); Mean Corpuscular Volume 91.4 fL (81-99); Mean Platelet Vol. 10.6 fl (6.2-12.0); NRBC Flagged by Analyzer 0 % (0-5); Platelet Count 194 K/mm3 (150-450); RBC Distribution Width CV 13.7 % (11.6-14.6); RBC Distribution Width SD 46.5 fl (35.1-43.9); Red Blood Count 3.97 M/mm3 (4.2-5.4); White Blood Count 5.5 K/mm3 (4.4-11.0)
[2024-11-12 05:42] LABS: Anion Gap 9 (5-15); BUN 11 mg/dL (4-19); BUN/Creat Ratio 17.8 RATIO (10-20); Calcium,Total 8.6 mg/dL (7.6-11.0); Carbon Dioxide 22.3 mmol/L (21.0-32.0); Chloride 108 mmol/L (98-108); Estimated Creatinine Clearance 84.74 ml/min (50-250); Glucose 263 mg/dL (70-99); Potassium 4.2 mmol/L (3.3-5.1)
--- NOTE | 2024-11-12 08:43 | PN.HOSP_ITS ---
Reason for Visit Chief Complaint: RLE Redness, Swelling and Palpitations. Subjective Subjective Feeling well. Still with pain and swelling in her right buttocks. Objective Data Objective Data Vital Signs: Vital Signs Temp Pulse Resp BP Pulse Ox O2 Del Method 36.5 C L 82 16 122/101 H 93 Room Air 11/12/24 07:47 11/12/24 07:58 11/12/24 07:47 11/12/24 07:58 11/12/24 07:47 11/12/24 07:52 Oxygen Delivery Method Room Air Weight: 101.6 kg Body Mass Index (BMI) 35.0 Intake & Output: Intake and Output for Last 24 Hours 11/10/24 11/11/24 11/12/24 23:59 23:59 23:59 Intake Total 686.00 / 687.25 3885.00 / 3885.00 200 / 200 Output Total 850 / 850 Balance 686.00 / 287.25 3035.00 / 3035.00 200 / 200 Lab / Micro Data 11/12/24 04:30 11/12/24 04:30 Labs: Laboratory Results - last 24 hr 11/11/24 08:48: Sodium 138, Potassium 4.1, Chloride 105, Carbon Dioxide 22.5, Anion Gap 10, BUN 10, Creatinine 0.69 L, Estim Creat Clear Calc 85.35, Est GFR (MDRD) Non-Af 96, BUN/Creatinine Ratio 14.9, Glucose 279 H, Calcium 8.5, Phosphorus 2.8, Total Bilirubin 0.50, AST 20, ALT 7, Alkaline Phosphatase 98, Total Protein 6.9, Albumin 3.0 L, Globulin 3.8, Albumin/Globulin Ratio 0.8 L, Triglycerides 125, Cholesterol 120, LDL Cholesterol, Calc 67, VLDL Cholesterol 25, HDL Cholesterol 28 L, Cholesterol/HDL Ratio 4.24 11/11/24 12:11: POC Glucose 335 H 11/11/24 17:03: POC Glucose 268 H 11/11/24 18:10: S.aureus Protein A PCR POSITIVE H, MRSA (PCR) Negative 11/11/24 21:06: POC Glucose 229 H 11/12/24 04:30: WBC 5.5, RBC 3.97 L, Hgb 11.5 L, Hct 36.3 L, MCV 91.4, MCH 29.0, MCHC 31.7 L, RDW Std Deviation 46.5 H, RDW Coeff of Charli 13.7, Plt Count 194, MPV 10.6, Immature Gran % (Auto) 0.500, Neut % (Auto) 64.5, Lymph % (Auto) 18.2 L, [place] % (Auto) 9.8, Eos % (Auto) 5.5 H, Baso % (Auto) 1.5 H, Absolute Neuts (auto) 3.5, Absolute Lymphs (auto) 1.00, Nucleated RBC % 0, Sodium 140, Potassium 4.2, Chloride 108, Carbon Dioxide 22.3, Anion Gap 9, BUN 11, C reatinine 0.60 L, Estim Creat Clear Calc 84.74, Est GFR (MDRD) Non-Af 99, BUN/Creatinine Ratio 17.8, Glucose 263 H, Calcium 8.6, Phosphorus 3.1 11/12/24 06:37: POC Glucose 214 H Micro: Microbiology 11/10/24 16:43 Wound Abcess - Buttock Gram Stain - Final 11/10/24 16:43 Wound Abcess - Buttock Wound Culture - Preliminary Staphylococcus species Radiography Diagnostic Testing: Radiology Impression Echocardiogram 11/10/24 19:51 Interpretation Summary Mild concentric left ventricular hypertrophy. Borderline LV systolic function. Estimated LVEF 50%. Stage I diastolic dysfunction. There is mild biatrial dilatation. Mildly calcified aortic valve annulus. No aortic valve stenosis or regurgitation. Ordering Physician: Jared Almazan Referring Physician: CARMEN SILVA Performed By: Georgie Kumar RDCS Physical Exam Const alert and no apparent distress Constitutional Narrative: Lying in bed. Nontoxic. No respiratory distress. No conversational dyspnea. Resp normal respiratory effort and no retractions Extremity Extremity Narrative: Swelling and induration over the right buttocks. Still with the coalescence of pustules. Tender to palpation. No fluctuance appreciated. Neuro moves all extremities Sensorium / Orientation: awake and alert Speech: speech normal Psych affect normal Assessment & Plan Assessment/Plan (1) Cellulitis: QUALIFIERS: Laterality: right Site of cellulitis: extremity Site of cellulitis of extremity: lower extremity Qualified Code(s): L03.115 - Cellulitis of right lower limb PLAN: RLE. abx w pip/tazo and vancomycin CT showed cellulitis w/o abscess. ID consult However it appears the be some superficial purulence noted. Discussed with Dr. Saini and he plans take the patient to surgery on the at approximately 1300. Wound culture secondary to MSSA. (2) UTI (urinary tract infection): PLAN: abx as above follow up UCx, which is still pending (3) Atrial flutter with rapid ventricular response: PLAN: Continue with oral diltiazem 250 daily and oral metoprolol tartrate 25 twice daily anticoagulated with enoxaparin, therapeutic. This will be held anticipation of surgery on the . echo shows an EF of 50%. (4) Hyperglycemia due to type 2 diabetes mellitus: QUALIFIERS: Diabetes mellitus fpc insulin use: without junior marketing associate use Qualified Code(s): E11.65 - Type 2 diabetes mellitus with hyperglycemia PLAN: a1c 8.3 on SSI. add glargine Still uncontrolled but will monitor for now as patient have surgery today. PLAN: Plan Psoriasis: Mary being held given the ongoing infection. VTE prophylaxis: LMWH. Discussed with patient's significant other at bedside. Charges/Coding Visit Charges Inpatient E&M: 98037 Subs Hosp L2
[2024-11-12 09:50] LABS: Vancomycin, Trough Level 14.6 ug/mL (5.0-15.0)
--- NOTE | 2024-11-12 10:06 | PCM.RX.CS ---
Consult Antibiotic Management Pharmacy has been consulted to manage selected antibiotic: Vancomycin Type of Intervention Type of Consult: Follow-up Suspected Infection Suspected Infection: Skin/Soft tissue Prior Doses of Antibiotics Prior Doses of Antibiotics Received/Current Regimen: 3 (x1 LD, x2 MD) Labs Labs: Sodium 140 mmol/L (133-145) 11/12/24 04:30 Potassium 4.2 mmol/L (3.3-5.1) 11/12/24 04:30 Chloride 108 mmol/L (98-108) 11/12/24 04:30 Carbon Dioxide 22.3 mmol/L (21.0-32.0) 11/12/24 04:30 Anion Gap 9 (5-15) 11/12/24 04:30 BUN 11 mg/dL (4-19) 11/12/24 04:30 Creatinine 0.60 mg/dL (0.70-1.20) L 11/12/24 04:30 Est GFR (MDRD) Non-Af 99 (>60) 11/12/24 04:30 BUN/Creatinine Ratio 17.8 RATIO (10-20) 11/12/24 04:30 Glucose 263 mg/dL (70-99) H 11/12/24 04:30 Vancomycin Trough 14.6 ug/mL (5.0-15.0) 11/12/24 08:50 Microbiology Microbiology: Microbiology 11/10/24 16:43 Wound Abcess - Buttock Gram Stain - Final 11/10/24 16:43 Wound Abcess - Buttock Wound Culture - Preliminary Staphylococcus species Estimated Creatinine Clearance Estimated Creatinine Clearance: 85 Goal Trough Goal Trough: 15-20 mcg/mL Pharmacy Plan for Drug Dosing Pharmacy Plan for Drug Dosing: Pharmacy Service will continue to monitor and adjust dosing as required. VANCOMYCIN LEVEL RECEIVED Current Vancomycin Dose: 1750 mg Q12H Number of Doses Received: 3 (X1 LD, X2 MD) Vancomycin Level: 14.6 Hours Since Last Dose: 12 Renal Function: SCr: 0.6, CrCl: 85 mL/min Renal Function Trend: Improving Lab/Micro: - Wound: Staph species, pending finalization Vancomycin Plan/Comments: Increase dose to 2000 mg Q12H due to low trough level and improving renal function. Pending Level: 11/13/24 @ 2129 Date/Time Labs Ordered Labs to be done on [date and time ordered]: 11/13/24 @ 2129
[2024-11-12] MEDS: Vancomycin HCl 2,000 MG in 0.9% Normal Saline (500mL Bag) 500 ML 250 MG IV ×2 (10:29→22:02)
--- NOTE | 2024-11-12 11:12 | PCM.PRE.AN2 ---
ASA Classification* ASA Classification ASA Classification: 2 Assessment & Plan Anesthesia* Anesthesia Assessment Anesthesia Assessment: Discussed sedation and/or anesthesia options, risks, benefits, and alternatives with patient/parents/legal guardian/POA. Questions invited. The patient/parents/legal guardian/POA seems to understand and agrees to proceed with anesthesia plan. Reviewed the physical assessment, medical history, allergy history and patient home medications list prior to surgery/procedure/anesthetic and documented any changes. Performed airway and anesthesia risk assessments. Anesthesia Type Anesthesia Type: General Anesthesia Focused Assessment* Temperature: 97.7 F Pulse Rate: 82 Blood Pressure: 122/101 Respiratory Rate: 16 Pulse Ox: 93 Airway Assessment Mouth opens: >3 cm Mallampati Score: II Labs Anesthesia Preop lab: CBC WBC 5.5 K/mm3 (4.4-11.0) 11/12/24 04:30 11/12/24 RBC 3.97 M/mm3 (4.2-5.4) L 11/12/24 04:30 11/12/24 Hgb 11.5 g/dL (12.0-15.0) L 11/12/24 04:30 11/12/24 Hct 36.3 % (37-47) L 11/12/24 04:30 11/12/24 Plt Count 194 K/mm3 (150-450) 11/12/24 04:30 11/12/24 CHEMISTRY Potassium 4.2 mmol/L (3.3-5.1) 11/12/24 04:30 11/12/24 Sodium 140 mmol/L (133-145) 11/12/24 04:30 11/12/24 Magnesium 1.8 mg/dL (1.5-2.2) 11/10/24 15:57 11/10/24 Phosphorus 3.1 mg/dL (2.7-4.5) 11/12/24 04:30 11/12/24 BUN 11 mg/dL (4-19) 11/12/24 04:30 11/12/24 Creatinine 0.60 mg/dL (0.70-1.20) L 11/12/24 04:30 11/12/24 Glucose 263 mg/dL (70-99) H 11/12/24 04:30 11/12/24 POC Glucose 214 mg/dL (74-106) H 11/12/24 06:37 11/12/24 TSH 1.700 uIU/mL (0.300-4.200) 11/10/24 15:57 11/10/24 COAG PT 14.6 SECONDS (11.7-14.9) 11/10/24 15:57 11/10/24 Pre-Assessment Diagnosis/Proposed Procedure Planned Operative Procedure(s): exc and drainage of buttock, right Anesthesia History Anesthesia History - human resources benefits administrator: Anesthesia History - human resources benefits administrator Hx Hospitalization Any Problems With Anesthesia No 11/12/24 00:52 Cholinesterase deficiency No 11/12/24 00:52 You/Your Family Experience No 11/12/24 00:52 fever (hyperthermia) with Relationship Recent Exposure to Contagious No 11/12/24 00:52 Disease Does patient have nerve No 11/12/24 00:52 stimulator Patient instructed to have device shut off --Does patient have Pacemaker No 11/12/24 00:52 or ICD? When Was Last Pacemaker Check QUESTION #4 FULL TEXT: You/Your Family Experience fever (hyperthermia) with Anesthesia Last Oral Intake Last Oral intake: Last Oral Intake NPO since 00:00 11/12/24 00:52 Meds taken in AM with sips of water? Meds patient instructed to take am of surgery PONV PONV - human resources benefits administrator: PONV - human resources benefits administrator Female HX of Motion Sickness HX of N/V After Surgery Non-Smoker Duration of Surgery greater than 60 minutes Number of Risk Factors PONV Score Height & Weight Height & Weight: Anesthesia: Height & Weight Height 5 ft 7 in 11/12/24 00:52 Weight: 101.6 kg 11/12/24 03:19 Body Mass Index (BMI) 35.0 11/12/24 03:19 Respiratory Assessment Respiratory Assessment - human resources benefits administrator: Respiratory Tract Infection Hx - human resources benefits administrator Hx Respiratory Tract Infection No 11/12/24 00:52 STOP Sleep Apnea STOP Sleep Apnea - human resources benefits administrator: STOP Sleep Apnea - human resources benefits administrator Hx Hypertension Yes 11/11/24 17:25 Hx Sleep Apnea No 11/10/24 20:34 CPAP BIPAP Do you snore loudly (louder Yes 11/10/24 20:34 than talking or can be heard Do you often feel tired/ No 11/10/24 20:34 fatigued/ sleepy during daytime? Has anyone observed you stop No 11/10/24 20:34 breathing during sleep? STOP Results Positive 11/10/24 20:34 QUESTION #5 FULL TEXT : Do you snore loudly (louder than talking or can be heard through closed doors)? Tobacco Use History Tobacco Use History - human resources benefits administrator: Tobacco Use History - human resources benefits administrator Tobacco Use Smoking Status Former smoker 11/10/24 20:34 Hx Tobacco Use No 11/10/24 20:34 Years Smoking Packs Smoked per Day Smoking Cessation Date was Yes - quit smoking within 11/10/24 20:34 within the last 15 years years Hx Smoking Cessation Date 03/03/14 11/10/24 20:34 Hx Smoking Cessation Yes 11/10/24 20:34 Counseling Hematologic Medial History Hematologic Hx - human resources benefits administrator: Hematologic Medical Hx - postal carrier Hx of Blood Transfusion No 11/10/24 20:34 Hx of Transfusion in last 3 No 11/10/24 20:34 Months Date of Last Transfusion (if within last 3 months) Ever experience any problems No 11/10/24 20:34 with transfusion(s)? Specify any problems Hx of Preganancy in last 3 No 11/10/24 20:34 Months Nurse Filling Out Transfusion TDEVEREAU 11/10/24 20:34 & Questions: Date: 11/10/24 11/10/24 20:34 Time: 21:05 11/10/24 20:34 Patient unable to answer at this time (ie. confused, unrespo /Reproduction History /Reproductive History - human resources benefits administrator: /Reproductive Hx- human resources benefits administrator Hx Now No 11/12/24 00:52 Gestational Age (in weeks): EDC: Hx Hx Para Hx Section SAB No 11/12/24 00:52 Active Medications Active Medications: Current Medications Generic Name Dose Route Start Last Admin Trade Name Freq PRN Reason Stop Dose Admin Acetaminophen 650 mg 11/10/24 20:32 11/11/24 14:32 Acetaminophen 325 Mg Tablet PO 650 mg Q6H PRN PRN Administration Pain 1-12/10 or Fever Al Hydroxide/Mg Hydroxide 30 ml 11/10/24 20:32 Mag Hydrox/Al Hydrox/Simeth 30 Ml Udc PO Q6H PRN PRN Gastric Burning Albuterol Sulfate 2.5 mg 11/10/24 20:35 Albuterol 2.5 Mg/3 Ml Vial.Neb. INHALATION Q6H PRN shortness of breath or wheezing Alprazolam 0.5 mg 11/10/24 20:32 11/11/24 21:12 Alprazolam 0.5 Mg Tablet PO 0.5 mg TID PRN Administration Anxiety Ascorbic Acid 1,000 mg 11/11/24 08:00 11/12/24 10:22 Ascorbic Acid 500 Mg Tablet PO Not Given BIDCM KENYA Cholecalciferol 125 mcg 11/11/24 10:00 11/12/24 10:22 Cholecalciferol (Vit D3) 125 Mcg Capsule (5,000 Units) PO Not Given DAILY KENYA Clobetasol Propionate 1 applic 11/11/24 10:00 11/11/24 09:34 Clobetasol Propionate 0.05% Ointment TOPICAL 1 applic DAILY KENYA Administration Diltiazem HCl 240 mg 11/10/24 23:30 11/12/24 07:57 Diltiazem Cd 240 Mg Capsule PO 240 mg DAILY KENYA Administration Protocol Enoxaparin Sodium 100 mg 11/11/24 07:00 11/11/24 06:16 Enoxaparin 100 Mg/Ml Syringe SC 100 mg Q12 KENYA Administration Gabapentin 600 mg 11/10/24 22:00 11/11/24 21:12 Gabapentin 600 Mg Tablet PO 600 mg BID KENYA Administration Glucagon 1 mg 11/10/24 20:32 Glucagon 1 Mg/Ml Syringe IM X1 PRN HYPOGLYCEMIA Protocol Hydralazine HCl 5 mg 11/10/24 20:32 Hydralazine 20 Mg/Ml Vial IV BID PRN Sbp Greater Than 160 Protocol Vancomycin IV-PHARMACY TO DOSE 500 mls @ 250 mls/hr 11/10/24 20:32 1 each/ Sodium Chloride IV PRN PRN Rx to Dose Protocol Dextrose 250 mls @ 0 mls/hr 11/10/24 20:32 Dextrose 10%-Water IV .Q0M PRN HYPOGLYCEMIA Protocol As Directed Sodium Chloride 250 mls @ 15 mls/hr 11/10/24 20:35 11/11/24 19:37 IV Infused .[id number] PRN Infusion Saline Flush Sodium Chloride 250 mls @ 15 mls/hr 11/10/24 20:35 IV .[id number] PRN Additional IVPB Infusion Ampicillin Sodium/Sulbactam 100 mls @ 150 mls/hr 11/11/24 12:00 11/12/24 07:25 Sodium 3 gm/ Sodium Chloride IV Infused Q6 KENYA Infusion Vancomycin HCl 2,000 mg/ 540 mls @ 250 mls/hr 11/12/24 10:00 11/12/24 10:29 Sodium Chloride IV 250 mls/hr Q12 KENYA Administration Insulin Glargine 20 unit 11/11/24 10:00 11/11/24 12:13 Insulin Glargine-Yfgn 100 Unit/Ml Pen SC 20 unit DAILY KENYA Administration Insulin Human Lispro 0 unit 11/10/24 22:00 11/12/24 06:41 Insulin Lispro 100 Unit/Ml Insuln.Pen SC Not Given ACHS KENYA Protocol Magnesium Hydroxide 30 ml 11/10/24 20:32 Magnesium Hydroxide 30 Ml Udc PO DAILY PRN PRN Constipation Melatonin 3 mg 11/10/24 20:32 Melatonin 3 Mg Tablet PO QHS PRN PRN INSOMNIA Metoprolol Tartrate 25 mg 11/10/24 22:00 11/12/24 07:58 Metoprolol Tartrate 25 Mg Tablet PO 25 mg BID KENYA Administration Protocol Morphine Sulfate 2 mg 11/10/24 20:32 Morphine 2 Mg/Ml Syringe IV Q4H PRN PRN Pain Score 6-10 Ondansetron HCl 4 mg 11/10/24 20:32 Ondansetron 4 Mg/2 Ml Vial IV Q8H PRN PRN NAUSEA/VOMITING Pravastatin Sodium 40 mg 11/10/24 22:00 11/11/24 21:12 Pravastatin 40 Mg Tablet PO 40 mg QHS KENYA Administration Sertraline HCl 100 mg 11/11/24 10:00 11/11/24 09:34 Sertraline 100 Mg Tablet PO 100 mg DAILY KENYA Administration Sodium Chloride 10 - 40 ml 11/10/24 20:35 11/11/24 18:01 0.9% Saline Lock 10 Ml Syringe IV 10 ml UD PRN Administration SALINE FLUSH Vancomycin Protocol 1 lab 11/13/24 20:30 Vancomycin Trough/Random Due MC 11/13/24 22:30 DAILY KENYA Zinc Sulfate 50 mg 11/11/24 10:00 11/11/24 09:34 Zinc Sulfate 50 Mg Zinc (220 Mg) Oral Capsule PO 50 mg DAILY KENYA Administration [facility] Medical History Psoriasis History of pulmonary embolism Diabetes High cholesterol Hypertension Home Medications ?Medication ?Instructions ?Recorded ?Last Taken ?Type alprazolam 0.5 mg tablet 0.5 mg PO TID PRN Anxiety 03/13/22 03/12/22 History gabapentin 600 mg tablet 300 - 600 mg PO BID NEUROPATHY 03/13/22 03/12/22 History metformin 500 mg tablet See Rx Instructions PO BID DM 03/13/22 03/13/22 History metoprolol tartrate 25 mg tablet 25 mg PO BID HEART 03/13/22 03/12/22 History pravastatin 40 mg tablet 40 mg PO QHS CHOLESTEROL 03/13/22 03/12/22 History sertraline 100 mg tablet 100 mg PO DAILY DEPRESSION 03/13/22 03/12/22 History albuterol sulfate 90 mcg/actuation 2 puff inhalation Q6H PRN 03/15/22 Unknown Rx aerosol inhaler shortness of breath or wheezing #8.5 grams guaifenesin 1,200 mg tablet, 1,200 mg PO BID #14 tabs 03/15/22 Unknown Rx extended release 12 hr (Mucinex) betamethasone, augmented 0.05 % 1 applic topical DAILY 11/10/24 Unknown History topical ointment glipizide 10 mg tablet, extended 10 mg PO BID 11/10/24 Unknown History release 24 hr triamcinolone acetonide 0.1 % 1 applic topical BID 11/10/24 Unknown History topical cream Allergy/AdvReac Type Severity Reaction Status Date / Time amlodipine Allergy Hives Verified 11/10/24 15:41 cefdinir (From Omnicef) Allergy Hives Verified 11/10/24 15:41 latex Allergy Hives Verified 11/10/24 15:41 Family History Brother COPD (chronic obstructive pulmonary disease) Surgical History Hx of CABG Social History Smoking Status: Former smoker Review of Systems (Anesthesia) ROS Narrative System reviewed and no additional complaints, except as documented.
--- NOTE | 2024-11-12 12:20 | NURSING ---
called report to AC, no questions at this time [id number]
[2024-11-12] MEDS: 0.9% Normal Saline (1000mL) 1,000 ML 15 ML IV (13:20)
[2024-11-12] MEDS: 0.9% Normal Saline (1000mL) 1,000 ML 1000 ML IV (14:26)
[2024-11-12] MEDS: Midazolam 2 MG/2 ML Syringe IV (14:27)
[2024-11-12] MEDS: fentaNYL 100 MCG/2 ML Ampul IV (14:32)
[2024-11-12] MEDS: Lidocaine 1% (5 ml sdv) 5 ML Vial IV (14:32)
[2024-11-12] MEDS: Bupiv/Epi 0.25% 30 ML Vial (14:48)
--- NOTE | 2024-11-12 15:05 | OP.PCM_ITS ---
Procedures Integumentary 10xxx: [id number] Drainage of skin abscess Operative Report (Standard) Operative Information Date of Procedure: 11/12/24 Pre-Operative Diagnosis: Right gluteal abscess Post-Operative Diagnosis: Same Surgery/Procedure Performed: Patient is in drainage right gluteal abscess nuclear physicist: No Type of Anesthesia: General/Supplemental RN Documented Start/Stop Times: Operation Date: 11/12/24 13:00 Case Time Into Pre-Op 11/12/24 11:55 Out of Pre-Op 11/12/24 14:25 Anesthesia Start 11/12/24 14:26 Into Room 11/12/24 14:26 Procedure Start 11/12/24 14:48 Procedure End 11/12/24 15:00 Anesthesia End 11/12/24 15:20 Out of Room 11/12/24 15:20 Into Recovery 11/12/24 15:25 Out of Recovery 11/12/24 15:49 Procedure Start Time: 14:48 Procedure Stop Time: 15:00 Select all DRAINS/GRAFTS/IMPLANTS that apply: None Estimated Blood Loss: 5 Specimen collected: Yes Description of specimen(s) removed: Culture swabs and tissue culture Description of surgery: After confirming written consent for incision and drainage of right gluteal abscess patient was brought to the operating room and underwent general endotracheal anesthetic per anesthesia. Patient was repositioned in the left lateral decubitus taking care to pad pressure points. Right hip and gluteal region were prepped and draped in usual sterile fashion. A verbal timeout was conducted to confirm the patient and procedure. Then the area was anesthetized with a local block using 0.25% bupivacaine with epinephrine. Then, a 15 blade scalpel was used to make a stab incision in this area. This resulted in production of a mild amount of purulence. Hemostat was used to spread and make the cavity confluent. Culture swabs were taken and the area was more fully unroofed so that I removed a elliptical full-thickness cross-section of skin ultimately measuring 1.5 x 2 cm. The cavity was digitally probed for any remaining loculations. There was some minor undermining particularly medially but this did not exceed 3 to 4 cm in any direction. The cavity was then irrigated with sterile saline. The cavity was packed tightly with quarter inch iodoform gauze strip amounting to approximately three quarters of a bottle worth of gauze. 4 x 4 gauzes were fluffed and soaked folded into halves and taped ov er site. Patient tolerated the procedure without any apparent complication. Surgical Findings: Indurated and fluctuant area over the right gluteus Complications Complications: No
--- NOTE | 2024-11-12 15:23 | PCM.POST.ANE ---
Anesthesia: Postop Eval I Current Vital Signs Temperature: 97 F Pulse Rate: 90 Blood Pressure: 132/76 Respiratory Rate: 20 Pulse Ox: 93 Assessment Airway patent: Yes Spontaneous unlabored respirations: Yes nausea: No Vomiting: No Anesthesia Complication: No Fluid Hydration Crystalloid volume administer (ml): 500 Total IV fluid infused: 500 Progress Note Anesthesia document: Postop Eval 1 completed: Yes
--- NOTE | 2024-11-12 15:46 | POSTOPAN2_ITS ---
Anesthesia Postop Eval I Sum Postop Eval Completion status Anesthesia document: Postop Eval 1 completed: Yes Anesthesia Postop Eval I Summary Anesthesia Postop Eval I Summary: Anesthesia Postop Eval I: Assessment Summary Airway patent Yes 11/12/24 15:24 SHORTAGE WORKER.CSIR Spontaneous unlabored Yes 11/12/24 15:24 SHORTAGE WORKER.CSIR respirations Mental status nausea No 11/12/24 15:24 SHORTAGE WORKER.CSIR Vomiting No 11/12/24 15:24 SHORTAGE WORKER.CSIR Anesthesia Postop Eval I: Fluid Summary Crystalloid volume administer 500 11/12/24 15:24 SHORTAGE WORKER.CSIR (ml) Colloids volume administered ( ml) Blood Product volume administered (ml) Total IV fluid infused 500 11/12/24 15:24 SHORTAGE WORKER.CSIR Anesthesia Postop Eval I: Summary Notes Anesthesia Complication No 11/12/24 15:24 SHORTAGE WORKER.CSIR Anesthesia Complication Comment: Post-operative progress note Anesthesia: Postop Eval II Evaluation Mental status: Awake Pain Level: 0 nausea: No Vomiting: No
--- NOTE | 2024-11-12 15:46 | PCM.POSTANE2 ---
Anesthesia Postop Eval I Sum Postop Eval Completion status Anesthesia document: Postop Eval 1 completed: Yes Anesthesia Postop Eval I Summary Anesthesia Postop Eval I Summary: Anesthesia Postop Eval I: Assessment Summary Airway patent Yes 11/12/24 15:24 POLICE JUSTICE.CSIR Spontaneous unlabored Yes 11/12/24 15:24 POLICE JUSTICE.CSIR respirations Mental status nausea No 11/12/24 15:24 POLICE JUSTICE.CSIR Vomiting No 11/12/24 15:24 POLICE JUSTICE.CSIR Anesthesia Postop Eval I: Fluid Summary Crystalloid volume administer 500 11/12/24 15:24 POLICE JUSTICE.CSIR (ml) Colloids volume administered ( ml) Blood Product volume administered (ml) Total IV fluid infused 500 11/12/24 15:24 POLICE JUSTICE.CSIR Anesthesia Postop Eval I: Summary Notes Anesthesia Complication No 11/12/24 15:24 POLICE JUSTICE.CSIR Anesthesia Complication Comment: Post-operative progress note Anesthesia: Postop Eval II Evaluation Mental status: Awake Pain Level: 0 nausea: No Vomiting: No
[2024-11-12] MEDS: Lactobacillis Acidophilus 1 CAP PO ×2 (17:57→21:49)
[2024-11-12] MEDS: Insulin Glargine-YFGN 100 UNIT/ML Pen 20 UNIT SC (18:13)
[2024-11-12] MEDS: 0.9% Saline Lock 10 ML Syringe IV (21:49)
[2024-11-13] VITALS (7 sets, daily range): BP systolic 105–143; BP diastolic 65–92; PULSE 62–98; RESP 16–18; TEMP 36.4–36.8; O2SAT 92–96; BMI 37.2
[2024-11-13] MEDS: Ampicillin/Sulbactam 3 GM in 0.9% Normal Saline (100mL MB+) 100 ML IV ×4 (00:27→17:11)
[2024-11-13] MEDS: 0.9% Saline Lock 10 ML Syringe IV ×2 (06:41→09:28)
--- NOTE | 2024-11-13 07:15 | PN_ITS ---
Progress Note Patient reports she is in less pain than before surgery. Her cellulitis seems to be receding. I remove the packing. She may be discharged home on oral antibiotics when deemed suitable by the hospitalist service. Follow-up with Dr. Saini. No need to replace the packing. Michael Meade MD Pager: [facility] [address] [place] [address], [address] [place] [phone] Office:
--- NOTE | 2024-11-13 07:15 | PCM.PN.BLA ---
Progress Note Patient reports she is in less pain than before surgery. Her cellulitis seems to be receding. I remove the packing. She may be discharged home on oral antibiotics when deemed suitable by the hospitalist service. Follow-up with Dr. Saini. No need to replace the packing. Michael Meade MD Pager: [facility] [address] [place] [address], [address] [place] [phone] Office:
--- NOTE | 2024-11-13 09:08 | PN.HOSP_ITS ---
Reason for Visit Chief Complaint: RLE Redness, Swelling and Palpitations. Subjective Subjective Feeling well. Less pain today after surgery. Objective Data Objective Data Vital Signs: Vital Signs Temp Pulse Resp BP Pulse Ox O2 Del Method O2 Flow Rate 36.4 C L 62 17 109/66 93 Room Air 2 11/13/24 03:51 11/13/24 03:51 11/13/24 03:51 11/13/24 03:51 11/13/24 03:51 11/13/24 07:46 11/12/24 15:49 Oxygen Flow Rate (L/min) 2 Oxygen Delivery Method Room Air Weight: 107.8 kg Body Mass Index (BMI) 37.2 Intake & Output: Intake and Output for Last 24 Hours 11/11/24 11/12/24 11/13/24 23:59 23:59 23:59 Intake Total 3885.00 / 3885.00 940 / 940 740 / 740 Output Total 850 / 850 5 / 5 Balance 3035.00 / 3035.00 935 / 935 740 / 740 Lab / Micro Data 11/12/24 04:30 11/12/24 04:30 Labs: Laboratory Results - last 24 hr 11/12/24 08:50: Vancomycin Trough 14.6 11/12/24 11:28: POC Glucose 185 H 11/12/24 17:51: POC Glucose 289 H 11/12/24 22:06: POC Glucose 359 H 11/13/24 06:39: POC Glucose 276 H Micro: Microbiology 11/10/24 16:39 Blood Culture (Wb) - Left Forearm Blood Culture - Preliminary No growth in 48 hours. 11/10/24 15:51 Blood Culture (Wb) - Left Hand Blood Culture - Preliminary No growth in 48 hours. 11/12/24 Unknown Wound Abcess - Buttock Gram Stain - Final 11/12/24 Unknown Tissue - Buttock Gram Stain - Final 11/10/24 16:43 Wound Abcess - Buttock Gram Stain - Final 11/10/24 16:43 Wound Abcess - Buttock Wound Culture - Final Staphylococcus aureus Physical Exam Const alert and no apparent distress Constitutional Narrative: In bed. Nontoxic. HEENT head/scalp atraumatic and moist oral mucous membranes Resp normal respiratory effort and no retractions Skin Skin Narrative: Improved induration and erythema. Surgical site was still oozing but not actively bleeding. Neuro Sensorium / Orientation: awake and alert Assessment & Plan Assessment/Plan (1) Cellulitis: QUALIFIERS: Laterality: right Site of cellulitis: extremity Site of cellulitis of extremity: lower extremity Qualified Code(s): L03.115 - Cellulitis of right lower limb PLAN: RLE. abx w pip/tazo and vancomycin CT showed cellulitis w/o abscess. ID consult Pt underwent drainage of right gluteal abscess on 11/12 Wound culture secondary to MSSA. (2) UTI (urinary tract infection): PLAN: abx as above follow up UCx, which is still pending (3) Atrial flutter with rapid ventricular response: PLAN: Continue with oral diltiazem 250 daily and oral metoprolol tartrate 25 twice daily anticoagulated with enoxaparin, therapeutic. This will be held anticipation of surgery on the . echo shows an EF of 50%. (4) Hyperglycemia due to type 2 diabetes mellitus: QUALIFIERS: Diabetes mellitus long-term insulin use: without long-term use Qualified Code(s): E11.65 - Type 2 diabetes mellitus with hyperglycemia PLAN: a1c 8.3 on SSI. add glargine Still uncontrolled but will monitor for now as patient have surgery today. PLAN: Plan Psoriasis: Taltz being held given the ongoing infection. VTE prophylaxis: LMWH. Disposition: Plan to monitor the patient overnight as the wound is still actively oozing. Charges/Coding Visit Charges Inpatient E&M: 83945 Subs Hosp L2
[2024-11-13] MEDS: Lactobacillis Acidophilus 1 CAP PO ×4 (09:29→21:29)
[2024-11-13] MEDS: Zinc Sulfate 50 mg zinc (220 mg) ORAL capsule PO (09:29)
[2024-11-13] MEDS: Cholecalciferol (Vit D3) 125 MCG CAPSULE (5,000 UNITS) PO (09:29)
[2024-11-13] MEDS: Insulin Glargine-YFGN 100 UNIT/ML Pen 20 UNIT SC (09:35)
[2024-11-13] MEDS: Vancomycin HCl 2,000 MG in 0.9% Normal Saline (500mL Bag) 500 ML 250 MG IV (09:37)
[2024-11-13 21:56] LABS: Vancomycin, Trough Level 23.1 ug/mL (5.0-15.0)
--- NOTE | 2024-11-13 22:10 | PCM.RX.CS ---
Consult Antibiotic Management Pharmacy has been consulted to manage selected antibiotic: Vancomycin Type of Intervention Type of Consult: Follow-up Suspected Infection Suspected Infection: Skin/Soft tissue Labs Labs: Sodium 140 mmol/L (133-145) 11/12/24 04:30 Potassium 4.2 mmol/L (3.3-5.1) 11/12/24 04:30 Chloride 108 mmol/L (98-108) 11/12/24 04:30 Carbon Dioxide 22.3 mmol/L (21.0-32.0) 11/12/24 04:30 Anion Gap 9 (5-15) 11/12/24 04:30 BUN 11 mg/dL (4-19) 11/12/24 04:30 Creatinine 0.60 mg/dL (0.70-1.20) L 11/12/24 04:30 Est GFR (MDRD) Non-Af 99 (>60) 11/12/24 04:30 BUN/Creatinine Ratio 17.8 RATIO (10-20) 11/12/24 04:30 Glucose 263 mg/dL (70-99) H 11/12/24 04:30 Vancomycin Trough 23.1 ug/mL (5.0-15.0) H 11/13/24 21:05 Microbiology Microbiology: Microbiology 11/10/24 18:55 Urine, Clean Catch Urine Culture - Preliminary Staphylococcus aureus Streptococcus agalactiae (B) 11/10/24 16:39 Blood Culture (Wb) - Left Forearm Blood Culture - Preliminary No growth in 48 hours. 11/10/24 15:51 Blood Culture (Wb) - Left Hand Blood Culture - Preliminary No growth in 48 hours. 11/12/24 Unknown Wound Abcess - Buttock Gram Stain - Final 11/12/24 Unknown Tissue - Buttock Gram Stain - Final 11/10/24 16:43 Wound Abcess - Buttock Gram Stain - Final 11/10/24 16:43 Wound Abcess - Buttock Wound Culture - Final Staphylococcus aureus Estimated Creatinine Clearance Estimated Creatinine Clearance: 84 Goal Trough Goal Trough: 15-20 mcg/mL Pharmacy Plan for Drug Dosing Pharmacy Plan for Drug Dosing: VANCOMYCIN LEVEL RECEIVED Current Vancomycin Dose: 2000mg Q12H Number of Doses Received: 2000mg x3 Vancomycin Level: 23.1 Hours Since Last Dose: 11.5 Renal Function: sCr 0.6 Renal Function Trend: stable Lab/Micro: wound cx pending Vancomycin Plan/Comments: HOLD Vancomycin due to SUPRAtherapeutic trough level Pending Level: Random @ 06:00 11/14/24 to assess clearance Pharmacy Service will continue to monitor and adjust dosing as required. Follow-Up Labs Follow-Up Labs: Trough: Vancomycin (11/14/24 @ 06:00)
[2024-11-14] MEDS: Ampicillin/Sulbactam 3 GM in 0.9% Normal Saline (100mL MB+) 100 ML IV ×2 (00:02→05:05)
[2024-11-14 02:43] VITALS: BMI 38.9
[2024-11-14 06:29] VITALS: BP 107/55; PULSE 63; RESP 16; TEMP 36.7; O2SAT 94
[2024-11-14 06:30] LABS: Hematocrit 35.1 % (37-47); Hemoglobin 11.0 g/dL (12.0-15.0); Immature Granulocytes Count 0.080 X10^3/uL (0.0-0.0); Mean Corp Hgb Conc 31.3 g/dL (32-36); Mean Corpuscular Volume 92.9 fL (81-99); Mean Platelet Vol. 10.5 fl (6.2-12.0); NRBC Flagged by Analyzer 0 % (0-5); Platelet Count 219 K/mm3 (150-450); RBC Distribution Width CV 14.0 % (11.6-14.6); RBC Distribution Width SD 47.6 fl (35.1-43.9); Red Blood Count 3.78 M/mm3 (4.2-5.4); White Blood Count 6.6 K/mm3 (4.4-11.0)
[2024-11-14 06:55] LABS: Vancomycin, Random Level 15.9 ug/mL (0.0-15.0)
[2024-11-14 06:56] LABS: Anion Gap 9 (5-15); BUN 13 mg/dL (4-19); BUN/Creat Ratio 17.2 RATIO (10-20); Calcium,Total 8.5 mg/dL (7.6-11.0); Carbon Dioxide 23.7 mmol/L (21.0-32.0); Chloride 107 mmol/L (98-108); Estimated Creatinine Clearance 89.59 ml/min (50-250); Glucose 312 mg/dL (70-99); Potassium 4.4 mmol/L (3.3-5.1)
--- NOTE | 2024-11-14 07:14 | PCM.RX.CS ---
Consult Antibiotic Management Pharmacy has been consulted to manage selected antibiotic: Vancomycin Type of Intervention Type of Consult: Follow-up Suspected Infection Suspected Infection: Skin/Soft tissue Labs Labs: Sodium 139 mmol/L (133-145) 11/14/24 05:52 Potassium 4.4 mmol/L (3.3-5.1) 11/14/24 05:52 Chloride 107 mmol/L (98-108) 11/14/24 05:52 Carbon Dioxide 23.7 mmol/L (21.0-32.0) 11/14/24 05:52 Anion Gap 9 (5-15) 11/14/24 05:52 BUN 13 mg/dL (4-19) 11/14/24 05:52 Creatinine 0.73 mg/dL (0.70-1.20) 11/14/24 05:52 Est GFR (MDRD) Non-Af 91 (>60) 11/14/24 05:52 BUN/Creatinine Ratio 17.2 RATIO (10-20) 11/14/24 05:52 Glucose 312 mg/dL (70-99) H 11/14/24 05:52 Vancomycin Trough 23.1 ug/mL (5.0-15.0) H 11/13/24 21:05 Random Vancomycin 15.9 ug/mL (0.0-15.0) H 11/14/24 05:52 Microbiology Microbiology: Microbiology 11/10/24 18:55 Urine, Clean Catch Urine Culture - Preliminary Staphylococcus aureus Streptococcus agalactiae (B) 11/10/24 16:39 Blood Culture (Wb) - Left Forearm Blood Culture - Preliminary No growth in 48 hours. 11/10/24 15:51 Blood Culture (Wb) - Left Hand Blood Culture - Preliminary No growth in 48 hours. 11/12/24 Unknown Wound Abcess - Buttock Gram Stain - Final 11/12/24 Unknown Tissue - Buttock Gram Stain - Final 11/10/24 16:43 Wound Abcess - Buttock Gram Stain - Final 11/10/24 16:43 Wound Abcess - Buttock Wound Culture - Final Staphylococcus aureus Pharmacy Plan for Drug Dosing Pharmacy Plan for Drug Dosing: VANCOMYCIN LEVEL RECEIVED Current Vancomycin Dose: held, previously on 2000mg q12 Number of Doses Received: 6 Vancomycin Level: 15.9 mg/dL Hours Since Last Dose: 20.5 Renal Function: SCr 0.73mg/dL, CrCl 89 mL/min Renal Function Trend: stable Vancomycin Plan/Comments: 20.5 hour random level is now therapeutic at 15.9 mg/dL (goal 15-20). Will resume dosing at 1750mg Q12 and get a trough prior to 4th dose of new regimen. Pending Level: 11/15/24 @ 1930 Pharmacy Service will continue to monitor and adjust dosing as required.
--- NOTE | 2024-11-14 07:47 | PCM.PN.HOSP ---
Reason for Visit Chief Complaint: RLE Redness, Swelling and Palpitations. Objective Data Objective Data Vital Signs: Vital Signs Temp Pulse Resp BP Pulse Ox O2 Del Method O2 Flow Rate 36.7 C 63 16 107/55 L 94 Room Air 2 11/14/24 06:11/14/24 06:11/14/24 06:11/14/24 06:11/14/24 06:11/14/24 06:11/12/24 15:49 Oxygen Flow Rate (L/min) 2 Oxygen Delivery Method Room Air Weight: 112.7 kg Body Mass Index (BMI) 38.9 Intake & Output: Intake and Output for Last 24 Hours 11/12/24 11/13/24 11/14/24 23:59 23:59 23:59 Intake Total 940 / 940 2200 / 2200 1000 / 1000 Output Total 5 / 5 Balance 935 / 935 2200 / 2200 1000 / 1000 Lab / Micro Data 11/14/24 05:52 11/14/24 05:52 Labs: Laboratory Results - last 24 hr 11/13/24 11:43: POC Glucose 395 H 11/13/24 16:58: POC Glucose 357 H 11/13/24 21:05: Vancomycin Trough 23.1 H 11/13/24 21:28: POC Glucose 352 H 11/14/24 05:52: WBC 6.6, RBC 3.78 L, Hgb 11.0 L, Hct 35.1 L, MCV 92.9, MCH 29.1, MCHC 31.3 L, RDW Std Deviation 47.6 H, RDW Coeff of Charli 14.0, Plt Count 219, MPV 10.5, Immature Gran % (Auto) 1.200 H, Neut % (Auto) 70.0, Lymph % (Auto) 18.9 L, [place] % (Auto) 7.0, Eos % (Auto) 2.0, Baso % (Auto) 0.9, Absolute Neuts (auto) 4.6, Absolute Lymphs (auto) 1.24, Nucleated RBC % 0, Sodium 139, Potassium 4.4, Chloride 107, Carbon Dioxide 23.7, Anion Gap 9, BUN 13, Creatinine 0.73, Estim Creat Clear Calc 89.59, Est GFR (MDRD) Non-Af 91, BUN/Creatinine Ratio 17.2, Glucose 312 H, Calcium 8.5, Random Vancomycin 15.9 H 11/14/24 06:29: POC Glucose 258 H Micro: Microbiology 11/10/24 18:55 Urine, Clean Catch Urine Culture - Preliminary Staphylococcus aureus Streptococcus agalactiae (B) 11/10/24 16:39 Blood Culture (Wb) - Left Forearm Blood Culture - Preliminary No growth in 48 hours. 11/10/24 15:51 Blood Culture (Wb) - Left Hand Blood Culture - Preliminary No growth in 48 hours. 11/12/24 Unknown Wound Abcess - Buttock Gram Stain - Final 11/12/24 Unknown Tissue - Buttock Gram Stain - Final 11/10/24 16:43 Wound Abcess - Buttock Gram Stain - Final 11/10/24 16:43 Wound Abcess - Buttock Wound Culture - Final Staphylococcus aureus Assessment & Plan Assessment/Plan (1) Cellulitis: QUALIFIERS: Laterality: right Site of cellulitis: extremity Site of cellulitis of extremity: lower extremity Qualified Code(s): L03.115 - Cellulitis of right lower limb PLAN: RLE. abx w amp/SB and vancomycin CT showed cellulitis w/o abscess. ID consult Pt underwent drainage of right gluteal abscess on 11/12 Wound culture secondary to MSSA. DC with bactrim DS. (2) UTI (urinary tract infection): PLAN: Urine culture showing group B strep, but coliform counts are only 11-25,000 and there was Staph aureus noted but colony counts was less than 1000. Therefore, UTI is ruled out (3) Atrial flutter with rapid ventricular response: PLAN: Continue with oral diltiazem 250 daily and oral metoprolol tartrate 25 twice daily anticoagulate w apixaban. echo shows an EF of 50%. (4) Hyperglycemia due to type 2 diabetes mellitus: QUALIFIERS: Diabetes mellitus computer terminal operator insulin use: without computer terminal operator use Qualified Code(s): E11.65 - Type 2 diabetes mellitus with hyperglycemia PLAN: a1c 8.3 on SSI. continue with glipizide and metformin upon discharge. PLAN: Plan Psoriasis: Taltz being held given the ongoing infection. 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 VTE prophylaxis: LMWH. Disposition: To home.
[2024-11-14] MEDS: Vancomycin HCl 1,750 MG in 0.9% Normal Saline (500mL Bag) 500 ML 250 MG IV (08:24)
[2024-11-14 09:25] VITALS: BP 112/49; PULSE 66; RESP 18; TEMP 36.7; O2SAT 92
[2024-11-14] MEDS: Zinc Sulfate 50 mg zinc (220 mg) ORAL capsule PO (09:27)
[2024-11-14] MEDS: Lactobacillis Acidophilus 1 CAP PO (09:27)
[2024-11-14] MEDS: Cholecalciferol (Vit D3) 125 MCG CAPSULE (5,000 UNITS) PO (09:27)
[2024-11-14 09:28] VITALS: BP 112/49; PULSE 66
[2024-11-14] MEDS: Insulin Glargine-YFGN 100 UNIT/ML Pen 20 UNIT SC (09:29)
--- NOTE | 2024-11-14 10:34 | DS.PCM_ITS ---
Providers Date of Admission: 11/10/24 Primary Care Physician: CARYL TOVAR Consultations 11/10/24 20:42 Consult: Infectious Disease Routine Consulting Provider: Suhas Gomez Reason for Consult: Abscess EMERGENT Consult: No MD Notified: Yes Date Notified: 11/10/24 Time Notified: 21:10 Method of Notification: Answering Service 11/11/24 10:05 Consult: General Surgery Routine Consulting Provider: Solis Saini Reason for Consult: L buttock abscess EMERGENT Consult: No MD Notified: Yes Date Notified: 11/11/24 Time Notified: 10:05 Method of Notification: Text Reason For Visit: RLE CELLULITIS WITH EARLY ABSCESS, HYPERGLYCEMIA & Diagnosis Discharge Diagnosis (1) Cellulitis: Status: Acute Code(s): L03.90 - Cellulitis, unspecified Qualifiers: Site of cellulitis: extremity Site of cellulitis of extremity: lower extremity Laterality: right Qualified Code(s): L03.115 - Cellulitis of right lower limb Plan: RLE. abx w amp/SB and vancomycin CT showed cellulitis w/o abscess. ID consult Pt underwent drainage of right gluteal abscess on 11/12 Wound culture secondary to MSSA. DC with bactrim DS. (2) UTI (urinary tract infection): Status: Acute Code(s): N39.0 - Urinary tract infection, site not specified Plan: Urine culture showing group B strep, but coliform counts are only 11-25,000 and there was Staph aureus noted but colony counts was less than 1000. Therefore, UTI is ruled out (3) Atrial flutter with rapid ventricular response: Status: Acute Code(s): I48.92 - Unspecified atrial flutter Plan: Continue with oral diltiazem 250 daily and oral metoprolol tartrate 25 twice daily anticoagulate w apixaban. echo shows an EF of 50%. (4) Hyperglycemia due to type 2 diabetes mellitus: Status: Acute Code(s): E11.65 - Type 2 diabetes mellitus with hyperglycemia Qualifiers: Diabetes mellitus [facility] insulin use: without [facility] use Q ualified Code(s): E11.65 - Type 2 diabetes mellitus with hyperglycemia Plan: a1c 8.3 on SSI. continue with glipizide and metformin upon discharge. Plan Psoriasis: Taltz being held given the ongoing infection. 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 VTE prophylaxis: LMWH. Disposition: To home. Medications at Discharge Home Medications alprazolam 0.5 mg tablet 0.5 mg PO TID PRN Anxiety 03/13/22 gabapentin 600 mg tablet 300 - 600 mg PO BID NEUROPATHY 03/13/22 metformin 500 mg tablet See Rx Instructions PO BID DM 03/13/22 Held on 11/14/24. Instructions: Resume on 11/15/24. metoprolol tartrate 25 mg tablet 25 mg PO BID HEART 03/13/22 pravastatin 40 mg tablet 40 mg PO QHS CHOLESTEROL 03/13/22 sertraline 100 mg tablet 100 mg PO DAILY DEPRESSION 03/13/22 albuterol sulfate 90 mcg/actuation aerosol inhaler 2 puff inhalation Q6H PRN shortness of breath or wheezing #8.5 grams 03/15/22 guaifenesin 1,200 mg tablet, extended release 12 hr (Mucinex) 1,200 mg PO BID #14 tabs 03/15/22 betamethasone, augmented 0.05 % topical ointment 1 applic topical DAILY 11/10/24 glipizide 10 mg tablet, extended release 24 hr 10 mg PO BID 11/10/24 triamcinolone acetonide 0.1 % topical cream 1 applic topical BID 11/10/24 apixaban 5 mg tablet 5 mg PO BID #60 tabs 11/14/24 diltiazem HCl 240 mg capsule,extended release 24 hr 240 mg PO DAILY #30 caps 11/14/24 sulfamethoxazole 800 mg-trimethoprim 160 mg tablet (Bactrim DS) 1 tab PO BID #10 tabs 11/14/24 Hospital Course Operations - (drainage of right gluteal abscess. ) Procedures None Summary of Care Provided Hospital Course: Greater than 30-minute spent on discharge. Patient presents with cellulitis of her right gluteus. CAT scan was negative for any abscess but patient did have a purulent vesicles noted superficially. Patient underwent an I&D of the region. Culture grew out MSSA. Initially thought the patient had UTI but her CFU's and her urine culture was low so not felt to actually have urinary tract infection. Patient will be discharged with Bactrim. Patient also did have atrial fibrillation upon admission. She has been started on metoprolol and anticoagulated with apixaban. Patient had echocardiogram showed an EF of 50%. Weight / BMI Weight Weight: 112.7 kg Body Mass Index (BMI) 38.9 ABG / Lab / Microbiology Data 11/14/24 05:52 11/14/24 05:52 Laboratory: Laboratory Results - last 24 hr 11/13/24 11:43: POC Glucose 395 H 11/13/24 16:58: POC Glucose 357 H 11/13/24 21:05: Vancomycin Trough 23.1 H 11/13/24 21:28: POC Glucose 352 H 11/14/24 05:52: WBC 6.6, RBC 3.78 L, Hgb 11.0 L, Hct 35.1 L, MCV 92.9, MCH 29.1, MCHC 31.3 L, RDW Std Deviation 47.6 H, RDW Coeff of Charli 14.0, Plt Count 219, MPV 10.5, Immature Gran % (Auto) 1.200 H, Neut % (Auto) 70.0, Lymph % (Auto) 18.9 L, [place] % (Auto) 7.0, Eos % (Auto) 2.0, Baso % (Auto) 0.9, Absolute Neuts (auto) 4.6, Absolute Lymphs (auto) 1.24, Nucleated RBC % 0, Sodium 139, Potassium 4.4, Chloride 107, Carbon Dioxide 23.7, Anion Gap 9, BUN 13, Creatinine 0.73, Estim Creat Clear Calc 89.59, Est GFR (MDRD) Non-Af 91, BUN/Creatinine Ratio 17.2, G lucose 312 H, Calcium 8.5, Random Vancomycin 15.9 H 11/14/24 06:29: POC Glucose 258 H Microbiology: Microbiology 11/10/24 18:55 Urine, Clean Catch Urine Culture - Final Staphylococcus aureus Streptococcus agalactiae (B) 11/12/24 Unknown Tissue - Buttock Gram Stain - Final 11/12/24 Unknown Tissue - Buttock Wound Culture - Preliminary Staphylococcus aureus 11/12/24 Unknown Wound Abcess - Buttock Gram Stain - Final 11/12/24 Unknown Wound Abcess - Buttock Wound Culture - Preliminary Staphylococcus aureus 11/10/24 16:39 Blood Culture (Wb) - Left Forearm Blood Culture - Preliminary No growth in 48 hours. 11/10/24 15:51 Blood Culture (Wb) - Left Hand Blood Culture - Preliminary No growth in 48 hours. 11/10/24 16:43 Wound Abcess - Buttock Gram Stain - Final 11/10/24 16:43 Wound Abcess - Buttock Wound Culture - Final Staphylococcus aureus D/C Instructions Call your doctor if your incision/area has: Sudden Increased Bleeding, Increased Pain/ Swelling, Increased Redness, Foul Smelling Discharge and Swelling at the incision site DC O2, CPAP, BIPAP Needs Home O2 Discharge instructions: No Meaningful Use Info Meaningful Use Meaningful Use Diagnoses (Choose all that apply): None applicable Discharge Plan Admission Admit Date/Time: 11/10/24 19:42 Primary Reason for Your Visit: Cellulitis Attending Provider: Mikel Dangelo Primary Care Provider: CARMEN SILVA Consulting Providers: Jared Almazan; Solis Saini; Suhas Gomez Instructions Additional Instructions / Restrictions: Change dressing on your wound daily and as needed. Discharge Orders/Prescriptions Prescriptions: New diltiazem HCl 240 mg Capsule,Extended Release 24hr 240 mg PO DAILY Qty: 30 0RF sulfamethoxazole-trimethoprim [Bactrim DS] 800-160 mg tablet 1 tab PO BID Qty: 10 0RF apixaban 5 mg tablet 5 mg PO BID Qty: 60 0RF Continued gabapentin 600 mg tablet 300 - 600 mg PO BID Patient Comments: TAKE 1/2 TO 1 TABLET BYCMOUTH TWICE DAILY. pravastatin 40 mg tablet 40 mg PO QHS Patient Comments: TAKE (1) TABLET BY MOUTHTDAILY AT BEDTIME. sertraline 100 mg tablet 100 mg PO DAILY Patient Comments: TAKE 1 TABLET BY MOUTHDONCE DAILY alprazolam 0.5 mg tablet 0.5 mg PO TID PRN (Reason: Anxiety) Patient Comments: TAKE 1 TABLET BY MOUTH 3 TIMES DAILY NEEDED. metoprolol tartrate 25 mg tablet 25 mg PO BID Patient Comments: TAKE (1) TABLET BY MOUTHTTWICE A DAY. albuterol sulfate 90 mcg/actuation HFA aerosol inhaler 2 puff inhalation Q6H PRN (Reason: shortness of breath or wheezing) Qty: 8.5 0RF guaifenesin [Mucinex] 1,200 mg tablet extended release 12hr 1,200 mg PO BID Qty: 14 0RF glipizide 10 mg tablet extended release 24hr 10 mg PO BID betamethasone, augmented 0.05 % ointment 1 applic topical DAILY triamcinolone acetonide 0.1 % cream 1 applic topical BID Held metformin 500 mg tablet See Rx Instructions PO BID Hold Instructions: Resume on 11/15/24. Patient Comments: TAKE (2) TABLETS BY MOUTHLTWICE DAILY. Rx Instructions: 1,000 mg and 500 mg at night orally twice a day; Referrals / Follow Up: Suhas Arzate DO [Non-Staff] - Within 1 Week CARMEN SILVA NP-C [Primary Care Provider] - [facility] [Provider Group] - Within 1 Month Disposition Disposition (needs filled in before D/C Order can be placed): Home, Self Care Charges/Coding Visit Charges Inpatient E&M: 66247 Disch Hosp >30min
[2024-11-14 11:08] VITALS: BP 112/49; PULSE 66; RESP 18; TEMP 36.7; O2SAT 92
== END 2024-11-14 11:57 | disposition home or self-care (01) | DRG 603 ==
LOC: ED 19:24 → PCU 20:02
PROVIDERS: Internal Medicine Infectious Disease; Surgery; Admitting Provider Internal Medicine; Emergency Provider Emergency Medicine; PCP Nurse Practitioner Family
PROC: 0J990ZZ Drainage of Buttock Subcutaneous Tissue and Fascia, Open Approach (ICD-10-PCS; principal; 2024-11-12 12:50)
DX: L03.317 Cellulitis of buttock (principal); I48.92 Unspecified atrial flutter; L03.115 Cellulitis of right lower limb; E11.42 Type 2 diabetes mellitus with diabetic polyneuropathy; E11.65 Type 2 diabetes mellitus with hyperglycemia; B95.61 Methicillin susceptible Staphylococcus aureus infection as the cause of diseases classified elsewhere; I10 Essential (primary) hypertension; F32.A Depression, unspecified; E66.811 Obesity, class 1; F41.9 Anxiety disorder, unspecified; M19.90 Unspecified osteoarthritis, unspecified site; I25.10 Atherosclerotic heart disease of native coronary artery without angina pectoris; L40.9 Psoriasis, unspecified; E78.00 Pure hypercholesterolemia, unspecified; I48.91 Unspecified atrial fibrillation; R23.8 Other skin changes; Z68.34 Body mass index [BMI] 34.0-34.9, adult; Z79.2 Long term (current) use of antibiotics; Z79.84 Long term (current) use of oral hypoglycemic drugs; Z79.01 Long term (current) use of anticoagulants; Z87.891 Personal history of nicotine dependence; Z86.711 Personal history of pulmonary embolism; Z95.1 Presence of aortocoronary bypass graft
CPT/HCPCS: 36415; 73701; 80048; 80053; 80061; 80202; 81001; 82962; 83036; 83605; 83735; 84100; 84443; 84484; 85025; 85610; 85730; 87015; 87040; 87070; 87075; 87077; 87086; 87088; 87116; 87176; 87186; 87205; 87206; 87640; 93005; 93306; 94668; 94760; 97162; 99285; Q9967; A4216; J0295; J2405